=== PATIENT | female | born 1960 | race Caucasian/White ===

== ENCOUNTER 2017-09-25 19:20 | Emergency (ER) | payer OTHER ==
[2017-09-25] MEDS ORDERED: MEPERIDINE HCL 25 MG/0.5 ML ONE (21:45)
[2017-09-25] MEDS ORDERED: PROMETHAZINE 25 MG/ML VIAL ONE (21:46)
[2017-09-25] MEDS ORDERED: MEPERIDINE HCL 50 MG/ML AMP ONE (21:46)
[2017-09-25 21:56] LABS: Urine Blood NEGATIVE (NEG); Urine Glucose NEGATIVE (NEG); Urine Protein 2+ (NEG); Urine Specific Gravity 1.015 (1.005-1.030); Urine pH 5.5 (5.0-7.0)
--- NOTE | 2017-09-25 22:01 | RAD REPORT ---
EXAM DESCRIPTION: RAD - Pelvis - 09/25/2017 9:50 pm CLINICAL HISTORY: Right hip pain x4 days. COMPARISON: None. FINDINGS: Osteoarthritic changes are present involving both hips. No acute fracture, dislocation or AVN. No aggressive marrow lesion observed. IMPRESSION: No acute finding is seen.
--- NOTE | 2017-09-25 22:12 | EDPHYS ---
Physician Documentation [facility] Name: Lotus Pelaez Age: 57 yrs Sex: Female : 1960 Arrival Date: 09/25/2017 Time: 19:24 Bed 6 Private MD: ED Physician Onel Forbes HPI: 09/25 21:12 This 57 yrs old Female presents to ER via Wheelchair with complaints of Hip pkl Pain. 21:12 The patient or guardian reports pain. 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 denies any injury to the right hip. Historical: - Allergies: 19:48 Morphine; aj - PMHx: 19:48 Hypertension; Lung cancer mets; Renal Cancer; Hypothyroidism; aj - PSHx: 19:48 None; aj - Immunization history:: Adult Immunizations up to date. - Social history:: Smoking status: Patient/guardian denies using tobacco. ROS: 21:12 Eyes: Negative for injury, pain, redness, and discharge, ENT: Negative for injury, pkl pain, and discharge, Neck: Negative for injury, pain, and swelling, Cardiovascular: Negative for chest pain, palpitations, and edema, Respiratory: Negative for shortness of breath, cough, wheezing, and pleuritic chest pain, Abdomen/GI: Negative for abdominal pain, nausea, vomiting, diarrhea, and constipation, Back: Negative for injury and pain, : Negative for injury, bleeding, discharge, and swelling. 21:12 MS/extremity: Positive for pain, of the pelvis and right hip. 21:12 Skin: Negative for rash. 21:12 Neuro: Negative for altered mental status. Exam: 21:12 Head/Face: Normocephalic, atraumatic. Eyes: Pupils equal round and reactive to light, pkl extra-ocular motions intact. Lids and lashes normal. Conjunctiva and sclera are non-icteric and not injected. Cornea within normal limits. Periorbital areas with no swelling, redness, or edema. ENT: Nares patent. No nasal discharge, no septal abnormalities noted. Tympanic membranes are normal and external auditory canals are clear. Oropharynx with no redness, swelling, or masses, exudates, or evidence of obstruction, uvula midline. Mucous membranes moist. Neck: Trachea midline, no thyromegaly or masses palpated, and no cervical lymphadenopathy. Supple, full range of motion without nuchal rigidity, or vertebral point tenderness. No Meningismus. Chest/axilla: Normal chest wall appearance and motion. Nontender with no deformity. No lesions are appreciated. Cardiovascular: Regular rate and rhythm with a normal S1 and S2. No gallops, murmurs, or rubs. Normal PMI, no JVD. No pulse deficits. Respiratory: Lungs have equal breath sounds bilaterally, clear to auscultation and percussion. No rales, rhonchi or wheezes noted. No increased work of breathing, no retractions or nasal flaring. Abdomen/GI: Soft, non-tender, with normal bowel sounds. No distension or tympany. No guarding or rebound. No evidence of tenderness throughout. Back: No spinal tenderness. No costovertebral tenderness. Full range of motion. Skin: Warm, dry with normal turgor. Normal color with no rashes, no lesions, and no evidence of cellulitis. Neuro: Awake and alert, GCS 15, oriented to person, place, time, and situation. Cranial nerves II-XII grossly intact. Motor strength 5/5 in all extremities. Sensory grossly intact. Cerebellar exam normal. Normal gait. 21:12 Musculoskeletal/extremity: Extremities: grossly normal except: noted in the right hip: pain. Vital Signs: 19:48 BP 137 / 80; Pulse 112; Resp 20; Temp 99.6; Pulse Ox 96% on R/A; Weight 98.88 kg; aj Height 5 ft. 6 in. (167.64 cm); Pain 10/10; 22:10 BP 115 / 68; Pulse 100; Resp 18 S; Temp 98.6(TE); Pulse Ox 96% on R/A; Pain 5/10; bb 19:48 Body Mass Index 35.19 (98.88 kg, 167.64 cm) aj MDM: 20:59 Patient medically screened. pkl 22:10 Data reviewed: vital signs, nurses notes, radiologic studies, plain films. pkl 09/25 21:19 Order name: Urine Dipstick--Ancillary (enter results); Complete Time: 22:07 em1 09/25 21:10 Order name: Pelvis XRAY; Complete Time: 22:07 pkl 09/25 21:19 Order name: Urine Dipstick-Ancillary (obtain specimen); Complete Time: 21:19 em1 Administered Medications: 21:31 Drug: Demerol 75 mg Route: IM; Site: left gluteus; bb 22:12 Follow up: Response: Pain is decreased bb 21:31 Drug: Phenergan 12.5 mg Route: IM; Site: left gluteus; bb 22:12 Follow up: Response: No adverse reaction bb Disposition: 09/25/17 22:11 Discharged to Home. Impression: Pain right hip and pelvis. - Condition is Stable. - Prescriptions for Tylenol- Codeine #3 300-30 mg Oral Tablet - take 1 tablet by ORAL route every 8 hours As needed; 30 tablet. - Medication Reconciliation Form, Thank You Letter, Antibiotic Education, Prescription Opioid Use form. - Follow up: Private Physician; When: 2 - 3 days; Reason: Re-evaluation by your physician. - Problem is new. - Symptoms have improved. Signatures: Dispatcher [employer] Katt Bobby RN RN aj Lam, Pin, MD MD pkl Ballard, Brenda, RN RN bb Martinez, Eric em1
--- NOTE | 2017-09-25 22:12 | ER ---
Nurse's Notes [facility] Name: Lotus Pelaez Age: 57 yrs Sex: Female : 1960 Arrival Date: 09/25/2017 Time: 19:24 Bed 6 Private MD: Diagnosis: Pain right hip and pelvis Presentation: 09/25 19:47 Presenting complaint: Patient states: Right hip pain for 4 days. Denies fall. aj Transition of care: patient was not received from another setting of care. Onset of symptoms was September 21, 2017. Care prior to arrival: None. 19:47 Method Of Arrival: Wheelchair aj 19:47 Acuity: MAXWELL 4 aj Triage Assessment: 19:48 General: Appears in no apparent distress. comfortable, Behavior is calm, cooperative, aj appropriate for age. Pain: Complains of pain in right hip Pain currently is 10 out of 10 on a pain scale. 19:48 Neuro: Level of Consciousness is awake, alert, obeys commands, Oriented to person, aj place, time, situation. Cardiovascular: Capillary refill < 3 seconds in bilateral fingers Patient's skin is warm and dry. Respiratory: Airway is patent Respiratory effort is even, unlabored, Respiratory pattern is regular, symmetrical. Derm: Skin is intact, is healthy with good turgor, Skin is pink, warm \\T\\ dry. normal. Musculoskeletal: Circulation, motion, and sensation intact. Reports pain in right hip. Historical: - Allergies: 19:48 Morphine; aj - PMHx: 19:48 Hypertension; Lung cancer mets; Renal Cancer; Hypothyroidism; aj - PSHx: 19:48 None; aj - Immunization history:: Adult Immunizations up to date. - Social history:: Smoking status: Patient/guardian denies using tobacco. Screenin:19 Abuse screen: Denies threats or abuse. Nutritional screening: No deficits noted. bb Tuberculosis screening: No symptoms or risk factors identified. Fall Risk None identified. Assessment: 21:19 General: Appears in no apparent distress. uncomfortable, Behavior is calm, cooperative, bb Reports pain to right hip for several days. Pain: Complains of pain in right hip Pain does not radiate. Pain began 2-3 days ago. Neuro: Level of Consciousness is awake, alert, obeys commands, Oriented to person, place, time, situation. Cardiovascular: Heart tones S1 S2 present Capillary refill < 3 seconds Patient's skin is warm and dry. Respiratory: Airway is patent Respiratory effort is unlabored, Breath sounds are clear bilaterally. GI: No signs and/or symptoms were reported involving the gastrointestinal system. Derm: Skin is pink, warm \\T\\ dry. Musculoskeletal: Circulation, motion, and sensation intact. 22:09 Reassessment: Patient and/or family updated on plan of care and expected duration. Pain bb level reassessed. Patient is alert, oriented x 3, equal unlabored respirations, skin warm/dry/pink. Dr Forbes at bedside for discussion of findings and recommendation pt to be discharged home with prescription for pain medication and she should follow-up with her physician. Pt verbalized understanding of and agrees to plan of care discharge instructions given. 22:11 Reassessment: pt states pain has "eased up a little but I can still feel it". bb Vital Signs: 19:48 BP 137 / 80; Pulse 112; Resp 20; Temp 99.6; Pulse Ox 96% on R/A; Weight 98.88 kg; aj Height 5 ft. 6 in. (167.64 cm); Pain 10/10; 22:10 BP 115 / 68; Pulse 100; Resp 18 S; Temp 98.6(TE); Pulse Ox 96% on R/A; Pain 5/10; bb 19:48 Body Mass Index 35.19 (98.88 kg, 167.64 cm) aj ED Course: 19:24 Patient arrived in ED. al2 19:47 Triage completed. aj 19:48 Arm band placed on left wrist. Patient placed in waiting room, Patient notified of wait aj time. 20:55 Binta Ott, LATASHA is Primary Nurse. bb 20:59 Onel Forbes MD is Attending Physician. pkl 21:19 Patient has correct armband on for positive identification. Bed in low position. Call bb light in reach. Pulse ox on. NIBP on. 21:39 X-ray completed. Portable x-ray completed in exam room. Patient tolerated procedure kc2 well. 21:39 Pelvis XRAY In Process Unspecified. EDMS 22:13 No provider procedures requiring assistance completed. Patient did not have IV access bb during this emergency room visit. Patient maintains SpO2 saturation greater than 95% on room air. Administered Medications: 21:31 Drug: Demerol 75 mg Route: IM; Site: left gluteus; bb 22:12 Follow up: Response: Pain is decreased bb 21:31 Drug: Phenergan 12.5 mg Route: IM; Site: left gluteus; bb 22:12 Follow up: Response: No adverse reaction bb Outcome: 22:11 Discharge ordered by . macho 22:31 Discharged to home via wheelchair, with family. bb 22:31 Condition: stable 22:31 Discharge instructions given to patient, Instructed on discharge instructions, follow up and referral plans. medication usage, Demonstrated understanding of instructions, follow-up care, medications, Prescriptions given X 1. 22:31 Patient left the ED. bb Signatures: Dispatcher [employer] EDKatt Almaraz RN RN aj Lam, Pin, MD MD pkl Ballard, Brenda, RN RN bb Carr, Kelsie kc2 Marlena Alvarez2 Corrections: (The following items were deleted from the chart) 19:50 19:48 Pain: Complains of pain in right hip laisha interiano
[2017-09-25 22:39] VITALS: O2SAT 96
[2017-09-25 22:40] VITALS: BP 115/68; TEMP 98.6
== END 2017-09-25 22:31 | disposition home or self-care (01) ==
LOC: ER 19:20
DX: M25.551 Pain in right hip (principal); R10.2 Pelvic and perineal pain; I10 Essential (primary) hypertension; Z85.528 Personal history of other malignant neoplasm of kidney; Z85.118 Personal history of other malignant neoplasm of bronchus and lung; Z88.5 Allergy status to narcotic agent
CPT/HCPCS: 72170; 81003; 96372; 99284; J2175 ×2; J2550

== ENCOUNTER 2017-11-10 15:17 | Inpatient (IN) | payer OTHER ==
--- OUTSIDE RECORDS SUMMARY | 2017-11-10 15:19 | XMS REPORT | Clinical Summary ---
:1960 Author Organization [facility] Address [address] [place] [address] Phone Care Team Providers Name Role Phone Unavailable Primary Care Provider Unavailable Allergies No Known Allergies Current Medications Prescription Sig. Disp. Refills Start End Date Status Date carvedilol (COREG) Take 25 mg by Active 25 MG mouth 2 (two) tabletIndications: times daily with hypertension breakfast and dinner. lisinopril-hydroCHL Take 2 tablets by Active OROthiazide mouth daily. (AUSTEN GODFREY) 20-12.5 mg per tabletIndications: hypertension levothyroxine Take 50 mcg by Active (SYNTHROID, mouth Every LEVOTHROID) 50 MCG morning on an tabletIndications: empty stomach. hypothyroidism ondansetron Take by mouth Active (ZOFRAN) 8 MG every 8 (eight) tablet hours as needed for Nausea. morphine (MS Take 15 mg by Active CONTIN) 15 MG 12 hr mouth 2 (two) tablet times daily. dexamethasone Take 0.5 tablets 3 tablet 0 Active (DECADRON) 4 MG (2 mg total) by 8 tablet mouth daily with breakfast. dexamethasone Take 4 mg by 10/31/19 Discontinued (DECADRON) 4 MG mouth 2 (two) 18 tablet times daily with breakfast and dinner. HYDROcodone-acetami Take 1 tablet by 10/31/19 Discontinued nophen (NORCO mouth daily. 18 7.5-325) 7.5-325 mg per tablet docusate sodium Take 1 capsule 20 capsule 0 11/10/19 (COLACE) 100 MG (100 mg total) by 8 18 capsule mouth 2 (two) times daily as needed for Constipation for up to 10 days. HYDROcodone-acetami Take 2 tablets by 30 tablet 0 11/10/19 nophen (NORCO mouth every 6 8 18 5-325) 5-325 mg per (six) hours as tablet needed for up to 10 days. Max Daily Amount: 8 tablets Active Problems Problem Noted Date Compression fracture of L3 lumbar vertebra (HCC) 10/24/2017 Radiculopathy of lumbar region 10/24/2017 Acute mechanical low back pain, duration < 6 weeks 10/24/2017 Mass of spine 10/23/2017 Renal cell cancer (HCC) 10/23/2017 Metastatic cancer to spine (HCC) 10/23/2017 Encounters Date Type Specialty Care Team Description 10/26/2017 Procedure Pass 10/26/2017 Surgery Pablo Ga LAMINECTOMY,LUMBAR MD Melanie TUMOR/CYST DECOMPRESSION 10/25/2017 Anesthesia Event Alisson Gramajo CRNA 10/25/2017 Anesthesia Event Raad Landaverde MD 10/25/2017 Procedure Pass 10/25/2017 Surgery Virtual, Surgeon PROCEDURE DONE OUTSIDE OR 10/23/2017 - Hospital Encounter General Internal Pablo Ga Acute mechanical low 10/30/2017 Medicine MD Melanie back pain, duration < 6 weeks;Closed compression fracture of third lumbar vertebra, initial encounter (HCC);Metastatic cancer to spine (HCC) after 11/09/2016 Social History Tobacco Use Types Packs/Day Years Used Date Never Smoker Smokeless Tobacco: Never Used Sex Assigned at Date Recorded Not on file Last Filed Vital Signs Vital Sign Reading Time Taken Blood Pressure 99/52 10/30/2017 3:17 PM CDT Pulse 81 10/30/2017 3:17 PM CDT Temperature 36.9 C (98.5 F) 10/30/2017 3:17 PM CDT Respiratory Rate 18 10/30/2017 3:17 PM CDT Oxygen Saturation 96% 10/30/2017 3:17 PM CDT Inhaled Oxygen Concentration - - Weight 100.9 kg (222 lb 8 oz) 10/23/2017 12:42 PM CDT Height 167.6 cm (5' 6") 10/23/2017 12:42 PM CDT Body Mass Index 35.91 10/23/2017 12:42 PM CDT Plan of Treatment Not on file Implants Implanted Type Area Network Designer Device Expiration Model / Serial / Identifier Date Lot Graft Bone Orthoblend 10cc [id number] - [id number] Bone N/A: MEDTRONIC:SPINAL 06/14/2019 [id number] / Implanted: Qty: 1 on 10/26/2017 by Pablo Ga MD Spine GRAFT [id number] / Lumbar Bone Grft Orthoblend 5cc - [id number] Bone N/A: MEDTRONIC:SPINAL 04/20 [id number] / Implanted: Qty: 1 on 10/26/2017 by Pablo Ga MD Spine GRAFT [id number] / Lumbar Bone Chip Canc 1.7-10mm 30ml [id number] - [id number] Bone N/A: MUSCULOSKELETAL 07/29/2020 [id number] / Implanted: Qty: 1 on 10/26/2017 by Pablo Ga MD Spine TRANSPLANT FND [id number] / Lumbar Flseal Vhsd Full Strlprep 10ml [id number] - [id number] Cement/ N/A: PRETTY: BIOSCI 02/13/2019 [id number] / Implanted: Qty: 1 on 10/26/2017 by Pablo Ga MD Filler/ Spine / Adhesiv Lumbar [id number] e Cement Bone Kyphx Hv-R C01a - [id number] Cement/ N/A: MEDTRONIC:SPINAL C01A / Implanted: Qty: 1 on 10/26/2017 by Pablo Ga MD Filler/ Spine BIOLOGICS / Adhesiv Lumbar [id number] e Cement Ktmx Kyphx Hv-R C01b - [id number] Cement/ N/A: MEDTRONIC:SPINAL C01B / Implanted: Qty: 1 on 10/26/2017 by Pablo Ga MD Filler/ Spine BIOLOGICS / Adhesiv Lumbar [id number] e Cath Exp Silv [employer] Sales Representative 12.5cmx [id number] - [id number] Pain N/A: COLT 01/03/2020 [id number] / Implanted: Qty: 2 on 10/26/2017 by Pablo Ga MD Mgmt/St Spine / imulato Lumbar [id number] r Scr Mas Cc 6.5x30cc [id number] - [id number] Spine N/A: MEDTRONIC:SPINAL [id number] / Implanted: Qty: 1 on 10/26/2017 by Pablo Ga MD Spine BIOLOGICS / Lumbar [id number] Scr Set Ti Ns Brk Off 5.5 [id number] - [id number] Spine N/A: MEDTRONIC:SPINAL [id number] / Implanted: Qty: 5 on 10/26/2017 by Pablo Ga MD Spine BIOLOGICS / Lumbar [id number] 60mm Kurtis N/A: MEDTRONIC [id number] / Implanted: Qty: 2 on 10/26/2017 by Pablo Ga MD Spine / Lumbar [id number] 7.5 X 45 Mm Fenestrated Screw N/A: MEDTRONIC [id number] / Implanted: Qty: 2 on 10/26/2017 by Pablo Ga MD Spine / Lumbar [id number] 7.5 X 50 Mm Fenestrated Screw N/A: MEDTRONIC [id number] / Implanted: Qty: 2 on 10/26/2017 by Pablo Ga MD Spine / Lumbar [id number] Explanted Type Area Network Designer Device Expiration Model / Serial Identifier Date / Lot 7.5 X 50 Mm Fenestrated Screw N/A: Spine MEDTRONIC [id number] / Explanted: Qty: 1 on 10/26/2017 by Pablo aG MD Lumbar / [id number] Procedures Procedure Name Priority Date/Time Associated Diagnosis Comments PROCEDURE W/ C-ARM 10/26/2017 2:02 PM CDT 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) Case Notes BEVERLEY approved to add Special Needs (METRONIC, SOLERA FENESTRATED SCREWS, KYPHO SEMAN, REINIER TABLE,C-ARM, NEURO MONITORING:EMG, AQUAMANTYS, PATIENT IN PRONE POSITION) PROCEDURE W/ INTRAOPERATIVE 10/26/2017 2:02 PM CDT Metastasis to vertebral NEUROMONITORING column of unknown origin (HCC) Case Notes BEVERLEY approved to add Special Needs (METRONIC, SOLERA FENESTRATED SCREWS, KYPHO SEMAN, REINIER TABLE,C-ARM, NEURO MONITORING:EMG, AQUAMANTYS, PATIENT IN PRONE POSITION) LAMINECTOMY,LUMBAR TUMOR/CYST 10/26/2017 2:02 PM CDT Metastasis to vertebral DECOMPRESSION column of unknown origin (HCC) Case Notes BEVERLEY approved to add Special Needs (METRONIC, SOLERA FENESTRATED SCREWS, KYPHO SEMAN, REINIER TABLE,C-ARM, NEURO MONITORING:EMG, AQUAMANTYS, PATIENT IN PRONE POSITION) PROCEDURE DONE OUTSIDE OR 10/25/2017 2:00 PM CDT Metastasis to spinal cord (HCC) after 11/09/2016 Results CBC with platelet count + automated diff (10/29/2017 4:42 AM)Only the most recent of4 resultswithin the time period is included. Component Value Ref Range WBC 14.7 (H) 3.5 - 10.5 K/L RBC 2.68 (L) 3.93 - 5.22 M/L Hemoglobin 7.7 (L) 11.2 - 15.7 GM/DL Hematocrit 26.1 (L) 34.1 - 44.9 % MCV 97.4 (H) 79.4 - 94.8 fL MCH 28.7 25.6 - 32.2 pg MCHC 29.5 (L) 32.2 - 35.5 GM/DL RDW 17.2 (H) 11.7 - 14.4 % Platelets 197Comment: Discordant plt result 150 - 450 K/CU MM Compare to previous result, Clinical correlation recommended. MPV 9.5 9.4 - 12.3 fL nRBC 0 0 - 0 /100 WBC % Neutros 81 % % Lymphs 10 % % Monos 7 % % Eos 0 % % Baso 0 % # Neutros 11.91 (H) 1.56 - 6.13 K/L # Lymphs 1.40 1.18 - 3.74 K/L # Monos 1.09 (H) 0.24 - 0.36 K/L # Eos 0.03 (L) 0.04 - 0.36 K/L # Baso 0.01 0.01 - 0.08 K/L Immature Granulocytes-Relative 2 (H) 0 - 1 % Specimen Performing Laboratory Blood [facility] [address] [place] [address] CBC with platelet count + automated diff (10/29/2017 4:42 AM)Only the most recent of4 resultswithin the time period is included. Specimen Performing Laboratory Blood Narrative The following orders were created for panel order CBC with platelet count + automated diff. Procedure Abnormality Status --------- ------ CBC with platelet count ...[[id number]]AbnormalFinal result Please view results for these tests on the individual orders. Basic Metabolic Panel (10/29/2017 4:42 AM)Only the most recent of6 resultswithin the time period is included. Component Value Ref Range Sodium 134 (L) 136 - 145 meq/L Potassium 4.3 3.5 - 5.1 meq/L Chloride 104 98 - 107 meq/L CO2 20 (L) 22 - 29 meq/L BUN 16 7 - 21 mg/dL Creatinine 0.74 0.57 - 1.25 mg/dL Glucose 231 (H) 70 - 105 mg/dL Calcium 8.4 8.4 - 10.2 mg/dL EGFR 81Comment: ESTIMATED GFR IS NOT ACCURATE mL/min/1.73 sq m CREATININE CLEARANCE IN PREDICTING GLOMERULAR FILTRATION RATE. ESTIMATED GFR IS NOT APPLICABLE FOR DIALYSIS PATIENTS. Specimen Performing Laboratory [address] [address] POC-Glucose meter (10/28/2017 1:08 PM)Only the most recent of2 resultswithin the time period is included. Component Value Ref Range POC-Glucose Meter 198 (H)Comment: TESTED AT [address] 70 - 110 mg/[place] [address] Specimen Performing Laboratory [address] [address] Manual Differential (10/28/2017 5:07 AM) Component Value Ref Range % Neutros 81 % % Lymphs 7 % % Monos 7 % % Bands 5 0 - 10 % # Neutros 14.74 (H) 1.56 - 6.13 K/ul # Lymphs 1.27 1.18 - 3.74 K/ul # Monos 1.27 (H) 0.24 - 0.36 K/uL # Bands 0.91 (H) 0.00 - 0.80 K/uL Total Counted 100 WBC Morphology Normal Platelet Morphology Normal Polychromasia 1+ few Anisocytosis 1+ few Artifact Present Platelet Conc Adequate Specimen Performing Laboratory [address] [address] Narrative Received comment: User comments: Slide comments: XR spine lumbar 2 or 3 views (10/27/2017 4:45 PM) Specimen Performing Laboratory GE RIS Narrative FINAL REPORT EXAMINATION: AP and lateral views of the lumbar spine in the standing position INDICATION: Lumbar fusion, pathologic L3 fracture. IMPRESSION: Compared with intraoperative radiographs 10/26/2017 and preoperative lumbar spine CT 10/23/2017. As demonstrated on the prior radiographic study, the patient is status post a lumbar fusion with placement of bilateral pedicle screws at L2 and L4 and a right-sided pedicle screw at L3. The pedicle screws are secured by posterior fixation rods. Cement is also noted within the L2 and L4 vertebral bodies. The mild compression deformity - pathologic fracture of L3 is similar to previous. There is preservation of normal smooth lumbar lordosis. The intervertebral disc spaces are also relatively preserved in height. Signed: Femi Larsen MD Report Verified Date/Time:10/27/2017 22:28:54 Reading Location: [address] Reading Room Procedure Note Interface, External Ris In - 10/27/2017 10:31 PM CDT FINAL REPORT EXAMINATION: AP and lateral views of the lumbar spine in the standing position INDICATION: Lumbar fusion, pathologic L3 fracture. IMPRESSION: Compared with intraoperative radiographs 10/26/2017 and preoperative lumbar spine CT 10/23/2017. As demonstrated on the prior radiographic study, the patient is status post a lumbar fusion with placement of bilateral pedicle screws at L2 and L4 and a right-sided pedicle screw at L3. The pedicle screws are secured by posterior fixation rods. Cement is also noted within the L2 and L4 vertebral bodies. The mild compression deformity - pathologic fracture of L3 is similar to previous. There is preservation of normal smooth lumbar lordosis. The intervertebral disc spaces are also relatively preserved in height. Signed: Femi Larsen MD Report Verified Date/Time: 10/27/2017 22:28:54 Reading Location: [address] Reading Room Potassium (10/27/2017 8:50 AM) Component Value Ref Range Potassium 4.9 3.5 - 5.1 meq/L Specimen Performing Laboratory Blood [facility] [address] [address] CBC (Hemogram only) (10/27/2017 3:58 AM) Component Value Ref Range WBC 19.2 (H) 3.5 - 10.5 K/L RBC 3.52 (L) 3.93 - 5.22 M/L Hemoglobin 10.3 (L) 11.2 - 15.7 GM/DL Hematocrit 34.7 34.1 - 44.9 % MCV 98.6 (H) 79.4 - 94.8 fL MCH 29.3 25.6 - 32.2 pg MCHC 29.7 (L) 32.2 - 35.5 GM/DL RDW 17.8 (H) 11.7 - 14.4 % Platelets 340 150 - 450 K/CU MM MPV 9.2 (L) 9.4 - 12.3 fL nRBC 0 0 - 0 /100 WBC Specimen Performing Laboratory Blood [facility] [address] [address] [place] diamond grader in or 30 minute increments (10/26/2017 5:56 PM)Only the most recent of2 resultswithin the time period is included. Specimen Performing Laboratory GE RIS Narrative FINAL REPORT Intraoperative fluoroscopy 5 views 10/26/2017 at 1849 CLINICAL HISTORY: Instrument localization COMPARISON: 10/26/2017 at 1651 IMPRESSION: Please correlate imaging report findings with the procedure note prepared by Dr. Ga, as an intra-procedure imaging consultation was not requested. Reported fluoroscopy time: 0.4 minutes. Signed: Andreas Price MD Report Verified Date/Time:10/26/2017 18:15:50 Reading Location: [facility] Reading Room Procedure Note Interface, External Ris In - 10/30/2017 7:49 PM CDT FINAL REPORT Intraoperative fluoroscopy 5 views 10/26/2017 at 1849 CLINICAL HISTORY: Instrument localization COMPARISON: 10/26/2017 at 1651 IMPRESSION: Please correlate imaging report findings with the procedure note prepared by Dr. Ga, as an intra-procedure imaging consultation was not requested. Reported fluoroscopy time: 0.4 minutes. Signed: Andreas Price MD Report Verified Date/Time: 10/26/2017 18:15:50 Reading Location: [facility] Radiology Reading Room Tissue Exam (10/26/2017 5:38 PM) Component Value Ref Range Case Report Surgical Pathology Report Case: [id number] Authorizing Provider:Pablo Ga MDCollected: 10/26/2017 1738 Ordering Location: [facility] PERIOPERATIVE Received: 10/27/2017 0806 SERVICES Pathologist: Jeremias Patel MD Specimen:Vertebra, L3 VERTEBRAL BODY TUMOR DIAGNOSIS VERTEBRA, BODY, MASS, EXCISION: - METASTATIC RENAL CELL CARCINOMA, Signing Pathologist Direct Phone Line: [phone] COMMENT Sections show nests of cells with clear cytoplasm surrounded by delicate branching fibrovascular septae. Tumor cells are positive for PAX8, RCC, and focally positive for JUSTINE. Immunohistochemical staining is negative in tumor for GATA3, TTF1, HEPPAR1, CK7 and CK20. These findings confirm the diagnosis of metastatic renal cell carcinoma. CPT Code(s) 46324, 04271, 15015, 89779 X7 CLINICAL HISTORY Metastasis to vertebral column of unknown origin, renal cell carcinoma SPECIMEN SOURCE L3 vertebral body tumor GROSS DESCRIPTION Received fresh labeled "vertebra", description "L3 vertebral body tumor" is a 2.5 x 2.2 x 0.3 cm aggregate of pink-hoffman to mock-white, rubbery, soft and osseous tissue. The specimen is entirely submitted in cassette A1 for decalcification. DB/ew MICROSCOPIC DESCRIPTION Performed. The immunohistochemistry test was developed and its performance characteristics determined by [facility], Pathology Laboratory. It has not been cleared or approved by the U.S. Food and Drug Administration. The FDA has determined that such clearance or approval is not necessary. The test is used for clinical purposes. It should not be regarded as investigational or for research. This laboratory is certified under the Clinical Laboratory Improvement Amendments of 1988 (CLIA-88) as qualified to perform high complexity clinical laboratory testing. SPECIAL STUDIES The following special studies were performed on this case and the interpretation is incorporated in the diagnostic report above: The immunohistochemistry test was developed and its performance characteristics determined by [facility], Pathology Laboratory. It has not been cleared or approved by the U.S. Food and Drug Administration. The FDA has determined that such clearance or approval is not necessary. The test is used for clinical purposes. It should not be regarded as investigational or for research. This laboratory is certified under the Clinical Laboratory Improvement Amendments of 1988 (CLIA-88) as qualified to perform high complexity clinical laboratory testing. Specimen Performing Laboratory Tissue - Vertebra [facility] [address] Spinal Angiogram (10/25/2017 4:30 PM) Specimen Performing Laboratory GE RIS Narrative FINAL REPORT DATE: 10/25/2017 NAME: LOTUS PELAEZ ATTENDING: Beau Castillo MD SUPERVISOR WATER SOFTENER SERVICE: Selwyn Lai MD PREOPERATIVE DIAGNOSIS: Metastatic tumor to L3 body POSTOPERATIVE DIAGNOSIS: Metastatic tumor to L3 body PROCEDURES PERFORMED: 1.Diagnostic spinal angiogram 2.Embolization of vertebral body tumor ANESTHESIA: GENERAL COMPLICATIONS: None ESTIMATED BLOOD LOSS: Less than 15ml MATERIALS EMPLOYED: *5 Bangladeshi x 25cm sheath *5 Bangladeshi Mikaelsson catheter *Bentson guidewire *Terumo 0.035 LT glidewire *5 Bangladeshi Mynx device *Echeleon microcatheter *Maira Neurovascular Coils *Partical embolisate INDICATIONS: This is a 57-year-old woman who presented with severe and intractable lower back pain and left lower extremity pain. She has a history of metastatic renal cell carcinoma with a recently found metastasis to the L3 vertebral body. Dr. Pablo Malhotra, a spinal neurosurgeon, has planned for decompressive separation surgery. Given the diagnosis of metastatic renal cell carcinoma, the neurovascular surgery service was asked performed spinal angiography with possible embolization of the known spinal tumor at L3. The indications for the procedure as well as the risks, benefits and alternatives to the procedure were discussed with the patient and the family. The risks discussed included but were not limited to stroke, spinal cord and spinal nerves with loss of sensory, motor, and bladder function, hemorrhage, injury to the cervical femoral or aortic vessels, contrast reaction, kidney to toxicity, groin hematoma, weakness paralysis and even . They demonstrated understanding of the risk benefit profile and agreed to proceed. Procedure: After appropriate consent was obtained, the patient was brought into the angiographic suite and cardiopulmonary monitoring was placed. Both groins were prepped and draped in the typical sterile manner. A timeout was performed. A single wall puncture of the right common femoral artery was performed and a DSA angiogram confirmed good location of the puncture site. Over a Bentson glide wire, a 5 Bangladeshi sheath was inserted into the right common femoral artery and was maintained on heparinized flush throughout the remainder the procedure. Using coaxial technique, a diagnostic catheter was advanced over the Glidewire into the descending aorta, backbled, flushed in usual fashion and maintained on heparinized saline flush out the remainder the procedure. Using coaxial technique, the diagnostic Darryn catheter was advanced over the Glidewire into the descending aorta, back bled, flushed in usual fashion and maintained on heparinized flushed throughout remainder the procedure. Using coaxial technique, the catheter was advanced into the upper thoracic aorta and the wire removed. The catheter was back bled, flushed in usual fashion and then maintained on heparinized saline flush throughout the remainder the procedure. The catheter was informed. The segmental arteries were individually localized in DSA angiograms performed from L2 to L4 bilaterally. Each spinal level was meticulously counted from above and below to confirm the levels and was documented on a written table of the spinal levels by direct text. After careful reviewing the images, a tumor blush was confirmed at the L3 vertebral body.Decision was made to proceed with embolization of arterial feeders at the L3 level. An [place] microcatheter was placed coaxially through the Darryn catheter and navigated into the right L3 segmental artery. Selective angiography here was used with roadmap to navigate selectively into a branch supplying the tumor blush on this side. Using careful and clean technique, particle embolization was performed through the microcatheter. Intermittent runs through the microcatheter confirmed loss of the tumor blush. The microcatheter was then pulled back proximally to the origin of the segmental artery off of the aorta. Coils were then deployed to occlude the origin region of the segmental artery. This resulted in complete loss of tumor blush at this branch while preserving distal artery flow through collaterals. Similarly, the microcatheter was navigated into the left L3 segmental artery. Selective angiography with a roadmap was then used to navigate the microcatheter to branches directly supplying the remaining tumor blush at the L3 body. Using careful and clean technique, particle embolization was performed through the microcatheter. Intermittent runs through the microcatheter confirmed loss of tumor blush. The microcatheter was then pulled back more proximally shortly after the origin of the segmental artery off of the aorta. Coils were then deployed to occlude the region, resulting in complete loss of tumor blush at this branch while preserving distal artery flow through collaterals. The sheath was then removed in the vessel closed with a 5 Bangladeshi Mynx device and manual compression. The patient tolerated the procedure well and was transported from the [facility] in unchanged neurological status, without groin hematoma, and with good distal lobectomy pulses. The patient was then transferred to the recovery area to be monitored prior to transfer back to the floor in anticipation of surgery tomorrow. During the procedure, DSA angiograms performed for the following vessels: 1.Selective right L2 lumbar arteriogram. 2.Selective left L2 lumbar arteriogram. 3.Selective right L3 lumbar arteriogram. 4.Selective left L3 lumbar arteriogram. 5.Selective left L4 lumbar arteriogram. 6.Selective injection of the right common iliac artery. Findings: Selective right L2 lumbar arteriogram demonstrates normal branching with no evidence of arteriovenous malformation, arteriovenous fistula, or aneurysm. Selective left L2 lumbar arteriogram demonstrates normal branching with no evidence of arteriovenous malformation, arteriovenous fistula, or aneurysm. Selective right L3 lumbar arteriogram demonstrates filling of the right L4 segmental artery with tumor blush noted over the L3 vertebral body. Selective left L3 lumbar arteriogram demonstrates tumor blush over the L3 vertebral body. Selective right L4 lumbar arteriogram demonstrates normal branching with no evidence of arteriovenous malformation, arteriovenous fistula, or aneurysm. Selective injection of the left common iliac artery demonstrates normal branching with no evidence of arteriovenous malformation, arteriovenous fistula, or aneurysm. 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 2.Successful particle and coil embolization of arterial feeders to the L2 vertebral body tumor. 3.No technical or clinical complications. Signed: Beau Castillo MD Report Verified Date/Time:10/30/2017 07:27:21 Reading Location: [facility] [id number] Neuro Angio Reading Room Procedure Note Interface, External Ris In - 10/30/2017 7:29 AM CDT FINAL REPORT DATE: 10/25/2017 NAME: LOTUS PELAEZ ATTENDING: Beau Castillo MD SUPERVISOR WATER SOFTENER SERVICE: Selwyn Lai MD PREOPERATIVE DIAGNOSIS: Metastatic tumor to L3 body POSTOPERATIVE DIAGNOSIS: Metastatic tumor to L3 body PROCEDURES PERFORMED: 1.Diagnostic spinal angiogram 2.Embolization of vertebral body tumor ANESTHESIA: GENERAL COMPLICATIONS: None ESTIMATED BLOOD LOSS: Less than 15ml MATERIALS EMPLOYED: *5 Bangladeshi x 25cm sheath *5 Bangladeshi Mikaelsson catheter *Bentson guidewire *Terumo 0.035 LT glidewire *5 Bangladeshi Mynx device *Echeleon microcatheter *Maira Neurovascular Coils *Partical embolisate INDICATIONS: This is a 57-year-old woman who presented with severe and intractable lower back pain and left lower extremity pain. She has a history of metastatic renal cell carcinoma with a recently found metastasis to the L3 vertebral body. Dr. Pablo Malhotra, a spinal neurosurgeon, has planned for decompressive separation surgery. Given the diagnosis of metastatic renal cell carcinoma, the neurovascular surgery service was asked performed spinal angiography with possible embolization of the known spinal tumor at L3. The indications for the procedure as well as the risks, benefits and alternatives to the procedure were discussed with the patient and the family. The risks discussed included but were not limited to stroke, spinal cord and spinal nerves with loss of sensory, motor, and bladder function, hemorrhage, injury to the cervical femoral or aortic vessels, contrast reaction, kidney to toxicity, groin hematoma, weakness paralysis and even . They demonstrated understanding of the risk benefit profile and agreed to proceed. Procedure: After appropriate consent was obtained, the patient was brought into the angiographic suite and cardiopulmonary monitoring was placed. Both groins were prepped and draped in the typical sterile manner. A timeout was performed. A single wall puncture of the right common femoral artery was performed and a DSA angiogram confirmed good location of the puncture site. Over a [employer] glide wire, a 5 Bangladeshi sheath was inserted into the right common femoral artery and was maintained on heparinized flush throughout the remainder the procedure. Using coaxial technique, a diagnostic catheter was advanced over the Glidewire into the descending aorta, backbled, flushed in usual fashion and maintained on heparinized saline flush out the remainder the procedure. Using coaxial technique, the diagnostic Darryn catheter was advanced over the Glidewire into the descending aorta, back bled, flushed in usual fashion and maintained on heparinized flushed throughout remainder the procedure. Using coaxial technique, the catheter was advanced into the upper thoracic aorta and the wire removed. The catheter was back bled, flushed in usual fashion and then maintained on heparinized saline flush throughout the remainder the procedure. The catheter was informed. The segmental arteries were individually localized in DSA angiograms performed from L2 to L4 bilaterally. Each spinal level was meticulously counted from above and below to confirm the levels and was documented on a written table of the spinal levels by direct text. After careful reviewing the images, a tumor blush was confirmed at the L3 vertebral body. Decision was made to proceed with embolization of arterial feeders at the L3 level. An [place] microcatheter was placed coaxially through the Darryn catheter and navigated into the right L3 segmental artery. Selective angiography here was used with roadmap to navigate selectively into a branch supplying the tumor blush on this side. Using careful and clean technique, particle embolization was performed through the microcatheter. Intermittent runs through the microcatheter confirmed loss of the tumor blush. The microcatheter was then pulled back proximally to the origin of the segmental artery off of the aorta. Coils were then deployed to occlude the origin region of the segmental artery. This resulted in complete loss of tumor blush at this branch while preserving distal artery flow through collaterals. Similarly, the microcatheter was navigated into the left L3 segmental artery. Selective angiography with a roadmap was then used to navigate the microcatheter to branches directly supplying the remaining tumor blush at the L3 body. Using careful and clean technique, particle embolization was performed through the microcatheter. Intermittent runs through the microcatheter confirmed loss of tumor blush. The microcatheter was then pulled back more proximally shortly after the origin of the segmental artery off of the aorta. Coils were then deployed to occlude the region, resulting in complete loss of tumor blush at this branch while preserving distal artery flow through collaterals. The sheath was then removed in the vessel closed with a 5 Bangl[place]hi Mynx device and manual compression. The patient tolerated the procedure well and was transported from the [facility] in unchanged neurological status, without groin hematoma, and with good distal lobectomy pulses. The patient was then transferred to the recovery area to be monitored prior to transfer back to the floor in anticipation of surgery tomorrow. During the procedure, DSA angiograms performed for the following vessels: 1.Selective right L2 lumbar arteriogram. 2.Selective left L2 lumbar arteriogram. 3.Selective right L3 lumbar arteriogram. 4.Selective left L3 lumbar arteriogram. 5.Selective left L4 lumbar arteriogram. 6.Selective injection of the right common iliac artery. Findings: Selective right L2 lumbar arteriogram demonstrates normal branching with no evidence of arteriovenous malformation, arteriovenous fistula, or aneurysm. Selective left L2 lumbar arteriogram demonstrates normal branching with no evidence of arteriovenous malformation, arteriovenous fistula, or aneurysm. Selective right L3 lumbar arteriogram demonstrates filling of the right L4 segmental artery with tumor blush noted over the L3 vertebral body. Selective left L3 lumbar arteriogram demonstrates tumor blush over the L3 vertebral body. Selective right L4 lumbar arteriogram demonstrates normal branching with no evidence of arteriovenous malformation, arteriovenous fistula, or aneurysm. Selective injection of the left common iliac artery demonstrates normal branching with no evidence of arteriovenous malformation, arteriovenous fistula, or aneurysm. 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 2.Successful particle and coil embolization of arterial feeders to the L2 vertebral body tumor. 3.No technical or clinical complications. Signed: Beau Castillo MD Report Verified Date/Time: 10/30/2017 07:27:21 Reading Location: [facility] B1 Y026 Neuro Angio Reading Room /aPTT (10/25/2017 8:36 AM) Component Value Ref Range Protime 14.1 11.7 - 14.7 seconds INR 1.1 <=5.9 PTT 23.6 22.5 - 36.0 seconds Specimen Performing Laboratory Blood - Arm, [address] [address] Narrative RECOMMENDED COUMADIN/WARFARIN INR THERAPY RANGES STANDARD DOSE: 2.0 - 3.0 Includes: PROPHYLAXIS for venous thrombosis, systemic embolization; TREATMENT for venous thrombosis and/or pulmonary embolus. HIGH RISK: Target INR is 2.5-3.5 for patients with mechanical heart valves. TRANSFUSION SERVICE REPORT - SCAN (10/24/2017 5:56 PM)MR lumbar spine without & amp; with IV contrast (10/23/2017 8:45 PM) Specimen Performing Laboratory [employer] Narrative FINAL REPORT MRI lumbar spine with and without contrast. CLINICAL HISTORY: spine mass TECHNIQUE: MRI of the lumbar spine was performed, utilizing the following sequences: Sagittal T1, T2, STIR; axial T1 and T2; postcontrast sagittal and axial T1 with fat suppression. COMPARISON: CT performed on the same date. FINDINGS: There is a marrow replacing enhancing mass in the L3 vertebral body, associated with mild superior endplate compression deformity that is pathologic. There is extension of tumor into the ventral epidural space, causing moderate to severe narrowing of the central canal, left greater than right, and effacement of the left lateral recess. At the remaining levels, mild degenerative changes are present, without evidence of critical central canal or foraminal narrowing. There is a chronic appearing wedge-shaped compression fracture at T11, with mild bony retropulsion, and mild narrowing of the central canal. The visualized paraspinal soft tissues are unremarkable. Right kidney is absent. IMPRESSION: Enhancing lesion in the L3 vertebral body, associated with mild compression fracture and encroachment upon the thecal sac. Differential considerations include metastasis, lymphoma or myeloma. Tissue diagnosis is suggested. Absent right kidney. Signed: Chris Ramirez MD Report Verified Date/Time:10/24/2017 08:56:43 Reading Location: [facility] Radiology Reading Room Procedure Note Interface, External Ris In - 10/24/2017 8:58 AM CDT FINAL REPORT MRI lumbar spine with and without contrast. CLINICAL HISTORY: spine mass TECHNIQUE: MRI of the lumbar spine was performed, utilizing the following sequences: Sagittal T1, T2, STIR; axial T1 and T2; postcontrast sagittal and axial T1 with fat suppression. COMPARISON: CT performed on the same date. FINDINGS: There is a marrow replacing enhancing mass in the L3 vertebral body, associated with mild superior endplate compression deformity that is pathologic. There is extension of tumor into the ventral epidural space, causing moderate to severe narrowing of the central canal, left greater than right, and effacement of the left lateral recess. At the remaining levels, mild degenerative changes are present, without evidence of critical central canal or foraminal narrowing. There is a chronic appearing wedge-shaped compression fracture at T11, with mild bony retropulsion, and mild narrowing of the central canal. The visualized paraspinal soft tissues are unremarkable. Right kidney is absent. IMPRESSION: Enhancing lesion in the L3 vertebral body, associated with mild compression fracture and encroachment upon the thecal sac. Differential considerations include metastasis, lymphoma or myeloma. Tissue diagnosis is suggested. Absent right kidney. Signed: Chris Ramirez MD Report Verified Date/Time: 10/24/2017 08:56:43 Reading Location: [facility] Radiology Reading Room spine lumbar without IV contrast (10/23/2017 8:12 PM) Specimen Performing Laboratory [facility] Narrative FINAL REPORT CT lumbar spine INDICATION: Spine mass COMPARISON: No priors TECHNIQUE: Multiple axial CT images of the lumbar spine were obtained without contrast. Sagittal and coronal 2D reconstructions were provided as well. This exam was performed according to our departmental dose optimization program which includes automated exposure control, adjustment of the mA and/or kV according to patient's size and/or use of iterative reconstructive technique. FINDINGS: There is a lytic lesion occupying the L3 vertebral body, associated with mild pathologic superior endplate compression fracture. There is extension of tumor into the anterior epidural space, causing narrowing of the central canal, left greater than right, with apparent effacement of the left lateral recess. At the remaining levels, vertebral body height is maintained. Facet arthropathy is noted at multiple levels. Right kidney is absent. There is atherosclerotic calcification. IMPRESSION: Lytic lesion in L3 vertebral body associated with pathologic compression fracture. If patient has history of renal cell cancer, metastasis is highly suspected. Alternate considerations also include lymphoma, or myeloma. Signed: Chris Ramirez MD Report Verified Date/Time:10/23/2017 20:52:10 Reading Location: [facility] Radiology Reading Room Procedure Note Interface, External Ris In - 10/23/2017 8:54 PM CDT FINAL REPORT CT lumbar spine INDICATION: Spine mass COMPARISON: No priors TECHNIQUE: Multiple axial CT images of the lumbar spine were obtained without contrast. Sagittal and coronal 2D reconstructions were provided as well. This exam was performed according to our departmental dose optimization program which includes automated exposure control, adjustment of the mA and/or kV according to patient's size and/or use of iterative reconstructive technique. FINDINGS: There is a lytic lesion occupying the L3 vertebral body, associated with mild pathologic superior endplate compression fracture. There is extension of tumor into the anterior epidural space, causing narrowing of the central canal, left greater than right, with apparent effacement of the left lateral recess. At the remaining levels, vertebral body height is maintained. Facet arthropathy is noted at multiple levels. Right kidney is absent. There is atherosclerotic calcification. IMPRESSION: Lytic lesion in L3 vertebral body associated with pathologic compression fracture. If patient has history of renal cell cancer, metastasis is highly suspected. Alternate considerations also include lymphoma, or myeloma. Signed: Chris Ramirez MD Report Verified Date/Time: 10/23/2017 20:52:10 Reading Location: [facility] Radiology Reading Room Type and screen, automated (10/23/2017 1:58 PM) Component Value Ref Range ABO/RH AUTOMATED (BEAKER) O POSITIVE Ab Scrn NEGATIVE Specimen Performing Laboratory Blood - Arm, [address] [address] aPTT (10/23/2017 1:58 PM) Component Value Ref Range PTT 24.9 22.5 - 36.0 seconds Specimen Performing Laboratory Blood - Arm, [address] [address] Prothrombin time/INR (10/23/2017 1:58 PM) Component Value Ref Range Protime 14.9 (H) 11.7 - 14.7 seconds INR 1.2 <=5.9 Specimen Performing Laboratory Blood - Arm, [address] [address] Narrative RECOMMENDED COUMADIN/WARFARIN INR THERAPY RANGES STANDARD DOSE: 2.0 - 3.0 Includes: PROPHYLAXIS for venous thrombosis, systemic embolization; TREATMENT for venous thrombosis and/or pulmonary embolus. HIGH RISK: Target INR is 2.5-3.5 for patients with mechanical heart valves. after 11/09/2016
--- OUTSIDE RECORDS SUMMARY | 2017-11-10 15:19 | XMS REPORT ---
:1960 [facility] Address [address] [place] [address] [address]. [address] [place] [address] Care Team Providers Name Role Phone KYRA GONZALEZ Unavailable Unavailable Problems This patient has no known problems. Allergies, Adverse Reactions, Alerts This patient has no known allergies or adverse reactions. Medications This patient has no known medications. Results Test Description Test Time Test Comments Text Results Atomic Results Result Comments TISSUE EXAM 2017-11-02 Surgical Pathology Report 12:13:00 Case: [id number] Authorizing Provider: Kyra Gonzalez MD Collected: 10/26/2017 1738 Ordering Location: [facility] PERIOPERATIVE Received: 10/27/2017 0806 SERVICES Pathologist: Jeremias Patel MD Specimen: Vertebra, L3 VERTEBRAL BODY TUMOR VERTEBRA, BODY, MASS, EXCISION: - METASTATIC RENAL CELL CARCINOMA, Signing Pathologist Direct Phone Line: [phone] signed by Jeremias Patel MD on 11/02/2017 at 12:13 PMSections show nests of cells with clear cytoplasm surrounded by delicate branching fibrovascular septae. Tumor cells are positive for PAX8, RCC, and focally positive for JUSTINE. Immunohistochemical staining is negative in tumor for GATA3, TTF1, HEPPAR1, CK7 and CK20. These findings confirm the diagnosis of metastatic renal cell carcinoma. 99891, 82569, 81473, 33721 A3Ocxfxsogny to vertebral column of unknown origin, renal cell carcinomaL3 vertebral body tumorReceived fresh labeled "vertebra", description "L3 vertebral body tumor" is a 2.5 x 2.2 x 0.3 cm aggregate of pink-hoffman to mock-white, rubbery, soft and osseous tissue. The specimen is entirely submitted in cassette A1 for decalcification. DB/ewPerformed.The immunohistochemistry test was developed and its performance characteristics determined by [facility], Pathology Laboratory. It has not been cleared [...] qualified to perform high complexity clinical laboratory testing.The following special studies were performed on this case and the interpretation is incorporated in the diagnostic report above:The immunohistochemistry test was developed and its performance characteristics determined by [facility], Pathology Laboratory. It has not been cleared [...] to perform high complexity clinical laboratory testing. DARIEN, 2017-10-30 Reason for FINAL REPORT PATIENT ID: ANGIOGRAM, 07:27:00 exam:->preoperative [id number] DATE: 10/25/2017 NAME: SPINAL embolizationDr Satish RUDOLPH ATTENDING: Ted Castillo MD LIGHTING FIXTURE INSTALLER: Selwyn Lai MD PREOPERATIVE DIAGNOSIS: Metastatic tumor to L3 body POSTOPERATIVE DIAGNOSIS: Metastatic tumor to L3 body PROCEDURES PERFORMED: 1.Diagnostic spinal angiogram2.Embolization of vertebral body tumor ANESTHESIA: GENERAL COMPLICATIONS: None ESTIMATED BLOOD LOSS: Less than 15ml MATERIALS EMPLOYED:*5 Anguillan x 25cm sheath *5 [place]guillan Mikaelsson catheter*Bentson guidewire*Terumo 0.035 LT glidewire*5 Anguillan Mynx device*Echeleon microcatheter*[place] Neurovascular Coils*Partical embolisate INDICATIONS:This is a 57-year-old woman who presented with severe and intractable lower back pain and left lower extremity pain. She has a history of metastatic renal cell carcinoma with a recently found metastasis to the L3 vertebral body. Dr. Kyra Malhotra, a spinal neurosurgeon, has planned for [...] location of the puncture site. Over a OleOle glide wire, a 5 Anguillan sheath was inserted into the right common [...] arterial feeders at the L3 level. An Dish microcatheter was placed coaxially through the Darryn [...] in the vessel closed with a 5 Anguillan Mynx device and manual compression. The patient tolerated the procedure well and was transported from the [facility] in unchanged neurological status, without groin hematoma, and with good distal lobectomy pulses. The patient was then transferred to the recovery area to be monitored prior to transfer back to the floor in anticipation of surgery tomorrow. During the procedure, DSA angiograms performed for the following vessels: 1.Selective right L2 lumbar arteriogram.2.Selective left L2 lumbar arteriogram.3.Selective right L3 lumbar arteriogram.4.Selective left L3 lumbar arteriogram.5.Selective left L4 lumbar arteriogram.6.Selective injection of the right common iliac artery. [...] from branches of the bilateral L3 segmental arteries.2.Successful particle and coil embolization of arterial feeders to the L2 vertebral body tumor.3.No technical or clinical complications. Signed: Ted Castillo MDReport Verified Date/Time: 10/30/2017 07:27:21 Reading Location: [facility] Y026 Neuro Angio Reading Room W/PLT COUNT & AUTO DIFFERENTIAL 2017-10-29 06:42:00 Test Item Value Reference Range Comments WHITE BLOOD CELL COUNT (BEAKER) 14.7 K/ L 3.5-10.5 (test pfhf=842) RED BLOOD CELL COUNT (BEAKER) 2.68 M/ L 3.93-5.22 (test psfk=434) HEMOGLOBIN (BEAKER) (test 7.7 GM/DL 11.2-15.7 nzfo=461) HEMATOCRIT (BEAKER) (test 26.1 % 34.1-44.9 vtxq=927) MEAN CORPUSCULAR VOLUME (BEAKER) 97.4 fL 79.4-94.8 (test fqoh=038) MEAN CORPUSCULAR HEMOGLOBIN 28.7 pg 25.6-32.2 (BEAKER) (test kgfw=057) MEAN CORPUSCULAR HEMOGLOBIN CONC 29.5 GM/DL 32.2-35.5 (BEAKER) (test phsi=382) RED CELL DISTRIBUTION WIDTH 17.2 % 11.7-14.4 (BEAKER) (test wrss=800) PLATELET COUNT (BEAKER) (test 197 K/CU MM 150-450 Discordant plt result Compare effq=016) to previous result, Clinical correlation recommended. MEAN PLATELET VOLUME (BEAKER) 9.5 fL 9.4-12.3 (test xabu=161) NUCLEATED RED BLOOD CELLS 0 /100 WBC 0-0 (BEAKER) (test flxa=110) NEUTROPHILS RELATIVE PERCENT 81 % (BEAKER) (test palu=810) LYMPHOCYTES RELATIVE PERCENT 10 % (BEAKER) (test jiwr=745) MONOCYTES RELATIVE PERCENT 7 % (BEAKER) (test lyhl=835) EOSINOPHILS RELATIVE PERCENT 0 % (BEAKER) (test beyg=533) BASOPHILS RELATIVE PERCENT 0 % (BEAKER) (test cpmp=787) NEUTROPHILS ABSOLUTE COUNT 11.91 K/ L 1.56-6.13 (BEAKER) (test gowh=617) LYMPHOCYTES ABSOLUTE COUNT 1.40 K/ L 1.18-3.74 (BEAKER) (test zxok=445) MONOCYTES ABSOLUTE COUNT 1.09 K/ L 0.24-0.36 (BEAKER) (test iqma=579) EOSINOPHILS ABSOLUTE COUNT 0.03 K/ L 0.04-0.36 (BEAKER) (test nqmz=057) BASOPHILS ABSOLUTE COUNT 0.01 K/ L 0.01-0.08 (BEAKER) (test mogl=883) IMMATURE GRANULOCYTES-RELATIVE 2 % 0-1 PERCENT (BEAKER) (test cmpc=8974) BASIC METABOLIC [id number] 05:31:00 Test Item Value Reference Range Comments SODIUM (BEAKER) (test 134 meq/L 136-145 fdgb=113) POTASSIUM (BEAKER) (test 4.3 meq/L 3.5-5.1 uzti=662) CHLORIDE (BEAKER) (test 104 meq/L 98-107 vifh=270) CO2 (BEAKER) (test 20 meq/L 22-29 fkrv=831) BLOOD UREA NITROGEN 16 mg/dL 7-21 (BEAKER) (test qwuw=418) CREATININE (BEAKER) (test 0.74 mg/dL 0.57-1.25 tuna=042) GLUCOSE RANDOM (BEAKER) 231 mg/dL 70-105 (test vbty=966) CALCIUM (BEAKER) (test 8.4 mg/dL 8.4-10.2 oipk=410) EGFR (BEAKER) (test 81 mL/min/1.73 sq m ESTIMATED GFR IS NOT vqgr=3479) ACCURATE CREATININE CLEARANCE IN PREDICTING GLOMERULAR FILTRATION RATE. ESTIMATED GFR IS NOT APPLICABLE FOR DIALYSIS PATIENTS. POCT-GLUCOSE [id number] 13:11:00 Test Item Value Reference Range Comments POC-GLUCOSE METER (BEAKER) 198 mg/dL 70-110 TESTED AT [address] (test etvm=9149) [facility] [address] CBC W/PLT COUNT & AUTO [id number] 10:41:00 Test Item Value Reference Range Comments WHITE BLOOD CELL COUNT (BEAKER) (test tgzw=218) 18.2 K/ L 3.5-10.5 RED BLOOD CELL COUNT (BEAKER) (test zbit=528) 3.02 M/ L 3.93-5.22 HEMOGLOBIN (BEAKER) (test dlsw=399) 8.8 GM/DL 11.2-15.7 HEMATOCRIT (BEAKER) (test asuz=970) 29.9 % 34.1-44.9 MEAN CORPUSCULAR VOLUME (BEAKER) (test whor=569) 99.0 fL 79.4-94.8 MEAN CORPUSCULAR HEMOGLOBIN (BEAKER) (test 29.1 pg 25.6-32.2 tipy=386) MEAN CORPUSCULAR HEMOGLOBIN CONC (BEAKER) (test 29.4 GM/DL 32.2-35.5 ggqr=980) RED CELL DISTRIBUTION WIDTH (BEAKER) (test 17.6 % 11.7-14.4 oxbr=841) PLATELET COUNT (BEAKER) (test uvsa=207) 260 K/CU MM 150-450 MEAN PLATELET VOLUME (BEAKER) (test ikds=435) 9.4 fL 9.4-12.3 NUCLEATED RED BLOOD CELLS (BEAKER) (test 0 /100 WBC 0-0 vznv=634) POCT-GLUCOSE [id number] 09:51:00 Test Item Value Reference Range Comments POC-GLUCOSE METER (BEAKER) 195 mg/dL 70-110 TESTED AT [address] (test fzuz=4883) [facility] [address] BASIC METABOLIC [id number] 07:26:00 Test Item Value Reference Range Comments SODIUM (BEAKER) (test 132 meq/L 136-145 fnqu=773) POTASSIUM (BEAKER) (test 4.6 meq/L 3.5-5.1 Specimen slightly ulns=579) hemolyzed CHLORIDE (BEAKER) (test 101 meq/L 98-107 stuf=664) CO2 (BEAKER) (test 18 meq/L 22-29 gvke=989) BLOOD UREA NITROGEN 24 mg/dL 7-21 (BEAKER) (test nulj=651) CREATININE (BEAKER) (test 0.84 mg/dL 0.57-1.25 Specimen slightly bjtf=430) hemolyzed GLUCOSE RANDOM (BEAKER) 141 mg/dL 70-105 (test joiu=276) CALCIUM (BEAKER) (test 8.6 mg/dL 8.4-10.2 pneo=328) EGFR (BEAKER) (test 70 mL/min/1.73 sq m ESTIMATED GFR IS NOT dzny=4551) ACCURATE CREATININE CLEARANCE IN PREDICTING GLOMERULAR FILTRATION RATE. ESTIMATED GFR IS NOT APPLICABLE FOR DIALYSIS PATIENTS. RAD, SPINE, LUMBAR, 2 OR 3 [id number] 22:28:00Reason for exam:-> standing XR post opFINAL REPORT EXAMINATION: AP and lateral views of [...] previous. There is preservation of normal smooth lumbarlordosis. The intervertebral disc spaces are also relatively preserved in height. Signed: Hansel Larsen MDReport Verified Date/Time: 10/27/2017 22:28:54 Reading Location: [address] Reading Room Electronically signed by: HANSEL LARSEN M.D. on 09/2017 10:28 [id number] 09:38:00 Test Item Value Reference Range Comments POTASSIUM (BEAKER) (test aizm=698) 4.9 meq/L 3.5-5.1 BASIC METABOLIC [id number] 08:05:00 Test Item Value Reference Range Comments SODIUM (BEAKER) (test 138 meq/L 136-145 khwv=475) POTASSIUM (BEAKER) (test 5.4 meq/L 3.5-5.1 acir=297) CHLORIDE (BEAKER) (test 104 meq/L 98-107 eklu=063) CO2 (BEAKER) (test 24 meq/L 22-29 zowp=848) BLOOD UREA NITROGEN 26 mg/dL 7-21 (BEAKER) (test reis=365) CREATININE (BEAKER) (test 0.85 mg/dL 0.57-1.25 kzvx=068) GLUCOSE RANDOM (BEAKER) 155 mg/dL 70-105 (test domo=965) CALCIUM (BEAKER) (test 8.8 mg/dL 8.4-10.2 hqfx=417) EGFR (BEAKER) (test 69 mL/min/1.73 sq m ESTIMATED GFR IS NOT xyib=0668) ACCURATE CREATININE CLEARANCE IN PREDICTING GLOMERULAR FILTRATION RATE. ESTIMATED GFR IS NOT APPLICABLE FOR DIALYSIS PATIENTS. CBC (HEMOGRAM ONLY)2017-10-27 04:22:00 Test Item Value Reference Range Comments WHITE BLOOD CELL COUNT (BEAKER) (test kjtz=155) 19.2 K/ L 3.5-10.5 RED BLOOD CELL COUNT (BEAKER) (test ftrx=003) 3.52 M/ L 3.93-5.22 HEMOGLOBIN (BEAKER) (test qepq=109) 10.3 GM/DL 11.2-15.7 HEMATOCRIT (BEAKER) (test mwci=885) 34.7 % 34.1-44.9 MEAN CORPUSCULAR VOLUME (BEAKER) (test xlpj=288) 98.6 fL 79.4-94.8 MEAN CORPUSCULAR HEMOGLOBIN (BEAKER) (test 29.3 pg 25.6-32.2 twim=506) MEAN CORPUSCULAR HEMOGLOBIN CONC (BEAKER) (test 29.7 GM/DL 32.2-35.5 jzop=310) RED CELL DISTRIBUTION WIDTH (BEAKER) (test 17.8 % 11.7-14.4 lier=799) PLATELET COUNT (BEAKER) (test ajxz=358) 340 K/CU MM 150-450 MEAN PLATELET VOLUME (BEAKER) (test rwpo=530) 9.2 fL 9.4-12.3 NUCLEATED RED BLOOD CELLS (BEAKER) (test 0 /100 WBC 0-0 lxjk=574) [place], JOB SITE SUPERINTENDENT IN OR/30 MINUTE [id number] 18:15:00Reason for exam:-> BACK PAINFINAL REPORT Intraoperative fluoroscopy 5 views 10/26/2017 at 1849 CLINICAL HISTORY: Instrument localization COMPARISON: 10/26/2017 at 1651 IMPRESSION: Please correlate imaging report findings with the procedure note prepared by Dr. Gonzalez, as an intra-procedure imaging consultationwas not requested. Reported fluoroscopy time: 0.4 minutes. Signed: Andreas Harvey VerifiedDate/Time: 10/26/2017 18:15:50 Reading Location: [facility] Radiology Reading Room [place], JOB SITE SUPERINTENDENT IN OR/30 MINUTE [id number] 16:23: 00Reason for exam:->renal cell ca spinal lessionFINAL REPORT Intraoperative fluoroscopy 5 views 10/26/2017 4:21 PM CLINICAL HISTORY: Instrument localization COMPARISON: None available IMPRESSION: Please correlate imaging report findings with the procedure note prepared by Dr. Gonzalez, as an intra-procedure imaging consultation was not requested. Reported fluoroscopy time: 8 seconds. Signed: Andreas Harvey Verified Date/Time: 2017 16:23:03 Reading Location: [facility] Radiology Reading Room Electronicallysigned by: ANDREAS HARVEY M.D. on 10/26/2017 04:23 PMBASI METABOLIC [id number] 09:35:00 Test Item Value Reference Range Comments SODIUM (BEAKER) (test 138 meq/L 136-145 vhtk=234) POTASSIUM (BEAKER) (test 4.5 meq/L 3.5-5.1 bsgu=495) CHLORIDE (BEAKER) (test 100 meq/L 98-107 pegc=401) CO2 (BEAKER) (test 28 meq/L 22-29 bblk=760) BLOOD UREA NITROGEN 30 mg/dL 7-21 (BEAKER) (test rpuv=245) CREATININE (BEAKER) (test 0.86 mg/dL 0.57-1.25 oqwu=046) GLUCOSE RANDOM (BEAKER) 99 mg/dL 70-105 (test hhro=807) CALCIUM (BEAKER) (test 9.6 mg/dL 8.4-10.2 zygt=640) EGFR (BEAKER) (test 68 mL/min/1.73 sq m ESTIMATED GFR IS NOT pifv=3181) ACCURATE CREATININE CLEARANCE IN PREDICTING GLOMERULAR FILTRATION RATE. ESTIMATED GFR IS NOT APPLICABLE FOR DIALYSIS PATIENTS. BASIC METABOLIC [id number] 09:02:00 Test Item Value Reference Range Comments SODIUM (BEAKER) (test 141 meq/L 136-145 yqms=737) POTASSIUM (BEAKER) (test 5.4 meq/L 3.5-5.1 yzdp=810) CHLORIDE (BEAKER) (test 102 meq/L 98-107 kzaz=241) CO2 (BEAKER) (test 29 meq/L 22-29 ezfx=878) BLOOD UREA NITROGEN 30 mg/dL 7-21 (BEAKER) (test mvcx=788) CREATININE (BEAKER) (test 0.86 mg/dL 0.57-1.25 uqoj=975) GLUCOSE RANDOM (BEAKER) 140 mg/dL 70-105 (test iicx=760) CALCIUM (BEAKER) (test 9.9 mg/dL 8.4-10.2 dhwh=976) EGFR (BEAKER) (test 68 mL/min/1.73 sq m ESTIMATED GFR IS NOT xygp=3145) ACCURATE CREATININE CLEARANCE IN PREDICTING GLOMERULAR FILTRATION RATE. ESTIMATED GFR IS NOT APPLICABLE FOR DIALYSIS PATIENTS. [id number] 08:57:00 Test Item Value Reference Range Comments PROTIME (BEAKER) (test qvxw=890) 14.1 seconds 11.7-14.7 INR (BEAKER) (test ibsg=731) 1.1 <=5.9 PARTIAL THROMBOPLASTIN TIME (BEAKER) (test 23.6 seconds 22.5-36.0 uzml=040) RECOMMENDED COUMADIN/WARFARIN INR THERAPY RANGESSTANDARD DOSE: 2.0 - 3.0 Includes: PROPHYLAXIS forvenous thrombosis, systemic embolization; TREATMENT for venous thrombosis and/or pulmonary embolus.HIGH RISK: Target INR is 2.5-3.5 for patients with mechanical heart valves.CBC W/PLT COUNT & AUTO [id number] 08:50:00 Test Item Value Reference Range Comments WHITE BLOOD CELL COUNT (BEAKER) (test mgxg=106) 15.8 K/ L 3.5-10.5 RED BLOOD CELL COUNT (BEAKER) (test ktrp=280) 4.49 M/ L 3.93-5.22 HEMOGLOBIN (BEAKER) (test bilv=216) 12.9 GM/DL 11.2-15.7 HEMATOCRIT (BEAKER) (test btev=355) 43.0 % 34.1-44.9 MEAN CORPUSCULAR VOLUME (BEAKER) (test dwgp=527) 95.8 fL 79.4-94.8 MEAN CORPUSCULAR HEMOGLOBIN (BEAKER) (test 28.7 pg 25.6-32.2 iqpg=800) MEAN CORPUSCULAR HEMOGLOBIN CONC (BEAKER) (test 30.0 GM/DL 32.2-35.5 bosy=778) RED CELL DISTRIBUTION WIDTH (BEAKER) (test 17.1 % 11.7-14.4 vcwe=964) PLATELET COUNT (BEAKER) (test fdak=418) 403 K/CU MM 150-450 MEAN PLATELET VOLUME (BEAKER) (test hwme=118) 8.3 fL 9.4-12.3 NUCLEATED RED BLOOD CELLS (BEAKER) (test 0 /100 WBC 0-0 myhk=412) NEUTROPHILS RELATIVE PERCENT (BEAKER) (test 77 % kwke=573) LYMPHOCYTES RELATIVE PERCENT (BEAKER) (test 12 % eizg=203) MONOCYTES RELATIVE PERCENT (BEAKER) (test 8 % xegq=223) EOSINOPHILS RELATIVE PERCENT (BEAKER) (test 0 % qiox=507) BASOPHILS RELATIVE PERCENT (BEAKER) (test 0 % lbzc=791) NEUTROPHILS ABSOLUTE COUNT (BEAKER) (test 12.13 K/ L 1.56-6.13 oxex=830) LYMPHOCYTES ABSOLUTE COUNT (BEAKER) (test 1.85 K/ L 1.18-3.74 lypi=793) MONOCYTES ABSOLUTE COUNT (BEAKER) (test 1.24 K/ L 0.24-0.36 zpxh=156) EOSINOPHILS ABSOLUTE COUNT (BEAKER) (test 0.00 K/ L 0.04-0.36 xfei=585) BASOPHILS ABSOLUTE COUNT (BEAKER) (test 0.03 K/ L 0.01-0.08 zzqd=181) IMMATURE GRANULOCYTES-RELATIVE PERCENT (BEAKER) 4 % 0-1 (test waru=5434) MR, SPINE, LUMBAR, [id number] 08:56:00FINAL REPORT MRI lumbar spine with and without contrast. CLINICAL HISTORY: spine mass TECHNIQUE: MRI of the lumbar spine was performed, utilizing the following sequences: Sagittal T1, T2, STIR; axial T1 and T2; postcontrast sagittal and axial T1 with fat suppression. COMPARISON:CT performed on the same date. FINDINGS: There [...] is suggested. Absent right kidney. Signed: Chris Ramirezort Verified Date/Time: 10/24/2017 08:56:43 Reading Location: [facility] Radiology Reading Room CT, SPINE, LUMBAR, WO [id number] 20:52:00FINAL REPORT CT lumbar spine INDICATION: Spine mass COMPARISON: No priors TECHNIQUE: Multiple axial CT images of the lumbar spine were obtained without contrast. Sagittal and coronal 2D reconstructions were provided as well. This exam was performed according to our departmental dose optimization program which includes automated exposure control, adjustment of the mA and/or kV according to patient' s size and/or use of iterative reconstructive technique. [...] Alternate considerations also include lymphoma, or myeloma. Signed:Chris Ramirez Verified Date/Time: 10/23/2017 20:52:10 [facility] BASI METABOLIC [id number] 15:40:00 Test Item Value Reference Range Comments SODIUM (BEAKER) (test 138 meq/L 136-145 egnt=782) POTASSIUM (BEAKER) (test 4.4 meq/L 3.5-5.1 kjjq=230) CHLORIDE (BEAKER) (test 100 meq/L 98-107 grep=144) CO2 (BEAKER) (test 25 meq/L 22-29 dqyk=335) BLOOD UREA NITROGEN 31 mg/dL 7-21 (BEAKER) (test oqxo=517) CREATININE (BEAKER) (test 0.85 mg/dL 0.57-1.25 edti=338) GLUCOSE RANDOM (BEAKER) 172 mg/dL 70-105 (test pbde=359) CALCIUM (BEAKER) (test 9.7 mg/dL 8.4-10.2 hgte=702) EGFR (BEAKER) (test 69 mL/min/1.73 sq m ESTIMATED GFR IS NOT itkk=2429) ACCURATE CREATININE CLEARANCE IN PREDICTING GLOMERULAR FILTRATION RATE. ESTIMATED GFR IS NOT APPLICABLE FOR DIALYSIS PATIENTS. PROTHROMBIN [id number] 15:10:00 Test Item Value Reference Range Comments PROTIME (BEAKER) (test zrxz=125) 14.9 seconds 11.7-14.7 INR (BEAKER) (test yiqz=154) 1.2 <=5.9 RECOMMENDED COUMADIN/WARFARIN INR THERAPY RANGESSTANDARD DOSE: 2.0 - 3.0 Includes: PROPHYLAXIS forvenous thrombosis, systemic embolization; TREATMENT for venous thrombosis and/or pulmonary embolus.HIGH RISK: Target INR is 2.5-3.5 for patients with mechanical heart valves.[id number] 15:10:00 Test Item Value Reference Range Comments PARTIAL THROMBOPLASTIN TIME (BEAKER) (test 24.9 seconds 22.5-36.0 adkz=785) CBC W/PLT COUNT & AUTO [id number] 14:29:00 Test Item Value Reference Range Comments WHITE BLOOD CELL COUNT (BEAKER) (test ktow=414) 12.0 K/ L 3.5-10.5 RED BLOOD CELL COUNT (BEAKER) (test ovgh=511) 3.68 M/ L 3.93-5.22 HEMOGLOBIN (BEAKER) (test khem=308) 10.6 GM/DL 11.2-15.7 HEMATOCRIT (BEAKER) (test uwwn=069) 35.5 % 34.1-44.9 MEAN CORPUSCULAR VOLUME (BEAKER) (test wrvx=824) 96.5 fL 79.4-94.8 MEAN CORPUSCULAR HEMOGLOBIN (BEAKER) (test 28.8 pg 25.6-32.2 qmbk=338) MEAN CORPUSCULAR HEMOGLOBIN CONC (BEAKER) (test 29.9 GM/DL 32.2-35.5 lkjk=377) RED CELL DISTRIBUTION WIDTH (BEAKER) (test 17.1 % 11.7-14.4 ytar=292) PLATELET COUNT (BEAKER) (test qmed=788) 375 K/CU MM 150-450 MEAN PLATELET VOLUME (BEAKER) (test qqyb=425) 8.8 fL 9.4-12.3 NUCLEATED RED BLOOD CELLS (BEAKER) (test 1 /100 WBC 0-0 jajr=806) NEUTROPHILS RELATIVE PERCENT (BEAKER) (test 77 % uecr=052) LYMPHOCYTES RELATIVE PERCENT (BEAKER) (test 12 % xjge=835) MONOCYTES RELATIVE PERCENT (BEAKER) (test 6 % jskb=891) EOSINOPHILS RELATIVE PERCENT (BEAKER) (test 0 % pufy=926) BASOPHILS RELATIVE PERCENT (BEAKER) (test 1 % tiep=106) NEUTROPHILS ABSOLUTE COUNT (BEAKER) (test 9.21 K/ L 1.56-6.13 cwxi=836) LYMPHOCYTES ABSOLUTE COUNT (BEAKER) (test 1.38 K/ L 1.18-3.74 lttu=817) MONOCYTES ABSOLUTE COUNT (BEAKER) (test 0.70 K/ L 0.24-0.36 awin=095) EOSINOPHILS ABSOLUTE COUNT (BEAKER) (test 0.00 K/ L 0.04-0.36 vouj=884) BASOPHILS ABSOLUTE COUNT (BEAKER) (test 0.06 K/ L 0.01-0.08 wdkr=421) IMMATURE GRANULOCYTES-RELATIVE PERCENT (BEAKER) 5 % 0-1 (test pzqm=7598)
--- NOTE | 2017-11-10 15:37 | EKG ---
Test Date: 2017-11-10 Test Time: 15:26:58 [employer] Manager: JONY MEASUREMENT RESULTS: Intervals: Rate: 97 MS: 160 QRSD: 84 QT: 344 QTc: 436 [place]: P: 36 MS: 160 QRS: 16 T: 39 INTERPRETIVE STATEMENTS: Normal sinus rhythm Possible Left atrial enlargement Borderline ECG Compared to ECG 06/14/2017 03:32:41 No significant changes Electronically Signed On 11-10-17 15:36:22 CDT by Hawk Cortez
[2017-11-10] MEDS ORDERED: NA CHLORIDE 0.9% 1,000 ML ONE (15:41)
[2017-11-10] MEDS ORDERED: ONDANSETRON 4 MG/2 ML VIAL ONE (15:41)
[2017-11-10] MEDS ORDERED: FENTANYL CITR 100 MCG/2 ML ONE ×2 (15:41→19:59)
--- NOTE | 2017-11-10 15:50 | RAD REPORT ---
EXAM DESCRIPTION: RAD - Chest Single View - 11/10/2017 3:37 pm CLINICAL HISTORY: Chest pain. COMPARISON: 03/10/2016 FINDINGS: Portable technique limits examination quality. The lungs are grossly clear. Fullness seen in the upper mediastinum is likely related to the patient' s known metastatic disease/adenopathy in this region. The heart is mildly prominent in size.No fractu re or aggressive bone lesion.
[2017-11-10 16:09] LABS: Absolute Neutrophil 7.9 K/uL (1.8-8.0); Basophils % 0.2 % (0-1.3); Eosinophils % 0.4 % (0-4.4); Hematocrit 31.1 % (36.0-45.0); Lymphocytes % 17.9 % (15.3-44.8); MCH 27.7 pg (27.0-35.0); MCV 90.3 fL (80-100); MPV 6.5 fL (7.6-11.3); Monocytes % 9.1 % (3.3-12.3); RBC Red Blood Cell Count 3.45 M/uL (3.86-4.86)
[2017-11-10 16:13] LABS: Protime INR 1.04
[2017-11-10 16:43] LABS: Potassium 4.5 mEq/L (3.6-5.0)
[2017-11-10 16:49] LABS: Albumin 2.3 g/dL (3.2-5.5); Bilirubin Direct 0.1 mg/dL (0-0.2); Bilirubin Total 0.5 mg/dL (0.3-1.2); Magnesium 2.3 mg/dL (1.8-2.5); Protein, Total 5.9 g/dL (6.0-8.3)
[2017-11-10 16:51] LABS: CKMB Creatine Kinase MB 0.6 ng/ml (0.3-4.0)
--- NOTE | 2017-11-10 19:38 | RAD REPORT ---
EXAM DESCRIPTION: CT - Chest For Pe Angio - 11/10/2017 6:20 pm CLINICAL HISTORY: Chest pain. COMPARISON: 10/05/2017, 06/14/2017 TECHNIQUE: CT angiogram of the pulmonary arteries was performed with MIP. All CT scans are performed using dose optimization technique as appropriate and may include automated exposure control or mA/KV adjustment according to patient size. FINDINGS: No evidence of pulmonary thromboembolism. Narrowing of the left lower lobe pulmonary arter y branches noted resulting from mass effect from bulky adenopathy in the mediastinum. No acute aortic finding demonstrated. Moderate atelectasis is seen in left lung base. A large irregular mass is present in the left lower l obe confluent with large subcarinal mass. The mass demonstrate significant enlargement since the prio r study, currently measuring 6.0 x 5.3 cm, previously 4.9 x 4.5 cm. The subcarinal mass has increased in size, currently measuring 7.5 x 3.0 cm, previously 4.9 x 3.2 cm. Pretracheal mass is enlarged in size currently measuring 4.5 x 4.3 cm, previously 2.9 x 2.9 cm. Additional large masses are seen in t he upper mediastinum, largest measuring 4.5 x 2.7 cm, previously 4.0 x 1.8 cm. No significant pericardial or pleural fluid. No concerning bony finding. IMPRESSION: No evidence of pulmonary thromboembolism. 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
--- NOTE | 2017-11-10 19:44 | RAD REPORT ---
EXAM DESCRIPTION: CTAbdomen Pelvis W Contrast - 11/10/2017 6:20 pm CLINICAL HISTORY: Abdominal pain. Metastatic disease. COMPARISON: 10/05/2017 TECHNIQUE: Biphasic CT imaging of the abdomen and pelvis was performed with 100 ml non-ionic IV cont rast. All CT scans are performed using dose optimization technique as appropriate and may include automated exposure control or mA/KV adjustment according to patient size. FINDINGS: Irregular mass in the posterior left lung base fully detailed on dedicated CT chest study. The liver demonstrates mild fatty infiltration. No focal mass or biliary dilatation. The spleen, panc reas, adrenal glands normal. The right kidney appears absent. The left kidney appears normal. No bowel obstruction, free air, free fluid or abscess. The appendix is normal. No evidence of signi ficant lymphadenopathy. 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 Hardware is in place spanning this leve l. IMPRESSION: No acute finding is demonstrated since 10/05/2017.
--- NOTE | 2017-11-10 20:00 | ER ---
Nurse's Notes [facility] Name: Lotus Pelaez Age: 57 yrs Sex: Female : 1960 Arrival Date: 11/10/2017 Time: 15:19 Bed 14 Private MD: Diagnosis: Chest pain, unspecified Presentation: 11/10 15:20 Presenting complaint: EMS states: called for pt complaining of chest pain (mid sternal, hj non radiating), S/P L3-L5 fusion; reports SOB;. Transition of care: patient was not received from another setting of care. Onset of symptoms was November 09, 2017. Initial Sepsis Screen: Does the patient meet any 2 criteria? No. Patient's initial sepsis screen is negative. Does the patient have a suspected source of infection? No. Patient's initial sepsis screen is negative. Care prior to arrival: Medication(s) given: ASA, 325 mg, x 1, Normal saline infusion, 500 mL, IV initiated. 20 GA, in the left wrist. 15:20 Method Of Arrival: Ambulatory 15:20 Acuity: MAXWELL 3 Triage Assessment: 15:23 General: Appears in no apparent distress. uncomfortable, Behavior is calm, cooperative, hj appropriate for age. Pain: Complains of pain in chest Pain does not radiate. Cardiovascular: Capillary refill < 3 seconds Patient's skin is warm and dry. Rhythm is regular Chest pain. Respiratory: Airway is patent Respiratory effort is even, unlabored, Respiratory pattern is regular, symmetrical. GI: No signs and/or symptoms were reported involving the gastrointestinal system. : No signs and/or symptoms were reported regarding the genitourinary system. Derm: No signs and/or symptoms reported regarding the dermatologic system. Historical: - Allergies: 15:28 Morphine; - Home Meds: 15:28 carvedilol 25 mg oral tab 1 tab 2 times per day [Active]; lisinopril-hydrochlorothiazide 20-12.5 mg oral tab 1 tab once daily [Active]; Synthroid 50 mcg Oral tab 1 tab once daily [Active]; Zofran (as hydrochloride) 8 mg Oral tab 1 tab every 8 hours [Active]; dexamethasone 4 mg oral tab 1 tab once daily [Active]; hydrocodone-acetaminophen 7.5-325 mg Oral tab 1 tab every 6 hours [Active]; morphine 15 mg Oral tab 1 tab every 4 hours [Active]; - PMHx: 15:28 Hypertension; Hypothyroidism; Lung cancer mets; Renal Cancer; hj - PSHx: 15:28 back surgery; hj - Immunization history:: Adult Immunizations up to date. - Social history:: Smoking status: Patient/guardian denies using tobacco, Patient/guardian denies using alcohol. Screenin:23 Abuse screen: Denies threats or abuse. Denies injuries from another. Nutritional hj screening: No deficits noted. Tuberculosis screening: No symptoms or risk factors identified. Fall Risk None identified. Assessment: 15:29 Pain: Pain began 1 day ago. hj 16:30 Reassessment: Patient and/or family updated on plan of care and expected duration. Pain hj level reassessed. Patient is alert, oriented x 3, equal unlabored respirations, skin warm/dry/pink. family in room; awaiting results;. 17:27 Reassessment: Patient and/or family updated on plan of care and expected duration. Pain hj level reassessed. Patient is alert, oriented x 3, equal unlabored respirations, skin warm/dry/pink. awaiting POC;. 17:57 Reassessment: Patient and/or family updated on plan of care and expected duration. Pain hj level reassessed. Patient is alert, oriented x 3, equal unlabored respirations, skin warm/dry/pink. wheeled to CT;. 18:32 Reassessment: Patient and/or family updated on plan of care and expected duration. Pain rv level reassessed. Patient is alert, oriented x 3, equal unlabored respirations, skin warm/dry/pink. awaiting results from CT;. 19:08 General: Appears in no apparent distress. comfortable, Behavior is calm, cooperative, ao appropriate for age. Pain: Complains of pain in back Pain does not radiate. Pain currently is 7 out of 10 on a pain scale. Neuro: Level of Consciousness is awake, alert, obeys commands, Oriented to person, place, time, situation, Appropriate for age Moves all extremities. Speech is normal, Facial symmetry appears normal. Cardiovascular: Reports Patient's skin is warm and dry. Respiratory: Airway is patent Respiratory effort is even, unlabored, Respiratory pattern is regular, symmetrical. GI: Abdomen is obese. : No signs and/or symptoms were reported regarding the genitourinary system. EENT: No signs and/or symptoms were reported regarding the EENT system. Derm: No signs and/or symptoms reported regarding the dermatologic system. Musculoskeletal: No signs and/or symptoms reported regarding the musculoskeletal system. 20:30 Reassessment: Patient appears in no apparent distress at this time. Patient and/or ao family updated on plan of care and expected duration. Pain level reassessed. Patient is alert, oriented x 3, equal unlabored respirations, skin warm/dry/pink. 21:30 Reassessment: Patient appears in no apparent distress at this time. Patient and/or ao family updated on plan of care and expected duration. Pain level reassessed. Patient is alert, oriented x 3, equal unlabored respirations, skin warm/dry/pink. Waiting on room assignment. Vital Signs: 15:24 BP 104 / 64; Pulse 99; Resp 18; Temp 98.1(TE); Pulse Ox 98% on R/A; Weight 99.79 kg; hj Height 5 ft. 6 in. (167.64 cm); 16:30 BP 106 / 68; Pulse 95; Resp 18; Pulse Ox 100% on R/A; hj 17:28 BP 110 / 70; Pulse 92; Resp 18; Pulse Ox 100% on R/A; hj 18:32 BP 106 / 65; Pulse 72; Resp 18; Pulse Ox 100% on R/A; rv 19:12 BP 122 / 66; Pulse 81; Resp 16; Pulse Ox 100% ; Pain 7/10; ao 20:00 BP 124 / 78; Pulse 100; Resp 18; Pulse Ox 99% on R/A; oe 21:00 BP 116 / 64; Pulse 96; Resp 16; Pulse Ox 100% on R/A; oe 22:12 BP 109 / 70; Pulse 94; Resp 18; Pulse Ox 98% on R/A; Pain 0/10; ao 15:24 Body Mass Index 35.51 (99.79 kg, 167.64 cm) ED Course: 15:19 Patient arrived in ED. hj 15:19 Rashaad Lee PA is PHCP. cp 15:19 Cam Singh MD is Attending Physician. cp 15:23 Triage completed. hj 15:25 Arm band placed on right wrist. hj 15:29 Patient has correct armband on for positive identification. Placed in gown. Bed in low hj position. Call light in reach. Side rails up X 1. lace roller on. Pulse ox on. NIBP on. 15:29 Patient maintains SpO2 saturation greater than 95% on room air. hj 15:30 Sky Galvez RN is Primary Nurse. hj 15:36 X-ray completed. Portable x-ray completed in exam room. Patient tolerated procedure ml well. 15:37 XRAY Chest (1 view) In Process Unspecified. EDMS 15:38 EKG done, by aviation survival technician. reviewed by Rashaad REA. dt2 15:38 Maintain EMS IV. Dressing intact. Good blood return noted. Site clean \T\ dry. Gauge \T\ hj site: 20g L forearm;. 17:[address] em2 17:46 Radiology exam delayed due to Pt. undecided if she wants to have CT exam done. kw1 18:16 Inserted saline lock: 22 gauge in right antecubital area, using aseptic technique. rv 18:20 CT Chest For PE Angio In Process Unspecified. EDMS 18:20 CT Abd/Pelvis - W/Contrast: no oral contrast In Process Unspecified. EDMS 19:17 Report received from LATASHA Swanson. ao 19:33 Primary Nurse role handed off by Sky Galvez RN rg2 19:50 Brown Guerrero RN is Primary Nurse. ao 19:59 Joshua Barrios MD is Hospitalizing Provider. cp 22:29 No provider procedures requiring assistance completed. Patient admitted, IV remains in ao place. Administered Medications: 15:21 Drug: NS 0.9% 500 ml Route: IV; Rate: bolus; Site: left forearm; hj 22:22 Follow up: IV Status: Completed infusion; IV Intake: 1000ml ao 15:22 Drug: fentaNYL (PF) 25 mcg Route: IVP; Site: left wrist; hj 16:15 Follow up: Response: No adverse reaction hj 15:22 Drug: Zofran 4 mg Route: IVP; Site: left forearm; hj 16:15 Follow up: Response: No adverse reaction hj 15:48 Drug: NS 0.9% 1000 ml Route: IV; Rate: 100 ml/hr; Site: left forearm; hj 22:23 Follow up: IV Status: Infusion continued upon admission ao 20:07 Drug: fentaNYL (PF) 25 mcg Route: IVP; Site: left antecubital; ao 22:25 Follow up: Response: No adverse reaction ao 21:51 Drug: fentaNYL (PF) 25 mcg Route: IVP; Site: left antecubital; ao 22:22 Follow up: Response: No adverse reaction ao Intake: 22:22 IV: 1000ml; Total: 1000ml. ao Outcome: 19:59 Decision to Hospitalize by Provider. cp 22:29 Admitted to Tele accompanied by tech, room 415. ao 22:29 Condition: stable 22:29 Instructed on the need for admit. 22:30 Patient left the ED. ao Signatures: Dispatcher [employer] EDMS Sarah Edmondson rg2 Shameka Barrera Enrique em2 Sky Galvez RN RN Rashaad Kumar PA PA cp Ortiz, Alex, RN RN ao Bryon Marc Kimberly kw1 Peace Fraser dt2 Ritesh Sanford RN RN rv Corrections: (The following items were deleted from the chart) 22:12 21:30 BP 109 / 70; Pulse 94bpm; Resp 18bpm; Pulse Ox 98% RA; Pain 0/10; ao ao
--- NOTE | 2017-11-10 20:00 | EDPHYS ---
Physician Documentation [facility] Name: Lotus Pelaez Age: 57 yrs Sex: Female : 1960 Arrival Date: 11/10/2017 Time: 15:19 Bed 14 Private MD: ED Physician Cam Singh HPI: 11/10 15:30 This 57 yrs old Female presents to ER via Ambulatory with complaints of Chest cp Pain. 15:30 The patient or guardian reports chest pain that is located primarily in the substernal cp area. 15:30 Onset: today. cp 15:30 The pain does not radiate. cp 15:30 Associated signs and symptoms: Pertinent positives: shortness of breath, constipation, cp Pertinent negatives: cough, vomiting. The chest pain is described as a pressure. Duration: The patient or guardian reports a single episode, that is still ongoing, and worsening. Historical: - Allergies: 15:28 Morphine; hj - Home Meds: 15:28 carvedilol 25 mg oral tab 1 tab 2 times per day [Active]; lisinopril-hydrochlorothiazide 20-12.5 mg oral tab 1 tab once daily [Active]; Synthroid 50 mcg Oral tab 1 tab once daily [Active]; Zofran (as hydrochloride) 8 mg Oral tab 1 tab every 8 hours [Active]; dexamethasone 4 mg oral tab 1 tab once daily [Active]; hydrocodone-acetaminophen 7.5-325 mg Oral tab 1 tab every 6 hours [Active]; morphine 15 mg Oral tab 1 tab every 4 hours [Active]; - PMHx: 15:28 Hypertension; Hypothyroidism; Lung cancer mets; Renal Cancer; hj - PSHx: 15:28 back surgery; hj - Immunization history:: Adult Immunizations up to date. - Social history:: Smoking status: Patient/guardian denies using tobacco, Patient/guardian denies using alcohol. ROS: 15:33 Constitutional: Negative for body aches, chills, fever, poor PO intake. cp 15:33 Eyes: Negative for injury, pain, redness, and discharge. cp 15:33 ENT: Negative for drainage from ear(s), ear pain, sore throat, difficulty swallowing, difficulty handling secretions. 15:33 Cardiovascular: Positive for chest pain, Negative for edema, palpitations. 15:33 Respiratory: Positive for shortness of breath, Negative for cough, wheezing. 15:33 Abdomen/GI: Positive for constipation, Negative for vomiting, diarrhea, black/tarry stool, rectal bleeding. 15:33 MS/extremity: Negative for injury or acute deformity. 15:33 Skin: Negative for cellulitis, rash. 15:33 Neuro: Negative for altered mental status, headache, weakness. 15:33 All other systems are negative. Exam: 15:33 ECG was reviewed by the Attending Physician. cp 15:40 Constitutional: The patient appears in no acute distress, alert, awake, cp non-diaphoretic, non-toxic, well developed, well nourished, uncomfortable. 15:40 Head/Face: Normocephalic, atraumatic. Eyes: Pupils equal round and reactive to light, cp extra-ocular motions intact. Lids and lashes normal. Conjunctiva and sclera are non-icteric and not injected. Cornea within normal limits. Periorbital areas with no swelling, redness, or edema. ENT: Nares patent. No nasal discharge, no septal abnormalities noted. Tympanic membranes are normal and external auditory canals are clear. Oropharynx with no redness, swelling, or masses, exudates, or evidence of obstruction, uvula midline. Mucous membranes moist. Neck: Trachea midline, no thyromegaly or masses palpated, and no cervical lymphadenopathy. Supple, full range of motion without nuchal rigidity, or vertebral point tenderness. No Meningismus. 15:40 Chest/axilla: Inspection: normal, Palpation: crepitus, is not appreciated, tenderness, is not appreciated. 15:40 Cardiovascular: Rate: normal, Rhythm: regular, Pulses: Pulses are 2+ in right radial artery and left radial artery. Edema: is not appreciated, JVD: is not appreciated. 15:40 Respiratory: the patient does not display signs of respiratory distress, Respirations: labored breathing, is not present, intercostal retractions, are absent, shallow respirations, that is mild, splinting, is not noted, tachypnea, is not appreciated, Breath sounds: decreased breath sounds, that are mild, throughout, stridor, is not appreciated, wheezing: is not appreciated. 15:40 Abdomen/GI: Inspection: abdomen appears normal, Bowel sounds: active, all quadrants, Palpation: soft, in all quadrants, mild abdominal tenderness, in all quadrants, rebound tenderness, is not appreciated, voluntary guarding, is not appreciated, involuntary guarding, is not appreciated. 15:40 Musculoskeletal/extremity: Exam is negative for calf tenderness, decreased range of motion, edema, injury. 15:40 Skin: cellulitis, is not appreciated, no rash present. 15:40 Neuro: Orientation: to person, place \T\ time. Mentation: lucid, able to follow commands, Cerebellar function: is grossly normal, Motor: moves all fours, strength is normal, Sensation: no obvious gross deficits. Vital Signs: 15:24 BP 104 / 64; Pulse 99; Resp 18; Temp 98.1(TE); Pulse Ox 98% on R/A; Weight 99.79 kg; hj Height 5 ft. 6 in. (167.64 cm); 16:30 BP 106 / 68; Pulse 95; Resp 18; Pulse Ox 100% on R/A; hj 17:28 BP 110 / 70; Pulse 92; Resp 18; Pulse Ox 100% on R/A; hj 18:32 BP 106 / 65; Pulse 72; Resp 18; Pulse Ox 100% on R/A; rv 19:12 BP 122 / 66; Pulse 81; Resp 16; Pulse Ox 100% ; Pain 7/10; ao 20:00 BP 124 / 78; Pulse 100; Resp 18; Pulse Ox 99% on R/A; oe 21:00 BP 116 / 64; Pulse 96; Resp 16; Pulse Ox 100% on R/A; oe 22:12 BP 109 / 70; Pulse 94; Resp 18; Pulse Ox 98% on R/A; Pain 0/10; ao 15:24 Body Mass Index 35.51 (99.79 kg, 167.64 cm) MDM: 15:22 Patient medically screened. cp 16:00 The patient was not given aspirin in the Emergency Department. Administered by EMS. cp 16:00 Differential diagnosis: abnormal EKG, acute myocardial infarction, acute pericarditis, cp chest wall pain, pancreatitis, peptic ulcer disease, pleurisy, pneumonia, pneumothorax, pulmonary embolus, stable angina, thoracic aortic disection, unstable angina, bowel obstruction. 19:50 Data reviewed: vital signs, nurses notes, lab test result(s), EKG, radiologic studies, cp CT scan, plain films. 19:50 Test interpretation: by ED physician or midlevel provider: ECG, plain radiologic cp studies. 20:00 Physician consultation: Joshua Barrios MD was called at 19:55, was contacted at 19:55, cp regarding admission, to the telemetry unit. patient's condition. 11/10 15:21 Order name: Basic Metabolic Panel; Complete Time: 16:53 cp 11/10 16:54 Interpretation: Normal except: CL 99; GLUC 166; BUN 32; GFR 57. cp 11/10 15:21 Order name: BNP; Complete Time: 16:34 cp 11/10 15:21 Order name: CBC with Diff; Complete Time: 16:21 cp 11/10 16:22 Interpretation: Normal except: WBC 11.0; RBC 3.45; HGB 9.5; HCT 31.1; MCV 90.3; MCH cp 27.7; MCHC 30.6; PLT 563; RDW 19.3; MPV 6.5. 11/10 15:21 Order name: Ckmb; Complete Time: 16:53 cp 11/10 15:21 Order name: CPK; Complete Time: 16:53 cp 11/10 15:21 Order name: LFT's; Complete Time: 16:53 cp 11/10 16:54 Interpretation: Normal except: ALK 170; TP 5.9; ALB 2.3; GLOB 3.6; A/G 0.6. cp 11/10 15:21 Order name: Magnesium; Complete Time: 16:53 cp 11/10 16:55 Interpretation: MG 2.3; Reviewed. cp 11/10 15:21 Order name: PT-INR; Complete Time: 16:21 cp 11/10 15:21 Order name: Ptt, Activated; Complete Time: 16:21 cp 11/10 15:21 Order name: Troponin (emerg Dept Use Only); Complete Time: 16:34 cp 11/10 15:21 Order name: Lipase; Complete Time: 16:53 cp 11/10 20:39 Order name: Basic Metabolic Panel EDMS 11/10 20:39 Order name: Basic Metabolic Panel EDMS 11/10 20:39 Order name: CBC with Automated Diff EDMS 11/10 15:21 Order name: XRAY Chest (1 view); Complete Time: 15:54 cp 11/10 15:54 Interpretation: Report review. cp 11/10 15:21 Order name: EKG; Complete Time: 15:22 cp 11/10 16:57 Order name: CT Chest For PE Angio; Complete Time: 19:41 cp 11/10 16:57 Order name: CT Abd/Pelvis - W/Contrast: no oral contrast; Complete Time: 19:47 cp 11/10 20:39 Order name: Heart Healthy EDMS 11/10 20:39 Order name: EKG Electrocardiogram EDMS 11/10 20:39 Order name: CBC with Automated Diff EDMS 11/10 20:39 Order name: Troponin I EDMS 11/10 20:39 Order name: Troponin I EDMS 11/10 20:39 Order name: Troponin I EDMS 11/10 15:21 Order name: Cardiac monitoring; Complete Time: 15:30 cp 11/10 15:21 Order name: EKG - Nurse/Tech; Complete Time: 15:31 cp 11/10 15:21 Order name: IV Saline Lock; Complete Time: 15:30 cp 11/10 15:21 Order name: Labs collected and sent; Complete Time: 16:59 cp 11/10 15:21 Order name: O2 Per Protocol; Complete Time: 15:30 cp 11/10 15:21 Order name: O2 Sat Monitoring; Complete Time: 15:30 cp 11/10 20:39 Order name: EKG Electrocardiogram EDMS 11/10 20:39 Order name: EKG Electrocardiogram EDMS 11/10 20:39 Order name: EKG Electrocardiogram EDMS EC:33 Rate is 97 beats/min. Rhythm is regular. UT interval is normal. QRS interval is normal. cp QT interval is normal. No ST changes noted. Interpreted by me. Reviewed by me. Administered Medications: 15:21 Drug: NS 0.9% 500 ml Route: IV; Rate: bolus; Site: left forearm; hj 22:22 Follow up: IV Status: Completed infusion; IV Intake: 1000ml ao 15:22 Drug: fentaNYL (PF) 25 mcg Route: IVP; Site: left wrist; hj 16:15 Follow up: Response: No adverse reaction hj 15:22 Drug: Zofran 4 mg Route: IVP; Site: left forearm; hj 16:15 Follow up: Response: No adverse reaction hj 15:48 Drug: NS 0.9% 1000 ml Route: IV; Rate: 100 ml/hr; Site: left forearm; hj 22:23 Follow up: IV Status: Infusion continued upon admission ao 20:07 Drug: fentaNYL (PF) 25 mcg Route: IVP; Site: left antecubital; ao 22:25 Follow up: Response: No adverse reaction ao 21:51 Drug: fentaNYL (PF) 25 mcg Route: IVP; Site: left antecubital; ao 22:22 Follow up: Response: No adverse reaction ao Disposition: 11/11 18:44 Co-signature as Attending Physician, Cam Singh MD. darby Disposition: 11/10/17 19:59 Hospitalization ordered by Joshua Barrios for Observation. Preliminary diagnosis is Chest pain, unspecified. - Bed requested for Telemetry/MedSurg (observation). - Status is Observation. ao - Condition is Stable. - Problem is new. - Symptoms have improved. UTI on Admission? No Signatures: Dispatcher [employer] EDMS Deyanira Tapia RN RN kl Joaquin, Henry, RN RN hj Page, Corey, PA PA cp Ortiz, Alex, RN RN ao Starr, Gregory, MD MD Corrections: (The following items were deleted from the chart) 11/10 21:37 19:59 Hospitalization Ordered by Joshua Barrios MD for Observation. Preliminary diagnosis kl is Chest pain, unspecified. Bed requested for Telemetry/MedSurg (observation). Status is Observation. Condition is Stable. Problem is new. Symptoms have improved. UTI on Admission? No. cp 22:25 15:21 Urine Dipstick-Ancillary ordered. cp ao 22:30 21:37 11/10/2017 19:59 Hospitalization Ordered by Joshua Barrios MD for Observation. ao Preliminary diagnosis is Chest pain, unspecified. Bed requested for Telemetry/MedSurg (observation). Status is Observation. Condition is Stable. Problem is new. Symptoms have improved. UTI on Admission? No. kl
[2017-11-10 23:28] VITALS: BMI 35.9
[2017-11-11] MEDS: FENTANYL CITR 100 MCG/2 ML IV PRN ×2 (01:35→07:00)
[2017-11-11] MEDS: ACETAMINOPHEN 500 MG TAB PO PRN ×2 (01:40→07:03)
[2017-11-11] MEDS: ONDANSETRON 4 MG/2 ML VIAL IV PRN ×2 (03:50→13:07)
[2017-11-11 06:13] LABS: Potassium 4.4 mEq/L (3.6-5.0)
[2017-11-11 06:49] LABS: MCH 28.3 pg (27.0-35.0); MCV 89.7 fL (80-100); MPV 6.6 fL (7.6-11.3); RBC Red Blood Cell Count 3.35 M/uL (3.86-4.86)
[2017-11-11 06:50] LABS: Absolute Neutrophil 7.6 K/uL (1.8-8.0); Basophils % 0.1 % (0-1.3); Eosinophils % 0.5 % (0-4.4); Lymphocytes % 15.6 % (15.3-44.8); Monocytes % 8.6 % (3.3-12.3)
[2017-11-11 06:51] LABS: Absolute Lymphocytes (CBC) 1.6 K/uL (0.7-4.9); Absolute Monocytes 0.9 K/uL (0.1-1.3)
[2017-11-11] MEDS ORDERED: ONDANSETRON HCL 8 MG PO PRN (07:22)
[2017-11-11] MEDS ORDERED: ONDANSETRON 4 MG (ODT) TAB PO PRN (07:37)
--- NOTE | 2017-11-11 07:47 | P.HP ---
Certification for Inpatient Patient admitted to: Inpatient With expected LOS: >2 Midnights Patient will require the following post-hospital care: Rehabilitation Practitioner: I am a practitioner with admitting privileges, knowledge of patient current condition, hospital course, and medical plan of care. Services: Services provided to patient in accordance with Admission requirements found in Title 42 Section 412.3 of the Code of Federal Regulations Patient History Date of Service: 11/11/17 Primary Care Provider: Toma Samano Reason for admission: Metastatic cancer History of Present Illness: Patient is an unfortunate young woman with a history of renal cell cancer for 2 year. Treated by a Dr. Michael in [place]. She had a spinal surgery for tumor debulking 2 weeks ago. Since that time she has not been able to get out of bed. She has a daughter who comes by every few hours. Otherwise has only transfered to a bedside commode. She has some indigestion like chest pain. Which scared her. She called ems for this and was brought to the ER. She has a negative ekg. 2 negative troponisn Allergies aspirin Adverse Reaction (Mild, Verified 11/10/17 23:51) GI bleed NSAIDS (Non-Steroidal Anti-Inflamma Adverse Reaction (Mild, Verified 12/18/14 14 :30) GI Bleed Home Medications: Lisinopril/Hydrochlorothiazide [Lisinopril-Hctz 10-12.5 mg Tab] 1 each PO DAILY 08/15/12 Carvedilol 25 mg PO BID 11/10/17 Dexamethasone 4 mg PO DAILY 11/10/17 Hydrocodone Bit/Acetaminophen [Hydrocodon-Acetaminoph 7.5-325] 1 tab PO Q6HP PRN 11/10/17 Levothyroxine [Synthroid] 50 mcg PO [id number] 11/10/17 Morphine *Extended Release* [MS Contin] 15 mg PO BID 11/10/17 Ondansetron HCl [Zofran] 8 mg PO Q8HP PRN 11/10/17 - Past Medical/Surgical History Has patient received pneumonia vaccine in the past: No Diabetic: No -: HTN -: hypothyroidism -: stage IV renal cancer -: lung cancer -: Tubal ligation -: back sx - Family History Father -: Diabetes Mother -: Hypertension, Diabetes - Social History Smoking Status: Never smoker Alcohol use: No CD- Drugs: No Caffeine use: Yes Place of Residence: Home Review of Systems 10-point ROS is otherwise unremarkable General: Weakness Gastrointestinal: Other (retrosternal burning pain) Physical Examination - Vital Signs Temperature: 97.6 F Blood Pressure: 126/77 Pulse: 94 Respirations: 20 Pulse Ox (%): 97 - Physical Exam General: Alert, In no apparent distress HEENT: Atraumatic, PERRLA, Mucous membr. moist/pink, EOMI, Sclerae nonicteric Neck: Supple, 2+ carotid pulse no bruit, No LAD, Without JVD or thyroid abnormality Respiratory: Clear to auscultation bilaterally, Normal air movement Cardiovascular: Regular rate/rhythm, Normal S1 S2 Gastrointestinal: Normal bowel sounds, No tenderness Musculoskeletal: No tenderness Integumentary: No rashes Neurological: Normal gait, Normal speech, Normal strength at 5/5 x4 extr, Normal tone, Normal affect Lymphatics: No axilla or inguinal lymphadenopathy - Studies Laboratory Data (last 24 hrs) 11/10/17 21:07: Troponin I < 0.03 11/10/17 15:55: PT 12.3, INR 1.04, APTT 23.6 L 11/10/17 15:55: WBC 11.0 H, Hgb 9.5 L, Hct 31.1 L, Plt Count 563 H 11/10/17 15:55: B-Natriuretic Peptide 36 11/10/17 15:55: Sodium 136, Potassium 4.5, BUN 32 H, Creatinine 1.00, Glucose 166 H, Magnesium 2.3 D, Total Bilirubin 0.5, AST 40, ALT 30, Alkaline Phosphatase 170 H, Lipase 19 L Assessment and Plan - Problems (Diagnosis) (1) Lumbar disc disease Current Visit: Yes Status: Acute Plan: Will need to consult PT. She is weak after surgery. Is not safe to go home and is a high fall risk. Will consult PT and social service to start her on placement (2) GERD (gastroesophageal reflux disease) Current Visit: Yes Status: Acute Plan: Will start the patient on protonix. This may be secondary to being bed bound. Will work on both problems Qualifiers: Esophagitis presence: without esophagitis Qualified Code(s): K21.9 - Gastro -esophageal reflux disease without esophagitis (3) Hypertension Onset Date: 12/15/14 Current Visit: No Status: Acute Plan: will restart lisinopril/hctz and coreg. Control her pain better. Will adjust her medications as necessary Qualifiers: Hypertension type: essential hypertension Qualified Code(s): I10 - Essential (primary) hypertension (4) Renal cell carcinoma Onset Date: 12/15/14 Current Visit: No Status: Acute Plan: She is under the care of Dr. Michael. Will need to call her on Monday and update her on the plans. She has been stable for 2 years. However her cancer is advancing. Patient stated she was about to start a new chemotherapy protochol. Which may be an issue with placement Qualifiers: Laterality: unspecified laterality Qualified Code(s): C64.9 - Malignant neoplasm of unspecified kidney, except renal pelvis Discharge Plan: Other Plan to discharge in: Greater than 2 days - Advance Directives Does patient have a Living Will: No Does patient have a Durable POA for Healthcare: No - Code Status/Comfort Care Code Status Assessed: No Code Status: Full Code Physician Review: Patient Assessed, Agree with Above Assessment and Plan Critical Care: No Time Spent Managing Pts Care (In Minutes): 45
[2017-11-11] MEDS ORDERED: BISACODYL E.C. 5 MG TAB PO PRN (07:50)
[2017-11-11] MEDS ORDERED: Morphine 2 MG/2 ML SYR IM PRN (08:20)
[2017-11-11] MEDS ORDERED: HOME MED 1 EA UNK (Lisinopril/Hydrochlorothiazide [Lisinopril-Hctz 10-12.5 Mg Tab] 1 EACH) PO SCH (09:00)
[2017-11-11] MEDS: DEXAMETHASONE 4 MG TAB PO SCH (09:14)
[2017-11-11] MEDS: hydroCHLOROthiazide 12.5 MG CAP PO SCH (09:15)
[2017-11-11] MEDS: MORPHINE *EXTENDED RELEASE* 15 MG TAB PO SCH ×2 (09:16→21:12)
[2017-11-11] MEDS: CARVEDILOL 25 MG TAB PO SCH ×2 (09:16→21:13)
[2017-11-11] MEDS: PANTOPRAZOLE 40MG TABLET PO SCH (09:16)
[2017-11-11] MEDS: LISINOPRIL 20 MG TAB PO SCH (09:16)
[2017-11-11] MEDS: ASPIRIN EC 81 MG TAB PO SCH (09:16)
[2017-11-11] MEDS: HYDROCODONE/APAP 7.5/325 MG TAB PO PRN (12:50)
[2017-11-11] MEDS: ENOXAPARIN 40 MG/0.4 ML SQ SCH (17:24)
[2017-11-12] MEDS: HYDROCODONE/APAP 7.5/325 MG TAB PO PRN ×2 (02:18→21:11)
[2017-11-12] MEDS: LEVOTHYROXINE SOD 0.05 MG TABLET PO SCH (05:18)
[2017-11-12] MEDS: PANTOPRAZOLE 40MG TABLET PO SCH (05:18)
[2017-11-12] MEDS: CARVEDILOL 25 MG TAB PO SCH ×2 (09:00→21:00)
[2017-11-12] MEDS: LISINOPRIL 20 MG TAB PO SCH (09:00)
[2017-11-12] MEDS: MORPHINE *EXTENDED RELEASE* 15 MG TAB PO SCH ×2 (09:00→21:00)
[2017-11-12] MEDS: hydroCHLOROthiazide 12.5 MG CAP PO SCH (09:00)
[2017-11-12] MEDS: ASPIRIN EC 81 MG TAB PO SCH (09:42)
[2017-11-12] MEDS: DEXAMETHASONE 4 MG TAB PO SCH (09:42)
[2017-11-12] MEDS: ACETAMINOPHEN 500 MG TAB PO PRN ×2 (10:32→17:49)
--- NOTE | 2017-11-12 11:02 | P.PN ---
Subjective Date of Service: 11/12/17 Primary Care Provider: Toma Samano Chief Complaint: Metastatic cancer Subjective: Improving (walked with pt to the door of her room) Review of Systems 10-point ROS is otherwise unremarkable General: Weakness Physical Examination - Vital Signs Temperature: 98.6 F Blood Pressure: 90/59 Pulse: 73 Respirations: 18 Pulse Ox (%): 98 - Physical Exam General: Alert, In no apparent distress HEENT: Atraumatic, PERRLA, EOMI Neck: Supple, JVD not distended Respiratory: Clear to auscultation bilaterally, Normal air movement Cardiovascular: Regular rate/rhythm, Normal S1 S2 Gastrointestinal: Normal bowel sounds, No tenderness Musculoskeletal: No tenderness Integumentary: No rashes Neurological: Normal speech, Normal tone, Normal affect Lymphatics: No axilla or inguinal lymphadenopathy Assessment & Plan - Problems (Diagnosis) (1) Lumbar disc disease Current Visit: Yes Status: Acute Plan: Will need to consult PT. She is weak after surgery. Is not safe to go home and is a high fall risk. Will consult PT and social service to start her on placement (2) GERD (gastroesophageal reflux disease) Current Visit: Yes Status: Acute Plan: Will start the patient on protonix. This may be secondary to being bed bound. Will work on both problems Qualifiers: Esophagitis presence: without esophagitis Qualified Code(s): K21.9 - Gastro -esophageal reflux disease without esophagitis (3) Hypertension Onset Date: 12/15/14 Current Visit: No Status: Acute Plan: will restart lisinopril/hctz and coreg. Control her pain better. Will adjust her medications as necessary Qualifiers: Hypertension type: essential hypertension Qualified Code(s): I10 - Essential (primary) hypertension (4) Renal cell carcinoma Onset Date: 12/15/14 Current Visit: No Status: Acute Plan: She is under the care of Dr. Michael. Will need to call her on Monday and update her on the plans. She has been stable for 2 years. However her cancer is advancing. Patient stated she was about to start a new chemotherapy protochol. Which may be an issue with placement Qualifiers: Laterality: unspecified laterality Qualified Code(s): C64.9 - Malignant neoplasm of unspecified kidney, except renal pelvis (5) Delayed surgical wound healing Current Visit: Yes Status: Acute Plan: wound has not had a dressing change in 2 weeks. Will consult wound care to evaluate this Qualifiers: Encounter type: sequela Qualified Code(s): T81.89XS - Other complications of procedures, not elsewhere classified, sequela Discharge Plan: LTAC Plan to discharge in: 24 Hours - Code Status/Comfort Care Code Status Assessed: Yes Code Status: Full Code Physician Review: Patient Assessed, Agree with Above Assessment and Plan Critical Care: No Time Spent Managing Pts Care (In Minutes): 25
[2017-11-12] MEDS: ENOXAPARIN 40 MG/0.4 ML SQ SCH (16:33)
[2017-11-13] MEDS: ACETAMINOPHEN 500 MG TAB PO PRN ×2 (02:26→10:19)
[2017-11-13 02:54] VITALS: O2SAT 97
[2017-11-13] MEDS: LEVOTHYROXINE SOD 0.05 MG TABLET PO SCH (05:15)
[2017-11-13 06:10] LABS: Absolute Lymphocytes (CBC) 1.5 K/uL (0.7-4.9); Absolute Neutrophil 7.9 K/uL (1.8-8.0); Basophils % 0.2 % (0-1.3); Hematocrit 27.6 % (36.0-45.0); Lymphocytes % 14.3 % (15.3-44.8); MCH 28.1 pg (27.0-35.0); MCV 89.2 fL (80-100); MPV 6.4 fL (7.6-11.3); Monocytes % 9.8 % (3.3-12.3); RBC Red Blood Cell Count 3.09 M/uL (3.86-4.86)
[2017-11-13 06:47] LABS: Albumin 2.2 g/dL (3.2-5.5); Bilirubin Total 0.6 mg/dL (0.3-1.2); Potassium 4.9 mEq/L (3.6-5.0); Protein, Total 5.6 g/dL (6.0-8.3)
[2017-11-13 07:02] LABS: Anisocytosis 2+; Blood Morphology Comment NOTED (NOT SEEN); Platelet Estimate ADEQ; Urine White Blood Cell Casts OK
[2017-11-13] MEDS: CARVEDILOL 25 MG TAB PO SCH (07:54)
[2017-11-13] MEDS: PANTOPRAZOLE 40MG TABLET PO SCH (07:54)
[2017-11-13] MEDS: DEXAMETHASONE 4 MG TAB PO SCH (07:59)
[2017-11-13] MEDS: ASPIRIN EC 81 MG TAB PO SCH (07:59)
[2017-11-13] MEDS: MORPHINE *EXTENDED RELEASE* 15 MG TAB PO SCH (08:00)
[2017-11-13] MEDS ORDERED: MORPHINE 4 MG/ML SYR IM PRN (08:52)
--- NOTE | 2017-11-13 09:53 | P.PN ---
Subjective Date of Service: 11/13/17 Primary Care Provider: Toma Samano Chief Complaint: Metastatic cancer Subjective: Improving (sitting at the bedside. She was still only able to ambulate 10feet) Review of Systems 10-point ROS is otherwise unremarkable General: Weakness Physical Examination - Vital Signs Temperature: 97.1 F Blood Pressure: 138/63 Pulse: 80 Respirations: 16 Pulse Ox (%): 98 - Physical Exam General: Alert, In no apparent distress HEENT: Atraumatic, PERRLA, EOMI Neck: Supple, JVD not distended Respiratory: Clear to auscultation bilaterally, Normal air movement Cardiovascular: Regular rate/rhythm, Normal S1 S2 Gastrointestinal: Normal bowel sounds, No tenderness Musculoskeletal: No tenderness Integumentary: No rashes Neurological: Normal speech, Normal tone, Normal affect Lymphatics: No axilla or inguinal lymphadenopathy Assessment & Plan - Problems (Diagnosis) (1) Lumbar disc disease Onset Date: 11/13/17 Current Visit: Yes Status: Acute Plan: Will need to consult PT. She is weak after surgery. Is not safe to go home and is a high fall risk. Have discussed with PT. She still can only walk 10 feet. Have discussed with discharge planning. Will need to get placement in inpatient rehab center. (2) GERD (gastroesophageal reflux disease) Onset Date: 11/13/17 Current Visit: Yes Status: Acute Plan: Will start the patient on protonix. This may be secondary to being bed bound. Will work on both problems Qualifiers: Esophagitis presence: without esophagitis Qualified Code(s): K21.9 - Gastro -esophageal reflux disease without esophagitis (3) Hypertension Onset Date: 12/15/14 Current Visit: No Status: Acute Plan: will restart lisinopril/hctz and coreg. Control her pain better. Will adjust her medications as necessary Qualifiers: Hypertension type: essential hypertension Qualified Code(s): I10 - Essential (primary) hypertension (4) Renal cell carcinoma Onset Date: 12/15/14 Current Visit: No Status: Acute Plan: She is under the care of Dr. Michael. Will need to call her on Monday and update her on the plans. She has been stable for 2 years. However her cancer is advancing. Patient stated she was about to start a new chemotherapy protochol. Which may be an issue with placement Qualifiers: Laterality: unspecified laterality Qualified Code(s): C64.9 - Malignant neoplasm of unspecified kidney, except renal pelvis (5) Delayed surgical wound healing Current Visit: Yes Status: Acute Plan: wound has not had a dressing change in 2 weeks. Will consult wound care to evaluate this Qualifiers: Encounter type: sequela Qualified Code(s): T81.89XS - Other complications of procedures, not elsewhere classified, sequela Discharge Plan: Home - Code Status/Comfort Care Code Status Assessed: Yes Code Status: Full Code Physician Review: Patient Assessed, Agree with Above Assessment and Plan Critical Care: No Time Spent Managing Pts Care (In Minutes): 25
[2017-11-13 10:16] LABS: Urine Appearance CLEAR; Urine Bilirubin NEGATIVE (NEG); Urine Blood NEGATIVE (NEG); Urine Color YELLOW; Urine Glucose NEGATIVE (NEG); Urine Protein NEGATIVE (NEG)
[2017-11-13 12:38] LABS: Urine RBC <5 /HPF (NONE SEEN)
[2017-11-13 12:39] LABS: Urine Bacteria <20 /HPF (<20); Urine Culture Reflex Order REFLEXED
[2017-11-13] MEDS: HYDROCODONE/APAP 7.5/325 MG TAB PO PRN (13:49)
--- NOTE | 2017-11-13 15:25 | P.DS ---
Admission Date: 11/11/17 Discharge Date: 11/13/17 Primary Care Provider: Toma Samano Disposition: TRANSFER TO INPATIENT REHAB Discharge Condition: GOOD Reason for Admission: Metastatic cancer - Problems (1) Lumbar disc disease Onset Date: 11/13/17 Current Visit: Yes Status: Acute (2) GERD (gastroesophageal reflux disease) Onset Date: 11/13/17 Current Visit: Yes Status: Acute Qualifiers: Esophagitis presence: without esophagitis Qualified Code(s): K21.9 - Gastro -esophageal reflux disease without esophagitis (3) Hypertension Onset Date: 12/15/14 Current Visit: No Status: Acute Qualifiers: Hypertension type: essential hypertension Qualified Code(s): I10 - Essential (primary) hypertension (4) Renal cell carcinoma Onset Date: 12/15/14 Current Visit: No Status: Acute Qualifiers: Laterality: unspecified laterality Qualified Code(s): C64.9 - Malignant neoplasm of unspecified kidney, except renal pelvis (5) Delayed surgical wound healing Current Visit: Yes Status: Acute Qualifiers: Encounter type: sequela Qualified Code(s): T81.89XS - Other complications of procedures, not elsewhere classified, sequela Brief History of Present Illness: Patient is an unfortunate young woman with a history of renal cell cancer for 2 year. Treated by a Dr. Michael in [place]. She had a spinal surgery for tumor debulking 2 weeks ago. Since that time she has not been able to get out of bed. She has a daughter who comes by every few hours. Otherwise has only transfered to a bedside commode. She has some indigestion like chest pain. Which scared her. She called ems for this and was brought to the ER. She has a negative ekg. 2 negative troponisn Hospital Course: Patient was admitted. She had negative troponins. She has been bedbound for 2 weeks since her spinal surgery. Was only able to transfer. She worked with PT in the hospital. Was only able to ambulate 10 feet. Then needed to rest. she is a very high fall risk. So decision was made of inpatient rehab. She was accepted by the rehab center in our building. Will be transfered there. I have called her oncololgist Dr. Kendra Michael in [place]. . Vital Signs/Physical Exam: Temp Pulse Resp BP Pulse Ox 97.5 F 79 16 107/58 L 98 11/13/17 12:00 11/13/17 12:00 11/13/17 12:00 11/13/17 12:00 11/13/17 12:00 General: Alert, In no apparent distress HEENT: Atraumatic, PERRLA, EOMI Neck: Supple, JVD not distended Respiratory: Clear to auscultation bilaterally, Normal air movement Cardiovascular: Regular rate/rhythm, Normal S1 S2 Gastrointestinal: Normal bowel sounds, No tenderness Musculoskeletal: No tenderness Integumentary: No rashes Neurological: Normal speech, Normal tone, Normal affect Lymphatics: No axilla or inguinal lymphadenopathy Laboratory Data at Discharge: WBC 10.5 K/uL (4.3-10.9) 11/13/17 05:53 Hgb 8.7 g/dL (12.0-15.0) L 11/13/17 05:53 Hct 27.6 % (36.0-45.0) L 11/13/17 05:53 Plt Count 457 K/uL (152-406) H 11/13/17 05:53 PT 12.3 SECONDS (9.5-12.5) 11/10/17 15:55 INR 1.04 11/10/17 15:55 APTT 23.6 SECONDS (24.3-36.9) L 11/10/17 15:55 Sodium 137 mEq/L (135-145) 11/13/17 05:53 Potassium 4.9 mEq/L (3.6-5.0) 11/13/17 05:53 BUN 25 mg/dL (6-20) H 11/13/17 05:53 Creatinine 0.90 mg/dL (0.44-1.00) 11/13/17 05:53 Glucose 140 mg/dL (65-120) H 11/13/17 05:53 Magnesium 2.3 mg/dL (1.8-2.5) D 11/10/17 15:55 Total Bilirubin 0.6 mg/dL (0.3-1.2) 11/13/17 05:53 AST 26 IU/L (10-42) 11/13/17 05:53 ALT 24 IU/L (10-60) 11/13/17 05:53 Alkaline Phosphatase 142 IU/L (42-121) H 11/13/17 05:53 Troponin I < 0.03 ng/mL (<0.03) 11/11/17 00:29 B-Natriuretic Peptide 36 pg/ml (<=100) 11/10/17 15:55 Lipase 19 U/L (22-51) L 11/10/17 15:55 Home Medications: Carvedilol 25 mg PO BID 11/10/17 Dexamethasone 4 mg PO DAILY 11/10/17 Hydrocodone Bit/Acetaminophen [Hydrocodon-Acetaminoph 7.5-325] 1 tab PO Q6HP PRN 11/10/17 Levothyroxine [Synthroid] 50 mcg PO [id number] 11/10/17 Morphine *Extended Release* [MS Contin] 15 mg PO BID 11/10/17 Ondansetron HCl [Zofran] 8 mg PO Q8HP PRN 11/10/17 Lisinopril/Hydrochlorothiazide [Lisinopril-Hctz 20-12.5 mg Tab] 2 tab PO DAILY 11/11/17 Diet: Regular Activity: Fall precautions Followup: Toma Samano NP [Primary Care Provider] - 1-2 Weeks Time spent managing pt's care (in minutes): 45
[2017-11-13 16:42] VITALS: BP 102/57; TEMP 97.8
[2017-11-13] MEDS: ENOXAPARIN 40 MG/0.4 ML SQ SCH (17:13)
== END 2017-11-13 17:26 | DRG 313 ==
LOC: ER 15:17 → INTOOBSV 21:10 → ERHOLD 21:10 → OBSVTOIN 21:10 → 4TH 21:40 → OBSVTOIN 11-11 07:39
PROVIDERS: ADMIT Internal Medicine; ATTEND Internal Medicine
DX: R07.9 Chest pain, unspecified (principal); C64.9 Malignant neoplasm of unspecified kidney, except renal pelvis; C78.00 Secondary malignant neoplasm of unspecified lung; I10 Essential (primary) hypertension; E03.9 Hypothyroidism, unspecified; K21.9 Gastro-esophageal reflux disease without esophagitis; M51.9 Unspecified thoracic, thoracolumbar and lumbosacral intervertebral disc disorder; Z88.6 Allergy status to analgesic agent; Z98.890 Other specified postprocedural states
CPT/HCPCS: 36415; 71045; 71275; 74177; 80048; 80053; 80076; 81001; 82550; 82553; 83690; 83735; 83880; 84484; 85025; 85610; 85730; 87086; 87088; 93005; 97163; 99285; G0378; J1650; J2405; J3010; J7030; Q9967

== ENCOUNTER 2017-11-13 09:11 | Inpatient (IN) | payer OTHER ==
--- NOTE | 2017-11-13 14:19 | R.PREADM ---
SCREENING DATE AND TIME 11/13/2017 09:39 (CDT) ANTICIPATED REHAB ADMISSION DATE 11/15/2017 REFERRING FACILITY [facility] REFERRAL DATE AND TIME 11/13/2017 09:39 (CDT) ACUTE ADMIT DATE 11/11/2017 Previous Rehabilitation(s): No. REFERRING PHYSICIAN Joshua Barrios REHAB FACILITY [facility] CLINICAL LIAISON Swati Calero PHYSICIAN REVIEWER Dr. Ozzy Thompson M.D. MR# [id number] NAME MYRTLE RUDOLPH ADDRESS [id number] [place] [address] PHONE [facility] [place] [address] DATE OF 1960 AGE 57 SSN# [id number] GENDER female MARITAL STATUS RACE white [facility] PRE-HOSPITAL LIVING SETTING 01 - Home (private home/apt. board/care, assisted living, skilled nursing, transitional living) HOME TYPE AND DETAILS Type of home: single family house # of steps to enter the residence: 0 # of steps within the residence: 0 # of levels in the residence: 1 PRE-HOSPITAL LIVING WITH Family/Relatives FAMILY SUPPORT Yes PRIMARY FAMILY CONTACT NAME Brandin Rudolph PRIMARY FAMILY CONTACT PHONE PHONE PRIMARY FAMILY CONTACT ON ADM.? no IS PRIMARY FAMILY CONTACT AUTH. REP.? no 1ST EMERGENCY CONTACT Brandin Rudolph 1ST CONTACT PHONE PHONE 1ST CONTACT ON ADM. no IS 1ST CONTACT AUTH. REP.? no PHONE 2ND CONTACT ON ADM.? no PATIENT EMPLOYMENT STATUS Employed [employer] PA[employer] INFORMATION: 1ST PAYOR NAME MEDICARE 1ST PAYOR PHONE 1ST PAYOR INJURY/ILLNESS DUE TO ACCIDENT? No ANOTHER DEMOCRAT RESPONSIBLE? No PRIMARY REHAB/ACUTE DIAGNOSIS: Lumbar Disc Disease ONSET DATE 11/10/2017 REHAB IMPAIRMENT CATEGORY (WON): 05 Nontraumatic spinal cord injury (NTSCI) MEETS 60% rule PRIMARY DIAGNOSIS-RELATED SURGERIES: Spinal surgery for tumor debulking COMORBID REHAB/ACUTE DIAGNOSES: - N/A Hypertension Hypothyroidism Renal Cell Carcinoma Lung Cancer GERD INTERVENTIONS: - Hypertension Fluid management Medications VS - GERD Altered diet Elevation of head of bed Medications Nausea/vomiting Nighttime food/fluid restrictions Nutrition RISK FOR COMPLICATIONS: - Hypertension CVA Hypotension NH TIA - GERD Alteration in sleep Aspiration Dehydration Malnutrition Pain SUMMARY OF ACUTE HOSPITALIZATION: Pt. is a 57 yo Right-handed white female. On 11/10/2017 she was admitted to [facility] with diagnosis Lumbar Disc Disease . 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 Pre-morbidly, Pt. was independent/mod-I in Self-Care, Transfers Control, Social Cognition, Communicat ion, Sphincter Control, and Locomotion; and she had good Sphincter Control. Currently, she has deficits of Transfers Control, Safety Awareness, Balance, Endurance, Locomotion, a nd Self-Care. Pt. is now referred to [facility] for acute in-patient rehabilitation in order to maximize patient's functional independence in activities of daily living, strength, ROM, and mobi lity. Patient has realistic goal of being discharged at assistance level 6-Tanisha to reside at Home with Fam tye/Relatives. PAST MEDICAL HISTORY GERD Hypertension Hypothyroidism Renal Cell Carcinoma PAST SURGICAL HISTORY: Tubal ligation Back surgery MEDICATION ALLERGIES: Nsaids Aspirin ENVIRONMENTAL ALLERGIES: None Known - Substance Allergies None Known - Other Allergies None Known CODE STATUS: Full code WEIGHT/HEIGHT/BMI: WEIGHT 222 lbs HEIGHT 5' 6" BMI 35.8 DIET: - Diet Type Regular - Diet - Solid Texture Regular - Diet - Liquid Texture Regular - Tube Feed N/A SKIN DIAGRAM: Incision on Back; extent - small; stage - NS(Not Stageable). Treatment - Per Physician's Orders. REVIEW OF SYSTEMS: - Gen Alert and awake Lying in bed No apparent distress Oriented to: person, time, and place - Vital Signs Temperature: 97.1 F SBP/DBP: 138/63 Pulse: 80 Resp: 16 Vital signs stable, afebrile - CVS RRR VITAL SIGNS Temperature: 97.1 F SBP/DBP: 138/63 Pulse: 80 Resp: 16 Vital signs stable, afebrile CURRENT SPHINCTER CONTROL: Pre-hospital bladder status: continent # of bladder accidents in the last 7 days prior to screenin Pre-hospital bowel status: continent # of bowel accidents in the last 7 days prior to screenin Last Bowel Movement Date: 11/13/2017 DETAILED CURRENT FUNCTIONAL STATUS: - Bladder accident frequency: Ind - No accidents in the past 7 days - Bowel accident frequency: Ind - No accidents in the past 7 days - Walking score based on distance walked: 2(5149ft) - Wheelchair score based on distance traveled: 0(N/A) FUNCTIONAL STATUS: - Self-Care A. Eating Ind Tanisha B. Grooming Ind Tanisha C. Bathing Ind Von D. Dressing - Upper Ind Von E. Dressing - Lower Ind Von F. Toileting Ind Von - Sphincter Control G: Bladder control Ind Ind H: Bowel control Ind Ind - Transfers Control I. Bed/Chair/Wheelchair Ind Von J. Toilet Ind Von K. Tub/Shower Ind ADNO - Locomotion L. Walk/Wheelchair (C) Ind Von L. Walk/Wheelchair (W) Ind Von M. Stairs Ind ADNO - Communication N. Comprehension (B) Ind Ind O. Expression (B) Ind Ind - Social Cognition P. Social Interaction Ind Ind Q. Problem Solving Ind Ind R. Memory Ind Ind - Endurance Poor - Balance Poor - Safety Awareness Fair CURRENT FUNC. DEFICITS: Transfers Control, Safety Awareness, Balance, Endurance, Locomotion, and Self-Care THERAPY NOTES FROM ACUTE CARE: Attached. SPECIAL NEEDS: - Safety Concerns Skin breakdown precautions needed due to skin breakdown risk PRECAUTIONS: - Fall Precaution Bed and chair alarm PATIENT NEEDS ACTIVE AND ONGOING THERAPEUTIC INTERVENTION OF MULTIPLE THERAPY DISCIPLINES, INCLUDING: - Occupational Therapy Evaluate and Treat. - Physical Therapy Evaluate and Treat. PATIENT NEEDS CLOSE MEDICAL SUPERVISION BY A REHABILITATION PHYSICIAN FOR: Bowel and Bladder Management Coordination of Treatment Team Wound Care Pain Management Medical and Co-Morbidity Management PATIENT REQUIRES 24X7 REHAB NURSING FOR MEDICAL AND FUNCTIONAL MGT. OF THE FOLLOWING DEFICITS: ADL's Ambulation Bowel and Bladder Management Cognition Communication Disease Management Medication Management Patient/Family Education Providing Safe Environment Skin Integrity Transfers Pain Management PATIENT REQUIRES INTENSIVE, COORDINATED INTERDISCIPLINARY APPROACH TO REHAB: Arranging Home Equipment/Services Discharge Planning Family Intervention/Training Post Production Assistant/Case Management PATIENT REHAB POTENTIAL: Expected level of measurable improvement will be of a practical value to patient's functional capacit y or adaptations to impairments Has a viable Discharge Plan Medically appropriate; condition is sufficiently stable to participate in intensive rehab program Patient is able and expected to receive 3 hours of individualized therapy daily on at least 5 of ever y 7 days Patient's prognosis for significant practical improvement within a reasonable period of time appears Good DISCHARGE PLAN: - Estimated Length of Stay (days) 16. - Consensus on plan Discharge plan has been discussed with primary caregiver. Patient/Family is in agreement with the thuy n. Primary caregiver is in agreement with the plan. - Patient/Family Goals Return home with assistance. - Planned Living Setting Upon Discharge Home, to live with Family/Relatives. RECOMMENDED CARE LEVEL: IRF RECOMMENDATION DETAILS: Recommended Admission to Comprehensive Rehabilitation Program to Increase Functional [place] SCREENER'S COMPLETENESS CONFIRMATION: - Screening Confirmation The patient data collection on this preadmission screening form is finished PHYSICIANS REVIEW AND ADMISSION DETERMINATION Admit - Based on my review of the Pre-Admission Screening results, in my medical judgment and experie nce, I concur with the findings and recommend admission to [facility], as this patient requires an IRF level of care. SIGNATURE PANEL: Clinical Liaison - [electronically] signed by Swati Calero on 11/13/2017 at 12:23 (CDT) Physician Reviewer - [electronically] signed by Dr. Ozzy Thompson M.D. on 11/13/2017 at 13:21 (CDT )
--- OUTSIDE RECORDS SUMMARY | 2017-11-13 17:30 | XMS REPORT | Clinical Summary ---
:1960 Author Organization [facility] Address [address] [place] [address] Phone Care Team Providers Name Role Phone [...] encounter (HCC);Metastatic cancer to spine (HCC) after 11/12/2016 Social History Tobacco Use Types Packs/Day Years [...] Not on file Implants Implanted Type Area Proctologist Device Expiration Model / Serial / Identifier Date Lot Graft Bone Orthoblend 10cc [id number] - [id number] Bone N/A: MEDTRONIC:SPINAL 06/14/2019 [id number] / Implanted: Qty: 1 on 10/26/2017 by Pablo Ga MD Spine GRAFT [id number] / Lumbar Bone Grft Orthoblend 5cc - [id number] Bone N/A: MEDTRONIC:SPINAL 04/20 [id number] / Implanted: Qty: 1 on 10/26/2017 by Pablo Ga MD Spine GRAFT [id number] / Lumbar Bone Chip Canc 1.7-10mm 30ml [id number] - [id number] Bone N/A: MUSCULOSKELETAL 07/29/2020 [id number] / Implanted: Qty: 1 on 10/26/2017 by Pablo Ga MD Spine TRANSPLANT FND [id number] / Lumbar Flseal Vhsd Full Strlprep 10ml [id number] - [id number] Cement/ N/A: PRETTY: BIOSCI 02/13/2019 [id number] / Implanted: Qty: 1 on 10/26/2017 by Pablo Ga MD Filler/ Spine / Adhesiv Lumbar [id number] e Cement Bone Kyphx Hv-R C01a - [id number] Cement/ N/A: MEDTRONIC:SPINAL C01A / Implanted: Qty: 1 on 10/26/2017 by Pablo Ga MD Filler/ Spine BIOLOGICS / Adhesiv Lumbar [id number] e Cement Ktmx Kyphx Hv-R C01b - [id number] Cement/ N/A: MEDTRONIC:SPINAL C01B / Implanted: Qty: 1 on 10/26/2017 by Pablo Ga MD Filler/ Spine BIOLOGICS / Adhesiv Lumbar [id number] e Cath Exp Silv Soak Carpenter Ship 12.5cmx [id number] - [id number] Pain N/A: COLT 01/03/2020 [id number] / Implanted: Qty: 2 on 10/26/2017 by Pablo Ga MD Mgmt/St Spine / imulato Lumbar [id number] r Scr Mas Cc 6.5x30cc [id number] - [id number] Spine N/A: MEDTRONIC:SPINAL [id number] / Implanted: Qty: 1 on 10/26/2017 by Pablo Ga MD Spine BIOLOGICS / Lumbar [id number] Scr Set Ti Ns Brk Off 5.5 [id number] - [id number] Spine N/A: MEDTRONIC:SPINAL [id number] / Implanted: Qty: 5 on 10/26/2017 by Pablo Ga MD Spine BIOLOGICS / Lumbar [id number] 60mm Kurtis N/A: MEDTRONIC [id number] / Implanted: Qty: 2 on 10/26/2017 by Pablo Ga MD Spine / Lumbar [id number] 7.5 X 45 Mm Fenestrated Screw N/A: MEDTRONIC [id number] / Implanted: Qty: 2 on 10/26/2017 by Pablo Ga MD Spine / Lumbar [id number] 7.5 X 50 Mm Fenestrated Screw N/A: MEDTRONIC [id number] / Implanted: Qty: 2 on 10/26/2017 by Pablo Ga MD Spine / Lumbar [id number] Explanted Type Area Proctologist Device Expiration Model / Serial Identifier Date / Lot 7.5 X 50 Mm Fenestrated Screw N/A: Spine MEDTRONIC [id number] / Explanted: Qty: 1 on 10/26/2017 by Pbalo Ga MD Lumbar / [id number] Procedures Procedure Name Priority Date/Time Associated Diagnosis [...] CDT Metastasis to spinal cord (HCC) after 11/12/2016 Results CBC with platelet count + automated [...] 1 % Specimen Performing Laboratory Blood [facility] [address] [place] [address] CBC with platelet count + automated diff (10/29/2017 4:42 AM)Only the most recent of4 resultswithin the time period is included. Specimen Performing Laboratory Blood Narrative The following orders were created for panel order CBC with platelet count + automated diff. Procedure Abnormality Status --------- ------ CBC with platelet count ...[[id number]]AbnormalFinal result Please view results for these tests [...] APPLICABLE FOR DIALYSIS PATIENTS. Specimen Performing Laboratory [address] [address] POC-Glucose meter (10/28/2017 1:08 PM)Only the most recent of2 resultswithin the time period is included. Component Value Ref Range POC-Glucose Meter 198 (H)Comment: TESTED AT [address] 70 - 110 mg/[place] [address] Specimen Performing Laboratory [address] [address] Manual Differential (10/28/2017 5:07 AM) Component Value [...] Present Platelet Conc Adequate Specimen Performing Laboratory [address] [address] Narrative Received comment: User comments: Slide comments: [...] MD Report Verified Date/Time:10/27/2017 22:28:54 Reading Location: [address] Reading Room Procedure Note Interface, External [...] Report Verified Date/Time: 10/27/2017 22:28:54 Reading Location: [address] Reading Room Potassium (10/27/2017 8:50 AM) Component Value Ref Range Potassium 4.9 3.5 - 5.1 meq/L Specimen Performing Laboratory Blood [facility] [address] [address] CBC (Hemogram only) (10/27/2017 3:58 AM) Component [...] /100 WBC Specimen Performing Laboratory Blood [facility] [address] [address] [place] fruit buying grader in or 30 minute increments (10/26/2017 [...] MD Report Verified Date/Time:10/26/2017 18:15:50 Reading Location: [facility] Reading Room Procedure Note Interface, External Ris [...] Report Verified Date/Time: 10/26/2017 18:15:50 Reading Location: [facility] Radiology Reading Room Tissue Exam (10/26/2017 5:38 PM) Component Value Ref Range Case Report Surgical Pathology Report Case: [id number] Authorizing Provider:Pablo Ga MDCollected: 10/26/2017 1738 Ordering Location: [facility] PERIOPERATIVE Received: 10/27/2017 0806 SERVICES Pathologist: Jeremias Patel MD Specimen:Vertebra, L3 VERTEBRAL BODY TUMOR DIAGNOSIS VERTEBRA, BODY, MASS, EXCISION: - METASTATIC RENAL CELL CARCINOMA, Signing Pathologist Direct Phone Line: [phone] COMMENT Sections show nests of cells with clear cytoplasm surrounded by delicate branching fibrovascular septae. Tumor cells are positive for PAX8, RCC, and focally positive for JUSTINE. Immunohistochemical staining is negative in tumor for GATA3, TTF1, HEPPAR1, CK7 and CK20. These findings confirm the diagnosis of metastatic renal cell carcinoma. CPT Code(s) 69437, 22512, 99083, 95046 X7 CLINICAL HISTORY Metastasis to vertebral column [...] developed and its performance characteristics determined by [facility], Pathology Laboratory. It has not been [...] developed and its performance characteristics determined by [facility], Pathology Laboratory. It has not been [...] Specimen Performing Laboratory Tissue - Vertebra [facility] [address] Spinal Angiogram (10/25/2017 4:30 PM) Specimen Performing Laboratory GE RIS Narrative FINAL REPORT DATE: 10/25/2017 NAME: LOTUS PELEAZ ATTENDING: Beau Castillo MD MARINE FIREMAN: Selwyn Lai MD PREOPERATIVE DIAGNOSIS: Metastatic tumor to L3 body POSTOPERATIVE DIAGNOSIS: Metastatic tumor to L3 body PROCEDURES PERFORMED: 1.Diagnostic spinal angiogram 2.Embolization of vertebral body tumor ANESTHESIA: GENERAL COMPLICATIONS: None ESTIMATED BLOOD LOSS: Less than 15ml MATERIALS EMPLOYED: *5 Swedish x 25cm sheath *5 Swedish Mikaelsson catheter *Bentson guidewire *Terumo 0.035 LT glidewire *5 Swedish Mynx device *Echeleon microcatheter *Maira Neurovascular Coils [...] Over a Bentson glide wire, a 5 Swedish sheath was inserted into the right common [...] arterial feeders at the L3 level. An [place] microcatheter was placed coaxially through the Darryn [...] in the vessel closed with a 5 Swedish Mynx device and manual compression. The patient tolerated the procedure well and was transported from the [facility] in unchanged neurological status, without groin hematoma, [...] MD Report Verified Date/Time:10/30/2017 07:27:21 Reading Location: [facility] Y026 Neuro Angio Reading Room Procedure Note Interface, External Ris In - 10/30/2017 7:29 AM CDT FINAL REPORT DATE: 10/25/2017 NAME: LOTUS PELAEZ ATTENDING: Beau Castillo MD MARINE FIREMAN: Selwyn Lai MD PREOPERATIVE DIAGNOSIS: Metastatic tumor to L3 body POSTOPERATIVE DIAGNOSIS: Metastatic tumor to L3 body PROCEDURES PERFORMED: 1.Diagnostic spinal angiogram 2.Embolization of vertebral body tumor ANESTHESIA: GENERAL COMPLICATIONS: None ESTIMATED BLOOD LOSS: Less than 15ml MATERIALS EMPLOYED: *5 Swedish x 25cm sheath *5 Swedish Mikaelsson catheter *Bentson guidewire *Terumo 0.035 LT glidewire *5 Swedish Mynx device *Echeleon microcatheter *Maira Neurovascular Coils [...] location of the puncture site. Over a Neocleusson glide wire, a 5 Swedish sheath was inserted into the right common [...] arterial feeders at the L3 level. An [place] microcatheter was placed coaxially through the Darryn [...] in the vessel closed with a 5 Swedish Mynx device and manual compression. The patient tolerated the procedure well and was transported from the [facility] in unchanged neurological status, without groin hematoma, [...] Report Verified Date/Time: 10/30/2017 07:27:21 Reading Location: [facility] B1 Y026 Neuro Angio Reading Room /aPTT (10/25/2017 8:36 AM) Component Value Ref Range Protime 14.1 11.7 - 14.7 seconds INR 1.1 <=5.9 PTT 23.6 22.5 - 36.0 seconds Specimen Performing Laboratory Blood - Arm, [address] [address] Narrative RECOMMENDED COUMADIN/WARFARIN INR THERAPY RANGES STANDARD DOSE: 2.0 - 3.0 Includes: PROPHYLAXIS for venous thrombosis, systemic embolization; TREATMENT for venous thrombosis and/or pulmonary embolus. HIGH RISK: Target INR is 2.5-3.5 for patients with mechanical heart valves. TRANSFUSION SERVICE REPORT - SCAN (10/24/2017 5:56 PM)MR lumbar spine without & amp; with IV contrast (10/23/2017 8:45 PM) Specimen Performing Laboratory [employer] Narrative FINAL REPORT MRI lumbar spine with [...] diagnosis is suggested. Absent right kidney. Signed: Crhis Ramirez MD Report Verified Date/Time:10/24/2017 08:56:43 Reading Location: [facility] Radiology Reading Room Procedure Note Interface, External [...] Report Verified Date/Time: 10/24/2017 08:56:43 Reading Location: [facility] Radiology Reading Room spine lumbar without IV [...] MD Report Verified Date/Time:10/23/2017 20:52:10 Reading Location: [facility] Radiology Reading Room Procedure Note Interface, External [...] Report Verified Date/Time: 10/23/2017 20:52:10 Reading Location: [facility] Radiology Reading Room Type and screen, automated (10/23/2017 1:58 PM) Component Value Ref Range ABO/RH AUTOMATED (BEAKER) O POSITIVE Ab Scrn NEGATIVE Specimen Performing Laboratory Blood - Arm, [address] [address] aPTT (10/23/2017 1:58 PM) Component Value Ref Range PTT 24.9 22.5 - 36.0 seconds Specimen Performing Laboratory Blood - Arm, [address] [address] Prothrombin time/INR (10/23/2017 1:58 PM) Component Value Ref Range Protime 14.9 (H) 11.7 - 14.7 seconds INR 1.2 <=5.9 Specimen Performing Laboratory Blood - Arm, [address] [address] Narrative RECOMMENDED COUMADIN/WARFARIN INR THERAPY RANGES STANDARD DOSE: 2.0 - 3.0 Includes: PROPHYLAXIS for venous thrombosis, systemic embolization; TREATMENT for venous thrombosis and/or pulmonary embolus. HIGH RISK: Target INR is 2.5-3.5 for patients with mechanical heart valves. after 11/12/2016
--- OUTSIDE RECORDS SUMMARY | 2017-11-13 17:31 | XMS REPORT ---
:1960 [facility] [address] [place] [address] [address] [place] [address] Care Team Providers Name Role Phone KYRA GONZALEZ Unavailable Unavailable Problems This patient has no known problems. Allergies, Adverse Reactions, Alerts This patient has no known allergies or adverse reactions. Medications This patient has no known medications. Results Test Description Test Time Test Comments Text Results Atomic Results Result Comments TISSUE EXAM 2017-11-02 Surgical Pathology Report 12:13:00 Case: [id number] Authorizing Provider: Kyra Gonzalez MD Collected: 10/26/2017 1738 Ordering Location: [facility] PERIOPERATIVE Received: 10/27/2017 0806 SERVICES Pathologist: Jeremias Patel MD Specimen: Vertebra, L3 VERTEBRAL BODY TUMOR VERTEBRA, BODY, MASS, EXCISION: - METASTATIC RENAL CELL CARCINOMA, Signing Pathologist Direct Phone Line: [phone] signed by Jeremias Patel MD on 11/02/2017 at 12:13 PMSections show nests of cells with clear cytoplasm surrounded by delicate branching fibrovascular septae. Tumor cells are positive for PAX8, RCC, and focally positive for JUSTINE. Immunohistochemical staining is negative in tumor for GATA3, TTF1, HEPPAR1, CK7 and CK20. These findings confirm the diagnosis of metastatic renal cell carcinoma. [id number], [id number], 78551, 39584 [id number] to vertebral column of unknown origin, renal cell carcinomaL3 vertebral body tumorReceived fresh labeled "vertebra", description "L3 vertebral body tumor" is a 2.5 x 2.2 x 0.3 cm aggregate of pink-hoffman to mock-white, rubbery, soft and osseous tissue. The specimen is entirely submitted in cassette A1 for decalcification. DB/ewPerformed.The immunohistochemistry test was developed and its performance characteristics determined by [facility] Pathology Laboratory. It has not [...] developed and its performance characteristics determined by [facility] Pathology Laboratory. It has not [...] FINAL REPORT PATIENT ID: ANGIOGRAM, 07:27:00 exam:->preoperative [id number] DATE: 10/25/2017 NAME: SPINAL embolizationDr Satish RUDOLPH ATTENDING: Ted Castillo MD MUSEUM EXHIBIT DESIGNER: Selwyn Lai MD PREOPERATIVE DIAGNOSIS: Metastatic tumor to L3 body POSTOPERATIVE DIAGNOSIS: Metastatic tumor to L3 body PROCEDURES PERFORMED: 1.Diagnostic spinal angiogram2.Embolization of vertebral body tumor ANESTHESIA: GENERAL COMPLICATIONS: None ESTIMATED BLOOD LOSS: Less than 15ml MATERIALS EMPLOYED:*5 Bruneian x 25cm sheath *5 Bruneian Mikaelsson catheter*Bentson guidewire*Terumo 0.035 LT glidewire*5 Bruneian Mynx device*Echeleon microcatheter*[place] Neurovascular Coils*Partical embolisate INDICATIONS:This is a 57-year-old [...] location of the puncture site. Over a FOCUS RESEARCH glide wire, a 5 Bruneian sheath was inserted into the right common [...] arterial feeders at the L3 level. An [place] microcatheter was placed coaxially through the Darryn [...] in the vessel closed with a 5 Bruneian Mynx device and manual compression. The patient tolerated the procedure well and was transported from the [facility] in unchanged neurological status, without [...] MDReport Verified Date/Time: 10/30/2017 07:27:21 Reading Location: [facility] Y026 Neuro Angio Reading Room W/PLT COUNT & AUTO DIFFERENTIAL 2017-10-29 06:42:00 Test Item Value Reference Range Comments WHITE BLOOD CELL COUNT (BEAKER) 14.7 K/ L 3.5-10.5 (test ldje=772) RED BLOOD CELL COUNT (BEAKER) 2.68 M/ L 3.93-5.22 (test ahrl=182) HEMOGLOBIN (BEAKER) (test 7.7 GM/DL 11.2-15.7 wlre=524) HEMATOCRIT (BEAKER) (test 26.1 % 34.1-44.9 gtbj=569) MEAN CORPUSCULAR VOLUME (BEAKER) 97.4 fL 79.4-94.8 (test bgjf=038) MEAN CORPUSCULAR HEMOGLOBIN 28.7 pg 25.6-32.2 (BEAKER) (test tyda=175) MEAN CORPUSCULAR HEMOGLOBIN CONC 29.5 GM/DL 32.2-35.5 (BEAKER) (test zhcs=684) RED CELL DISTRIBUTION WIDTH 17.2 % 11.7-14.4 (BEAKER) (test mokd=349) PLATELET COUNT (BEAKER) (test 197 K/CU MM 150-450 Discordant plt result Compare fomr=820) to previous result, Clinical correlation recommended. MEAN PLATELET VOLUME (BEAKER) 9.5 fL 9.4-12.3 (test zvcw=539) NUCLEATED RED BLOOD CELLS 0 /100 WBC 0-0 (BEAKER) (test ecxe=515) NEUTROPHILS RELATIVE PERCENT 81 % (BEAKER) (test lswg=289) LYMPHOCYTES RELATIVE PERCENT 10 % (BEAKER) (test uxoe=302) MONOCYTES RELATIVE PERCENT 7 % (BEAKER) (test xpeo=797) EOSINOPHILS RELATIVE PERCENT 0 % (BEAKER) (test xxsw=436) BASOPHILS RELATIVE PERCENT 0 % (BEAKER) (test ynwk=743) NEUTROPHILS ABSOLUTE COUNT 11.91 K/ L 1.56-6.13 (BEAKER) (test gepr=671) LYMPHOCYTES ABSOLUTE COUNT 1.40 K/ L 1.18-3.74 (BEAKER) (test wrpf=881) MONOCYTES ABSOLUTE COUNT 1.09 K/ L 0.24-0.36 (BEAKER) (test pbbv=730) EOSINOPHILS ABSOLUTE COUNT 0.03 K/ L 0.04-0.36 (BEAKER) (test okla=076) BASOPHILS ABSOLUTE COUNT 0.01 K/ L 0.01-0.08 (BEAKER) (test krfj=363) IMMATURE GRANULOCYTES-RELATIVE 2 % 0-1 PERCENT (BEAKER) (test wwkg=1502) BASIC METABOLIC [id number] 05:31:00 Test Item Value Reference Range Comments SODIUM (BEAKER) (test 134 meq/L 136-145 iomj=297) POTASSIUM (BEAKER) (test 4.3 meq/L 3.5-5.1 tiaq=964) CHLORIDE (BEAKER) (test 104 meq/L 98-107 dlje=029) CO2 (BEAKER) (test 20 meq/L 22-29 gugc=001) BLOOD UREA NITROGEN 16 mg/dL 7-21 (BEAKER) (test iwog=701) CREATININE (BEAKER) (test 0.74 mg/dL 0.57-1.25 jvoz=612) GLUCOSE RANDOM (BEAKER) 231 mg/dL 70-105 (test fwbd=767) CALCIUM (BEAKER) (test 8.4 mg/dL 8.4-10.2 bddu=370) EGFR (BEAKER) (test 81 mL/min/1.73 sq m ESTIMATED GFR IS NOT kdcs=9552) ACCURATE CREATININE CLEARANCE IN PREDICTING GLOMERULAR FILTRATION RATE. ESTIMATED GFR IS NOT APPLICABLE FOR DIALYSIS PATIENTS. POCT-GLUCOSE [id number] 13:11:00 Test Item Value Reference Range Comments POC-GLUCOSE METER (BEAKER) 198 mg/dL 70-110 TESTED AT [address] (test lkpg=4304) [facility] [address] CBC W/PLT COUNT & AUTO [id number] 10:41:00 Test Item Value Reference Range Comments WHITE BLOOD CELL COUNT (BEAKER) (test mzyt=763) 18.2 K/ L 3.5-10.5 RED BLOOD CELL COUNT (BEAKER) (test xveq=283) 3.02 M/ L 3.93-5.22 HEMOGLOBIN (BEAKER) (test ywka=731) 8.8 GM/DL 11.2-15.7 HEMATOCRIT (BEAKER) (test agdz=350) 29.9 % 34.1-44.9 MEAN CORPUSCULAR VOLUME (BEAKER) (test ekxw=590) 99.0 fL 79.4-94.8 MEAN CORPUSCULAR HEMOGLOBIN (BEAKER) (test 29.1 pg 25.6-32.2 lhai=067) MEAN CORPUSCULAR HEMOGLOBIN CONC (BEAKER) (test 29.4 GM/DL 32.2-35.5 laeu=242) RED CELL DISTRIBUTION WIDTH (BEAKER) (test 17.6 % 11.7-14.4 rehy=416) PLATELET COUNT (BEAKER) (test lybn=975) 260 K/CU MM 150-450 MEAN PLATELET VOLUME (BEAKER) (test zita=324) 9.4 fL 9.4-12.3 NUCLEATED RED BLOOD CELLS (BEAKER) (test 0 /100 WBC 0-0 vkbu=639) POCT-GLUCOSE [id number] 09:51:00 Test Item Value Reference Range Comments POC-GLUCOSE METER (BEAKER) 195 mg/dL 70-110 TESTED AT [address] (test rxfo=1702) [facility] [address] BASIC METABOLIC [id number] 07:26:00 Test Item Value Reference Range Comments SODIUM (BEAKER) (test 132 meq/L 136-145 cgte=965) POTASSIUM (BEAKER) (test 4.6 meq/L 3.5-5.1 Specimen slightly pwcl=835) hemolyzed CHLORIDE (BEAKER) (test 101 meq/L 98-107 ppqz=656) CO2 (BEAKER) (test 18 meq/L 22-29 qosl=775) BLOOD UREA NITROGEN 24 mg/dL 7-21 (BEAKER) (test tfsq=574) CREATININE (BEAKER) (test 0.84 mg/dL 0.57-1.25 Specimen slightly mkjr=826) hemolyzed GLUCOSE RANDOM (BEAKER) 141 mg/dL 70-105 (test ntpi=434) CALCIUM (BEAKER) (test 8.6 mg/dL 8.4-10.2 ghrr=447) EGFR (BEAKER) (test 70 mL/min/1.73 sq m ESTIMATED GFR IS NOT idnq=1480) ACCURATE CREATININE CLEARANCE IN PREDICTING GLOMERULAR FILTRATION RATE. ESTIMATED GFR IS NOT APPLICABLE FOR DIALYSIS PATIENTS. RAD, SPINE, LUMBAR, 2 OR 3 [id number] 22:28:00Reason for exam:-> standing XR post opFINAL [...] MDReport Verified Date/Time: 10/27/2017 22:28:54 Reading Location: [address] Reading Room Electronically signed by: HANSEL LARSEN M.D. on 09/2017 10:28 [id number] 09:38:00 Test Item Value Reference Range Comments POTASSIUM (BEAKER) (test kjgx=243) 4.9 meq/L 3.5-5.1 BASIC METABOLIC [id number] 08:05:00 Test Item Value Reference Range Comments SODIUM (BEAKER) (test 138 meq/L 136-145 tkxw=399) POTASSIUM (BEAKER) (test 5.4 meq/L 3.5-5.1 gptj=607) CHLORIDE (BEAKER) (test 104 meq/L 98-107 lxgj=841) CO2 (BEAKER) (test 24 meq/L 22-29 ifcf=627) BLOOD UREA NITROGEN 26 mg/dL 7-21 (BEAKER) (test ckyy=968) CREATININE (BEAKER) (test 0.85 mg/dL 0.57-1.25 guds=037) GLUCOSE RANDOM (BEAKER) 155 mg/dL 70-105 (test iykb=798) CALCIUM (BEAKER) (test 8.8 mg/dL 8.4-10.2 funk=457) EGFR (BEAKER) (test 69 mL/min/1.73 sq m ESTIMATED GFR IS NOT prsc=7775) ACCURATE CREATININE CLEARANCE IN PREDICTING GLOMERULAR FILTRATION RATE. ESTIMATED GFR IS NOT APPLICABLE FOR DIALYSIS PATIENTS. CBC (HEMOGRAM ONLY)2017-10-27 04:22:00 Test Item Value Reference Range Comments WHITE BLOOD CELL COUNT (BEAKER) (test mupo=616) 19.2 K/ L 3.5-10.5 RED BLOOD CELL COUNT (BEAKER) (test yfad=880) 3.52 M/ L 3.93-5.22 HEMOGLOBIN (BEAKER) (test hyre=452) 10.3 GM/DL 11.2-15.7 HEMATOCRIT (BEAKER) (test orsi=452) 34.7 % 34.1-44.9 MEAN CORPUSCULAR VOLUME (BEAKER) (test rpdi=077) 98.6 fL 79.4-94.8 MEAN CORPUSCULAR HEMOGLOBIN (BEAKER) (test 29.3 pg 25.6-32.2 lyxh=248) MEAN CORPUSCULAR HEMOGLOBIN CONC (BEAKER) (test 29.7 GM/DL 32.2-35.5 osdd=848) RED CELL DISTRIBUTION WIDTH (BEAKER) (test 17.8 % 11.7-14.4 zuru=544) PLATELET COUNT (BEAKER) (test bpmv=017) 340 K/CU MM 150-450 MEAN PLATELET VOLUME (BEAKER) (test nuyn=894) 9.2 fL 9.4-12.3 NUCLEATED RED BLOOD CELLS (BEAKER) (test 0 /100 WBC 0-0 yvkr=924) [place], TAX ASSOCIATE IN OR/30 MINUTE [id number] 18:15:00Reason for exam:-> BACK PAINFINAL REPORT Intraoperative fluoroscopy 5 views 10/26/2017 at 1849 CLINICAL HISTORY: Instrument localization COMPARISON: 10/26/2017 at 1651 IMPRESSION: Please correlate imaging report findings with the procedure note prepared by Dr. Gonzalez, as an intra-procedure imaging consultationwas not requested. Reported fluoroscopy time: 0.4 minutes. Signed: Andreas Harvey VerifiedDate/Time: 10/26/2017 18:15:50 Reading Location: [facility] Radiology Reading Room [place], TAX ASSOCIATE IN OR/30 MINUTE [id number] 16:23: 00Reason for exam:->renal cell ca spinal lessionFINAL REPORT Intraoperative fluoroscopy 5 views 10/26/2017 4:21 PM CLINICAL HISTORY: Instrument localization COMPARISON: None available IMPRESSION: Please correlate imaging report findings with the procedure note prepared by Dr. Gonzalez, as an intra-procedure imaging consultation was not requested. Reported fluoroscopy time: 8 seconds. Signed: Andreas Harvey Verified Date/Time: 2017 16:23:03 Reading Location: [facility] Radiology Reading Room Electronicallysigned by: ANDREAS HARVEY M.D. on 10/26/2017 04:23 PMBASI METABOLIC [id number] 09:35:00 Test Item Value Reference Range Comments SODIUM (BEAKER) (test 138 meq/L 136-145 edwa=121) POTASSIUM (BEAKER) (test 4.5 meq/L 3.5-5.1 oewh=205) CHLORIDE (BEAKER) (test 100 meq/L 98-107 ogcb=697) CO2 (BEAKER) (test 28 meq/L 22-29 iscf=952) BLOOD UREA NITROGEN 30 mg/dL 7-21 (BEAKER) (test syme=471) CREATININE (BEAKER) (test 0.86 mg/dL 0.57-1.25 uvks=412) GLUCOSE RANDOM (BEAKER) 99 mg/dL 70-105 (test rjwn=674) CALCIUM (BEAKER) (test 9.6 mg/dL 8.4-10.2 wxeq=412) EGFR (BEAKER) (test 68 mL/min/1.73 sq m ESTIMATED GFR IS NOT aqil=2125) ACCURATE CREATININE CLEARANCE IN PREDICTING GLOMERULAR FILTRATION RATE. ESTIMATED GFR IS NOT APPLICABLE FOR DIALYSIS PATIENTS. BASIC METABOLIC [id number] 09:02:00 Test Item Value Reference Range Comments SODIUM (BEAKER) (test 141 meq/L 136-145 gcvk=429) POTASSIUM (BEAKER) (test 5.4 meq/L 3.5-5.1 pelw=228) CHLORIDE (BEAKER) (test 102 meq/L 98-107 ugti=519) CO2 (BEAKER) (test 29 meq/L 22-29 recl=745) BLOOD UREA NITROGEN 30 mg/dL 7-21 (BEAKER) (test xghg=362) CREATININE (BEAKER) (test 0.86 mg/dL 0.57-1.25 lgtk=489) GLUCOSE RANDOM (BEAKER) 140 mg/dL 70-105 (test uxpu=861) CALCIUM (BEAKER) (test 9.9 mg/dL 8.4-10.2 ukrj=626) EGFR (BEAKER) (test 68 mL/min/1.73 sq m ESTIMATED GFR IS NOT hfot=4060) ACCURATE CREATININE CLEARANCE IN PREDICTING GLOMERULAR FILTRATION RATE. ESTIMATED GFR IS NOT APPLICABLE FOR DIALYSIS PATIENTS. [id number] 08:57:00 Test Item Value Reference Range Comments PROTIME (BEAKER) (test hsbr=228) 14.1 seconds 11.7-14.7 INR (BEAKER) (test ekjh=178) 1.1 <=5.9 PARTIAL THROMBOPLASTIN TIME (BEAKER) (test 23.6 seconds 22.5-36.0 pqvg=089) RECOMMENDED COUMADIN/WARFARIN INR THERAPY RANGESSTANDARD DOSE: 2.0 - 3.0 Includes: PROPHYLAXIS forvenous thrombosis, systemic embolization; TREATMENT for venous thrombosis and/or pulmonary embolus.HIGH RISK: Target INR is 2.5-3.5 for patients with mechanical heart valves.CBC W/PLT COUNT & AUTO [id number] 08:50:00 Test Item Value Reference Range Comments WHITE BLOOD CELL COUNT (BEAKER) (test cjfq=891) 15.8 K/ L 3.5-10.5 RED BLOOD CELL COUNT (BEAKER) (test sjzs=554) 4.49 M/ L 3.93-5.22 HEMOGLOBIN (BEAKER) (test pxab=691) 12.9 GM/DL 11.2-15.7 HEMATOCRIT (BEAKER) (test kowo=873) 43.0 % 34.1-44.9 MEAN CORPUSCULAR VOLUME (BEAKER) (test fqtk=349) 95.8 fL 79.4-94.8 MEAN CORPUSCULAR HEMOGLOBIN (BEAKER) (test 28.7 pg 25.6-32.2 kjyb=556) MEAN CORPUSCULAR HEMOGLOBIN CONC (BEAKER) (test 30.0 GM/DL 32.2-35.5 bszc=722) RED CELL DISTRIBUTION WIDTH (BEAKER) (test 17.1 % 11.7-14.4 jehj=790) PLATELET COUNT (BEAKER) (test wtpu=452) 403 K/CU MM 150-450 MEAN PLATELET VOLUME (BEAKER) (test yeox=563) 8.3 fL 9.4-12.3 NUCLEATED RED BLOOD CELLS (BEAKER) (test 0 /100 WBC 0-0 snrh=698) NEUTROPHILS RELATIVE PERCENT (BEAKER) (test 77 % qgfj=111) LYMPHOCYTES RELATIVE PERCENT (BEAKER) (test 12 % awzn=516) MONOCYTES RELATIVE PERCENT (BEAKER) (test 8 % ftrl=734) EOSINOPHILS RELATIVE PERCENT (BEAKER) (test 0 % quta=153) BASOPHILS RELATIVE PERCENT (BEAKER) (test 0 % tgtn=182) NEUTROPHILS ABSOLUTE COUNT (BEAKER) (test 12.13 K/ L 1.56-6.13 nxxi=341) LYMPHOCYTES ABSOLUTE COUNT (BEAKER) (test 1.85 K/ L 1.18-3.74 lrqi=235) MONOCYTES ABSOLUTE COUNT (BEAKER) (test 1.24 K/ L 0.24-0.36 leew=910) EOSINOPHILS ABSOLUTE COUNT (BEAKER) (test 0.00 K/ L 0.04-0.36 jikl=507) BASOPHILS ABSOLUTE COUNT (BEAKER) (test 0.03 K/ L 0.01-0.08 gano=979) IMMATURE GRANULOCYTES-RELATIVE PERCENT (BEAKER) 4 % 0-1 (test soqe=6799) MR, SPINE, LUMBAR, [id number] 08:56:00FINAL REPORT MRI lumbar spine with and [...] Ramirezort Verified Date/Time: 10/24/2017 08:56:43 Reading Location: [facility] Radiology Reading Room CT, SPINE, LUMBAR, WO [id number] 20:52:00FINAL REPORT CT lumbar spine INDICATION: Spine [...] Ramirez Verified Date/Time: 10/23/2017 20:52:10 Reading Location: [facility]iology[facility] BASI METABOLIC [id number] 15:40:00 Test Item Value Reference Range Comments SODIUM (BEAKER) (test 138 meq/L 136-145 cedp=906) POTASSIUM (BEAKER) (test 4.4 meq/L 3.5-5.1 telj=902) CHLORIDE (BEAKER) (test 100 meq/L 98-107 mkba=489) CO2 (BEAKER) (test 25 meq/L 22-29 micw=105) BLOOD UREA NITROGEN 31 mg/dL 7-21 (BEAKER) (test bcei=999) CREATININE (BEAKER) (test 0.85 mg/dL 0.57-1.25 ghaj=441) GLUCOSE RANDOM (BEAKER) 172 mg/dL 70-105 (test uqrk=547) CALCIUM (BEAKER) (test 9.7 mg/dL 8.4-10.2 vqoy=383) EGFR (BEAKER) (test 69 mL/min/1.73 sq m ESTIMATED GFR IS NOT uytt=9185) ACCURATE CREATININE CLEARANCE IN PREDICTING GLOMERULAR FILTRATION RATE. ESTIMATED GFR IS NOT APPLICABLE FOR DIALYSIS PATIENTS. PROTHROMBIN [id number] 15:10:00 Test Item Value Reference Range Comments PROTIME (BEAKER) (test rthc=983) 14.9 seconds 11.7-14.7 INR (BEAKER) (test xkou=000) 1.2 <=5.9 RECOMMENDED COUMADIN/WARFARIN INR THERAPY RANGESSTANDARD DOSE: 2.0 - 3.0 Includes: PROPHYLAXIS forvenous thrombosis, systemic embolization; TREATMENT for venous thrombosis and/or pulmonary embolus.HIGH RISK: Target INR is 2.5-3.5 for patients with mechanical heart valves.[id number] 15:10:00 Test Item Value Reference Range Comments PARTIAL THROMBOPLASTIN TIME (BEAKER) (test 24.9 seconds 22.5-36.0 hnnd=757) CBC W/PLT COUNT & AUTO [id number] 14:29:00 Test Item Value Reference Range Comments WHITE BLOOD CELL COUNT (BEAKER) (test dufe=880) 12.0 K/ L 3.5-10.5 RED BLOOD CELL COUNT (BEAKER) (test rvom=539) 3.68 M/ L 3.93-5.22 HEMOGLOBIN (BEAKER) (test qcdo=220) 10.6 GM/DL 11.2-15.7 HEMATOCRIT (BEAKER) (test lewx=002) 35.5 % 34.1-44.9 MEAN CORPUSCULAR VOLUME (BEAKER) (test sdmg=166) 96.5 fL 79.4-94.8 MEAN CORPUSCULAR HEMOGLOBIN (BEAKER) (test 28.8 pg 25.6-32.2 zuey=541) MEAN CORPUSCULAR HEMOGLOBIN CONC (BEAKER) (test 29.9 GM/DL 32.2-35.5 dpnd=882) RED CELL DISTRIBUTION WIDTH (BEAKER) (test 17.1 % 11.7-14.4 almy=916) PLATELET COUNT (BEAKER) (test bdup=001) 375 K/CU MM 150-450 MEAN PLATELET VOLUME (BEAKER) (test qhjq=775) 8.8 fL 9.4-12.3 NUCLEATED RED BLOOD CELLS (BEAKER) (test 1 /100 WBC 0-0 ndlg=268) NEUTROPHILS RELATIVE PERCENT (BEAKER) (test 77 % qcyp=751) LYMPHOCYTES RELATIVE PERCENT (BEAKER) (test 12 % mepo=353) MONOCYTES RELATIVE PERCENT (BEAKER) (test 6 % jvpv=301) EOSINOPHILS RELATIVE PERCENT (BEAKER) (test 0 % potc=784) BASOPHILS RELATIVE PERCENT (BEAKER) (test 1 % fpbb=802) NEUTROPHILS ABSOLUTE COUNT (BEAKER) (test 9.21 K/ L 1.56-6.13 rjjn=132) LYMPHOCYTES ABSOLUTE COUNT (BEAKER) (test 1.38 K/ L 1.18-3.74 sfoh=452) MONOCYTES ABSOLUTE COUNT (BEAKER) (test 0.70 K/ L 0.24-0.36 nlyi=049) EOSINOPHILS ABSOLUTE COUNT (BEAKER) (test 0.00 K/ L 0.04-0.36 daxs=697) BASOPHILS ABSOLUTE COUNT (BEAKER) (test 0.06 K/ L 0.01-0.08 mdiv=267) IMMATURE GRANULOCYTES-RELATIVE PERCENT (BEAKER) 5 % 0-1 (test chvc=4102)
[2017-11-13] MEDS: CARVEDILOL 25 MG TAB PO SCH (19:14)
[2017-11-13] MEDS: MORPHINE *EXTENDED RELEASE* 15 MG TAB PO SCH (20:58)
[2017-11-13 22:44] LABS: Urine Appearance CLEAR; Urine Bilirubin NEGATIVE (NEG); Urine Blood NEGATIVE (NEG); Urine Color YELLOW; Urine Glucose NEGATIVE (NEG); Urine Protein NEGATIVE (NEG)
[2017-11-13 23:48] LABS: Urine Bacteria <20 /HPF (<20); Urine Culture Reflex Order NOT NEEDED; Urine RBC <5 /HPF (NONE SEEN)
[2017-11-14] MEDS: HYDROCODONE/APAP 7.5/325 MG TAB PO PRN ×2 (00:13→12:22)
--- NOTE | 2017-11-14 02:48 | FAST ---
SHIFT START DATE/TIME: 11/13/2017 19:00 (CDT) SHIFT END DATE/TIME: 11/14/2017 07:00 (CDT) NAME MYRTLE RUDOLPH DATE OF : 1960 DATE OF ADMISSION: 11/13/2017 17:28 (CDT) PHONE: AGE: 57 [facility]# [id number] GENDER: Female ENCOUNTER PHYSICIAN: Dr. Ozzy Thompson M.D. 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 EATING: Activity did not occur on this shift EATING - SCORE: 0-UNK GROOMING: Activity did not occur on this shift GROOMING - SCORE: 0-UNK BATHING: Activity did not occur on this shift BATHING - SCORE: 0-UNK DRESSING - UPPER BODY: Patient is not dressing in public clothing ARTICLES SCORE Total number of steps: 0 DRESSING - UPPER BODY - SCORE: 0-UNK DRESSING - LOWER BODY: Patient is not dressing in public clothing ARTICLES SCORE Total number of steps: 0 DRESSING - LOWER BODY - SCORE: 0-UNK TOILETING: TOILETING - STEP 1: Does the patient require assistance with toileting? Yes. TOILETING - STEP 2: Does the patient require the assistance of a helper? Yes. TOILETING - STEP 3: How much assistance does the patient require from the helper? Hands-on assistance from the helper TOILETING - STEP 4: Of the 3 tasks: 1) Adjusting clothing prior to use, 2) Cleansing of perineal area, 3) Adjusting clot mary after use; How many tasks does the patient perform WITHOUT assistance of the helper? No tasks; h yobany performs all three tasks TOILETING - SCORE: 1-DEP BLADDER MANAGEMENT: BLADDER MANAGEMENT - STEP 1: Does the patient control the bladder completely and intentionally without equipment or devices or med ications, and is always continent? No. BLADDER MANAGEMENT - STEP 2: Does the patient require the assistance of a helper? Yes. BLADDER MANAGEMENT - STEP 3: How much assistance does the patient require from the helper? Patient requires contact assistance fro m the helper BLADDER MANAGEMENT - STEP 4: How much contact assistance does the patient require from the helper? Patient requires moderate veronica tance, and performs 50% to 75% of bladder management tasks - Moyers positions AND holds urinal or bed tolliver BLADDER MANAGEMENT - SCORE: 3-MOD BOWEL MANAGEMENT: Activity did not occur on this shift BOWEL MANAGEMENT - SCORE: 7-IND TRANSFERS: BED, CHAIR, WHEELCHAIR: TRANSFERS: BED, CHAIR, WHEELCHAIR - STEP 1: Does the patient require assistance with bed, chair, or wheelchair transfers? Yes. TRANSFERS: BED, CHAIR, WHEELCHAIR - STEP 2: Does the patient require the assistance of a helper? Yes. TRANSFERS: BED, CHAIR, WHEELCHAIR - STEP 3: How much assistance does the patient require from the helper? Lifting of the legs TRANSFERS: BED, CHAIR, WHEELCHAIR - STEP 4: How many legs does the patient require the helper to lift? both legs TRANSFERS: BED, CHAIR, WHEELCHAIR - SCORE: 3-MOD TRANSFERS: TOILET: TRANSFERS: TOILET - STEP 1: Does the patient require assistance with toilet transfers? Yes. TRANSFERS: TOILET - STEP 2: Does the patient require the assistance of a helper? Yes. TRANSFERS: TOILET - STEP 3: How much assistance does the patient require from the helper? Patient performs half or more of the tr ansferring tasks TRANSFERS: TOILET - STEP 4: Does the patient need only incidental help such as contact guard or steadying during toilet transfer? Yes. TRANSFERS: TOILET - SCORE: 4-MIN TRANSFERS: SHOWER: Activity did not occur on this shift TRANSFERS: SHOWER - SCORE: 0-UNK TRANSFERS: TUB: Activity did not occur on this shift TRANSFERS: TUB - SCORE: 0-UNK LOCOMOTION: WALK: Activity did not occur on this shift LOCOMOTION: WALK - SCORE: 0-UNK LOCOMOTION: WHEELCHAIR: Activity did not occur on this shift LOCOMOTION: WHEELCHAIR - SCORE: 0-UNK COMPREHENSION: COMPREHENSION - STEP 1: Does the patient require help to understand complex and abstract ideas (such as current events, finan martha, discharge planning, medical issues, relationships, etc)? No. COMPREHENSION - STEP 2: Does the patient need extra time, require an assistive device (such as glasses, hearing aids, or an a ugmentative communication system), OR does s/he have mild difficulty expressing complex and abstract ideas (including mild dysarthria or mild word-finding problems)? Yes. COMPREHENSION - SCORE: 6-KYRIE EXPRESSION EXPRESSION - STEP 1: Does the patient require help expressing complex and abstract ideas (such as current events, finances , discharge planning, medical issues, relationships, etc)? No. EXPRESSION - STEP 2: Does the patient need extra time, require an assistive device (such as augmentive communication syste m or a communication board), OR does s/he have mild difficulty expressing complex and abstract ideas (including mild dysarthria or mild word-find problems)? No. EXPRESSION - SCORE: 7-IND SOCIAL INTERACTION: SOCIAL INTERACTION - STEP 1: Does the patient require a helper to interact with others in social and therapeutic situations? No. SOCIAL INTERACTION - STEP 2: Does the patient need extra time in social situations, OR does s/he interact with staff, other patien ts, and family members ONLY in structured environments, OR does s/he require medication for social in teraction? Yes, patient needs extra time SOCIAL INTERACTION - SCORE: 6-KYRIE PROBLEM SOLVING: PROBLEM SOLVING - STEP 1: Does the patient need help to solve complex problems such as managing a checking account or confronti ng interpersonal problems? No. PROBLEM SOLVING - STEP 2: Does the patient require extra time to make decisions or solve problems, OR does s/he have slight dif ficulty reading, initiating, or self-correcting in unfamiliar situations? Yes, patient needs extra ti me. PROBLEM SOLVING - SCORE: 6-KYRIE MEMORY: MEMORY - STEP 1: Does the patient need help to remember frequently encountered people, daily routines, and executing r equests? No. MEMORY - STEP 2: Does the patient have slight difficulty recognizing frequently encountered people, daily routines, or executing requests without the need for repetition or using self-initiated or environmental cues to remember? Yes. MEMORY - SCORE: 6-KYRIE SIGNATURE PANEL: The following modified sections: Eating - Score, Grooming - Score, Dressing - Upper Body - Score, Junior ssing - Lower Body - Score, Toileting - Score, Bladder Management - Score, Bowel Management - Score, Transfers: Bed, Chair, Wheelchair - Score, Transfers: Toilet - Score, Transfers: Shower - Score, Chowdhury sfers: Tub - Score, Locomotion: Walk - Score, Locomotion: Wheelchair - Score, Comprehension - Score, Expression - Score, Social Interaction - Score, Problem Solving - Score, Memory - Score were [electro nically] signed by Marianna Isidro CNA on MonNov 14 2017 01:50:09 GMT-0500 (Central Daylight Time)
[2017-11-14] MEDS: CARVEDILOL 25 MG TAB PO SCH ×2 (05:26→17:06)
[2017-11-14] MEDS: LEVOTHYROXINE SOD 0.05 MG TABLET PO SCH (05:27)
[2017-11-14 06:33] LABS: Absolute Lymphocytes (CBC) 1.4 K/uL (0.7-4.9); Absolute Neutrophil 6.8 K/uL (1.8-8.0); Basophils % 0.1 % (0-1.3); Hematocrit 26.7 % (36.0-45.0); MCH 28.2 pg (27.0-35.0); MCV 87.3 fL (80-100); MPV 6.3 fL (7.6-11.3); Monocytes % 11.1 % (3.3-12.3); RBC Red Blood Cell Count 3.05 M/uL (3.86-4.86)
[2017-11-14 07:05] LABS: Potassium 4.4 mEq/L (3.6-5.0)
[2017-11-14 07:07] LABS: Albumin 2.2 g/dL (3.2-5.5); Magnesium 1.9 mg/dL (1.8-2.5); Prealbumin 20.5 mg/dl (18-38)
[2017-11-14 07:09] LABS: Blood Morphology Comment NOT SEEN (NOT SEEN); Platelet Estimate INCR; Urine White Blood Cell Casts OK
[2017-11-14] MEDS: MORPHINE *EXTENDED RELEASE* 15 MG TAB PO SCH ×3 (08:00→19:50)
[2017-11-14] MEDS: ACETAMINOPHEN 500 MG TAB PO PRN (08:18)
[2017-11-14] MEDS: ASPIRIN EC 81 MG TAB PO SCH (08:19)
[2017-11-14] MEDS: DEXAMETHASONE 4 MG TAB PO SCH (08:20)
[2017-11-14] MEDS: PANTOPRAZOLE 40MG TABLET PO SCH (08:22)
[2017-11-14] MEDS: ENOXAPARIN 40 MG/0.4 ML SQ SCH (16:08)
--- NOTE | 2017-11-14 17:04 | FAST ---
ENCOUNTER DATE AND TIME: 11/14/2017 08:00 (CDT) NAME MYRTLE RUDOLPH DATE OF : 1960 DATE OF ADMISSION: 11/13/2017 17:28 (CDT) PHONE: AGE: 57 N# [id number] GENDER: Female ENCOUNTER PHYSICIAN: Dr. Ozzy Thompson M.D. 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 EATING: Activity did not occur on this shift EATING - SCORE: 0-UNK GROOMING: Activity did not occur on this shift GROOMING - SCORE: 0-UNK BATHING: Activity did not occur on this shift BATHING - SCORE: 0-UNK DRESSING - UPPER BODY: Activity did not occur on this shift Patient is not dressing in public clothing ARTICLES SCORE Total number of steps: 0 DRESSING - UPPER BODY - SCORE: 0-UNK DRESSING - LOWER BODY: Activity did not occur on this shift Patient is not dressing in public clothing ARTICLES SCORE Total number of steps: 0 DRESSING - LOWER BODY - SCORE: 0-UNK TOILETING: Activity did not occur on this shift TOILETING - SCORE: 0-UNK BLADDER MANAGEMENT: Activity did not occur on this shift BLADDER MANAGEMENT - SCORE: 7-IND BOWEL MANAGEMENT: Activity did not occur on this shift BOWEL MANAGEMENT - SCORE: 7-IND TRANSFERS: BED, CHAIR, WHEELCHAIR: TRANSFERS: BED, CHAIR, WHEELCHAIR - STEP 1: Does the patient require assistance with bed, chair, or wheelchair transfers? Yes. TRANSFERS: BED, CHAIR, WHEELCHAIR - STEP 2: Does the patient require the assistance of a helper? Yes. TRANSFERS: BED, CHAIR, WHEELCHAIR - STEP 3: How much assistance does the patient require from the helper? Steadying/guiding assistance TRANSFERS: BED, CHAIR, WHEELCHAIR - SCORE: 4-MIN TRANSFERS: TOILET: Activity did not occur on this shift TRANSFERS: TOILET - SCORE: 0-UNK TRANSFERS: SHOWER: Activity did not occur on this shift TRANSFERS: SHOWER - SCORE: 0-UNK TRANSFERS: TUB: Activity did not occur on this shift TRANSFERS: TUB - SCORE: 0-UNK LOCOMOTION: WALK: LOCOMOTION: WALK - STEP 1: Does the patient need help to walk 150 feet? Yes. LOCOMOTION: WALK - STEP 2: How much assistance does the patient require to walk a minimum of 150 feet? Patient walks less than 1 50 feet - but more than 50 feet - with the assistance of only one helper LOCOMOTION: WALK - SCORE: 2-MAX LOCOMOTION: WHEELCHAIR: Activity did not occur on this shift LOCOMOTION: WHEELCHAIR - SCORE: 0-UNK LOCOMOTION: STAIRS: Activity did not occur on this shift LOCOMOTION: STAIRS - SCORE: 0-UNK COMPREHENSION: COMPREHENSION - SCORE: 0-UNK EXPRESSION EXPRESSION - SCORE: 0-UNK SOCIAL INTERACTION: SOCIAL INTERACTION - SCORE: 0-UNK PROBLEM SOLVING: PROBLEM SOLVING - SCORE: 0-UNK MEMORY: MEMORY - SCORE: 0-UNK SIGNATURE PANEL: The following modified sections: Transfers: Bed, Chair, Wheelchair - Score, Transfers: Toilet - Score , Locomotion: Walk - Score, Locomotion: Wheelchair - Score, Locomotion: Stairs - Score were [electron raven] signed by José Bradley PT on MonNov 14 2017 16:04:48 T-0500 (Central Daylight Time)
--- NOTE | 2017-11-14 17:19 | FAST ---
SHIFT START DATE/TIME: 11/14/2017 07:00 (CDT) SHIFT END DATE/TIME: 11/14/2017 19:00 (CDT) NAME MYRTLE RUDOLPH DATE OF : 1960 DATE OF ADMISSION: 11/13/2017 17:28 (CDT) PHONE: AGE: 57 [facility]# [id number] GENDER: Female ENCOUNTER PHYSICIAN: Dr. Ozzy Thompson M.D. 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 EATING: EATING - STEP 1: Does the patient require assistance when eating? Yes. EATING - STEP 2: Does the patient require the assistance of a helper? Yes. EATING - STEP 3: Does the patient perform half or more of the eating tasks? Yes. EATING - STEP 4: Does the patient need only supervision, cuing, coaxing OR help to apply an orthosis OR help to cut fo od, open containers, pour liquids, or butter bread? Yes. EATING - SCORE: 5-SUP GROOMING: Comb/brush hair Oral care Wash, rinse, and dry face Wash, rinse, and dry hands GROOMING - STEP 1: Does the patient require assistance when grooming? Yes. GROOMING - STEP 2: Does the patient require the assistance of a helper? Yes. GROOMING - STEP 3: How much assistance does the patient require from the helper? Only prior equipment preparation/set up from the helper GROOMING - SCORE: 5-SUP BATHING: Activity did not occur on this shift BATHING - SCORE: 0-UNK DRESSING - UPPER BODY: Activity did not occur on this shift ARTICLES SCORE Total number of steps: 0 DRESSING - UPPER BODY - SCORE: 0-UNK DRESSING - LOWER BODY: Activity did not occur on this shift ARTICLES SCORE Total number of steps: 0 DRESSING - LOWER BODY - SCORE: 0-UNK TOILETING: TOILETING - STEP 1: Does the patient require assistance with toileting? Yes. TOILETING - STEP 2: Does the patient require the assistance of a helper? Yes. TOILETING - STEP 3: How much assistance does the patient require from the helper? Only supervision TOILETING - SCORE: 5-SUP BLADDER MANAGEMENT: BLADDER MANAGEMENT - STEP 1: Does the patient control the bladder completely and intentionally without equipment or devices or med ications, and is always continent? No. BLADDER MANAGEMENT - STEP 2: Does the patient require the assistance of a helper? Yes. BLADDER MANAGEMENT - STEP 3: How much assistance does the patient require from the helper? Only supervision, stand-by, cuing, or c oaxing BLADDER MANAGEMENT - SCORE: 5-SUP BLADDER MANAGEMENT - FREQUENCY OF ACCIDENTS: BLADDER MANAGEMENT(FA) - STEP 1: How many accidents has the patient had during the current shift? 0 BOWEL MANAGEMENT: Activity did not occur on this shift BOWEL MANAGEMENT - SCORE: 7-IND BOWEL MANAGEMENT - FREQUENCY OF ACCIDENTS: BOWEL MANAGEMENT(FA) - STEP 1: How many accidents has the patient had during the current shift? 0 TRANSFERS: BED, CHAIR, WHEELCHAIR: TRANSFERS: BED, CHAIR, WHEELCHAIR - STEP 1: Does the patient require assistance with bed, chair, or wheelchair transfers? Yes. TRANSFERS: BED, CHAIR, WHEELCHAIR - STEP 2: Does the patient require the assistance of a helper? Yes. TRANSFERS: BED, CHAIR, WHEELCHAIR - STEP 3: How much assistance does the patient require from the helper? Steadying/guiding assistance TRANSFERS: BED, CHAIR, WHEELCHAIR - SCORE: 4-MIN TRANSFERS: TOILET: TRANSFERS: TOILET - STEP 1: Does the patient require assistance with toilet transfers? Yes. TRANSFERS: TOILET - STEP 2: Does the patient require the assistance of a helper? Yes. TRANSFERS: TOILET - STEP 3: How much assistance does the patient require from the helper? Patient performs half or more of the tr ansferring tasks TRANSFERS: TOILET - STEP 4: Does the patient need only incidental help such as contact guard or steadying during toilet transfer? Yes. TRANSFERS: TOILET - SCORE: 4-MIN TRANSFERS: SHOWER: Activity did not occur on this shift TRANSFERS: SHOWER - SCORE: 0-UNK TRANSFERS: TUB: Activity did not occur on this shift TRANSFERS: TUB - SCORE: 0-UNK LOCOMOTION: WALK: Activity did not occur on this shift LOCOMOTION: WALK - SCORE: 0-UNK LOCOMOTION: WHEELCHAIR: LOCOMOTION: WHEELCHAIR - STEP 1: Does the patient need help to go 150 feet in a wheelchair? Yes. LOCOMOTION: WHEELCHAIR - STEP 2: How much assistance does the patient need from the helper? Only incidental help such as around corner s or over thresholds LOCOMOTION: WHEELCHAIR - SCORE: 4-MIN COMPREHENSION: COMPREHENSION: TYPE: Both COMPREHENSION - STEP 1: Does the patient require help to understand complex and abstract ideas (such as current events, finan martha, discharge planning, medical issues, relationships, etc)? No. COMPREHENSION - STEP 2: Does the patient need extra time, require an assistive device (such as glasses, hearing aids, or an a ugmentative communication system), OR does s/he have mild difficulty expressing complex and abstract ideas (including mild dysarthria or mild word-finding problems)? Yes. COMPREHENSION - SCORE: 6-KYRIE EXPRESSION EXPRESSION: TYPE: Both EXPRESSION - STEP 1: Does the patient require help expressing complex and abstract ideas (such as current events, finances , discharge planning, medical issues, relationships, etc)? No. EXPRESSION - STEP 2: Does the patient need extra time, require an assistive device (such as augmentive communication syste m or a communication board), OR does s/he have mild difficulty expressing complex and abstract ideas (including mild dysarthria or mild word-find problems)? Yes. EXPRESSION - SCORE: 6-KYRIE SOCIAL INTERACTION: SOCIAL INTERACTION - STEP 1: Does the patient require a helper to interact with others in social and therapeutic situations? No. SOCIAL INTERACTION - STEP 2: Does the patient need extra time in social situations, OR does s/he interact with staff, other patien ts, and family members ONLY in structured environments, OR does s/he require medication for social in teraction? No. SOCIAL INTERACTION - SCORE: 7-IND PROBLEM SOLVING: PROBLEM SOLVING - STEP 1: Does the patient need help to solve complex problems such as managing a checking account or confronti ng interpersonal problems? No. PROBLEM SOLVING - STEP 2: Does the patient require extra time to make decisions or solve problems, OR does s/he have slight dif ficulty reading, initiating, or self-correcting in unfamiliar situations? Yes, patient needs extra ti me. PROBLEM SOLVING - SCORE: 6-KYRIE MEMORY: MEMORY - STEP 1: Does the patient need help to remember frequently encountered people, daily routines, and executing r equests? No. MEMORY - STEP 2: Does the patient have slight difficulty recognizing frequently encountered people, daily routines, or executing requests without the need for repetition or using self-initiated or environmental cues to remember? Yes. MEMORY - SCORE: 6-KYRIE SIGNATURE PANEL: The following modified sections: Eating - Score, Grooming - Score, Bathing - Score, Dressing - Upper Body - Score, Dressing - Lower Body - Score, Toileting - Score, Bladder Management - Score, Bowel Man agement - Score, Transfers: Bed, Chair, Wheelchair - Score, Transfers: Toilet - Score, Transfers: Graciela wer - Score, Transfers: Tub - Score, Locomotion: Walk - Score, Locomotion: Wheelchair - Score, Compre hension - Score, Expression - Score, Social Interaction - Score, Problem Solving - Score, Memory - Sc ore were [electronically] signed by Portia Chopra [email or web address] on MonNov 14 2017 16:21:11 T-0500 (Centra [place] Daylight Time)
--- NOTE | 2017-11-14 17:40 | R.HP ---
FACILITY: [facility] ENCOUNTER DATE AND TIME: 11/14/2017 16:36 (CDT) MR#: [id number] NAME MYRTLE RUDOLPH ADDRESS: [address] [place] [address] [address] [place] [place] [address] PHONE: DATE OF : 1960 AGE: 57 SSN# [id number] GENDER: Female DEXTERITY Right-handed MARITAL STATUS RACE White PRE-HOSPITAL LIVING SETTING 01 - Home (private home/apt. board/care, assisted living, [place] [facility], transitional living) PRE-HOSPITAL LIVING WITH Family/Relatives ENCOUNTER PHYSICIAN: Dr. Ozzy Thompson M.D. REFERRING DOCTOR: Joshua Barrios DATE OF ADMISSION: 11/13/2017 17:28 (CDT) REFERRING FACILITY [facility] HOME TYPE AND DETAILS: Type of home: single family house # of steps to enter the residence: 0 # of steps within the residence: 0 # of levels in the residence: 1 ADMISSION DIAGNOSIS: Lumbar Disc Disease ONSET DATE: 11/10/2017 PRIMARY DIAGNOSIS-RELATED SURGERIES: Spinal surgery for renal tumor debulking SECONDARY/COMORBID DIAGNOSES (TIERED): - N/A Hypertension Hypothyroidism Renal Cell Carcinoma Lung Cancer GERD HISTORY OF PRESENT ILLNESS (HPI): Pt. is a 57 yo Right-handed white female. On 11/10/2017 she was admitted to [facility] with diagnosis Lumbar Disc Disease . 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 Pre-morbidly, Pt. was independent/mod-I in Self-Care, Transfers Control, Social Cognition, Communicat ion, Sphincter Control, and Locomotion; and she had good Sphincter Control. Currently, she has deficits of Transfers Control, Safety Awareness, Balance, Endurance, Locomotion, a nd Self-Care. Pt. is now referred to [facility] for acute in-patient rehabilitation in order to maximize patient's functional independence in activities of daily living, strength, ROM, and mobi lity. Patient has realistic goal of being discharged at assistance level 6-Tanisha to reside at Home with Fam tye/Relatives. MEDICATION ALLERGIES: Nsaids Aspirin ENVIRONMENTAL ALLERGIES: None Known - Substance Allergies None Known - Other Allergies None Known PAST MEDICAL HISTORY: GERD Hypertension Hypothyroidism Renal Cell Carcinoma PAST SURGICAL HISTORY: Tubal ligation Back surgery FAMILY HISTORY: Family history is not contributory. SOCIAL HISTORY: - Home Living Family/Relatives REVIEW OF SYSTEMS: - Gen No Chills No Fatigue No Fever - Eyes No Double Vision No itchiness - ENMT No Difficulty Swallowing - CVS No Chest Discomfort No Chest Pain No Fatigue No Weight Gain - Resp No Cough No Shortness of Breath - GI Continent No Abdominal Pain No Constipation No Diarrhea - Continent No Kidney Pain No Painful Urination No Urinary Urgency - MSK No Joint Pain No Muscle Cramps No Stiffness - Skin No Itching No Rash No Suspicious Lesions - Neuro No Coordination Difficulty No Difficulty with Concentration No Memory Loss No Seizures No Weakness - Psych No Anxiety No Depression No HIV Exposure No Persistent Infections No Seasonal Allergies - Endo No Cold/Heat Intolerance No Excessive Hunger No Excessive Thirst No Excessive Urination PHYSICAL EXAM - Gen Alert and awake Lying in bed No apparent distress Oriented to: person, time, and place - Skin No skin breakdown. Normacephalic - Eyes No abnormalities - ENMT No abnormalities - Neck No abnormalities - CVS RRR - Resp Clear to auscultation - Abd Soft - GI Non distended Deferred - No abnormalities - Ext No significant edema - MSK 4/5 weakness in both lower extremities. - Neuro No focal deficits - Psych No abnormalities VITAL SIGNS Temperature: 97.2 F SBP/DBP: 136/56 Pulse: 77 Resp: 14 NURSING: - Shower allowing shower - Bladder care per protocol - Skin care per protocol PRECAUTIONS: - Fall Precaution Bed and chair alarm ACTIVITIES OOB only with supervision FUNCTIONAL STATUS: - Self-Care A. Eating Ind Tanisha B. Grooming Ind Tanisha C. Bathing Ind Von D. Dressing - Upper Ind Von E. Dressing - Lower Ind Von F. Toileting Ind Von - Sphincter Control G: Bladder control Ind Ind H: Bowel control Ind Ind - Transfers Control I. Bed/Chair/Wheelchair Ind Von J. Toilet Ind Von K. Tub/Shower Ind ADNO - Locomotion L. Walk/Wheelchair (C) Ind Von L. Walk/Wheelchair (W) Ind Von M. Stairs Ind ADNO - Communication N. Comprehension (B) Ind Ind O. Expression (B) Ind Ind - Social Cognition P. Social Interaction Ind Ind Q. Problem Solving Ind Ind R. Memory Ind Ind - Endurance Poor - Balance Poor - Safety Awareness Fair CURRENT FUNC. DEFICITS: Transfers Control, Safety Awareness, Balance, Endurance, Locomotion, and Self-Care ASSESSMENT: Pt. is a 57 yo Right-handed white female.On 11/10/2017 she was admitted to [facility] with diagnosis Lumbar Disc Disease.Her impairment category is Spinal Cord Dysfunction 04 - Ot her Non-traumatic Spinal Cord Dysfunction (04.130).Pre-morbidly, Pt. was independent/mod-I in Self-Ca re, Transfers Control, Social Cognition, Communication, Sphincter Control, and Locomotion; and she sauer d good Sphincter Control.Currently, she has deficits of Transfers Control, Safety Awareness, Balance, Endurance, Locomotion, and Self-Care.Pt. is now [facility] in order to maximize patient's functional independence in activities of daily living, strength, ROM, and mobility.- Rehab Goal Patient has realistic goal of being discharged at assistance level 6-Tanisha to reside at Home with Fam tye/Relatives. REHAB PLAN: - Physical Therapy Gait dysfunction - to improve, our physical therapists will perform initial evaluation of pt's status upon admission and devise an individualized program for Gait Training, and Wheel Chair mobility Inability to transfer - to improve, our physical therapists will perform initial evaluation of pt's s tatus upon admission and devise an individualized program for Bed mobility Need for home safety evaluation - to improve, our physical therapists will perform initial evaluation of pt's status upon admission and devise an individualized program for Home Evaluation Need in caregiver upon discharge - to improve, our physical therapists will perform initial evaluatio n of pt's status upon admission and devise an individualized program for Caregiver Training New precaution - to improve, our physical therapists will perform initial evaluation of pt's status u herminio admission and devise an individualized program for Patient precaution education Edema - to improve, our physical therapists will perform initial evaluation of pt's status upon admi ssion and devise an individualized program for Elevation Training, and Lymphedema Therapy Poor balance - to improve, our physical therapists will perform initial evaluation of pt's status upo n admission and devise an individualized program for Balance Training Poor endurance - to improve, our physical therapists will perform initial evaluation of pt's status u herminio admission and devise an individualized program for Endurance Training Weakness - to improve, our physical therapists will perform initial evaluation of pt's status upon ad mission and devise an individualized program for Aquatic Therapy, Neuromuscular Reeducation, and Stre ngthening Achieving independence - to improve, our physical therapists will perform initial evaluation of pt's status upon admission and devise an individualized program for Community Reintegration Activities - Occupational Therapy ADL deficits - to improve, our occupation therapists will perform initial evaluation of pt's status u herminio admission and devise an individualized program for Bathing, Bed mobility, Community Reintegration , Cooking, Dressing, Eating, Fine Motor Skills, Grooming, Homemaking, Kitchen Mobility, Laundry, Ritu ent Education, Safety Awareness, Splinting - Positioning, Transfers(Toilet, Tub, Shower), and Wheel C hair Management Need for resident care associate - to improve, our occupation therapists will perform initial evaluation of pt's s tatus upon admission and devise an individualized program for Caregiver Training Weakness - to improve, our occupation therapists will perform initial evaluation of pt's status upon admission and devise an individualized program for Aquatic Therapy, Balance, Endurance, UE ROM, and U E strengthening MEDICAL PLAN: - Diet Type Start Regular - Diet - Liquid Texture Start Regular - Tube Feed Start N/A - Bladder care per protocol - Fall Precaution Bed and chair alarm - Skin care per protocol - Diet - Solid Texture Regular - Shower shower DISCHARGE PLAN: - Estimated Length of Stay (days) 16. - Consensus on plan Discharge plan has been discussed with primary caregiver. Patient/Family is in agreement with the thuy n. Primary caregiver is in agreement with the plan. - Patient/Family Goals Return home with assistance. - Planned Living Setting Upon Discharge Home, to live with Family/Relatives. SIGNATURE PANEL: (CDT)
--- NOTE | 2017-11-14 17:41 | PAPE ---
PATIENT: [facility] MR# [id number] REFERRING DOCTOR Joshua Barrios EVALUATION DATE AND TIME 11/14/2017 16:42 (CDT) NAME MYRTLE RUDOLPH DATE OF 1960 AGE 57 PHONE N# [id number] GENDER female EVALUATING PHYSICIAN Dr. Ozzy Thompson M.D. ADMISSION DIAGNOSIS: Lumbar Disc Disease ONSET DATE 11/10/2017 SECONDARY/COMORBID DIAGNOSES TIERED: - N/A Hypertension Hypothyroidism Renal Cell Carcinoma Lung Cancer GERD POST-ADMISSION FUNCTIONAL/MEDICAL STATUS: - Bladder Same accident frequency: Ind - No accidents in the past 7 days - Bowel Same accident frequency: Ind - No accidents in the past 7 days - Walking Same score based on distance walked: 2(7349ft) - Wheelchair Same score based on distance traveled: 0(N/A) STATUS CHANGE EVALUATION: No change in Functional or Medical Status is identified compared with Pre-Admission screening. PATIENT NEEDS CLOSE MEDICAL SUPERVISION BY A REHABILITATION PHYSICIAN FOR: Bowel and Bladder Management Coordination of Treatment Team Wound Care Pain Management Medical and Co-Morbidity Management PATIENT REQUIRES 24X7 REHAB NURSING FOR MEDICAL AND FUNCTIONAL MGT. OF THE FOLLOWING DEFICITS: ADL's Ambulation Bowel and Bladder Management Cognition Communication Disease Management Medication Management Patient/Family Education Providing Safe Environment Skin Integrity Transfers Pain Management PATIENT REQUIRES INTENSIVE, COORDINATED INTERDISCIPLINARY APPROACH TO REHAB: Arranging Home Equipment/Services Discharge Planning Family Intervention/Training Control Room Technician/Case Management LIST OF IDENTIFIED AND POTENTIAL PROBLEMS: Alteration in leisure activities Bladder, Incontinence Blood Pressure, Hypertension/hypotension Issues Bowel, Incontinence Infection, Actual or Potential Mobility Impaired Pain, Alteration in Comfort Self Care Deficit Skin Integrity, Actual or Potential Urinary Tract Infection (UTI), Actual or Potential RISK FOR COMPLICATIONS - Hypertension CVA. Hypotension. ND. TIA. - GERD Alteration in sleep. Aspiration. Dehydration. Malnutrition. Pain. INTERVENTIONS - Hypertension - GERD Altered diet. Elevation of head of bed. Medications. Nausea/vomiting. Nighttime food/fluid restrictio ns. Nutrition. PATIENT COULD BE AT RISK FOR COMPLICATIONS FROM ADVERSE MEDICAL CONDITIONS DUE TO HIS/HER COMORBIDITI ES AND THE RIGORS OF THE INTENSIVE REHABILLITATION PROGRAM. METHODS OR INTERVENTIONS TO AVOID COMPLIC ATIONS INCLUDE: - Bleeding Assess lab values and manage abnormalities. Nursing to teach precautions for anti-coagulation therapy . Wound to be assessed every shift. - Infection Clinical staff to assess and manage the signs and symptoms of infection including fever, redness, war mth, etc. - Urinary Tract Infection - Falls Patient will be evaluated for Fall Precautions and will be placed on Fall Precautions as indicated pe r protocol. - Skin Breakdown Nursing will assess skin daily using assessment tool and will place on Skin Breakdown Precautions as indicated per protocol. - Pain Clinical staff may employ non-medication methods such as massage, distraction, decrease stimulus, etc . as needed. Clinical staff will assess patient's pain level every shift per protocol to assess and e nsure pain management effectiveness. Medications will be given and the pain level re-assessed. PRELIMINARY PLAN OF CARE: - Physical Therapy Patient needs Physical Therapy for a daily minimum of 1.5 hours at least 5 out of 7 days, to improve: Mobility, Strengthening, Transfers, Stretching, ROM, Endurance, Ability to manage stairs, Gait, and Balance. - Rehabilitation Nursing Patient requires 24x7 Rehabilitation Nursing for: Pain Issues, Identifying and preventing risk factor s, Monitoring and reporting current medical conditions, Assisting with ambulation and transfer, Tamara ting with all ADL-s, Teaching patients about disease process and medications, Family teaching, Provid ing safe environment, Bowel and Bladder Issues, Skin Integrity, and Medication Management. Patient needs Control Room Technician and/or Case Management for: Discharge Planning, Arranging Home Equipmen t or Services, and Family Interventions. - Dietary and Nutrition Services Patient needs Dietary and Nutrition Services for: Adequate Nutrition, Nutritional Supplements, and Nu tritional Education. - Occupational Therapy Patient needs Occupational Therapy for a daily minimum of 1.5 hours at least 5 out of 7 days, to impr ove Activities of Daily Living, including: Eating, Grooming, Bathing, Dressing, Toileting, Toilet Tra nsfers, Community Reintegration, Higher functional activities, Adaptive Equipment, Splinting, Househo ld Tasks, and Other activities as determined. POTENTIAL FUNCTIONAL GOALS FOR PATIENT TO ACHIEVE BY DISCHARGE: - Safety Precaution Patient will remain free from falls or injury at time of discharge. - Bed Mobility Patient will perform bed mobility at 4-Von level of assistance. - Transfers Patient will complete transfers from bed to chair at 4-Von level of assistance. - Mobility Patient will ambulate 150 ft with 4-Von level of assistance with RW. PATIENT REHAB POTENTIAL Expected level of measurable improvement will be of a practical value to patient's functional capacit y or adaptations to impairments Has a viable Discharge Plan Medically appropriate; condition is sufficiently stable to participate in intensive rehab program Patient is able and expected to receive 3 hours of individualized therapy daily on at least 5 of ever y 7 days Patient's prognosis for significant practical improvement within a reasonable period of time appears Good DISCHARGE PLAN: - Estimated Length of Stay (days) 16. - Consensus on plan Discharge plan has been discussed with primary caregiver. Patient/Family is in agreement with the thuy n. Primary caregiver is in agreement with the plan. - Patient/Family Goals Return home with assistance. - Planned Living Setting Upon Discharge Home, to live with Family/Relatives. CONCLUSION ON REHABILITATION NECESSITY: I have evaluated patient's pre-admission functional status and, comparing it to the patient's post-ad mission functional status now, I conclude that the pre-admission assessment was accurate. Patient's c ondition on admission supports the medical necessity of admission to IR[facility]. It is safe to proceed with patient's therapy program. SIGNATURE PANEL: (CDT)
[2017-11-14] MEDS: PROMOD 30 ML DOSE PO SCH (19:51)
[2017-11-15] MEDS: HYDROCODONE/APAP 7.5/325 MG TAB PO PRN (01:16)
--- NOTE | 2017-11-15 04:43 | FAST ---
SHIFT START DATE/TIME: 11/14/2017 19:00 (CDT) SHIFT END DATE/TIME: 11/15/2017 07:00 (CDT) NAME MYRTLE RUDOLPH DATE OF : 1960 DATE OF ADMISSION: 11/13/2017 17:28 (CDT) PHONE: AGE: 57 [facility]# [id number] GENDER: Female ENCOUNTER PHYSICIAN: Dr. Ozzy Thompson M.D. 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 EATING: EATING - STEP 1: Does the patient require assistance when eating? Yes. EATING - STEP 2: Does the patient require the assistance of a helper? Yes. EATING - STEP 3: Does the patient perform half or more of the eating tasks? Yes. EATING - STEP 4: Does the patient need only supervision, cuing, coaxing OR help to apply an orthosis OR help to cut fo od, open containers, pour liquids, or butter bread? Yes. EATING - SCORE: 5-SUP GROOMING: Comb/brush hair Oral care Wash, rinse, and dry face Wash, rinse, and dry hands GROOMING - STEP 1: Does the patient require assistance when grooming? Yes. GROOMING - STEP 2: Does the patient require the assistance of a helper? Yes. GROOMING - STEP 3: How much assistance does the patient require from the helper? Only prior equipment preparation/set up from the helper GROOMING - SCORE: 5-SUP BATHING: Activity did not occur on this shift BATHING - SCORE: 0-UNK DRESSING - UPPER BODY: Patient is not dressing in public clothing ARTICLES SCORE Total number of steps: 0 DRESSING - UPPER BODY - SCORE: 0-UNK DRESSING - LOWER BODY: Patient is not dressing in public clothing ARTICLES SCORE Total number of steps: 0 DRESSING - LOWER BODY - SCORE: 0-UNK TOILETING: TOILETING - STEP 1: Does the patient require assistance with toileting? Yes. TOILETING - STEP 2: Does the patient require the assistance of a helper? Yes. TOILETING - STEP 3: How much assistance does the patient require from the helper? Hands-on assistance from the helper TOILETING - STEP 4: Of the 3 tasks: 1) Adjusting clothing prior to use, 2) Cleansing of perineal area, 3) Adjusting clot mary after use; How many tasks does the patient perform WITHOUT assistance of the helper? Three tasks with steadying assistance from the helper TOILETING - SCORE: 4-MIN BLADDER MANAGEMENT: BLADDER MANAGEMENT - STEP 1: Does the patient control the bladder completely and intentionally without equipment or devices or med ications, and is always continent? No. BLADDER MANAGEMENT - STEP 2: Does the patient require the assistance of a helper? Yes. BLADDER MANAGEMENT - STEP 3: How much assistance does the patient require from the helper? Patient requires contact assistance fro m the helper BLADDER MANAGEMENT - STEP 4: How much contact assistance does the patient require from the helper? Patient requires minimal assist ance to maintain an external device - by positioning, and the patient performs 75% or more of bladder management tasks, while the helper provides less than 25% of the assistance to position patient on / off bedpan BLADDER MANAGEMENT - SCORE: 4-MIN BLADDER MANAGEMENT - FREQUENCY OF ACCIDENTS: BLADDER MANAGEMENT(FA) - STEP 1: How many accidents has the patient had during the current shift? 0 BOWEL MANAGEMENT: Activity did not occur on this shift BOWEL MANAGEMENT - SCORE: 7-IND TRANSFERS: BED, CHAIR, WHEELCHAIR: TRANSFERS: BED, CHAIR, WHEELCHAIR - STEP 1: Does the patient require assistance with bed, chair, or wheelchair transfers? Yes. TRANSFERS: BED, CHAIR, WHEELCHAIR - STEP 2: Does the patient require the assistance of a helper? Yes. TRANSFERS: BED, CHAIR, WHEELCHAIR - STEP 3: How much assistance does the patient require from the helper? Steadying/guiding assistance TRANSFERS: BED, CHAIR, WHEELCHAIR - SCORE: 4-MIN TRANSFERS: TOILET: TRANSFERS: TOILET - STEP 1: Does the patient require assistance with toilet transfers? Yes. TRANSFERS: TOILET - STEP 2: Does the patient require the assistance of a helper? Yes. TRANSFERS: TOILET - STEP 3: How much assistance does the patient require from the helper? Patient performs half or more of the tr ansferring tasks TRANSFERS: TOILET - STEP 4: Does the patient need only incidental help such as contact guard or steadying during toilet transfer? Yes. TRANSFERS: TOILET - SCORE: 4-MIN TRANSFERS: SHOWER: Activity did not occur on this shift TRANSFERS: SHOWER - SCORE: 0-UNK TRANSFERS: TUB: Activity did not occur on this shift TRANSFERS: TUB - SCORE: 0-UNK LOCOMOTION: WALK: Activity did not occur on this shift LOCOMOTION: WALK - SCORE: 0-UNK LOCOMOTION: WHEELCHAIR: Activity did not occur on this shift LOCOMOTION: WHEELCHAIR - SCORE: 0-UNK COMPREHENSION: COMPREHENSION: TYPE: Both COMPREHENSION - STEP 1: Does the patient require help to understand complex and abstract ideas (such as current events, finan martha, discharge planning, medical issues, relationships, etc)? No. COMPREHENSION - STEP 2: Does the patient need extra time, require an assistive device (such as glasses, hearing aids, or an a ugmentative communication system), OR does s/he have mild difficulty expressing complex and abstract ideas (including mild dysarthria or mild word-finding problems)? Yes. COMPREHENSION - SCORE: 6-KYRIE EXPRESSION EXPRESSION: TYPE: Both EXPRESSION - STEP 1: Does the patient require help expressing complex and abstract ideas (such as current events, finances , discharge planning, medical issues, relationships, etc)? No. EXPRESSION - STEP 2: Does the patient need extra time, require an assistive device (such as augmentive communication syste m or a communication board), OR does s/he have mild difficulty expressing complex and abstract ideas (including mild dysarthria or mild word-find problems)? Yes. EXPRESSION - SCORE: 6-KYRIE SOCIAL INTERACTION: SOCIAL INTERACTION - STEP 1: Does the patient require a helper to interact with others in social and therapeutic situations? No. SOCIAL INTERACTION - STEP 2: Does the patient need extra time in social situations, OR does s/he interact with staff, other patien ts, and family members ONLY in structured environments, OR does s/he require medication for social in teraction? Yes, patient needs extra time SOCIAL INTERACTION - SCORE: 6-KYRIE PROBLEM SOLVING: PROBLEM SOLVING - STEP 1: Does the patient need help to solve complex problems such as managing a checking account or confronti ng interpersonal problems? No. PROBLEM SOLVING - STEP 2: Does the patient require extra time to make decisions or solve problems, OR does s/he have slight dif ficulty reading, initiating, or self-correcting in unfamiliar situations? Yes, patient has slight dif ficulty reading, initiating, or self-correcting in unfamiliar situations. PROBLEM SOLVING - SCORE: 6-KYRIE MEMORY: MEMORY - STEP 1: Does the patient need help to remember frequently encountered people, daily routines, and executing r equests? No. MEMORY - STEP 2: Does the patient have slight difficulty recognizing frequently encountered people, daily routines, or executing requests without the need for repetition or using self-initiated or environmental cues to remember? Yes. MEMORY - SCORE: 6-KYRIE SIGNATURE PANEL: The following modified sections: Eating - Score, Grooming - Score, Bathing - Score, Dressing - Upper Body - Score, Dressing - Lower Body - Score, Toileting - Score, Bladder Management - Score, Bowel Man agement - Score, Transfers: Bed, Chair, Wheelchair - Score, Transfers: Toilet - Score, Transfers: Graciela wer - Score, Transfers: Tub - Score, Locomotion: Walk - Score, Locomotion: Wheelchair - Score, Compre hension - Score, Expression - Score, Social Interaction - Score, Problem Solving - Score, Memory - Sc ore were [electronically] signed by Katt Michele C.N.AFazal on MonNov 15 2017 03:45:25 T-0500 ( Central Daylight Time)
[2017-11-15] MEDS: LEVOTHYROXINE SOD 0.05 MG TABLET PO SCH (05:15)
[2017-11-15] MEDS: CARVEDILOL 25 MG TAB PO SCH ×2 (05:15→17:23)
[2017-11-15] MEDS: PANTOPRAZOLE 40MG TABLET PO SCH (07:20)
[2017-11-15] MEDS: PROMOD 30 ML DOSE PO SCH ×2 (08:00→19:23)
[2017-11-15] MEDS: ASPIRIN EC 81 MG TAB PO SCH (08:00)
[2017-11-15] MEDS: MORPHINE *EXTENDED RELEASE* 15 MG TAB PO SCH ×2 (08:46→19:23)
[2017-11-15] MEDS: FE SULF/FA/VIT B COMP & C TAB PO SCH (08:47)
[2017-11-15] MEDS: DEXAMETHASONE 4 MG TAB PO SCH (08:47)
[2017-11-15] MEDS: FERROUS SULFATE 325 MG TAB PO SCH (08:47)
[2017-11-15] MEDS: ONDANSETRON 4 MG (ODT) TAB PO PRN (08:50)
[2017-11-15] MEDS: ACETAMINOPHEN 500 MG TAB PO PRN (12:39)
--- NOTE | 2017-11-15 15:27 | FAST ---
SHIFT START DATE/TIME: 11/15/2017 07:00 (CDT) SHIFT END DATE/TIME: 11/15/2017 19:00 (CDT) NAME MYRTLE RUDOLPH DATE OF : 1960 DATE OF ADMISSION: 11/13/2017 17:28 (CDT) PHONE: AGE: 57 [facility]# [id number] GENDER: Female ENCOUNTER PHYSICIAN: Dr. Ozzy Thompson M.D. 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 EATING: EATING - STEP 1: Does the patient require assistance when eating? Yes. EATING - STEP 2: Does the patient require the assistance of a helper? No, patient only requires an assistive device, O R s/he takes more than reasonable time to eat, OR there is a safety concern, OR s/he requires modifie d food consistency EATING - SCORE: 6-KYRIE GROOMING: Activity did not occur on this shift GROOMING - SCORE: 0-UNK BATHING: Activity did not occur on this shift BATHING - SCORE: 0-UNK DRESSING - UPPER BODY: Activity did not occur on this shift ARTICLES SCORE Total number of steps: 0 DRESSING - UPPER BODY - SCORE: 0-UNK DRESSING - LOWER BODY: Activity did not occur on this shift ARTICLES SCORE Total number of steps: 0 DRESSING - LOWER BODY - SCORE: 0-UNK TOILETING: TOILETING - STEP 1: Does the patient require assistance with toileting? Yes. TOILETING - STEP 2: Does the patient require the assistance of a helper? Yes. TOILETING - STEP 3: How much assistance does the patient require from the helper? Hands-on assistance from the helper TOILETING - STEP 4: Of the 3 tasks: 1) Adjusting clothing prior to use, 2) Cleansing of perineal area, 3) Adjusting clot mary after use; How many tasks does the patient perform WITHOUT assistance of the helper? Three tasks with steadying assistance from the helper TOILETING - SCORE: 4-MIN BLADDER MANAGEMENT: BLADDER MANAGEMENT - STEP 1: Does the patient control the bladder completely and intentionally without equipment or devices or med ications, and is always continent? No. BLADDER MANAGEMENT - STEP 2: Does the patient require the assistance of a helper? No, patient requires and independently uses an a ssistive device, such as a urinal, bedpan, bedside commode, catheter, absorbent pad, or collecting de vice BLADDER MANAGEMENT - SCORE: 6-KYRIE BOWEL MANAGEMENT: Activity did not occur on this shift BOWEL MANAGEMENT - SCORE: 7-IND TRANSFERS: BED, CHAIR, WHEELCHAIR: TRANSFERS: BED, CHAIR, WHEELCHAIR - STEP 1: Does the patient require assistance with bed, chair, or wheelchair transfers? Yes. TRANSFERS: BED, CHAIR, WHEELCHAIR - STEP 2: Does the patient require the assistance of a helper? Yes. TRANSFERS: BED, CHAIR, WHEELCHAIR - STEP 3: How much assistance does the patient require from the helper? Steadying/guiding assistance TRANSFERS: BED, CHAIR, WHEELCHAIR - SCORE: 4-MIN TRANSFERS: TOILET: TRANSFERS: TOILET - STEP 1: Does the patient require assistance with toilet transfers? Yes. TRANSFERS: TOILET - STEP 2: Does the patient require the assistance of a helper? Yes. TRANSFERS: TOILET - STEP 3: How much assistance does the patient require from the helper? Only supervision, cuing, coaxing, OR he lp to set out transfer equipment or to lock brakes and/or lift foot rests TRANSFERS: TOILET - SCORE: 5-SUP TRANSFERS: SHOWER: Activity did not occur on this shift TRANSFERS: SHOWER - SCORE: 0-UNK TRANSFERS: TUB: Activity did not occur on this shift TRANSFERS: TUB - SCORE: 0-UNK LOCOMOTION: WALK: Activity did not occur on this shift LOCOMOTION: WALK - SCORE: 0-UNK LOCOMOTION: WHEELCHAIR: Activity did not occur on this shift LOCOMOTION: WHEELCHAIR - SCORE: 0-UNK COMPREHENSION: COMPREHENSION - SCORE: 0-UNK EXPRESSION EXPRESSION - SCORE: 0-UNK SOCIAL INTERACTION: SOCIAL INTERACTION - SCORE: 0-UNK PROBLEM SOLVING: PROBLEM SOLVING - SCORE: 0-UNK MEMORY: MEMORY - SCORE: 0-UNK SIGNATURE PANEL: The following modified sections: Eating - Score, Grooming - Score, Bathing - Score, Dressing - Upper Body - Score, Dressing - Lower Body - Score, Toileting - Score, Bladder Management - Score, Bowel Man agement - Score, Transfers: Bed, Chair, Wheelchair - Score, Transfers: Toilet - Score, Transfers: Graciela wer - Score, Transfers: Tub - Score, Locomotion: Walk - Score, Locomotion: Wheelchair - Score, Compre hension - Score, Expression - Score, Social Interaction - Score, Problem Solving - Score, Memory - Sc ore were [electronically] signed by Rasta Raines on MonNov 15 2017 14:29:22 GMT-0500 (Central Daylight Time)
[2017-11-15] MEDS: ENOXAPARIN 40 MG/0.4 ML SQ SCH (17:24)
--- NOTE | 2017-11-15 17:53 | FAST ---
ENCOUNTER DATE AND TIME: 11/15/2017 08:00 (CDT) NAME MYRTLE RUDOLPH DATE OF : 1960 DATE OF ADMISSION: 11/13/2017 17:28 (CDT) PHONE: AGE: 57 N# [id number] GENDER: Female ENCOUNTER PHYSICIAN: Dr. Ozzy Thompson M.D. 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 EATING: Activity did not occur on this shift EATING - SCORE: 0-UNK GROOMING: Activity did not occur on this shift GROOMING - SCORE: 0-UNK BATHING: Activity did not occur on this shift BATHING - SCORE: 0-UNK DRESSING - UPPER BODY: Activity did not occur on this shift Patient is not dressing in public clothing ARTICLES SCORE Total number of steps: 0 DRESSING - UPPER BODY - SCORE: 0-UNK DRESSING - LOWER BODY: Activity did not occur on this shift Patient is not dressing in public clothing ARTICLES SCORE Total number of steps: 0 DRESSING - LOWER BODY - SCORE: 0-UNK TOILETING: Activity did not occur on this shift TOILETING - SCORE: 0-UNK BLADDER MANAGEMENT: Activity did not occur on this shift BLADDER MANAGEMENT - SCORE: 7-IND BOWEL MANAGEMENT: Activity did not occur on this shift BOWEL MANAGEMENT - SCORE: 7-IND TRANSFERS: BED, CHAIR, WHEELCHAIR: TRANSFERS: BED, CHAIR, WHEELCHAIR - STEP 1: Does the patient require assistance with bed, chair, or wheelchair transfers? Yes. TRANSFERS: BED, CHAIR, WHEELCHAIR - STEP 2: Does the patient require the assistance of a helper? Yes. TRANSFERS: BED, CHAIR, WHEELCHAIR - STEP 3: How much assistance does the patient require from the helper? Steadying/guiding assistance TRANSFERS: BED, CHAIR, WHEELCHAIR - SCORE: 4-MIN TRANSFERS: TOILET: Activity did not occur on this shift TRANSFERS: TOILET - SCORE: 0-UNK TRANSFERS: SHOWER: Activity did not occur on this shift TRANSFERS: SHOWER - SCORE: 0-UNK TRANSFERS: TUB: Activity did not occur on this shift TRANSFERS: TUB - SCORE: 0-UNK LOCOMOTION: WALK: LOCOMOTION: WALK - STEP 1: Does the patient need help to walk 150 feet? Yes. LOCOMOTION: WALK - STEP 2: How much assistance does the patient require to walk a minimum of 150 feet? Patient walks less than 1 50 feet - but more than 50 feet - with the assistance of only one helper LOCOMOTION: WALK - SCORE: 2-MAX LOCOMOTION: WHEELCHAIR: Activity did not occur on this shift LOCOMOTION: WHEELCHAIR - SCORE: 0-UNK LOCOMOTION: STAIRS: Activity did not occur on this shift LOCOMOTION: STAIRS - SCORE: 0-UNK COMPREHENSION: COMPREHENSION - SCORE: 0-UNK EXPRESSION EXPRESSION - SCORE: 0-UNK SOCIAL INTERACTION: SOCIAL INTERACTION - SCORE: 0-UNK PROBLEM SOLVING: PROBLEM SOLVING - SCORE: 0-UNK MEMORY: MEMORY - SCORE: 0-UNK SIGNATURE PANEL: The following modified sections: Transfers: Bed, Chair, Wheelchair - Score, Transfers: Toilet - Score , Locomotion: Walk - Score, Locomotion: Wheelchair - Score, Locomotion: Stairs - Score were [electron raven] signed by José Bradley PT on MonNov 15 2017 16:54:47 T-0500 (Central Daylight Time)
--- NOTE | 2017-11-15 17:57 | R.PN ---
ENCOUNTER DATE AND TIME: 11/15/2017 16:55 (CDT) NAME MYRTLE RUDOLPH DATE OF : 1960 DATE OF ADMISSION: 11/13/2017 17:28 (CDT) Lumbar Disc DiseaseSUBJECTIVE: Pt denied any Shortness of Breath. Pt denied any depression. Ambulated 270' with contact guard assistance using a rolling walker. Propelled a wheelchair 250' with standby assistance. Last night she had fairly prolonged bleed of her left superior molar. The area appears swollen and i ndurated. She will follow up with her oral surgeon. VITAL SIGNS Temperature: 97.2 F SBP/DBP: 119/61 Pulse: 85 Resp: 16 MEDICATION ALLERGIES: Nsaids Aspirin ENVIRONMENTAL ALLERGIES: None Known - Substance Allergies None Known - Other Allergies None Known NURSING: - Shower allowing shower - Bladder care per protocol - Skin care per protocol PRECAUTIONS: - Fall Precaution Bed and chair alarm ACTIVITIES OOB only with supervision THERAPIES: - Occupational Therapy Evaluate and Treat. - Physical Therapy Evaluate and Treat. PHYSICAL EXAM - Gen Alert and awake Lying in bed No apparent distress Oriented to: person, time, and place - Skin No skin breakdown. Normacephalic - Eyes No abnormalities - ENMT No abnormalities - Neck No abnormalities - CVS RRR - Resp Clear to auscultation - Abd Soft - GI Non distended Deferred - No abnormalities - Ext No significant edema - MSK 4/5 weakness in both lower extremities. - Neuro No focal deficits - Psych No abnormalities ASSESSMENT: Pt. is a 57 yo Right-handed white female.On 11/10/2017 she was admitted to [facility] with diagnosis Lumbar Disc Disease.Her impairment category is Spinal Cord Dysfunction 04 - Ot her Non-traumatic Spinal Cord Dysfunction (04.130).Pre-morbidly, Pt. was independent/mod-I in Self-Ca re, Transfers Control, Social Cognition, Communication, Sphincter Control, and Locomotion; and she sauer d good Sphincter Control.Currently, she has deficits of Transfers Control, Safety Awareness, Balance, Endurance, Locomotion, and Self-Care.Pt. is now referred to [facility] for ac hugh in-patient rehabilitation in order to maximize patient's functional independence in activities of daily living, strength, ROM, and mobility.- Rehab Goal Patient has realistic goal of being discharged at assistance level 6-Tanisha to reside at Home with Fam tye/Relatives. MDM/PLAN: - Diet Type Continue Regular - Physical Therapy Gait dysfunction - to improve, our physical therapists will perform initial evaluation of pt's statu s upon admission and devise an individualized program for Gait Training, and Wheel Chair mobility Inability to transfer - to improve, our physical therapists will perform initial evaluation of pt's status upon admission and devise an individualized program for Bed mobility Need for home safety evaluation - to improve, our physical therapists will perform initial evaluatio n of pt's status upon admission and devise an individualized program for Home Evaluation Need in caregiver upon discharge - to improve, our physical therapists will perform initial evaluati on of pt's status upon admission and devise an individualized program for Caregiver Training Edema - to improve, our physical therapists will perform initial evaluation of pt's status upon admis coral and devise an individualized program for Elevation Training, and Lymphedema Therapy New precaution - to improve, our physical therapists will perform initial evaluation of pt's status upon admission and devise an individualized program for Patient precaution education Poor balance - to improve, our physical therapists will perform initial evaluation of pt's status up on admission and devise an individualized program for Balance Training Poor endurance - to improve, our physical therapists will perform initial evaluation of pt's status upon admission and devise an individualized program for Endurance Training Weakness - to improve, our physical therapists will perform initial evaluation of pt's status upon a dmission and devise an individualized program for Aquatic Therapy, Neuromuscular Reeducation, and Str engthening Achieving independence - to improve, our physical therapists will perform initial evaluation of pt's status upon admission and devise an individualized program for Community Reintegration Activities - Diet - Liquid Texture Continue Regular - Tube Feed Continue N/A - Bladder care per protocol - Fall Precaution Bed and chair alarm - Skin care per protocol - Diet - Solid Texture Continue Regular - Shower allowing shower - Occupational Therapy ADL deficits - to improve, our occupation therapists will perform initial evaluation of pt's status upon admission and devise an individualized program for Bathing, Bed mobility, Community Reintegratio n, Cooking, Dressing, Eating, Fine Motor Skills, Grooming, Homemaking, Kitchen Mobility, Laundry, Pat ient Education, Safety Awareness, Splinting - Positioning, Transfers(Toilet, Tub, Shower), and Wheel Chair Management Need for care director - to improve, our occupation therapists will perform initial evaluation of pt's status upon admission and devise an individualized program for Caregiver Training Weakness - to improve, our occupation therapists will perform initial evaluation of pt's status upon admission and devise an individualized program for Aquatic Therapy, Balance, Endurance, UE ROM, and UE strengthening FUNCTIONAL STATUS: UPDATED AT WEEKLY TEAM CONFERENCE - Bladder Same accident frequency: 7-Ind - No accidents in the past 7 days - Bowel Same accident frequency: 7-Ind - No accidents in the past 7 days - Walking Same score based on distance walked: 2(50-149ft) - Wheelchair Same score based on distance traveled: 0(N/A) FUNCTIONAL STATUS: - Self-Care A. Eating Tanisha B. Grooming Tanisha C. Bathing Von D. Dressing - Upper Von E. Dressing - Lower Von F. Toileting Von - Sphincter Control G: Bladder control Ind H: Bowel control Ind - Transfers Control I. Bed/Chair/Wheelchair Von J. Toilet Von K. Tub/Shower ADNO - Locomotion L. Walk/Wheelchair (C) Von L. Walk/Wheelchair (W) Von M. Stairs ADNO - Communication N. Comprehension (B) Ind O. Expression (B) Ind - Social Cognition P. Social Interaction Ind Q. Problem Solving Ind R. Memory Ind - Endurance Poor - Balance Poor - Safety Awareness Fair CURRENT FUNC. DEFICITS: Transfers Control, Safety Awareness, Balance, Endurance, Locomotion, and Self-Care SIGNATURE PANEL: (CDT)
[2017-11-15] MEDS: BISACODYL E.C. 5 MG TAB PO PRN (19:23)
--- NOTE | 2017-11-16 03:27 | FAST ---
SHIFT START DATE/TIME: 11/15/2017 19:00 (CDT) SHIFT END DATE/TIME: 11/16/2017 07:00 (CDT) NAME MYRTLE RUDOLPH DATE OF : 1960 DATE OF ADMISSION: 11/13/2017 17:28 (CDT) PHONE: AGE: 57 [facility]# [id number] GENDER: Female ENCOUNTER PHYSICIAN: Dr. Ozzy Thompson M.D. 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 EATING: Activity did not occur on this shift EATING - SCORE: 0-UNK GROOMING: Activity did not occur on this shift GROOMING - SCORE: 0-UNK BATHING: Activity did not occur on this shift BATHING - SCORE: 0-UNK DRESSING - UPPER BODY: Patient is not dressing in public clothing ARTICLES SCORE Total number of steps: 0 DRESSING - UPPER BODY - SCORE: 0-UNK DRESSING - LOWER BODY: Patient is not dressing in public clothing ARTICLES SCORE Total number of steps: 0 DRESSING - LOWER BODY - SCORE: 0-UNK TOILETING: TOILETING - STEP 1: Does the patient require assistance with toileting? Yes. TOILETING - STEP 2: Does the patient require the assistance of a helper? Yes. TOILETING - STEP 3: How much assistance does the patient require from the helper? Hands-on assistance from the helper TOILETING - STEP 4: Of the 3 tasks: 1) Adjusting clothing prior to use, 2) Cleansing of perineal area, 3) Adjusting clot mary after use; How many tasks does the patient perform WITHOUT assistance of the helper? Three tasks with steadying assistance from the helper TOILETING - SCORE: 4-MIN BLADDER MANAGEMENT: BLADDER MANAGEMENT - STEP 1: Does the patient control the bladder completely and intentionally without equipment or devices or med ications, and is always continent? No. BLADDER MANAGEMENT - STEP 2: Does the patient require the assistance of a helper? Yes. BLADDER MANAGEMENT - STEP 3: How much assistance does the patient require from the helper? Patient requires contact assistance fro m the helper BLADDER MANAGEMENT - STEP 4: How much contact assistance does the patient require from the helper? Patient requires minimal assist ance to maintain an external device - by positioning, and the patient performs 75% or more of bladder management tasks, while the helper provides less than 25% of the assistance to position patient on / off bedpan BLADDER MANAGEMENT - SCORE: 4-MIN BOWEL MANAGEMENT: Activity did not occur on this shift BOWEL MANAGEMENT - SCORE: 7-IND TRANSFERS: BED, CHAIR, WHEELCHAIR: TRANSFERS: BED, CHAIR, WHEELCHAIR - STEP 1: Does the patient require assistance with bed, chair, or wheelchair transfers? Yes. TRANSFERS: BED, CHAIR, WHEELCHAIR - STEP 2: Does the patient require the assistance of a helper? Yes. TRANSFERS: BED, CHAIR, WHEELCHAIR - STEP 3: How much assistance does the patient require from the helper? Steadying/guiding assistance TRANSFERS: BED, CHAIR, WHEELCHAIR - SCORE: 4-MIN TRANSFERS: TOILET: TRANSFERS: TOILET - STEP 1: Does the patient require assistance with toilet transfers? Yes. TRANSFERS: TOILET - STEP 2: Does the patient require the assistance of a helper? Yes. TRANSFERS: TOILET - STEP 3: How much assistance does the patient require from the helper? Only supervision, cuing, coaxing, OR he lp to set out transfer equipment or to lock brakes and/or lift foot rests TRANSFERS: TOILET - SCORE: 5-SUP TRANSFERS: SHOWER: Activity did not occur on this shift TRANSFERS: SHOWER - SCORE: 0-UNK TRANSFERS: TUB: Activity did not occur on this shift TRANSFERS: TUB - SCORE: 0-UNK LOCOMOTION: WALK: Activity did not occur on this shift LOCOMOTION: WALK - SCORE: 0-UNK LOCOMOTION: WHEELCHAIR: Activity did not occur on this shift LOCOMOTION: WHEELCHAIR - SCORE: 0-UNK COMPREHENSION: COMPREHENSION: TYPE: Both COMPREHENSION - STEP 1: Does the patient require help to understand complex and abstract ideas (such as current events, finan martha, discharge planning, medical issues, relationships, etc)? No. COMPREHENSION - STEP 2: Does the patient need extra time, require an assistive device (such as glasses, hearing aids, or an a ugmentative communication system), OR does s/he have mild difficulty expressing complex and abstract ideas (including mild dysarthria or mild word-finding problems)? Yes. COMPREHENSION - SCORE: 6-KYRIE EXPRESSION EXPRESSION: TYPE: Both EXPRESSION - STEP 1: Does the patient require help expressing complex and abstract ideas (such as current events, finances , discharge planning, medical issues, relationships, etc)? No. EXPRESSION - STEP 2: Does the patient need extra time, require an assistive device (such as augmentive communication syste m or a communication board), OR does s/he have mild difficulty expressing complex and abstract ideas (including mild dysarthria or mild word-find problems)? Yes. EXPRESSION - SCORE: 6-KYRIE SOCIAL INTERACTION: SOCIAL INTERACTION - STEP 1: Does the patient require a helper to interact with others in social and therapeutic situations? No. SOCIAL INTERACTION - STEP 2: Does the patient need extra time in social situations, OR does s/he interact with staff, other patien ts, and family members ONLY in structured environments, OR does s/he require medication for social in teraction? Yes, patient needs extra time SOCIAL INTERACTION - SCORE: 6-KYRIE PROBLEM SOLVING: PROBLEM SOLVING - STEP 1: Does the patient need help to solve complex problems such as managing a checking account or confronti ng interpersonal problems? No. PROBLEM SOLVING - STEP 2: Does the patient require extra time to make decisions or solve problems, OR does s/he have slight dif ficulty reading, initiating, or self-correcting in unfamiliar situations? Yes, patient needs extra ti me. PROBLEM SOLVING - SCORE: 6-KYRIE MEMORY: MEMORY - STEP 1: Does the patient need help to remember frequently encountered people, daily routines, and executing r equests? No. MEMORY - STEP 2: Does the patient have slight difficulty recognizing frequently encountered people, daily routines, or executing requests without the need for repetition or using self-initiated or environmental cues to remember? Yes. MEMORY - SCORE: 6-KYRIE
[2017-11-16] MEDS: HYDROCODONE/APAP 7.5/325 MG TAB PO PRN ×3 (03:39→18:00)
[2017-11-16] MEDS: CARVEDILOL 25 MG TAB PO SCH ×2 (05:05→17:03)
[2017-11-16] MEDS: LEVOTHYROXINE SOD 0.05 MG TABLET PO SCH (05:07)
[2017-11-16 06:29] LABS: Absolute Monocytes 0.9 K/uL (0.1-1.3); Absolute Neutrophil 8.3 K/uL (1.8-8.0); Basophils % 0.2 % (0-1.3); Eosinophils % 0.1 % (0-4.4); Hematocrit 24.5 % (36.0-45.0); Lymphocytes % 17.5 % (15.3-44.8); MCV 88.6 fL (80-100); MPV 6.6 fL (7.6-11.3); RBC Red Blood Cell Count 2.77 M/uL (3.86-4.86)
[2017-11-16 06:48] LABS: Albumin 2.2 g/dL (3.2-5.5); Potassium 4.9 mEq/L (3.6-5.0); Prealbumin 21.9 mg/dl (18-38)
[2017-11-16] MEDS: PANTOPRAZOLE 40MG TABLET PO SCH (07:30)
[2017-11-16 08:21] LABS: Blood Morphology Comment NOT SEEN (NOT SEEN); Platelet Estimate ADEQ
[2017-11-16] MEDS: FE SULF/FA/VIT B COMP & C TAB PO SCH (08:43)
[2017-11-16] MEDS: ASPIRIN EC 81 MG TAB PO SCH (08:43)
[2017-11-16] MEDS: MORPHINE *EXTENDED RELEASE* 15 MG TAB PO SCH ×2 (08:43→19:41)
[2017-11-16] MEDS: FERROUS SULFATE 325 MG TAB PO SCH (08:43)
[2017-11-16] MEDS: DEXAMETHASONE 4 MG TAB PO SCH (08:44)
[2017-11-16] MEDS: PROMOD 30 ML DOSE PO SCH ×2 (08:45→19:41)
[2017-11-16] MEDS ORDERED: NA CHLORIDE 0.9% 250 ML ONE (11:21)
--- NOTE | 2017-11-16 11:23 | FAST ---
SHIFT START DATE/TIME: 11/16/2017 07:00 (CDT) SHIFT END DATE/TIME: 11/16/2017 19:00 (CDT) NAME MYRTLE RUDOLPH DATE OF : 1960 DATE OF ADMISSION: 11/13/2017 17:28 (CDT) PHONE: AGE: 57 [facility]# [id number] GENDER: Female ENCOUNTER PHYSICIAN: Dr. Ozzy Thompson M.D. 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 EATING: EATING - STEP 1: Does the patient require assistance when eating? Yes. EATING - STEP 2: Does the patient require the assistance of a helper? No, patient only requires an assistive device, O R s/he takes more than reasonable time to eat, OR there is a safety concern, OR s/he requires modifie d food consistency EATING - SCORE: 6-KYRIE GROOMING: Activity did not occur on this shift GROOMING - SCORE: 0-UNK BATHING: Activity did not occur on this shift BATHING - SCORE: 0-UNK DRESSING - UPPER BODY: Activity did not occur on this shift ARTICLES SCORE Total number of steps: 0 DRESSING - UPPER BODY - SCORE: 0-UNK DRESSING - LOWER BODY: Activity did not occur on this shift ARTICLES SCORE Total number of steps: 0 DRESSING - LOWER BODY - SCORE: 0-UNK TOILETING: TOILETING - STEP 1: Does the patient require assistance with toileting? Yes. TOILETING - STEP 2: Does the patient require the assistance of a helper? Yes. TOILETING - STEP 3: How much assistance does the patient require from the helper? Hands-on assistance from the helper TOILETING - STEP 4: Of the 3 tasks: 1) Adjusting clothing prior to use, 2) Cleansing of perineal area, 3) Adjusting clot mary after use; How many tasks does the patient perform WITHOUT assistance of the helper? Three tasks with steadying assistance from the helper TOILETING - SCORE: 4-MIN BLADDER MANAGEMENT: BLADDER MANAGEMENT - STEP 1: Does the patient control the bladder completely and intentionally without equipment or devices or med ications, and is always continent? Yes. BLADDER MANAGEMENT - SCORE: 7-IND BOWEL MANAGEMENT: BOWEL MANAGEMENT - STEP 1: Does the patient control bowels completely and intentionally without equipment devices or medications AND is always continent? Yes. BOWEL MANAGEMENT - SCORE: 7-IND TRANSFERS: BED, CHAIR, WHEELCHAIR: TRANSFERS: BED, CHAIR, WHEELCHAIR - STEP 1: Does the patient require assistance with bed, chair, or wheelchair transfers? Yes. TRANSFERS: BED, CHAIR, WHEELCHAIR - STEP 2: Does the patient require the assistance of a helper? Yes. TRANSFERS: BED, CHAIR, WHEELCHAIR - STEP 3: How much assistance does the patient require from the helper? Only supervision TRANSFERS: BED, CHAIR, WHEELCHAIR - SCORE: 5-SUP TRANSFERS: TOILET: TRANSFERS: TOILET - STEP 1: Does the patient require assistance with toilet transfers? Yes. TRANSFERS: TOILET - STEP 2: Does the patient require the assistance of a helper? Yes. TRANSFERS: TOILET - STEP 3: How much assistance does the patient require from the helper? Patient performs half or more of the tr ansferring tasks TRANSFERS: TOILET - STEP 4: Does the patient need only incidental help such as contact guard or steadying during toilet transfer? Yes. TRANSFERS: TOILET - SCORE: 4-MIN TRANSFERS: SHOWER: Activity did not occur on this shift TRANSFERS: SHOWER - SCORE: 0-UNK TRANSFERS: TUB: Activity did not occur on this shift TRANSFERS: TUB - SCORE: 0-UNK LOCOMOTION: WALK: Activity did not occur on this shift LOCOMOTION: WALK - SCORE: 0-UNK LOCOMOTION: WHEELCHAIR: Activity did not occur on this shift LOCOMOTION: WHEELCHAIR - SCORE: 0-UNK COMPREHENSION: COMPREHENSION - SCORE: 0-UNK EXPRESSION EXPRESSION - SCORE: 0-UNK SOCIAL INTERACTION: SOCIAL INTERACTION - SCORE: 0-UNK PROBLEM SOLVING: PROBLEM SOLVING - SCORE: 0-UNK MEMORY: MEMORY - SCORE: 0-UNK SIGNATURE PANEL: The following modified sections: Eating - Score, Grooming - Score, Bathing - Score, Dressing - Upper Body - Score, Dressing - Lower Body - Score, Toileting - Score, Bladder Management - Score, Bowel Man agement - Score, Transfers: Bed, Chair, Wheelchair - Score, Transfers: Toilet - Score, Transfers: Graciela wer - Score, Transfers: Tub - Score, Locomotion: Walk - Score, Locomotion: Wheelchair - Score, Compre hension - Score, Expression - Score, Social Interaction - Score, Problem Solving - Score, Memory - Sc ore were [electronically] signed by Rasta Raines on MonNov 16 2017 10:24:56 GMT-0500 (Central Daylight Time)
--- NOTE | 2017-11-16 15:55 | FAST ---
ENCOUNTER DATE AND TIME: 11/16/2017 08:00 (CDT) NAME MYRTLE RUDOLPH DATE OF : 1960 DATE OF ADMISSION: 11/13/2017 17:28 (CDT) PHONE: AGE: 57 N# [id number] GENDER: Female ENCOUNTER PHYSICIAN: Dr. Ozzy Thompson M.D. 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 EATING: Activity did not occur on this shift EATING - SCORE: 0-UNK GROOMING: Activity did not occur on this shift GROOMING - SCORE: 0-UNK BATHING: Activity did not occur on this shift BATHING - SCORE: 0-UNK DRESSING - UPPER BODY: Activity did not occur on this shift Patient is not dressing in public clothing ARTICLES SCORE Total number of steps: 0 DRESSING - UPPER BODY - SCORE: 0-UNK DRESSING - LOWER BODY: Activity did not occur on this shift Patient is not dressing in public clothing ARTICLES SCORE Total number of steps: 0 DRESSING - LOWER BODY - SCORE: 0-UNK TOILETING: Activity did not occur on this shift TOILETING - SCORE: 0-UNK BLADDER MANAGEMENT: Activity did not occur on this shift BLADDER MANAGEMENT - SCORE: 7-IND BOWEL MANAGEMENT: Activity did not occur on this shift BOWEL MANAGEMENT - SCORE: 7-IND TRANSFERS: BED, CHAIR, WHEELCHAIR: Activity did not occur on this shift TRANSFERS: BED, CHAIR, WHEELCHAIR - SCORE: 0-UNK TRANSFERS: TOILET: Activity did not occur on this shift TRANSFERS: TOILET - SCORE: 0-UNK TRANSFERS: SHOWER: Activity did not occur on this shift TRANSFERS: SHOWER - SCORE: 0-UNK TRANSFERS: TUB: Activity did not occur on this shift TRANSFERS: TUB - SCORE: 0-UNK LOCOMOTION: WALK: Activity did not occur on this shift LOCOMOTION: WALK - SCORE: 0-UNK LOCOMOTION: WHEELCHAIR: Activity did not occur on this shift LOCOMOTION: WHEELCHAIR - SCORE: 0-UNK LOCOMOTION: STAIRS: Activity did not occur on this shift LOCOMOTION: STAIRS - SCORE: 0-UNK COMPREHENSION: COMPREHENSION - SCORE: 0-UNK EXPRESSION EXPRESSION - SCORE: 0-UNK SOCIAL INTERACTION: SOCIAL INTERACTION - SCORE: 0-UNK PROBLEM SOLVING: PROBLEM SOLVING - SCORE: 0-UNK MEMORY: MEMORY - SCORE: 0-UNK SIGNATURE PANEL: The following modified sections: Transfers: Bed, Chair, Wheelchair - Score, Transfers: Toilet - Score , Locomotion: Walk - Score, Locomotion: Wheelchair - Score, Locomotion: Stairs - Score were [electron ically] signed by Nitesh Norman PTA on MonNov 16 2017 14:57:16 GMT-0500 (Central Daylight Time)
--- NOTE | 2017-11-16 16:07 | FAST ---
ENCOUNTER DATE AND TIME: 11/14/2017 08:00 (CDT) NAME MYRTLE RUDOLPH DATE OF : 1960 DATE OF ADMISSION: 11/13/2017 17:28 (CDT) PHONE: AGE: 57 N# [id number] GENDER: Female ENCOUNTER PHYSICIAN: Dr. Ozzy Thompson M.D. 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 EATING: Activity did not occur on this shift EATING - SCORE: 0-UNK GROOMING: Comb/brush hair Oral care Wash, rinse, and dry face Wash, rinse, and dry hands GROOMING - STEP 1: Does the patient require assistance when grooming? Yes. GROOMING - STEP 2: Does the patient require the assistance of a helper? Yes. GROOMING - STEP 3: How much assistance does the patient require from the helper? Incidental touching assistance from the helper while grooming GROOMING - SCORE: 4-MIN BATHING: Abdomen Buttocks Chest Left arm Left lower leg and foot Left upper leg Perineal area Right arm Right lower leg and foot Right upper leg BATHING - STEP 1: Does the patient require assistance when bathing? Yes. BATHING - STEP 2: Does the patient require the assistance of a helper? Yes. BATHING - STEP 3: How much assistance does the patient require from the helper? More than just incidental help BATHING - STEP 4: What percent of the body parts did the patient bathe WITHOUT the helper? Half or more of the body par ts BATHING - SCORE: 3-MOD DRESSING - UPPER BODY: T-shirt/pullover shirt (four steps) ARTICLES SCORE Total number of steps: 4 DRESSING - UPPER BODY - STEP 1: Does the patient require help when dressing above the waist? Yes. DRESSING - UPPER BODY - STEP 2: Does the patient require the assistance of a helper? Yes. DRESSING - UPPER BODY - STEP 3: Does the helper touch the patient while dressing? No. DRESSING - UPPER BODY - SCORE: 5-SUP DRESSING - LOWER BODY: Elastic waist pants (three steps) Sock - Left foot (one step) Sock - Right foot (one step) Underwear (three steps) ARTICLES SCORE Total number of steps: 8 DRESSING - LOWER BODY - STEP 1: Does the patient require help when dressing below the waist? Yes. DRESSING - LOWER BODY - STEP 2: Does the patient require the assistance of a helper? Yes. DRESSING - LOWER BODY - STEP 3: Does the helper touch the patient while dressing? Yes. DRESSING - LOWER BODY - STEP 4: How many of the total steps does the patient complete on his/her own? 0 DRESSING - LOWER BODY - STEP 5: Does patient require total assistance for dressing below the waist such as the helper holding clothin g and performing basically all the activities? Yes. DRESSING - LOWER BODY - SCORE: 1-DEP TOILETING: Activity did not occur on this shift TOILETING - SCORE: 0-UNK BLADDER MANAGEMENT: Activity did not occur on this shift BLADDER MANAGEMENT - SCORE: 7-IND BOWEL MANAGEMENT: Activity did not occur on this shift BOWEL MANAGEMENT - SCORE: 7-IND TRANSFERS: BED, CHAIR, WHEELCHAIR: Activity did not occur on this shift TRANSFERS: BED, CHAIR, WHEELCHAIR - SCORE: 0-UNK TRANSFERS: TOILET: Activity did not occur on this shift TRANSFERS: TOILET - SCORE: 0-UNK TRANSFERS: SHOWER: TRANSFERS: SHOWER - STEP 1: Does the patient require assistance with shower transfers? Yes. TRANSFERS: SHOWER - STEP 2: Does the patient require the assistance of a helper? Yes. TRANSFERS: SHOWER - STEP 3: How much assistance does the patient require from the helper? More than incidental help TRANSFERS: SHOWER - STEP 4: How much more help does the patient require from the helper? Lifting the patient up AND down from the wheelchair onto the shower chair TRANSFERS: SHOWER - SCORE: 2-MAX TRANSFERS: TUB: Activity did not occur on this shift TRANSFERS: TUB - SCORE: 0-UNK LOCOMOTION: WALK: Activity did not occur on this shift LOCOMOTION: WALK - SCORE: 0-UNK LOCOMOTION: WHEELCHAIR: Activity did not occur on this shift LOCOMOTION: WHEELCHAIR - SCORE: 0-UNK LOCOMOTION: STAIRS: Activity did not occur on this shift LOCOMOTION: STAIRS - SCORE: 0-UNK COMPREHENSION: COMPREHENSION: TYPE: Both COMPREHENSION - STEP 1: Does the patient require help to understand complex and abstract ideas (such as current events, finan martha, discharge planning, medical issues, relationships, etc)? No. COMPREHENSION - STEP 2: Does the patient need extra time, require an assistive device (such as glasses, hearing aids, or an a ugmentative communication system), OR does s/he have mild difficulty expressing complex and abstract ideas (including mild dysarthria or mild word-finding problems)? Yes. COMPREHENSION - SCORE: 6-KYRIE EXPRESSION EXPRESSION: TYPE: Both EXPRESSION - STEP 1: Does the patient require help expressing complex and abstract ideas (such as current events, finances , discharge planning, medical issues, relationships, etc)? No. EXPRESSION - STEP 2: Does the patient need extra time, require an assistive device (such as augmentive communication syste m or a communication board), OR does s/he have mild difficulty expressing complex and abstract ideas (including mild dysarthria or mild word-find problems)? Yes. EXPRESSION - SCORE: 6-KYRIE SOCIAL INTERACTION: SOCIAL INTERACTION - STEP 1: Does the patient require a helper to interact with others in social and therapeutic situations? No. SOCIAL INTERACTION - STEP 2: Does the patient need extra time in social situations, OR does s/he interact with staff, other patien ts, and family members ONLY in structured environments, OR does s/he require medication for social in teraction? Yes, patient needs extra time SOCIAL INTERACTION - SCORE: 6-KYRIE PROBLEM SOLVING: PROBLEM SOLVING - STEP 1: Does the patient need help to solve complex problems such as managing a checking account or confronti ng interpersonal problems? No. PROBLEM SOLVING - STEP 2: Does the patient require extra time to make decisions or solve problems, OR does s/he have slight dif ficulty reading, initiating, or self-correcting in unfamiliar situations? Yes, patient needs extra ti me. PROBLEM SOLVING - SCORE: 6-KYRIE MEMORY: MEMORY - STEP 1: Does the patient need help to remember frequently encountered people, daily routines, and executing r equests? No. MEMORY - STEP 2: Does the patient have slight difficulty recognizing frequently encountered people, daily routines, or executing requests without the need for repetition or using self-initiated or environmental cues to remember? Yes. MEMORY - SCORE: 6-KYRIE SIGNATURE PANEL: The following modified sections: Eating - Score, Grooming - Score, Bathing - Score, Dressing - Upper Body - Score, Dressing - Lower Body - Score, Toileting - Score, Transfers: Bed, Chair, Wheelchair - S core, Transfers: Toilet - Score, Transfers: Shower - Score, Transfers: Tub - Score, Comprehension - S core, Expression - Score, Social Interaction - Score, Problem Solving - Score, Memory - Score were [e lectronically] signed by Sol Acevedo OT on MonNov 16 2017 15:09:26 GMT-0500 (Central Daylight T davin)
[2017-11-16] MEDS: ENOXAPARIN 40 MG/0.4 ML SQ SCH (17:03)
[2017-11-16 17:19] LABS: Absolute Monocytes 0.5 K/uL (0.1-1.3); Absolute Neutrophil 8.6 K/uL (1.8-8.0); Basophils % 0.1 % (0-1.3); Hematocrit 29.8 % (36.0-45.0); Lymphocytes % 10.2 % (15.3-44.8); MCH 28.5 pg (27.0-35.0); MCV 87.7 fL (80-100); MPV 6.5 fL (7.6-11.3); Monocytes % 4.6 % (3.3-12.3); RBC Red Blood Cell Count 3.39 M/uL (3.86-4.86)
[2017-11-16] MEDS ORDERED: MAGNESIUM HYDROXIDE 8% 30 ML PO PRN (19:24)
[2017-11-16] MEDS: BISACODYL E.C. 5 MG TAB PO PRN (19:41)
[2017-11-16] MEDS: ACETAMINOPHEN 500 MG TAB PO PRN (22:45)
[2017-11-17] MEDS: CARVEDILOL 25 MG TAB PO SCH ×2 (05:11→17:26)
[2017-11-17] MEDS: LEVOTHYROXINE SOD 0.05 MG TABLET PO SCH (05:11)
[2017-11-17] MEDS: PANTOPRAZOLE 40MG TABLET PO SCH (06:33)
[2017-11-17] MEDS: ACETAMINOPHEN 500 MG TAB PO PRN (06:33)
[2017-11-17] MEDS: MORPHINE *EXTENDED RELEASE* 15 MG TAB PO SCH ×2 (07:14→18:48)
[2017-11-17] MEDS: ASPIRIN EC 81 MG TAB PO SCH (08:03)
[2017-11-17] MEDS: FERROUS SULFATE 325 MG TAB PO SCH (08:03)
[2017-11-17] MEDS: FE SULF/FA/VIT B COMP & C TAB PO SCH (08:03)
[2017-11-17] MEDS: DEXAMETHASONE 4 MG TAB PO SCH (08:03)
[2017-11-17] MEDS: PROMOD 30 ML DOSE PO SCH ×2 (08:03→20:19)
--- NOTE | 2017-11-17 10:02 | P.RH.PN ---
Estimated Length of Stay: 13 Expected Discharge Date: 11/25/17 Discharge Disposition Plan: Home Family Support: Yes [employer] Goal: Mobility, Transfers, Self Care Vital Signs: Last Vital Signs Temp 97.8 F 11/17/17 06:50 Pulse 76 11/17/17 06:50 Resp 16 11/17/17 06:50 BP 112/65 11/17/17 06:50 Pulse Ox 99 11/17/17 06:50 Laboratory: Laboratory Last Values WBC 10.1 K/uL (4.3-10.9) 11/16/17 16:59 RBC 3.39 M/uL (3.86-4.86) L D 11/16/17 16:59 Hgb 9.7 g/dL (12.0-15.0) L 11/16/17 16:59 Hct 29.8 % (36.0-45.0) L D 11/16/17 16:59 MCV 87.7 fL (80-100) 11/16/17 16:59 MCH 28.5 pg (27.0-35.0) 11/16/17 16:59 MCHC 32.5 g/dL (32.0-36.0) 11/16/17 16:59 RDW 17.4 % (12.1-15.2) H 11/16/17 16:59 Plt Count 444 K/uL (152-406) H 11/16/17 16:59 MPV 6.5 fL (7.6-11.3) L 11/16/17 16:59 Neutrophils % 85.1 % (41.7-73.7) H 11/16/17 16:59 Lymphocytes % 10.2 % (15.3-44.8) L 11/16/17 16:59 Monocytes % 4.6 % (3.3-12.3) 11/16/17 16:59 Eosinophils % 0.0 % (0-4.4) 11/16/17 16:59 Basophils % 0.1 % (0-1.3) 11/16/17 16:59 Absolute Neutrophils 8.6 K/uL (1.8-8.0) H 11/16/17 16:59 Segmented Neutrophils 74 % (40-80) 11/16/17 05:48 Absolute Lymphocytes 1.0 K/uL (0.7-4.9) 11/16/17 16:59 Lymphocytes 19 % (15-42) 11/16/17 05:48 Monocytes 6 % (0-10) 11/16/17 05:48 Absolute Monocytes 0.5 K/uL (0.1-1.3) 11/16/17 16:59 Absolute Eosinophils 0.0 K/uL (0-0.5) 11/16/17 16:59 Absolute Basophils 0.0 K/uL (0-0.5) 11/16/17 16:59 Metamyelocytes 1 % (0-0) H 11/16/17 05:48 Nucleated RBCs 4 /100WBC 11/16/17 05:48 Morphology Comment Not seen (NOT SEEN) 11/16/17 05:48 Sodium 136 mEq/L (135-145) 11/16/17 05:48 Potassium 4.9 mEq/L (3.6-5.0) 11/16/17 05:48 Chloride 101 mEq/L (101-111) 11/16/17 05:48 Carbon Dioxide 26 mEq/L (21-31) 11/16/17 05:48 BUN 32 mg/dL (6-20) H 11/16/17 05:48 Creatinine 0.83 mg/dL (0.44-1.00) 11/16/17 05:48 Estimated GFR 71 mL/min (=/>90) L 11/16/17 05:48 Glucose 130 mg/dL (65-120) H 11/16/17 05:48 Calcium 8.8 mg/dL (8.5-10.5) 11/16/17 05:48 Magnesium 1.9 mg/dL (1.8-2.5) 11/14/17 06:16 Albumin 2.2 g/dL (3.2-5.5) L 11/16/17 05:48 Prealbumin 21.9 mg/dl (18-38) 11/16/17 05:48 Urine Color Yellow 11/13/17 21:10 Urine Appearance Clear 11/13/17 21:10 Urine pH 7.0 (5.0-7.0) 11/13/17 21:10 Ur Specific [place] 1.020 (1.005-1.030) 11/13/17 21:10 Urine Ketones Negative (NEG) 11/13/17 21:10 Urine Blood Negative (NEG) 11/13/17 21:10 Urine Nitrite Negative (NEG) 11/13/17 21:10 Urine Bilirubin Negative (NEG) 11/13/17 21:10 Urine Urobilinogen 1.0 mg/dL (0.2-1.0) 11/13/17 21:10 Ur Leukocyte Esterase 1+ (NEG) H 11/13/17 21:10 Urine RBC <5 /HPF (NONE SEEN) 11/13/17 21:10 Urine WBC <5 /HPF (<5) 11/13/17 21:10 Ur Squamous Epith Cells <5 /HPF (NONE SEEN) 11/13/17 21:10 Ur Urothelial Cells <5 /HPF (NONE SEEN) 11/13/17 21:10 Urine Bacteria <20 /HPF (<20) 11/13/17 21:10 Urine Culture Reflexed Not needed 11/13/17 21:10 Urine Glucose Negative (NEG) 11/13/17 21:10 Urine Total Protein Negative (NEG) 11/13/17 21:10 ABO/Rh O POSITIVE 11/16/17 09:05 Antibody Screen Negative 11/16/17 09:05 Crossmatch See Detail 11/16/17 09:05 Weight: 213 lb Wound Present: Yes Closed Surgical Incision Present: Yes Negative Pressure Wound Therapy Present: No Physician Update: Hemoglobin is now 9.7 after one unit of blood along with hemocyte plus and ferrous sulfate. Basic metabolic panel is essentially normal. She is doing well with physical and occupational therapy at contact guard assistance. No further bleeding from her left upper back molar. Medical Issues: hgb- 7.8, 1 unit packed RBC given. latest hgb- 9.7 Pain Issues: on Tylenol 500mg Q6H and morpihine 15mg BID Functional Improvement: Patient has only been in 5th floor rehab for a few days , will be able to assess more appropriately at a later time. Patient appears to have a good attitude toward therapy. Summary: Patient's care plan and long term care social worker goals have been reviewed and revised as necessary. Please see the Rehabilitation Signature page for all necessary signatures.
[2017-11-17] MEDS: HYDROCODONE/APAP 7.5/325 MG TAB PO PRN (10:18)
[2017-11-17] MEDS: ENOXAPARIN 40 MG/0.4 ML SQ SCH (16:28)
[2017-11-17] MEDS: GABAPENTIN 300 MG CAP PO SCH (20:19)
[2017-11-18] MEDS: HYDROCODONE/APAP 7.5/325 MG TAB PO PRN ×2 (01:52→11:26)
[2017-11-18] MEDS: LEVOTHYROXINE SOD 0.05 MG TABLET PO SCH (05:15)
[2017-11-18] MEDS: CARVEDILOL 25 MG TAB PO SCH ×2 (05:15→17:24)
[2017-11-18 05:27] VITALS: BMI 34.2
[2017-11-18] MEDS: PANTOPRAZOLE 40MG TABLET PO SCH (07:00)
[2017-11-18] MEDS ORDERED: GABAPENTIN 100 MG CAP ONE (07:16)
[2017-11-18] MEDS: GABAPENTIN 300 MG CAP PO SCH ×2 (08:00→20:38)
[2017-11-18] MEDS: FE SULF/FA/VIT B COMP & C TAB PO SCH (09:41)
[2017-11-18] MEDS: DEXAMETHASONE 4 MG TAB PO SCH (09:42)
[2017-11-18] MEDS: ASPIRIN EC 81 MG TAB PO SCH (09:42)
[2017-11-18] MEDS: FERROUS SULFATE 325 MG TAB PO SCH (09:42)
[2017-11-18] MEDS: MORPHINE *EXTENDED RELEASE* 15 MG TAB PO SCH ×2 (09:42→20:38)
[2017-11-18] MEDS: PROMOD 30 ML DOSE PO SCH ×2 (09:44→20:38)
[2017-11-18] MEDS: ENOXAPARIN 40 MG/0.4 ML SQ SCH (17:43)
[2017-11-18] MEDS: ENSURE HIGH PROTEIN 237 ML CAN PO SCH (20:38)
[2017-11-19] MEDS: HYDROCODONE/APAP 7.5/325 MG TAB PO PRN ×2 (04:13→12:03)
[2017-11-19] MEDS: CARVEDILOL 25 MG TAB PO SCH ×2 (05:19→16:46)
[2017-11-19] MEDS: LEVOTHYROXINE SOD 0.05 MG TABLET PO SCH (05:20)
[2017-11-19] MEDS: PANTOPRAZOLE 40MG TABLET PO SCH (07:00)
[2017-11-19] MEDS: PROMOD 30 ML DOSE PO SCH ×2 (08:00→21:28)
[2017-11-19] MEDS: FE SULF/FA/VIT B COMP & C TAB PO SCH (08:11)
[2017-11-19] MEDS: MORPHINE *EXTENDED RELEASE* 15 MG TAB PO SCH ×2 (08:11→21:28)
[2017-11-19] MEDS: ASPIRIN EC 81 MG TAB PO SCH (08:11)
[2017-11-19] MEDS: GABAPENTIN 300 MG CAP PO SCH ×2 (08:11→21:28)
[2017-11-19] MEDS: DEXAMETHASONE 4 MG TAB PO SCH (08:12)
[2017-11-19] MEDS: FERROUS SULFATE 325 MG TAB PO SCH (08:12)
[2017-11-19] MEDS: ENSURE HIGH PROTEIN 237 ML CAN PO SCH ×2 (08:13→21:28)
[2017-11-19] MEDS: ENOXAPARIN 40 MG/0.4 ML SQ SCH (16:46)
[2017-11-19] MEDS: DOCUSATE NA/SENNA CONC 1 TAB PO SCH (21:27)
[2017-11-20] MEDS: HYDROCODONE/APAP 7.5/325 MG TAB PO PRN ×3 (02:59→13:59)
[2017-11-20] MEDS: ACETAMINOPHEN 500 MG TAB PO PRN (05:17)
[2017-11-20] MEDS: CARVEDILOL 25 MG TAB PO SCH ×2 (05:18→17:24)
[2017-11-20] MEDS: LEVOTHYROXINE SOD 0.05 MG TABLET PO SCH (05:18)
[2017-11-20] MEDS: PANTOPRAZOLE 40MG TABLET PO SCH (06:38)
[2017-11-20] MEDS: MORPHINE *EXTENDED RELEASE* 15 MG TAB PO SCH ×2 (06:38→19:19)
[2017-11-20] MEDS: ASPIRIN EC 81 MG TAB PO SCH (08:24)
[2017-11-20] MEDS: DEXAMETHASONE 4 MG TAB PO SCH (08:24)
[2017-11-20] MEDS: GABAPENTIN 300 MG CAP PO SCH ×2 (08:24→19:19)
[2017-11-20] MEDS: FERROUS SULFATE 325 MG TAB PO SCH (08:24)
[2017-11-20] MEDS: PROMOD 30 ML DOSE PO SCH ×2 (08:24→19:18)
[2017-11-20] MEDS: FE SULF/FA/VIT B COMP & C TAB PO SCH (08:24)
[2017-11-20] MEDS: ENSURE HIGH PROTEIN 237 ML CAN PO SCH ×2 (08:24→19:18)
[2017-11-20 14:11] LABS: Absolute Lymphocytes (CBC) 0.9 K/uL (0.7-4.9); Absolute Monocytes 0.4 K/uL (0.1-1.3); Absolute Neutrophil 8.7 K/uL (1.8-8.0); Basophils % 0.1 % (0-1.3); Eosinophils % 0.1 % (0-4.4); Hematocrit 28.6 % (36.0-45.0); Lymphocytes % 8.7 % (15.3-44.8); MCH 27.7 pg (27.0-35.0); MCV 88.2 fL (80-100); MPV 6.3 fL (7.6-11.3); Monocytes % 4.5 % (3.3-12.3); RBC Red Blood Cell Count 3.25 M/uL (3.86-4.86)
[2017-11-20] MEDS: ENOXAPARIN 40 MG/0.4 ML SQ SCH (16:41)
[2017-11-20 16:56] LABS: Urine Appearance CLEAR; Urine Bilirubin NEGATIVE (NEG); Urine Blood NEGATIVE (NEG); Urine Color YELLOW; Urine Glucose NEGATIVE (NEG); Urine Protein NEGATIVE (NEG); Urine pH 6.5 (5.0-7.0)
[2017-11-20 17:29] LABS: Urine Microscopic Reflex ORDER UMIC
--- NOTE | 2017-11-20 17:29 | RAD REPORT ---
EXAM DESCRIPTION: RAD - Lumbar Spine 3 Views - 11/20/2017 4:06 pm CLINICAL HISTORY: Back pain FINDINGS: The alignment of the lumbar spine is satisfactory. Rods united by pedicular screws have been placed from L2-L4. A metallic structure lies adjacent to th e anterior and posterior aspects of the L3 vertebral body presumably postsurgical in nature. A lucenc y involves the L3 vertebral body with mild compression. Mild compression deformity involves the superior endplate of the L1 vertebral body. This has develope d since a CT of October likely indicating a minimal acute compression fracture. A marked compression fracture involving the T11 vertebral body is unchanged from November 07. The bones are osteoporotic. Cement has been placed into the L2 and L4 vertebral bodies
[2017-11-20 17:31] LABS: Urine Bacteria <20 /HPF (<20); Urine Culture Reflex Order NOT NEEDED; Urine RBC <5 /HPF (NONE SEEN)
[2017-11-20 18:15] LABS: Anisocytosis SLIGHT; Blood Morphology Comment NOTED (NOT SEEN); Platelet Estimate ADEQ; Polychromasia SLIGHT; Urine White Blood Cell Casts OK
[2017-11-20] MEDS: CRANBERRY FRUIT EXTRACT 200 MG CAP PO SCH (19:19)
[2017-11-20] MEDS: DOCUSATE NA/SENNA CONC 1 TAB PO SCH (19:20)
[2017-11-21] MEDS: HYDROCODONE/APAP 7.5/325 MG TAB PO PRN ×5 (00:05→23:22)
[2017-11-21] MEDS: CARVEDILOL 25 MG TAB PO SCH ×2 (05:06→17:48)
[2017-11-21] MEDS: LEVOTHYROXINE SOD 0.05 MG TABLET PO SCH (05:07)
[2017-11-21] MEDS: PANTOPRAZOLE 40MG TABLET PO SCH (06:47)
[2017-11-21] MEDS: CRANBERRY FRUIT EXTRACT 200 MG CAP PO SCH ×2 (08:00→19:01)
[2017-11-21] MEDS: FE SULF/FA/VIT B COMP & C TAB PO SCH (08:17)
[2017-11-21] MEDS: FERROUS SULFATE 325 MG TAB PO SCH (08:17)
[2017-11-21] MEDS: ASPIRIN EC 81 MG TAB PO SCH (08:17)
[2017-11-21] MEDS: MORPHINE *EXTENDED RELEASE* 15 MG TAB PO SCH ×2 (08:17→19:00)
[2017-11-21] MEDS: GABAPENTIN 300 MG CAP PO SCH ×2 (08:17→19:01)
[2017-11-21] MEDS: DEXAMETHASONE 4 MG TAB PO SCH (08:17)
[2017-11-21] MEDS: PROMOD 30 ML DOSE PO SCH ×2 (08:19→09:58)
[2017-11-21] MEDS: ONDANSETRON 4 MG (ODT) TAB PO PRN (09:55)
[2017-11-21] MEDS: ENSURE HIGH PROTEIN 237 ML CAN PO SCH ×2 (09:58→19:00)
[2017-11-21] MEDS: BACLOFEN 10 MG TAB PO SCH ×2 (14:17→19:01)
[2017-11-21] MEDS: LIDOCAINE 5% PATCH TOP SCH (14:18)
--- NOTE | 2017-11-21 17:24 | RAD REPORT ---
EXAM DESCRIPTION: MRI - Lumbar Spine Wo Con - 11/21/2017 5:02 pm CLINICAL HISTORY: Radiculopathy and back pain COMPARISON: November 20, 2017 lumbar spine x-ray November 10, 2017 cat scan TECHNIQUE: Sagittal T1, T2 and STIR weighted sequences were obtained. Axial T1 and T2 sequences were obtained through the lumbar disc levels. FINDINGS: Abnormal signal is present within the superior endplates of the T12 and L1 vertebral jocelyn s consistent with acute mild compression fracture. Pedicular screws united by rods have been placed from L2-L4. Artifact from the hardware obscures deta il somewhat. A 30 millimeter area of abnormal signal involves the L3 vertebral body with mild compression presumab ly representing a metastasis. Cement has been placed into the L2 and L4 vertebral bodies. A significant central spinal stenosis is not noted. IMPRESSION: Development of acute mild compression fractures involving the T12 and L1 vertebral jocelyn s
[2017-11-21] MEDS: ENOXAPARIN 40 MG/0.4 ML SQ SCH (17:29)
[2017-11-21] MEDS: DOCUSATE NA/SENNA CONC 1 TAB PO SCH (19:01)
[2017-11-21] MEDS: CIPROFLOXACIN HCL 500 MG TAB PO SCH (19:01)
[2017-11-22] MEDS: HYDROCODONE/APAP 7.5/325 MG TAB PO PRN ×3 (05:09→17:48)
[2017-11-22] MEDS: LEVOTHYROXINE SOD 0.05 MG TABLET PO SCH (05:09)
[2017-11-22] MEDS: CARVEDILOL 25 MG TAB PO SCH ×2 (05:09→17:48)
[2017-11-22 06:53] VITALS: TEMP 97
[2017-11-22] MEDS: PROMOD 30 ML DOSE PO SCH (08:00)
[2017-11-22] MEDS ORDERED: GABAPENTIN 300 MG CAP PO SCH (08:00)
[2017-11-22] MEDS: CRANBERRY FRUIT EXTRACT 200 MG CAP PO SCH (08:10)
[2017-11-22] MEDS: FE SULF/FA/VIT B COMP & C TAB PO SCH (08:11)
[2017-11-22] MEDS: MORPHINE *EXTENDED RELEASE* 15 MG TAB PO SCH (08:11)
[2017-11-22] MEDS: FERROUS SULFATE 325 MG TAB PO SCH (08:12)
[2017-11-22] MEDS: CIPROFLOXACIN HCL 500 MG TAB PO SCH (08:12)
[2017-11-22] MEDS: BACLOFEN 10 MG TAB PO SCH (08:12)
[2017-11-22] MEDS: ENSURE HIGH PROTEIN 237 ML CAN PO SCH (08:13)
[2017-11-22] MEDS: DEXAMETHASONE 4 MG TAB PO SCH (08:13)
[2017-11-22] MEDS: PANTOPRAZOLE 40MG TABLET PO SCH (08:15)
[2017-11-22] MEDS: LIDOCAINE 5% PATCH TOP SCH (08:16)
--- NOTE | 2017-11-22 12:09 | FAST ---
SHIFT START DATE/TIME: 11/22/2017 07:00 (CDT) SHIFT END DATE/TIME: 11/22/2017 19:00 (CDT) NAME MYRTLE RUDOLPH DATE OF : 1960 DATE OF ADMISSION: 11/13/2017 17:28 (CDT) PHONE: AGE: 57 BANNER# [id number] GENDER: Female ENCOUNTER PHYSICIAN: Dr. Ozzy Thompson M.D. 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 EATING: EATING - STEP 1: Does the patient require assistance when eating? Yes. EATING - STEP 2: Does the patient require the assistance of a helper? No, patient only requires an assistive device, O R s/he takes more than reasonable time to eat, OR there is a safety concern, OR s/he requires modifie d food consistency EATING - SCORE: 6-KYRIE GROOMING: Activity did not occur on this shift GROOMING - SCORE: 0-UNK BATHING: Activity did not occur on this shift BATHING - SCORE: 0-UNK DRESSING - UPPER BODY: Activity did not occur on this shift ARTICLES SCORE Total number of steps: 0 DRESSING - UPPER BODY - SCORE: 0-UNK DRESSING - LOWER BODY: Activity did not occur on this shift ARTICLES SCORE Total number of steps: 0 DRESSING - LOWER BODY - SCORE: 0-UNK TOILETING: TOILETING - STEP 1: Does the patient require assistance with toileting? Yes. TOILETING - STEP 2: Does the patient require the assistance of a helper? Yes. TOILETING - STEP 3: How much assistance does the patient require from the helper? Hands-on assistance from the helper TOILETING - STEP 4: Of the 3 tasks: 1) Adjusting clothing prior to use, 2) Cleansing of perineal area, 3) Adjusting clot mary after use; How many tasks does the patient perform WITHOUT assistance of the helper? No tasks; h elper performs all three tasks TOILETING - SCORE: 1-DEP BLADDER MANAGEMENT: Activity did not occur on this shift BLADDER MANAGEMENT - SCORE: 7-IND BLADDER MANAGEMENT - FREQUENCY OF ACCIDENTS: BLADDER MANAGEMENT(FA) - STEP 1: How many accidents has the patient had during the current shift? 0 BOWEL MANAGEMENT: Activity did not occur on this shift BOWEL MANAGEMENT - SCORE: 7-IND BOWEL MANAGEMENT - FREQUENCY OF ACCIDENTS: BOWEL MANAGEMENT(FA) - STEP 1: How many accidents has the patient had during the current shift? 0 TRANSFERS: BED, CHAIR, WHEELCHAIR: Activity did not occur on this shift TRANSFERS: BED, CHAIR, WHEELCHAIR - SCORE: 0-UNK TRANSFERS: TOILET: Activity did not occur on this shift TRANSFERS: TOILET - SCORE: 0-UNK TRANSFERS: SHOWER: Activity did not occur on this shift TRANSFERS: SHOWER - SCORE: 0-UNK TRANSFERS: TUB: Activity did not occur on this shift TRANSFERS: TUB - SCORE: 0-UNK LOCOMOTION: WALK: Activity did not occur on this shift LOCOMOTION: WALK - SCORE: 0-UNK LOCOMOTION: WHEELCHAIR: Activity did not occur on this shift LOCOMOTION: WHEELCHAIR - SCORE: 0-UNK COMPREHENSION: COMPREHENSION: TYPE: Both COMPREHENSION - STEP 1: Does the patient require help to understand complex and abstract ideas (such as current events, finan martha, discharge planning, medical issues, relationships, etc)? No. COMPREHENSION - STEP 2: Does the patient need extra time, require an assistive device (such as glasses, hearing aids, or an a ugmentative communication system), OR does s/he have mild difficulty expressing complex and abstract ideas (including mild dysarthria or mild word-finding problems)? Yes. COMPREHENSION - SCORE: 6-KYRIE EXPRESSION EXPRESSION: TYPE: Both EXPRESSION - STEP 1: Does the patient require help expressing complex and abstract ideas (such as current events, finances , discharge planning, medical issues, relationships, etc)? No. EXPRESSION - STEP 2: Does the patient need extra time, require an assistive device (such as augmentive communication syste m or a communication board), OR does s/he have mild difficulty expressing complex and abstract ideas (including mild dysarthria or mild word-find problems)? No. EXPRESSION - SCORE: 7-IND SOCIAL INTERACTION: SOCIAL INTERACTION - STEP 1: Does the patient require a helper to interact with others in social and therapeutic situations? No. SOCIAL INTERACTION - STEP 2: Does the patient need extra time in social situations, OR does s/he interact with staff, other patien ts, and family members ONLY in structured environments, OR does s/he require medication for social in teraction? Yes, patient needs extra time SOCIAL INTERACTION - SCORE: 6-KYRIE PROBLEM SOLVING: PROBLEM SOLVING - STEP 1: Does the patient need help to solve complex problems such as managing a checking account or confronti ng interpersonal problems? No. PROBLEM SOLVING - STEP 2: Does the patient require extra time to make decisions or solve problems, OR does s/he have slight dif ficulty reading, initiating, or self-correcting in unfamiliar situations? Yes, patient needs extra ti me. PROBLEM SOLVING - SCORE: 6-KYRIE MEMORY: MEMORY - STEP 1: Does the patient need help to remember frequently encountered people, daily routines, and executing r equests? No. MEMORY - STEP 2: Does the patient have slight difficulty recognizing frequently encountered people, daily routines, or executing requests without the need for repetition or using self-initiated or environmental cues to remember? Yes. MEMORY - SCORE: 6-KYRIE SIGNATURE PANEL: The following modified sections: Eating - Score, Grooming - Score, Bathing - Score, Dressing - Upper Body - Score, Dressing - Lower Body - Score, Toileting - Score, Bladder Management - Score, Bowel Man agement - Score, Transfers: Bed, Chair, Wheelchair - Score, Transfers: Toilet - Score, Transfers: Graciela wer - Score, Transfers: Tub - Score, Locomotion: Walk - Score, Locomotion: Wheelchair - Score, Compre hension - Score, Expression - Score, Social Interaction - Score, Problem Solving - Score, Memory - Sc ore were [electronically] signed by Constance NewNRose on MonNov 22 2017 11:08:49 T-0500 (Centra l Daylight Time)
--- NOTE | 2017-11-22 12:12 | P.PN ---
Subjective Date of Service: 11/22/17 Chief Complaint: Severe lower back pain Subjective: Other (Worsening lower back pain, tingling and numbness) Ms. Pelaez is a 57-year old patient with renal cancer, metastatic to the lumbar. She has severe lumbar pain secondary to acute compression fractures at T12 and L1 with metastatic disease to L3. She is status post kyphoplasty at L2 and L4. She has an open wound in the lower lumbar region which cultured pansensitive Proteus mirabilis. She is on ciprofloxacin 500 mg twice daily. Her sepsis workup is negative with lactate dehydrogenase level of 292 and pro- calcitonin 0.14. Her white blood cell count is normal at 10 and she is afebrile. She received one unit of packed red blood cells with improvement of hemoglobin from 7.8 to 9.0. She is being transferred for a higher level of care for her acute vertebral compression fractures, including possible kyphoplasty. Physical Examination - Vital Signs Temperature: 97 F Blood Pressure: 137/76 Pulse: 83 Respirations: 20 Pulse Ox (%): 96 - Studies Microbiology Data (last 24 hrs): 11/19/17 14:40 Wound - Back Gram Stain - Final 11/19/17 14:40 Wound - Back Culture & Sensitivity - Final Proteus Mirabilis
--- NOTE | 2017-11-22 16:25 | FAST ---
ENCOUNTER DATE AND TIME: 11/22/2017 08:00 (CDT) NAME MYRTLE RUDOLPH DATE OF : 1960 DATE OF ADMISSION: 11/13/2017 17:28 (CDT) PHONE: AGE: 57 N# [id number] GENDER: Female ENCOUNTER PHYSICIAN: Dr. Ozzy Thompson M.D. 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 EATING: Activity did not occur on this shift EATING - SCORE: 0-UNK GROOMING: Activity did not occur on this shift GROOMING - SCORE: 0-UNK BATHING: Activity did not occur on this shift BATHING - SCORE: 0-UNK DRESSING - UPPER BODY: Activity did not occur on this shift Patient is not dressing in public clothing ARTICLES SCORE Total number of steps: 0 DRESSING - UPPER BODY - SCORE: 0-UNK DRESSING - LOWER BODY: Activity did not occur on this shift Patient is not dressing in public clothing ARTICLES SCORE Total number of steps: 0 DRESSING - LOWER BODY - SCORE: 0-UNK TOILETING: Activity did not occur on this shift TOILETING - SCORE: 0-UNK BLADDER MANAGEMENT: Activity did not occur on this shift BLADDER MANAGEMENT - SCORE: 7-IND BOWEL MANAGEMENT: Activity did not occur on this shift BOWEL MANAGEMENT - SCORE: 7-IND TRANSFERS: BED, CHAIR, WHEELCHAIR: Activity did not occur on this shift TRANSFERS: BED, CHAIR, WHEELCHAIR - SCORE: 0-UNK TRANSFERS: TOILET: Activity did not occur on this shift TRANSFERS: TOILET - SCORE: 0-UNK TRANSFERS: SHOWER: Activity did not occur on this shift TRANSFERS: SHOWER - SCORE: 0-UNK TRANSFERS: TUB: Activity did not occur on this shift TRANSFERS: TUB - SCORE: 0-UNK LOCOMOTION: WALK: Activity did not occur on this shift LOCOMOTION: WALK - SCORE: 0-UNK LOCOMOTION: WHEELCHAIR: Activity did not occur on this shift LOCOMOTION: WHEELCHAIR - SCORE: 0-UNK LOCOMOTION: STAIRS: Activity did not occur on this shift LOCOMOTION: STAIRS - SCORE: 0-UNK COMPREHENSION: COMPREHENSION - SCORE: 0-UNK EXPRESSION EXPRESSION - SCORE: 0-UNK SOCIAL INTERACTION: SOCIAL INTERACTION - SCORE: 0-UNK PROBLEM SOLVING: PROBLEM SOLVING - SCORE: 0-UNK MEMORY: MEMORY - SCORE: 0-UNK SIGNATURE PANEL: The following modified sections: Transfers: Bed, Chair, Wheelchair - Score, Transfers: Toilet - Score , Locomotion: Walk - Score, Locomotion: Wheelchair - Score, Locomotion: Stairs - Score were [electron raven] signed by Nitesh Norman PTA on MonNov 22 2017 15:25:12 GMT-0500 (Central Daylight Time)
[2017-11-22] MEDS: ENOXAPARIN 40 MG/0.4 ML SQ SCH (17:48)
[2017-11-22 17:49] VITALS: BP 127/68
--- NOTE | 2017-11-22 18:28 | R.PN ---
ENCOUNTER DATE AND TIME: 11/22/2017 17:25 (CDT) NAME MYRTLE RUDOLPH DATE OF : 1960 DATE OF ADMISSION: 11/13/2017 17:28 (CDT) Lumbar Disc DiseaseCHIEF COMPLAINT: Lumbar compression fractures SUBJECTIVE: Pt denied any Shortness of Breath. Pt denied any depression. Now has more severe lower back pain 10/10 and is not able to ambulate. She self-propelled wheelchair 250' with modified independence. Developed more severe low back pain. MRI of the lower back shows new acute compression fractures at T 12 and L1. Abnormal signal in L3 suggests renal metastasis. Cement placed in L3 and L4 bodies. Rods and screws placed from L2 to L4. She will be transferred to [place] for neurosurgical intervention to [facility]. No further bleeding from left upper molar. VITAL SIGNS Temperature:97 F SBP/DBP: 137/76 Pulse: 83 Resp: 16 MEDICATION ALLERGIES: Nsaids Aspirin ENVIRONMENTAL ALLERGIES: None Known - Substance Allergies None Known - Other Allergies None Known NURSING: - Shower allowing shower - Bladder care per protocol - Skin care per protocol PRECAUTIONS: - Fall Precaution Bed and chair alarm ACTIVITIES OOB only with supervision THERAPIES: - Occupational Therapy Evaluate and Treat. - Physical Therapy Evaluate and Treat. PHYSICAL EXAM - Gen Alert and awake Lying in bed No apparent distress Oriented to: person, time, and place - Skin No skin breakdown. Normacephalic - Eyes No abnormalities - ENMT No abnormalities - Neck No abnormalities - CVS RRR - Resp Clear to auscultation - Abd Soft - GI Non distended Deferred - No abnormalities - Ext No significant edema - MSK 4/5 weakness in both lower extremities. - Neuro No focal deficits - Psych No abnormalities ASSESSMENT: Pt. is a 57 yo Right-handed white female.On 11/10/2017 she was admitted to [facility] with diagnosis Lumbar Disc Disease.Her impairment category is Spinal Cord Dysfunction 04 - Ot her Non-traumatic Spinal Cord Dysfunction (04.130).Pre-morbidly, Pt. was independent/mod-I in Self-Ca re, Transfers Control, Social Cognition, Communication, Sphincter Control, and Locomotion; and she sauer d good Sphincter Control.Currently, she has deficits of Transfers Control, Safety Awareness, Balance, Endurance, Locomotion, and Self-Care.Pt. is now referred to [facility] in order to maximize patient's functional independence in activities of daily living, strength, ROM, and mobility.- Rehab Goal Patient has realistic goal of being discharged at assistance level 6-Tanisha to reside at Home with Fam tye/Relatives. MDM/PLAN: - Diet Type Continue Regular - Physical Therapy Gait dysfunction - to improve, our physical therapists will perform initial evaluation of pt's statu s upon admission and devise an individualized program for Gait Training, and Wheel Chair mobility Inability to transfer - to improve, our physical therapists will perform initial evaluation of pt's status upon admission and devise an individualized program for Bed mobility Need for home safety evaluation - to improve, our physical therapists will perform initial evaluatio n of pt's status upon admission and devise an individualized program for Home Evaluation Need in caregiver upon discharge - to improve, our physical therapists will perform initial evaluati on of pt's status upon admission and devise an individualized program for Caregiver Training Edema - to improve, our physical therapists will perform initial evaluation of pt's status upon admi ssion and devise an individualized program for Elevation Training, and Lymphedema Therapy New precaution - to improve, our physical therapists will perform initial evaluation of pt's status upon admission and devise an individualized program for Patient precaution education Poor balance - to improve, our physical therapists will perform initial evaluation of pt's status up on admission and devise an individualized program for Balance Training Poor endurance - to improve, our physical therapists will perform initial evaluation of pt's status upon admission and devise an individualized program for Endurance Training Weakness - to improve, our physical therapists will perform initial evaluation of pt's status upon a dmission and devise an individualized program for Aquatic Therapy, Neuromuscular Reeducation, and Str engthening Achieving independence - to improve, our physical therapists will perform initial evaluation of pt's status upon admission and devise an individualized program for Community Reintegration Activities - Diet - Liquid Texture Continue Regular - Tube Feed Continue N/A - Bladder care per protocol - Fall Precaution Bed and chair alarm - Skin care per protocol - Diet - Solid Texture Continue Regular - Shower allowing shower - Occupational Therapy ADL deficits - to improve, our occupation therapists will perform initial evaluation of pt's status upon admission and devise an individualized program for Bathing, Bed mobility, Community Reintegratio n, Cooking, Dressing, Eating, Fine Motor Skills, Grooming, Homemaking, Kitchen Mobility, Laundry, Pat ient Education, Safety Awareness, Splinting - Positioning, Transfers(Toilet, Tub, Shower), and Wheel Chair Management Need for med care manager - to improve, our occupation therapists will perform initial evaluation of pt's status upon admission and devise an individualized program for Caregiver Training Weakness - to improve, our occupation therapists will perform initial evaluation of pt's status upon admission and devise an individualized program for Aquatic Therapy, Balance, Endurance, UE ROM, and UE strengthening FUNCTIONAL STATUS: UPDATED AT WEEKLY TEAM CONFERENCE - Bladder Same accident frequency: 7-Ind - No accidents in the past 7 days - Bowel Same accident frequency: 7-Ind - No accidents in the past 7 days - Walking Same score based on distance walked: 2(50-149ft) - Wheelchair Same score based on distance traveled: 0(N/A) FUNCTIONAL STATUS: - Self-Care A. Eating Tanisha B. Grooming Tanisha C. Bathing Von D. Dressing - Upper Von E. Dressing - Lower Von F. Toileting Von - Sphincter Control G: Bladder control Ind H: Bowel control Ind - Transfers Control I. Bed/Chair/Wheelchair Von J. Toilet Von K. Tub/Shower ADNO - Locomotion L. Walk/Wheelchair (C) Von L. Walk/Wheelchair (W) Von M. Stairs ADNO - Communication N. Comprehension (B) Ind O. Expression (B) Ind - Social Cognition P. Social Interaction Ind Q. Problem Solving Ind R. Memory Ind - Endurance Poor - Balance Poor - Safety Awareness Fair CURRENT FUNC. DEFICITS: Transfers Control, Safety Awareness, Balance, Endurance, Locomotion, and Self-Care SIGNATURE PANEL: (CDT)
[2017-11-23] MEDS ORDERED: COLLAGENASE 30 GM OINTMENT TOP SCH (08:00)
--- NOTE | 2017-12-19 18:52 | R.DS ---
FACILITY [facility] MR# [id number] NAME MYRTLE RUDOLPH ADDRESS [id number] [place] [address] [address] [id number] PHONE DATE OF 1960 AGE 57 SSN# [id number] GENDER Female DEXTERITY Right-handed MARITAL STATUS RACE White ENCOUNTER PHYSICIAN Dr. Ozzy Thompson M.D. 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 DISCHARGE COMORBIDITIES: - N/A Hypertension Hypothyroidism Renal Cell Carcinoma Lung Cancer GERD DATE OF ADMISSION 11/13/2017 17:28 (CDT) MEDICATION ALLERGIES: Nsaids Aspirin ENVIRONMENTAL ALLERGIES: None Known - Substance Allergies None Known - Other Allergies None Known NURSING: - Shower allowing shower - Bladder care per protocol - Skin care per protocol PRECAUTIONS: - Fall Precaution Bed and chair alarm ACTIVITIES OOB only with supervision THERAPIES: - Occupational Therapy Evaluate and Treat - Physical Therapy Evaluate and Treat HISTORY OF PRESENT ILLNESS: Pt. is a 57 yo Right-handed white female.On 11/10/2017 she was admitted to [facility] with diagnosis Lumbar Disc Disease.Her impairment category is Spinal Cord Dysfunction 04 - Ot her Non-traumatic Spinal Cord Dysfunction (04.130).Pre-morbidly, Pt. was independent/mod-I in Self-Ca re, Sphincter Control, Communication, and Social Cognition; and she had good Sphincter Control.Curren tly, she has deficits of Transfers Control, Safety Awareness, Balance, Endurance, Locomotion, and Ayde f-Care.Pt. is now referred to [facility] for acute in-patient rehabilitation i n order to maximize patient's functional independence in activities of daily living, strength, ROM, a nd mobility.- Rehab Goal Patient has realistic goal of being discharged at assistance level 6-Tanisha to reside at Home with Fam tye/Relatives. HOSPITAL COURSE: On 11/13/2017 the following precautions were added for the patient: Fall Precaution - Bed and chair a larm. On 11/14/2017 the following precautions were added for the patient: Fall Precaution - Bed and chair alarm. On 11/15/2017 the following precautions were removed for the patient: Fall Precaution - Bed and nahomy r alarm. On 11/21/2017 the following precautions were added for the patient: Fall Precaution - Bed and chair alarm. The following precautions were removed for the patient: Fall Precaution - Bed and chair alarm, and F all Precaution - Bed and chair alarm. DIET - LIQUID TEXTURE: On 11/13/2017 Pt was upgraded to Regular Diet - Liquid Texture. DIET - SOLID TEXTURE: On 11/13/2017 Pt was upgraded to Regular Diet - Solid Texture. DIET TYPE: On 11/13/2017 Pt was upgraded to Regular Diet Type. FALL PRECAUTION: TUBE FEED: On 11/13/2017 Pt was changed to N/A Tube Feed. After developing severe worsening lower back pain on 11/22/17 an lumbar spine MRI revealed acute compr ession fractures at T12 and L1. Rehabilitation was halted and she was transferred to [place] for poss ible kyphoplasty. DISCHARGE PHYSICAL EXAM - Gen Alert and awake Lying in bed No apparent distress Oriented to: person, time, and place - Skin No skin breakdown. Normacephalic - Eyes No abnormalities - ENMT No abnormalities - Neck No abnormalities - CVS RRR - Resp Clear to auscultation - Abd Soft - GI Non distended Deferred - No abnormalities - Ext No significant edema - MSK 4/5 weakness in both lower extremities. - Neuro No focal deficits - Psych No abnormalities FUNCTIONAL STATUS: - Self-Care A. Eating 6-Tanisha 6-Tanisha B. Grooming 6-Tanisha 6-Tanisha C. Bathing 4-Von 4-Von D. Dressing - Upper 4-Von 4-Von E. Dressing - Lower 4-Von 2-maxA F. Toileting 4-Von 2-maxA - Sphincter Control G: Bladder control 7-Ind 7-Ind H: Bowel control 7-Ind 7-Ind - Transfers Control I. Bed/Chair/Wheelchair 4-Von 2-maxA J. Toilet 4-Von 2-maxA K. Tub/Shower 0-ADNO 0-ADNO - Locomotion L. Walk/Wheelchair (C) 4-Von 6-Tanisha L. Walk/Wheelchair (W) 4-Von 4-Von M. Stairs 0-ADNO 0-ADNO - Communication N. Comprehension (B) 7-Ind 7-Ind O. Expression (B) 7-Ind 7-Ind - Social Cognition P. Social Interaction 7-Ind 7-Ind Q. Problem Solving 7-Ind 7-Ind R. Memory 7-Ind 7-Ind - Endurance Poor - Balance Poor - Safety Awareness Fair DISCHARGE INSTRUCTIONS: - N/A Lovenox 40 mg subcutaneous daily and aspirin 81 mg daily. DISCHARGE PLAN, FOLLOW UP CARE PROVISIONS: - Estimated Length of Stay (days) 16. - Consensus on plan Discharge plan has been discussed with primary caregiver. Patient/Family is in agreement with the thuy n. Primary caregiver is in agreement with the plan. - Patient/Family Goals Return home with assistance. - Planned Living Setting Upon Discharge Home, to live with Family/Relatives. SIGNATURE PANEL: (CDT)
== END 2017-11-22 18:45 | disposition short-term general hospital (02) | DRG 552 ==
LOC: 5TH 17:28
PROVIDERS: ADMIT Psychiatry & Neurology Neurology with Special Qualifications in Child Neurology; ATTEND Psychiatry & Neurology Neurology with Special Qualifications in Child Neurology
DX: M51.9 Unspecified thoracic, thoracolumbar and lumbosacral intervertebral disc disorder (principal); C64.9 Malignant neoplasm of unspecified kidney, except renal pelvis; C34.90 Malignant neoplasm of unspecified part of unspecified bronchus or lung; I10 Essential (primary) hypertension; E03.9 Hypothyroidism, unspecified; K21.9 Gastro-esophageal reflux disease without esophagitis
CPT/HCPCS: 36415; 72100; 72148; 80048; 81001; 81003; 81015; 82040; 82274; 83615; 83735; 84134; 84145; 85025; 86850; 86900; 86901; 87070; 87077; 87086; 87088; 87186; 87205; 97542; J1650; J3590; P9016

== ENCOUNTER 2017-12-08 10:11 | Emergency (ER) | payer OTHER ==
--- OUTSIDE RECORDS SUMMARY | 2017-12-08 10:13 | XMS REPORT | Clinical Summary ---
:1960 Author Organization [facility] Address [address] [place] [address] Phone Care Team Providers Name Role Phone Unavailable Primary Care Provider Unavailable Allergies No Known Allergies Current Medications Prescription Sig. Disp. Refills Start End Date Status Date carvedilol (COREG) Take 25 mg by Active 25 MG mouth 2 (two) tabletIndications: times daily with hypertension breakfast and dinner. lisinopril-hydroCHL Take 2 tablets by Active OROthiazide mouth daily. (PRINZIDE,NOESTORETI C) 20-12.5 mg per tabletIndications: hypertension levothyroxine Take [...] by 8 tablet mouth daily with breakfast. aluminum & Take 30 mLs by 355 mL 0 12/15/19 Active magnesium mouth every 6 8 18 hydroxide-simethico (six) hours as ne (MAALOX PLUS) needed for up to 400-400-40 mg/5 mL 10 days. suspension cefTRIAXone Inject 1 g 1 each 0 01/06/20 Active (ROCEPHIN) intravenously 8 18 injection 1 g every 12 (twelve) hours for 32 days. diazePAM (VALIUM) 2 Take 1 tablet (2 30 tablet 0 12/15/19 Active MG tablet mg total) by 8 18 mouth every 8 (eight) hours as needed for Anxiety for up to 10 days. Max Daily Amount: 6 mg docusate sodium Take 1 capsule 10 capsule 0 12/15/19 Active (COLACE) 100 MG (100 mg total) by 8 18 capsule mouth 3 (three) times daily for 10 days. fluticasone 1 spray by Nasal 9.9 mL 0 12/06/19 Active (FLONASE) 50 route daily. 8 19 mcg/actuation nasal spray guaiFENesin Take 1 tablet 20 tablet 0 12/15/19 Active (MUCINEX) 600 mg 12 (600 mg total) by 8 18 hr tablet mouth 2 (two) times daily for 10 days. ipratropium-albuter Take 3 mLs by 360 mL 0 11/30/19 Active ol (DUO-NEB) 0.5 nebulization 8 19 mg-3 mg(2.5 mg every 6 (six) base)/3 mL hours for 360 nebulizer solution days. nystatin Apply topically 2 15 g 0 12/05/19 Active (MYCOSTATIN) (two) times 8 19 100,000 unit/gram daily. powder oxyCODONE-acetamino Take 2 tablets by 30 tablet 0 12/15/19 Active phen (PERCOCET) mouth every 6 8 18 5-325 mg per tablet (six) hours as needed (moderate pain) for up to 10 days. Max Daily Amount: 8 tablets pantoprazole Take 1 tablet (40 30 tablet 0 01/05/20 Active (PROTONIX) 40 MG mg total) by 8 18 tablet mouth daily for 30 days. polyethylene glycol Take 17 g by 170 g 0 12/16/19 Active (GLYCOLAX) 17 gram mouth daily for 8 18 packet 10 days. senna (SENOKOT) 8.6 Take 2 tablets 120 tablet 0 01/04/20 Active mg tablet (17.2 mg total) 8 18 by mouth 2 (two) times daily for 30 days. simethicone Take 1 tablet (80 30 tablet 0 12/15/19 Active (MYLICON) 80 MG mg total) by 8 18 chewable tablet mouth every 6 (six) hours as needed for Flatulence (Bloating) for up to 10 days. dexamethasone Take 4 mg by 10/31/19 Discontinued [...] 8 tablets Active Problems Problem Noted Date Shortness of breath 11/27/2017 Normocytic anemia 11/27/2017 Chest pain 11/27/2017 Proteus infection 11/27/2017 Hypertension, essential 11/27/2017 Acute respiratory insufficiency 11/27/2017 Obesity (BMI 30.0-34.9) 11/27/2017 Infection of lumbar spine (HCC) 11/23/2017 Open wound of lumbar region without complication 11/23/2017 Compression fracture of L3 lumbar vertebra (HCC) 10/24/2017 Radiculopathy of lumbar region 10/24/2017 Acute mechanical low back pain, duration < 6 weeks 10/24/2017 Mass of spine 10/23/2017 Renal cell cancer (HCC) 10/23/2017 Metastatic cancer to spine (HCC) 10/23/2017 Encounters Date Type Specialty Care Team Description 11/26/2017 Orders Only General Internal Medicine 11/23/2017 Anesthesia Event Narayan Castillo CRNA 11/23/2017 Procedure Pass 11/23/2017 Surgery Pablo Ga LAMINECTOMY,LUMBAR MD Melanie 11/22/2017 - Hospital Encounter General Internal Pablo Ga Acute mechanical low 12/04/2017 Medicine MD Melanie back pain, duration < Chelsea, Joseg-Jennifer, 6 weeks (Primary MD Dx);Infection of Luci Esquivel MD lumbar spine Khushboo Bryson ([facility]);Closed MD compression fracture of third lumbar vertebra, initial encounter ([facility]);Mass of spine;Renal cell carcinoma, unspecified laterality (HCC);Shortness of breath;Acute respiratory insufficiency;Chest pain, unspecified type;Metastatic cancer to spine (HCC);Normocytic anemia;Obesity (BMI 30.0-34.9);Proteus infection;Hypertensio n, essential 10/26/2017 Procedure Pass 10/26/2017 Surgery Pablo Ga [...] fracture of third lumbar vertebra, initial encounter ([facility]);Metastatic cancer to spine ([facility]) after 12/07/2016 Social History Tobacco Use Types Packs/Day Years Used Date Never Smoker Smokeless Tobacco: Never Used Sex Assigned at Date Recorded Not on file Last Filed Vital Signs Vital Sign Reading Time Taken Blood Pressure 108/66 12/04/2017 4:47 PM CDT Pulse 80 12/04/2017 4:47 PM CDT Temperature 35.6 C (96 F) 12/04/2017 4:47 PM CDT Respiratory Rate 16 12/04/2017 4:47 PM CDT Oxygen Saturation 97% 12/04/2017 4:47 PM CDT Inhaled Oxygen Concentration - - Weight 100.7 kg (222 lb) 11/23/2017 1:20 AM CDT Height 170.7 cm (5' 7.2") 11/23/2017 1:20 AM CDT Body Mass Index 34.56 11/23/2017 1:20 AM CDT Plan of Treatment Not on file Implants Implanted Type Area Human Resources Compliance Manager Device Expiration Model / Serial / Identifier Date Lot Graft Bone Orthoblend 10cc [id number] - [id number] Bone N/A: MEDTRONIC:SPINAL 06/14/2019 [id number] / Implanted: Qty: 1 on 10/26/2017 by Pablo Ga MD Spine GRAFT [id number] / Lumbar Bone Grft Orthoblend 5cc - [id number] Bone N/A: MEDTRONIC:SPINAL 04/20 [id number] / Implanted: Qty: 1 on 10/26/2017 by Pablo Ga MD Spine GRAFT [id number] / Lumbar Bone Chip Canc 1.7-10mm 30ml [id number] - [id number] Bone N/A: MUSCULOSKELETAL 07/29/2020 [id number] / Implanted: Qty: 1 on 10/26/2017 by Pablo Ga MD Spine TRANSPLANT FND [id number] / Lumbar Flseal Vhsd Full Strlprep 10ml [id number] - [id number] Cement/ N/A: PRETTY: BIOSCI 02/13/2019 [id number] / Implanted: Qty: 1 on 10/26/2017 by Pablo Ga MD Filler/ Spine / Adhesiv Lumbar [id number] e Cement Bone Kyphx Hv-R C01a - [id number] Cement/ N/A: MEDTRONIC:SPINAL [id number] / Implanted: Qty: 1 on 10/26/2017 by Pablo Ga MD Filler/ Spine BIOLOGICS / Adhesiv Lumbar [id number] e Cement Ktmx Kyphx Hv-R C01b - [id number] Cement/ N/A: MEDTRONIC:SPINAL [id number] / Implanted: Qty: 1 on 10/26/2017 by Pablo Ga MD Filler/ Spine BIOLOGICS / Adhesiv Lumbar [id number] e Cath Exp Silv Soak Lead Operator 12.5cmx [id number] - [id number] Pain N/A: COLT 01/03/2020 [id number] / Implanted: Qty: 2 on 10/26/2017 by Pablo Ga MD Mgmt/St Spine / imulato Lumbar [id number] r Scr Mas Cc 6.5x30cc [id number] - [id number] Spine N/A: MEDTRONIC:SPINAL [id number] / Implanted: Qty: 1 on 10/26/2017 by Pablo Ga MD Spine BIOLOGICS / Lumbar [id number] Scr Set Ti Ns Brk Off 5.5 [id number] - [id number] Spine N/A: MEDTRONIC:SPINAL [id number] / Implanted: Qty: 5 on 10/26/2017 by Pablo Ga MD Spine BIOLOGICS / Lumbar [id number] 60mm Kurtis N/A: MEDTRONIC [id number] / Implanted: Qty: 2 on 10/26/2017 by Pablo Ga MD Spine / Lumbar [id number] 7.5 X 45 Mm Fenestrated Screw N/A: MEDTRONIC [id number] / Implanted: Qty: 2 on 10/26/2017 by Pablo Ga MD Spine / Lumbar [id number] 7.5 X 50 Mm Fenestrated Screw N/A: MEDTRONIC [id number] / Implanted: Qty: 2 on 10/26/2017 by Pablo Ga MD Spine / Lumbar [id number] Explanted Type Area Human Resources Compliance Manager Device Expiration Model / Serial Identifier Date / Lot 7.5 X 50 Mm Fenestrated Screw N/A: Spine MEDTRONIC [id number] / Explanted: Qty: 1 on 10/26/2017 by Pablo Ga MD Lumbar / [id number] Procedures Procedure Name Priority Date/Time Associated Diagnosis Comments CLOSURE,WOUND TORSO 11/23/2017 1:30 PM Infection of lumbar POSTERIOR CDT spine (HCC) Special Needs (POSTERIOR)REQ TF HIS PATIENT(JAVIER) FLAP,MUSCLE/ MUSCULOCUTANEOUS-TRUNK 11/23/2017 1:30 PM CDT Infection of lumbar spine (HCC) Special Needs (POSTERIOR)REQ TF HIS PATIENT(JAVIER) RELEASE,SCAR CONTRACTURE TRUNK 11/23/2017 1:30 PM CDT Infection of lumbar spine (HCC) Special Needs (POSTERIOR)REQ TF HIS PATIENT(JAVIER) LAMINECTOMY,LUMBAR 11/23/2017 1:30 PM CDT Infection of lumbar spine (HCC) Special Needs (POSTERIOR)REQ TF HIS PATIENT(JAVIER) PROCEDURE W/ C-ARM 10/26/2017 2:02 PM CDT [...] CDT Metastasis to spinal cord (HCC) after 12/07/2016 Results CBC (Hemogram only) (12/01/2017 5:39 AM)Only the most recent of7 resultswithin the time period is included. Component Value Ref Range WBC 8.0 3.5 - 10.5 K/L RBC 2.90 (L) 3.93 - 5.22 M/L Hemoglobin 7.6 (L) 11.2 - 15.7 GM/DL Hematocrit 26.6 (L) 34.1 - 44.9 % MCV 91.7 79.4 - 94.8 fL MCH 26.2 25.6 - 32.2 pg MCHC 28.6 (L) 32.2 - 35.5 GM/DL RDW 16.6 (H) 11.7 - 14.4 % Platelets 432 150 - 450 K/CU MM MPV 8.9 (L) 9.4 - 12.3 fL nRBC 1 (H) 0 - 0 /100 WBC Specimen Performing Laboratory Blood [facility] [address] [address] Basic Metabolic Panel (12/01/2017 5:39 AM)Only the most recent of13 resultswithin the time period is included. Component Value Ref Range Sodium 139 136 - 145 meq/L Potassium 3.9 3.5 - 5.1 meq/L Chloride 97 (L) 98 - 107 meq/L CO2 30 (H) 22 - 29 meq/L BUN 11 7 - 21 mg/dL Creatinine 0.60 0.57 - 1.25 mg/dL Glucose 125 (H) 70 - 105 mg/dL Calcium 9.4 8.4 - 10.2 mg/dL EGFR 103Comment: ESTIMATED GFR IS NOT ACCURATE mL/min/1.73 sq m CREATININE CLEARANCE IN PREDICTING GLOMERULAR FILTRATION RATE. ESTIMATED GFR IS NOT APPLICABLE FOR DIALYSIS PATIENTS. Specimen Performing Laboratory Blood [address] [address] ECG 12 lead (12/01/2017 12:51 AM)Only the most recent of6 resultswithin the time period is included. Specimen Performing Laboratory GE MUSE Narrative Ventricular Rate 90 BPM Atrial Rate 90 BPM P-R Interval 158 ms QRS Duration 74 ms Q-T Interval 362 ms QTC Calculation(Bazett) 442 ms P [place] 34 degrees R [place] 4 degrees T [place] 33 degrees Normal sinus rhythm Low voltage QRS Borderline ECG When compared with ECG of 01-DEC-2017 00:50, No significant change was found Confirmed by MD LAURA, IHAB ([id number]) on 12/01/2017 7:16:02 AM Procedure Note Interface, External Ris In - 12/01/2017 7:16 AM CDT Ventricular Rate 90 BPM Atrial Rate 90 BPM P-R Interval 158 ms QRS Duration 74 ms Q-T Interval 362 ms QTC Calculation(Bazett) 442 ms P [place] 34 degrees R [place] 4 degrees T [place] 33 degrees Normal sinus rhythm Low voltage QRS Borderline ECG When compared with ECG of 01-DEC-2017 00:50, No significant change was found Confirmed by MD LAURA, IHAB ([id number]) on 12/01/2017 7:16:02 AM PT/aPTT (12/01/2017 12:50 AM)Only the most recent of2 resultswithin the time period is included. Component Value Ref Range Protime 15.1 (H) 11.7 - 14.7 seconds INR 1.2 <=5.9 PTT 38.3 (H) 22.5 - 36.0 seconds Specimen Performing Laboratory Blood [address] [address] Narrative RECOMMENDED COUMADIN/WARFARIN INR THERAPY RANGES STANDARD DOSE: 2.0 - 3.0 Includes: PROPHYLAXIS for venous thrombosis, systemic embolization; TREATMENT for venous thrombosis and/or pulmonary embolus. HIGH RISK: Target INR is 2.5-3.5 for patients with mechanical heart valves. CBC with platelet count + automated diff (12/01/2017 12:50 AM)Only the most recent of6 resultswithin the time period is included. Component Value Ref Range WBC 9.6 3.5 - 10.5 K/L RBC 3.06 (L) 3.93 - 5.22 M/L Hemoglobin 8.2 (L) 11.2 - 15.7 GM/DL Hematocrit 27.9 (L) 34.1 - 44.9 % MCV 91.2 79.4 - 94.8 fL MCH 26.8 25.6 - 32.2 pg MCHC 29.4 (L) 32.2 - 35.5 GM/DL RDW 16.6 (H) 11.7 - 14.4 % Platelets 369 150 - 450 K/CU MM MPV 8.6 (L) 9.4 - 12.3 fL nRBC 1 (H) 0 - 0 /100 WBC % Neutros 76 % % Lymphs 14 % % Monos 8 % % Eos 0 % % Baso 0 % # Neutros 7.24 (H) 1.56 - 6.13 K/L # Lymphs 1.31 1.18 - 3.74 K/L # Monos 0.72 (H) 0.24 - 0.36 K/L # Eos 0.01 (L) 0.04 - 0.36 K/L # Baso 0.01 0.01 - 0.08 K/L Immature Granulocytes-Relative 3 (H) 0 - 1 % Specimen Performing Laboratory Blood [address] [address] Troponin I (12/01/2017 12:50 AM)Only the most recent of3 resultswithin the time period is included. Component Value Ref Range Troponin I <0.01 0.00 - 0.03 ng/mL Specimen Performing Laboratory Blood [address] [address] Narrative Troponin I (TnI) levels must be interpreted in the context of the presenting symptoms and the clinical findings. Elevated TnI levels indicate myocardial damage, but are not specific for ischemic heart disease. Elevated TnI levels are seen in patients with other cardiac conditions (including myocarditis and congestive heart failure), and slight TnI elevations occur in patients with other conditions, including sepsis, renal failure, acidosis, acute neurological disease, and persistent tachyarrhythmia. D-dimer (12/01/2017 12:50 AM) Component Value Ref Range D-Dimer, Quant 2.64 (H) <0.50 MG/L FEU Specimen Performing Laboratory Blood [address] [address] Narrative Intended Use: The D-Dimer Assay can be used to aid in the diagnosis of Deep Vein Thrombosis (DVT) and Pulmonary Embolism Disease (PED). In patients with low pre-test probability, various studies concerning STA Liatest D-dimer test have reported that with a cutoff value of 0.50 MG/L FEU, the Negative Predictive Value (NPV) regarding the exclusion of thrombosis is within 95-100% range. CBC with platelet count + automated diff (12/01/2017 12:50 AM)Only the most recent of6 resultswithin the time period is included. Specimen Performing Laboratory Blood Narrative The following orders were created for panel order CBC with platelet count + automated diff. Procedure Abnormality Status --------- ------ CBC with platelet count ...[[id number]]AbnormalFinal result Please view results for these tests on the individual orders. Magnesium (12/01/2017 12:50 AM)Only the most recent of3 resultswithin the time period is included. Component Value Ref Range Magnesium 2.1 1.6 - 2.6 mg/dL Specimen Performing Laboratory Blood [place] [id number] Creatine Kinase (CK), Total and MB (12/01/2017 12:50 AM)Only the most recent of2 resultswithin the time period is included. Component Value Ref Range Total CK 10 (L) 29 - 200 U/L CK-MB 0.4 0.0 - 6.6 ng/mL MB Relative Index 4.0 % Specimen Performing Laboratory Blood [address] [address] Narrative CK-MB Reference Range: <6.7Normal 6.7-10.0Borderline >10.0 Abnormal Comprehensive metabolic panel (12/01/2017 12:50 AM)Only the most recent of3 resultswithin the time period is included. Component Value Ref Range Protein, Total 6.3 6.0 - 8.3 gm/dL Albumin 2.7 (L) 3.5 - 5.0 g/dL Alkaline Phosphatase 178 (H) 40 - 150 U/L Total Bilirubin 0.4 0.2 - 1.2 mg/dL Sodium 139 136 - 145 meq/L Potassium 4.5 3.5 - 5.1 meq/L Chloride 98 98 - 107 meq/L CO2 30 (H) 22 - 29 meq/L BUN 12 7 - 21 mg/dL Creatinine 0.65 0.57 - 1.25 mg/dL Glucose 149 (H) 70 - 105 mg/dL Calcium 9.8 8.4 - 10.2 mg/dL AST 31 5 - 34 U/L ALT 21 6 - 55 U/L EGFR 94Comment: ESTIMATED GFR IS NOT ACCURATE mL/min/1.73 sq m CREATININE CLEARANCE IN PREDICTING GLOMERULAR FILTRATION RATE. ESTIMATED GFR IS NOT APPLICABLE FOR DIALYSIS PATIENTS. Specimen Performing Laboratory Blood [facility] [address] [address] XR chest 1 view portable / bedside (12/01/2017 12:41 AM)Only the most recent of5 resultswithin the time period is included. Specimen Performing Laboratory GE RIS Narrative FINAL REPORT RAD, CHEST, 1 VIEW, NON DEPT INDICATION: resp distress COMPARISON: November 29, 2017 FINDINGS: Portable frontal view of the chest. IMPRESSION: Support Lines: Stable right PICC. Lungs and pleura: Increased interstitial congestion may reflect superimposition of soft tissues due to patient rotation or worsening edema. No pneumothorax. Heart and mediastinum: Stable contours. Additional findings: None. Signed: JR Wright Robert MD Report Verified Date/Time:12/01/2017 01:07:11 Reading Location: [address] Reading Room Procedure Note Interface, External Ris In - 12/01/2017 1:09 AM CDT FINAL REPORT RAD, CHEST, 1 VIEW, NON DEPT INDICATION: resp distress COMPARISON: November 29, 2017 FINDINGS: Portable frontal view of the chest. IMPRESSION: Support Lines: Stable right PICC. Lungs and pleura: Increased interstitial congestion may reflect superimposition of soft tissues due to patient rotation or worsening edema. No pneumothorax. Heart and mediastinum: Stable contours. Additional findings: None. Signed: JR Adriana, Aicha BARAKAT Report Verified Date/Time: 12/01/2017 01:07:11 Reading Location: [address] Reading Room -Lactic Acid, Arterial (12/01/2017 12:37 AM) Component Value Ref Range POC-Lactic Acid, Arterial 1.5 (H)Comment: TESTED AT [place] [address] 0.4 - 1.3 mmol /L [facility] [address] Specimen Performing Laboratory Blood [address] [address] POCT-HEMATOCRIT (12/01/2017 12:31 AM) Component Value Ref Range POC-Hematocrit 25 (L)Comment: TESTED AT [address] [address] 36 - 45 % Specimen Performing Laboratory Blood [address] [address] POCT-HEMOGLOBIN (12/01/2017 12:31 AM) Component Value Ref Range POC-Hemoglobin 8.5 (L)Comment: TESTED AT [address] 12.0 - 15.0 g/dL [place] [id number] AT [address] [address] Specimen Performing Laboratory Blood [address] [address] POCT-GLUCOSE (12/01/2017 12:31 AM) Component Value Ref Range POC-Glucose 162 (H)Comment: TESTED AT [address] 70 - 110 mg/dL [address] Specimen Performing Laboratory Blood [address] [address] POC-Sodium (12/01/2017 12:31 AM) Component Value Ref Range POC-Sodium 135Comment: TESTED AT [address] [address] 135 - 148 meq/L Specimen Performing Laboratory Blood [address] [address] POC-Potassium (12/01/2017 12:31 AM) Component Value Ref Range POC-Potassium 4.2Comment: TESTED AT [address] 3.6 - 5.5 meq/L [address] Specimen Performing Laboratory Blood [address] [address] POC-Calcium ionized (12/01/2017 12:31 AM) Component Value Ref Range POC-Calcium Ionized 1.22Comment: TESTED AT [address] 1.12 - 1.27 mmol/L [place] [address] Specimen Performing Laboratory Blood [address] [address] POC-Blood gases, arterial (12/01/2017 12:31 AM) Component Value Ref Range Temp. Celsius-POC 36.3 FIO2-POC 34Comment: TESTED AT [address] [address] pH, Arterial-POC 7.601 (HH) 7.350 - 7.450 PCO2, Arterial-POC 39.0 35.0 - 45.0 mm Hg PO2, Arterial-POC 65.0 (L) 80.0 - 90.0 mm Hg SO2, Arterial-POC 96.0 96.0 - 97.0 % HCO3, Arterilal-POC 38.6 (H) 21.0 - 29.0 meq/L BE, Arterial-POC 17.0 (H) -2.0 - 3.0 meq/L Specimen Performing Laboratory Blood [address] [address] TRANSFUSION SERVICE REPORT - SCAN (11/30/2017 5:50 PM)Only the most recent of5 resultswithin the time period is included.ECHOCARDIOGRAM REPORT - SCAN (2017 9:20 AM)Type and screen, automated (11/29/2017 12:32 PM)Only the most recent of3 resultswithin the time period is included. Component Value Ref Range ABO/RH AUTOMATED (BEAKER) O POSITIVE Ab Scrn NEGATIVE Specimen Performing Laboratory Blood [address] [address] Lactic acid, venous, whole blood (11/29/2017 12:02 PM) Component Value Ref Range Lactate, Venous 1.4 0.5 - 2.2 mmol/L Specimen Performing Laboratory Blood [address] [address] Narrative Effective 10/28/2015: Units/Reference Range Change New: 0.5-2.2 mmol/LPrevious: 5-20 mg/dL 2D Echo W/Doppler(CW/PW/Color) (11/29/2017 10:58 AM) Component Value Ref Range Ejection Fraction Specimen Performing Laboratory [facility] ECHO HEARTLAB GIA CPACS Narrative Transthoracic Echocardiography Report (TTE) Demographics Patient Name LOTUS PELAEZ Date of Study 11/29/2017 YASMEEN [id number] Gender Female Visit Number [id number] Nic [id number] Number [id number] Number Date 1960 Referring Pablo Ga Physician Age57 year(s) Fit Model Miguel Angel Nava, PADMA, RDCS,RVT,RDMS InterpretingJf Pitts MD Physician Procedure Type of Study TTE procedure:2DECHO W DOPPLER(CW/PW/COLOR) (Routine) Indications:Known or suspected heart failure. Clinical History HGB 7.1 HCT 24.2 % HTN, THYROID DISEASE Height: 67 inches Weight: 99.79 kg (220 lbs) BSA: 2.11 m^2 BMI: 34.46 kg/m^2 HR: 87 bpm BP: 107/58 mmHg Summary The left ventricle is chamber size (by PSLAX dimension) is normal (female - LVIDd 3.8-5.2cm) . Mild septal hypertrophy is present. All of the LV segments contract normally . Estimated LVEF by qualitative assessment is normal (>60%) . The right ventricular chamber size and systolic function are within normal limits. Estimated peak systolic PA pressure is 30-35 mmHg . Signature Findings Left Ventricle The left ventricle is chamber size (by PSLAX dimension) is normal (female - LVIDd 3.8-5.2cm) . Mild septal hypertrophy is present. All of the LV segments contract normally . Estimated LVEF by qualitative assessment is normal (>60%) . Left AtriumLA size is normal (16-34 ml/m2) . Right VentricleThe right ventricular chamber size and systolic function are within normal limits. Right Atrium RA size is normal. Aortic Valve Normal AoV structure. Mitral Valve Normal MV structure. Tricuspid ValveTV structure is normal. Estimated peak systolic PA pressure is 30-35 mmHg . Pulmonic Valve Normal PV structure and function by limited views and Doppler. AortaAortic root size (SInus of Valsalva diameter) is normal . PericardiumNo pericardial effusion is visualized. IVC/SVC/PA/PV/PleuralThe estimated RA pressure by IVC dynamics 5-10mmHg . Chambers/Structures Left Atrium LA Dimension: 4.3 cm LA Area: 13.46 cm^2 LA Volume: 30.94 ml LA Vol. Index: 15 ml/m^2 Left Ventricle LVIDd: 3.92 cm LVIDs: 1.73 cm LV Septum Diastolic: 1.34 cm LV PW Diastolic: 1.1 cm LV FS: 55.9 % LVOT Diameter: 2.17 cm Aorta Ao Root S of Randi.: 2.96 cm Doppler/Quantitative Measurements LVOT Peak Velocity: 1.39 m/s Peak Gradient: 7.71 mmHg Mean Velocity: 0.88 m/s Mean Gradient: 3.74 mmHg LVOT Diameter: 2.17 cmLVOT VTI: 29.44 cm LVOT Area: 3.7 cm^2 LVOT SV:108.82 ml LVOT CO: 9.47 l/min LVOT CI: 4.49 l/min/m^2 Procedure Note Interface, External Ris In - 11/30/2017 8:46 AM CDT Transthoracic Echocardiography Report (TTE) Demographics Patient Name LOTUS PELAEZ Date of Study 11/29/2017 YASMEEN Gender Female Visit Number [id number] Race Unknown Room Number 1838 Number Date of 1960 Referring Pablo Ga [facility] Physician Age 57 year(s) Fit Model PADMA Jordan, RDCS,RVT,RDMS Interpreting fJ Pitts MD Physician Procedure Type of Study TTE procedure:2DECHO W DOPPLER(CW/PW/COLOR) (Routine) Indications:Known or suspected heart failure. Clinical History HGB 7.1 HCT 24.2 % HTN, THYROID DISEASE Height: 67 inches Weight: 99.79 kg (220 lbs) BSA: 2.11 m^2 BMI: 34.46 kg/m^2 HR: 87 bpm BP: 107/58 mmHg Summary The left ventricle is chamber size (by PSLAX dimension) is normal (female - LVIDd 3.8-5.2cm) . Mild septal hypertrophy is present. All of the LV segments contract normally . Estimated LVEF by qualitative assessment is normal (>60%) . The right ventricular chamber size and systolic function are within normal limits. Estimated peak systolic PA pressure is 30-35 mmHg . Signature Findings Left Ventricle The left ventricle is chamber size (by PSLAX dimension) is normal (female - LVIDd 3.8-5.2cm) . Mild septal hypertrophy is present. All of the LV segments contract normally . Estimated LVEF by qualitative assessment is normal (>60%) . Left Atrium LA size is normal (16-34 ml/m2) . Right Ventricle The right ventricular chamber size and systolic function are within normal limits. Right Atrium RA size is normal. Aortic Valve Normal AoV structure. Mitral Valve Normal MV structure. Tricuspid Valve TV structure is normal. Estimated peak systolic PA pressure is 30-35 mmHg . Pulmonic Valve Normal PV structure and function by limited views and Doppler. Aorta Aortic root size (SInus of Valsalva diameter) is normal . Pericardium No pericardial effusion is visualized. IVC/SVC/PA/PV/Pleural The estimated RA pressure by IVC dynamics 5-10mmHg . Chambers/Structures Left Atrium LA Dimension: 4.3 cm LA Area: 13.46 cm^2 LA Volume: 30.94 ml LA Vol. Index: 15 ml/m^2 Left Ventricle LVIDd: 3.92 cm LVIDs: 1.73 cm LV Septum Diastolic: 1.34 cm LV PW Diastolic: 1.1 cm LV FS: 55.9 % LVOT Diameter: 2.17 cm Aorta Ao Root S of Randi.: 2.96 cm Doppler/Quantitative Measurements LVOT Peak Velocity: 1.39 m/s Peak Gradient: 7.71 mmHg Mean Velocity: 0.88 m/s Mean Gradient: 3.74 mmHg LVOT Diameter: 2.17 cm LVOT VTI: 29.44 cm LVOT Area: 3.7 cm^2 LVOT SV:108.82 ml LVOT CO: 9.47 l/min LVOT CI: 4.49 l/min/m^2 CT chest for pulmonary embolus (11/27/2017 3:14 PM) Specimen Performing Laboratory [email or web address] FINAL REPORT TECHNIQUE: CT scan of the chest WITH intravenous contrast. Dose modulation, iterative reconstruction, and/or weight-based adjustment of the mA/kV was utilized to reduce the radiation dose to as low as reasonably achievable. INDICATION: 57-year-old woman with shortness of breath. COMPARISON: Chest radiograph from earlier same date. FINDINGS: LINES/TUBES: None. PULMONARY ARTERIES: Proximal to the bifurcation of the main pulmonary artery, the main pulmonary artery is 3 cm in diameter.No filling defects within the pulmonary arteries to suggest pulmonary embolus. LUNGS AND AIRWAYS: Obstruction of the left lower lobe bronchus with atelectasis of the entire left lower lobe. Few nodules in the right upper lobe measure up to 1 cm (axial lung window series images 18, 27, and 28). Few subcentimeter nodules in the right lower lobe measure up to 6 mm (axial lung window series images 35 and 36). Few nodules in the left upper lobe measure up to 14 mm (axial lung window series image 15). PLEURA: Small right pleural effusion. HEART AND MEDIASTINUM: The visualized thyroid gland is normal. Confluent prevascular, right paratracheal, subcarinal, and bilateral hilar lymphadenopathy. Examples include a 3.8 x 4.4 cm right lower paratracheal, 4 x 7.3 cm subcarinal, and 2.5 x 2.6 cm left hilar lymph nodes. The heart and pericardium are within normal limits. SOFT TISSUES AND BONES: Age-indeterminate compression deformity of the T11 vertebral body with approximately 80% height loss and mild retropulsion. 1 cm soft tissue nodule in the upper right breast. UPPER ABDOMEN: Unremarkable. IMPRESSION: No pulmonary thromboembolism. Borderline prominent main pulmonary artery, suggestive of pulmonary hypertension. Suspected metastatic mediastinal and hilar lymphadenopathy. The left hilar lymphadenopathy/tumor results in obstruction of the left lower lobe bronchus with atelectasis of the entire left lower lobe. Bilateral pulmonary nodules, also suspicious for metastases. Age-indeterminate compression deformity of T11 with mild retropulsion. Indeterminate soft tissue nodule in the upper right breast. This finding may be correlated with mammography. Signed: Makeda Coleman MD Report Verified Date/Time:11/27/2017 16:18:55 Reading Location: [address] Body Reading Room Procedure Note Interface, External Ris In - 11/27/2017 4:21 PM CDT FINAL REPORT TECHNIQUE: CT scan of the chest WITH intravenous contrast. Dose modulation, iterative reconstruction, and/or weight-based adjustment of the mA/kV was utilized to reduce the radiation dose to as low as reasonably achievable. INDICATION: 57-year-old woman with shortness of breath. COMPARISON: Chest radiograph from earlier same date. FINDINGS: LINES/TUBES: None. PULMONARY ARTERIES: Proximal to the bifurcation of the main pulmonary artery, the main pulmonary artery is 3 cm in diameter. No filling defects within the pulmonary arteries to suggest pulmonary embolus. LUNGS AND AIRWAYS: Obstruction of the left lower lobe bronchus with atelectasis of the entire left lower lobe. Few nodules in the right upper lobe measure up to 1 cm (axial lung window series images 18, 27, and 28). Few subcentimeter nodules in the right lower lobe measure up to 6 mm (axial lung window series images 35 and 36). Few nodules in the left upper lobe measure up to 14 mm (axial lung window series image 15). PLEURA: Small right pleural effusion. HEART AND MEDIASTINUM: The visualized thyroid gland is normal. Confluent prevascular, right paratracheal, subcarinal, and bilateral hilar lymphadenopathy. Examples include a 3.8 x 4.4 cm right lower paratracheal, 4 x 7.3 cm subcarinal, and 2.5 x 2.6 cm left hilar lymph nodes. The heart and pericardium are within normal limits. SOFT TISSUES AND BONES: Age-indeterminate compression deformity of the T11 vertebral body with approximately 80% height loss and mild retropulsion. 1 cm soft tissue nodule in the upper right breast. UPPER ABDOMEN: Unremarkable. IMPRESSION: No pulmonary thromboembolism. Borderline prominent main pulmonary artery, suggestive of pulmonary hypertension. Suspected metastatic mediastinal and hilar lymphadenopathy. The left hilar lymphadenopathy/tumor results in obstruction of the left lower lobe bronchus with atelectasis of the entire left lower lobe. Bilateral pulmonary nodules, also suspicious for metastases. Age-indeterminate compression deformity of T11 with mild retropulsion. Indeterminate soft tissue nodule in the upper right breast. This finding may be correlated with mammography. Signed: Makeda Coleman MD Report Verified Date/Time: 11/27/2017 16:18:55 Reading Location: [facility] C013Y CT Body Reading Room Prepare Leuko-Red RBC (11/26/2017 11:54 PM) Component Value Ref Range CROSSMATCH COMPATIBLE Unit ABO O Pos UNIT NUMBER [id number] Status TRANSFUSED Blood Bank Product RED BLOOD CELLS PRODUCT CODE [id number] Specimen Performing Laboratory Other SAFETRACE [place] B-type Natriuretic Factor (BNP) (11/26/2017 6:36 PM) Component Value Ref Range BNP 420 (H) 0 - 100 pg/mL Specimen Performing Laboratory Blood - Wrist, Left [address] [address] Transfuse Leuko-Red RBC (11/25/2017 7:40 PM)Only the most recent of2 resultswithin the time period is included.Anaerobic culture (11/23/2017 2:44 PM ) Component Value Ref Range Result No anaerobes isolated Specimen Performing Laboratory Wound - Spine, Lumbar [address] [address] Surgically obtained culture + gram stain (11/23/2017 2:44 PM) Component Value Ref Range Result 4+ Proteus mirabilis (A) Gram Stain Result 1+ WBCs Gram Stain Result No organisms seen Specimen Performing Laboratory Wound - Spine, Lumbar [address] [address] Organism Antibiotic Method Susceptibility Proteus mirabilis Amikacin <=2: Susceptible Proteus mirabilis Ampicillin + Sulbactam <=2: Susceptible Proteus mirabilis Aztreonam <=1: Susceptible Proteus mirabilis Cefepime <=1: Susceptible Proteus mirabilis Cefoxitin <=4: Susceptible Proteus mirabilis Ceftazidime <=1: Susceptible Proteus mirabilis Ceftriaxone <=1: Susceptible Proteus mirabilis Ertapenem <=0.5: Susceptible Proteus mirabilis Gentamicin <=1: Susceptible Proteus mirabilis Levofloxacin <=0.12: Susceptible Proteus mirabilis Meropenem <=0.25: Susceptible Proteus mirabilis Piperacillin + Tazobactam <=4: Susceptible Proteus mirabilis Tetracycline >=16: Resistant Proteus mirabilis Tobramycin <=1: Susceptible Proteus mirabilis Trimethoprim + Sulfamethoxazole <=20: Susceptible SPIN/CONCENTRATION CHARGE (11/23/2017 2:44 PM) Component Value Ref Range Concentration charged Done Specimen Performing Laboratory Wound - Spine, [address] [address] aPTT (11/23/2017 6:55 AM)Only the most recent of2 resultswithin the time period is included. Component Value Ref Range PTT 33.3 22.5 - 36.0 seconds Specimen Performing Laboratory Blood - Arm, [address] [address] Prothrombin time/INR (11/23/2017 6:55 AM)Only the most recent of2 resultswithin the time period is included. Component Value Ref Range Protime 14.6 11.7 - 14.7 seconds INR 1.1 <=5.9 Specimen Performing Laboratory Blood - Arm, [address] [address] Narrative RECOMMENDED COUMADIN/WARFARIN INR THERAPY RANGES STANDARD DOSE: 2.0 - 3.0 Includes: PROPHYLAXIS for venous thrombosis, systemic embolization; TREATMENT for venous thrombosis and/or pulmonary embolus. HIGH RISK: Target INR is 2.5-3.5 for patients with mechanical heart valves. CT spine lumbar without IV contrast (11/23/2017 1:14 AM)Only the most recent of2 resultswithin the time period is included. Specimen Performing Laboratory [employer] FINAL REPORT CT thoracic and lumbar spine without contrast 11/23/2017 7:50 AM CLINICAL INDICATION: Abnormal xray, thoracic spine, bone destruction COMPARISON: None available TECHNIQUE: Multiple axial noncontrast CT images of the thoracic and lumbar spine were obtained in bone and soft tissue windows. Axially acquired data were reformatted in sagittal and coronal planes for further analysis. This examination was performed according to our departmental dose optimization program, which includes automated exposure control, adjustment of the mA and/or kV according to patient size, and/or use of iterated reconstruction technique. FINDINGS: Patient habitus and osteopenia limits this examination. Pathology may be obscured. With these limitations in mind, the patient is status post methylmethacrylate installation within the L2 and L4 vertebral bodies, with posterior lumbar fusion at L2-L4. Hardware alignment is satisfactory. There is no periprosthetic fracture or evident loosening. There has been partial L3 laminectomy, with potential debulking of a previously seen L3 vertebral body metastasis. There is disorganized fluid in the operative bed. There is no organized hematoma. There has been interval development of a mild superior L1 compression fracture without remarkable osseous retropulsion. Again seen is a severe T11 compression fracture with moderate osseous retropulsion. The remaining vertebral bodies are osteopenic, but intact. There are degenerative changes in the lower lumbar spine, without high-grade central canal or foraminal stenosis. There is a large mass in the left lung, with extensive hilar and mediastinal lymphadenopathy and satellite pulmonary nodules bilaterally. There are trace bilateral pleural effusions. There is colonic diverticulosis without evident diverticulitis. There is deconditioning of the posterior inferior paraspinal musculature. IMPRESSION: 1. Nonworrisome postoperative appearance. 2. Interval development of a mild L1 compression fracture. 3. Additional findings as discussed. Signed: Andreas Price MD Report Verified Date/Time:11/23/2017 07:58:55 Reading Location: [facility] C013V Neuro Reading Room Procedure Note Interface, External Ris In - 11/23/2017 8:01 AM CDT FINAL REPORT CT thoracic and lumbar spine without contrast 11/23/2017 7:50 AM CLINICAL INDICATION: Abnormal xray, thoracic spine, bone destruction COMPARISON: None available TECHNIQUE: Multiple axial noncontrast CT images of the thoracic and lumbar spine were obtained in bone and soft tissue windows. Axially acquired data were reformatted in sagittal and coronal planes for further analysis. This examination was performed according to our departmental dose optimization program, which includes automated exposure control, adjustment of the mA and/or kV according to patient size, and/or use of iterated reconstruction technique. FINDINGS: Patient habitus and osteopenia limits this examination. Pathology may be obscured. With these limitations in mind, the patient is status post methylmethacrylate installation within the L2 and L4 vertebral bodies, with posterior lumbar fusion at L2-L4. Hardware alignment is satisfactory. There is no periprosthetic fracture or evident loosening. There has been partial L3 laminectomy, with potential debulking of a previously seen L3 vertebral body metastasis. There is disorganized fluid in the operative bed. There is no organized hematoma. There has been interval development of a mild superior L1 compression fracture without remarkable osseous retropulsion. Again seen is a severe T11 compression fracture with moderate osseous retropulsion. The remaining vertebral bodies are osteopenic, but intact. There are degenerative changes in the lower lumbar spine, without high-grade central canal or foraminal stenosis. There is a large mass in the left lung, with extensive hilar and mediastinal lymphadenopathy and satellite pulmonary nodules bilaterally. There are trace bilateral pleural effusions. There is colonic diverticulosis without evident diverticulitis. There is deconditioning of the posterior inferior paraspinal musculature. IMPRESSION: 1. Nonworrisome postoperative appearance. 2. Interval development of a mild L1 compression fracture. 3. Additional findings as discussed. Signed: Andreas Price MD Report Verified Date/Time: 11/23/2017 07:58:55 Reading Location: [address] Neuro Reading Room spine thoracic without IV contrast (11/23/2017 1:14 AM) Specimen Performing Laboratory [facility] Narrative FINAL REPORT CT thoracic and lumbar spine without contrast 11/23/2017 7:50 AM CLINICAL INDICATION: Abnormal xray, thoracic spine, bone destruction COMPARISON: None available TECHNIQUE: Multiple axial noncontrast CT images of the thoracic and lumbar spine were obtained in bone and soft tissue windows. Axially acquired data were reformatted in sagittal and coronal planes for further analysis. This examination was performed according to our departmental dose optimization program, which includes automated exposure control, adjustment of the mA and/or kV according to patient size, and/or use of iterated reconstruction technique. FINDINGS: Patient habitus and osteopenia limits this examination. Pathology may be obscured. With these limitations in mind, the patient is status post methylmethacrylate installation within the L2 and L4 vertebral bodies, with posterior lumbar fusion at L2-L4. Hardware alignment is satisfactory. There is no periprosthetic fracture or evident loosening. There has been partial L3 laminectomy, with potential debulking of a previously seen L3 vertebral body metastasis. There is disorganized fluid in the operative bed. There is no organized hematoma. There has been interval development of a mild superior L1 compression fracture without remarkable osseous retropulsion. Again seen is a severe T11 compression fracture with moderate osseous retropulsion. The remaining vertebral bodies are osteopenic, but intact. There are degenerative changes in the lower lumbar spine, without high-grade central canal or foraminal stenosis. There is a large mass in the left lung, with extensive hilar and mediastinal lymphadenopathy and satellite pulmonary nodules bilaterally. There are trace bilateral pleural effusions. There is colonic diverticulosis without evident diverticulitis. There is deconditioning of the posterior inferior paraspinal musculature. IMPRESSION: 1. Nonworrisome postoperative appearance. 2. Interval development of a mild L1 compression fracture. 3. Additional findings as discussed. Signed: Andreas Price MD Report Verified Date/Time:11/23/2017 07:58:55 Reading Location: [facility] C[facility] Neuro Reading Room Procedure Note Interface, External Ris In - 11/23/2017 8:01 AM CDT FINAL REPORT CT thoracic and lumbar spine without contrast 11/23/2017 7:50 AM CLINICAL INDICATION: Abnormal xray, thoracic spine, bone destruction COMPARISON: None available TECHNIQUE: Multiple axial noncontrast CT images of the thoracic and lumbar spine were obtained in bone and soft tissue windows. Axially acquired data were reformatted in sagittal and coronal planes for further analysis. This examination was performed according to our departmental dose optimization program, which includes automated exposure control, adjustment of the mA and/or kV according to patient size, and/or use of iterated reconstruction technique. FINDINGS: Patient habitus and osteopenia limits this examination. Pathology may be obscured. With these limitations in mind, the patient is status post methylmethacrylate installation within the L2 and L4 vertebral bodies, with posterior lumbar fusion at L2-L4. Hardware alignment is satisfactory. There is no periprosthetic fracture or evident loosening. There has been partial L3 laminectomy, with potential debulking of a previously seen L3 vertebral body metastasis. There is disorganized fluid in the operative bed. There is no organized hematoma. There has been interval development of a mild superior L1 compression fracture without remarkable osseous retropulsion. Again seen is a severe T11 compression fracture with moderate osseous retropulsion. The remaining vertebral bodies are osteopenic, but intact. There are degenerative changes in the lower lumbar spine, without high-grade central canal or foraminal stenosis. There is a large mass in the left lung, with extensive hilar and mediastinal lymphadenopathy and satellite pulmonary nodules bilaterally. There are trace bilateral pleural effusions. There is colonic diverticulosis without evident diverticulitis. There is deconditioning of the posterior inferior paraspinal musculature. IMPRESSION: 1. Nonworrisome postoperative appearance. 2. Interval development of a mild L1 compression fracture. 3. Additional findings as discussed. Signed: Andreas Price MD Report Verified Date/Time: 11/23/2017 07:58:55 Reading Location: [address] Neuro Reading Room -Glucose meter (10/28/2017 1:08 PM)Only the most recent of2 resultswithin the time period is included. Component Value Ref Range POC-Glucose Meter 198 (H)Comment: TESTED AT [address] 70 - 110 mg/[place] [address] Specimen Performing Laboratory Blood [facility] [address] Manual Differential (10/28/2017 5:07 AM) Component Value [...] Present Platelet Conc Adequate Specimen Performing Laboratory Blood [facility] [address] [address] Narrative Received comment: User comments: Slide comments: [...] MD Report Verified Date/Time:10/27/2017 22:28:54 Reading Location: [address] Reading Room Procedure Note Interface, External [...] Report Verified Date/Time: 10/27/2017 22:28:54 Reading Location: [address] Reading Room Potassium (10/27/2017 8:50 AM) Component Value Ref Range Potassium 4.9 3.5 - 5.1 meq/L Specimen Performing Laboratory [place] [address] [place] [employer] in or 30 minute increments (10/26/2017 5:56 [...] MD Report Verified Date/Time:10/26/2017 18:15:50 Reading Location: [facility] Reading Room Procedure Note Interface, External Ris [...] Report Verified Date/Time: 10/26/2017 18:15:50 Reading Location: [facility] Radiology Reading Room E CONDUCTION STUDIES; 5-6 STUDIES (10/26/2017 5:54 PM) Specimen Performing Laboratory GE [facility]IS Narrative INTRAOPERATIVE MONITORING REPORT Patient Name: Lotus Pelaez [facility] Surgery Date: 10/26/2017 Med Pro: [id number] Monitoring began at 14:45 and ended at 17:54 Surgeon: Pablo Ga MD Examining Physician : Marisela Murguia MD Monitoring Technologists: BERT Barahona Procedure: L2-4 Lami, Fusion, Removal of Tumor Stimulation Parameters: Pedicle screws individually stimulated by the surgeon Rate 2.1Hz, Intensity 0-20mA, Duration 0.2ms Filters 20-2KHz, Notch Off Free-running and Triggered EMG of Vastus Lateralis (L2-4), Tibialis Anterior (L4-5) and Lateral Gastrocnemius (L5-S2) muscle groups. Description : Intraoperative neurophysiological monitoring was performed using a combination of free-running and Triggered EMG and Free-running EMGs. A real-time connection with the examining neurologist was established and maintained throughout the operative procedure by the monitoring technologist. Pedicle Screw Triggered EMG was performed following the placement of screw via a sterile Prass probe held by the surgeon. The resulting intensity values required to elicit a response from each placement were reported to the surgeon. Free-running EMG of L2-S2 innervated muscle groups was monitored continuously throughout the operative procedure with some sporadic neurotonic emg activity that was reported to the surgeon. At closing, all EMG was quiet and responses were judged to be essentially unchanged from those of post-positioning baselines. Conclusion : These results suggest the absence of untoward, secondary effects on posterior column function as a consequence of this surgical procedure. All values elicited by triggered EMG to verify pedicle screw placement and nerve root function were reported to the surgeon. Surgeon aware of all responses during case and at closing. Marisela Murguia MD C64.9, C80.1, M54.5, C79.51 Procedure Note Interface, External Ris In - 11/23/2017 10:28 AM CDT INTRAOPERATIVE MONITORING REPORT Patient Name: Lotus Pelaez [facility] Surgery Date: 10/26/2017 Med Pro: [id number] Monitoring began at 14:45 and ended at 17:54 Surgeon: Pablo Ga MD Examining Physician : Marisela Murguia MD Monitoring Technologists: BERT Barahona Procedure: L2-4 Lami, Fusion, Removal of Tumor Stimulation Parameters: Pedicle screws individually stimulated by the surgeon Rate 2.1Hz, Intensity 0-20mA, Duration 0.2ms Filters 20-2KHz, Notch Off Free-running and Triggered EMG of Vastus Lateralis (L2-4), Tibialis Anterior (L4-5) and Lateral Gastrocnemius (L5-S2) muscle groups. Description : Intraoperative neurophysiological monitoring was performed using a combination of free-running and Triggered EMG and Free-running EMGs. A real-time connection with the examining neurologist was established and maintained throughout the operative procedure by the monitoring technologist. Pedicle Screw Triggered EMG was performed following the placement of screw via a sterile Prass probe held by the surgeon. The resulting intensity values required to elicit a response from each placement were reported to the surgeon. Free-running EMG of L2-S2 innervated muscle groups was monitored continuously throughout the operative procedure with some sporadic neurotonic emg activity that was reported to the surgeon. At closing, all EMG was quiet and responses were judged to be essentially unchanged from those of post-positioning baselines. Conclusion : These results suggest the absence of untoward, secondary effects on posterior column function as a consequence of this surgical procedure. All values elicited by triggered EMG to verify pedicle screw placement and nerve root function were reported to the surgeon. Surgeon aware of all responses during case and at closing. Marisela Murguia MD C64.9, C80.1, M54.5, C79.51 Tissue Exam (10/26/2017 5:38 PM) Component Value Ref Range Case Report Surgical Pathology Report Case: [id number] Authorizing Provider:Pbalo aG MDCollected: 10/26/2017 1738 Ordering Location: [facility] PERIOPERATIVE Received: 10/27/2017 0806 SERVICES Pathologist: Jeremias Patel MD Specimen:Vertebra, L3 VERTEBRAL BODY TUMOR DIAGNOSIS VERTEBRA, BODY, MASS, EXCISION: - METASTATIC RENAL CELL CARCINOMA, Signing Pathologist Direct Phone Line: [phone] COMMENT Sections show nests of cells with clear cytoplasm surrounded by delicate branching fibrovascular septae. Tumor cells are positive for PAX8, RCC, and focally positive for JUSTINE. Immunohistochemical staining is negative in tumor for GATA3, TTF1, HEPPAR1, CK7 and CK20. These findings confirm the diagnosis of metastatic renal cell carcinoma. CPT Code(s) 97892, 99584, 42921, 08517 X7 CLINICAL HISTORY Metastasis to vertebral column [...] developed and its performance characteristics determined by [facility], Pathology Laboratory. It has not [...] developed and its performance characteristics determined by [facility], Pathology Laboratory. It has not [...] Specimen Performing Laboratory Tissue - Vertebra [facility] [address] Spinal Angiogram (10/25/2017 4:30 PM) Specimen Performing Laboratory GE RIS Narrative FINAL REPORT DATE: 10/25/2017 NAME: LOTUS MarroquinFazal RONNI ATTENDING: Beau Castillo MD DIRECTOR LIFE SALES: Selwyn Lai MD PREOPERATIVE DIAGNOSIS: Metastatic tumor to L3 body POSTOPERATIVE DIAGNOSIS: Metastatic tumor to L3 body PROCEDURES PERFORMED: 1.Diagnostic spinal angiogram 2.Embolization of vertebral body tumor ANESTHESIA: GENERAL COMPLICATIONS: None ESTIMATED BLOOD LOSS: Less than 15ml MATERIALS EMPLOYED: *5 Honduran x 25cm sheath *5 Honduran Mikaelsson catheter *Bentson guidewire *Terumo 0.035 LT glidewire *5 [place]uran Mynx device *Echeleon microcatheter *[place] [employer] Coils *Partical embolisate INDICATIONS: This is [...] Over a Bentson glide wire, a 5 [place]uran sheath was inserted into the right common [...] arterial feeders at the L3 level. An Venturia microcatheter was placed coaxially through the Darryn [...] in the vessel closed with a 5 [place]uran Mynx device and manual compression. The patient tolerated the procedure well and was transported from the [facility] in unchanged neurological status, without groin hematoma, [...] MD Report Verified Date/Time:10/30/2017 07:27:21 Reading Location: [place] [address] Neuro Angio Reading Room Procedure Note Interface, External Ris In - 10/30/2017 7:29 AM CDT FINAL REPORT DATE: 10/25/2017 NAME: LOTUS PELAEZ ATTENDING: Beau Castillo MD DIRECTOR [employer]: Selwyn Lai MD PREOPERATIVE DIAGNOSIS: Metastatic tumor to L3 body POSTOPERATIVE DIAGNOSIS: Metastatic tumor to L3 body PROCEDURES PERFORMED: 1.Diagnostic spinal angiogram 2.Embolization of vertebral body tumor ANESTHESIA: GENERAL COMPLICATIONS: None ESTIMATED BLOOD LOSS: Less than 15ml MATERIALS EMPLOYED: *5 [place] x 25cm sheath *5 [place] Mikaelsson catheter *Bentson guidewire *Terumo 0.035 LT glidewire *5 [place] Mynx device *Echeleon microcatheter *[place] [employer] *Partical embolisate INDICATIONS: This is [...] location of the puncture site. Over a [employer] glide wire, a 5 [place] sheath was inserted into the right common [...] arterial feeders at the L3 level. An Venturia microcatheter was placed coaxially through the Darryn [...] in the vessel closed with a 5 [place] Mynx device and manual compression. 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
--- OUTSIDE RECORDS SUMMARY | 2017-12-08 10:14 | XMS REPORT ---
:1960 [facility] Address [address] [place] [address] [address] [place] [address] Care Team Providers Name Role Phone PABLO GONZALEZ Unavailable Unavailable Problems This patient has no known problems. Allergies, Adverse Reactions, Alerts This patient has no known allergies or adverse reactions. Medications This patient has no known medications. Results Test Description Test Time Test Comments Text Results Atomic Results Result Comments CBC (HEMOGRAM ONLY) 2017-12-01 07:29:00 Test Item Value Reference Range Comments WHITE BLOOD CELL COUNT (BEAKER) (test dxnb=122) 8.0 K/ L 3.5-10.5 RED BLOOD CELL COUNT (BEAKER) (test cxjm=724) 2.90 M/ L 3.93-5.22 HEMOGLOBIN (BEAKER) (test ocok=311) 7.6 GM/DL 11.2-15.7 HEMATOCRIT (BEAKER) (test qfeg=536) 26.6 % 34.1-44.9 MEAN CORPUSCULAR VOLUME (BEAKER) (test dvny=955) 91.7 fL 79.4-94.8 MEAN CORPUSCULAR HEMOGLOBIN (BEAKER) (test hjlu=813) 26.2 pg 25.6-32.2 MEAN CORPUSCULAR HEMOGLOBIN CONC (BEAKER) (test szmq=830) 28.6 GM/DL 32.2- 35.5 RED CELL DISTRIBUTION WIDTH (BEAKER) (test spuv=894) 16.6 % 11.7-14.4 PLATELET COUNT (BEAKER) (test dgeh=197) 432 K/CU MM 150-450 MEAN PLATELET VOLUME (BEAKER) (test dqdz=900) 8.9 fL 9.4-12.3 NUCLEATED RED BLOOD CELLS (BEAKER) (test nwjn=291) 1 /100 WBC 0-0 BASIC METABOLIC [id number] 07:25:00 Test Item Value Reference Range Comments SODIUM (BEAKER) (test 139 meq/L 136-145 kihr=425) POTASSIUM (BEAKER) (test 3.9 meq/L 3.5-5.1 aobq=824) CHLORIDE (BEAKER) (test 97 meq/L 98-107 cwoi=747) CO2 (BEAKER) (test 30 meq/L 22-29 jyko=174) BLOOD UREA NITROGEN 11 mg/dL 7-21 (BEAKER) (test rlmm=060) CREATININE (BEAKER) (test 0.60 mg/dL 0.57-1.25 xplw=833) GLUCOSE RANDOM (BEAKER) 125 mg/dL 70-105 (test adhj=394) CALCIUM (BEAKER) (test 9.4 mg/dL 8.4-10.2 bxbw=528) EGFR (BEAKER) (test 103 mL/min/1.73 sq m ESTIMATED GFR IS NOT gvad=6206) ACCURATE CREATININE CLEARANCE IN PREDICTING GLOMERULAR FILTRATION RATE. ESTIMATED GFR IS NOT APPLICABLE FOR DIALYSIS PATIENTS. CREATINE KINASE (CK), TOTAL AND [id number] 01:18:00 Test Item Value Reference Range Comments CREATINE KINASE TOTAL (BEAKER) (test egsi=088) 10 U/L 29-200 CREATINE KINASE-MB (BEAKER) (test kwhv=574) 0.4 ng/mL 0.0-6.6 CREATINE KINASE-MB INDEX (BEAKER) (test wdgq=726) 4.0 % CK-MB Reference Range:<6.7 Normal6.7-10.0 Borderline>10.0 [id number] 01:18:00 Test Item Value Reference Range Comments D-DIMER QUANTITATIVE (BEAKER) (test htrf=937) 2.64 MG/L FEU <0.50 Intended Use: The D-Dimer Assay can be used to aid in the diagnosis of Deep Vein Thrombosis (DVT) and Pulmonary Embolism Disease (PED).In patients with low pre-test probability, various studies concerning STA Liatest D-dimer test have reported that with a cutoff value of 0.50 MG/L FEU, the Negative Predictive Value (NPV) regarding the exclusion of thrombosis is within 95-100% range.TROPONIN [id number] 01:16:00 Test Item Value Reference Range Comments TROPONIN I (BEAKER) (test lrcd=930) < ng/mL 0.00-0.03 Troponin I (TnI) levels must be interpreted [...] failure, acidosis, acute neurological disease, and persistent tachyarrhythmia.PT/[id number] 01:16:00 Test Item Value Reference Range Comments PROTIME (BEAKER) (test zzkt=527) 15.1 seconds 11.7-14.7 INR (BEAKER) (test kxsh=455) 1.2 <=5.9 PARTIAL THROMBOPLASTIN TIME (BEAKER) (test 38.3 seconds 22.5-36.0 sfnl=869) RECOMMENDED COUMADIN/WARFARIN INR THERAPY RANGESSTANDARD DOSE: 2.0 - 3.0 Includes: PROPHYLAXIS forvenous thrombosis, systemic embolization; TREATMENT for venous thrombosis and/or pulmonary embolus.HIGH RISK: Target INR is 2.5-3.5 for patients with mechanical heart valves.[id number] 01:15:00 Test Item Value Reference Range Comments MAGNESIUM (BEAKER) (test ulhh=081) 2.1 mg/dL 1.6-2.6 COMPREHENSIVE METABOLIC [id number] 01:15:00 Test Item Value Reference Range Comments TOTAL PROTEIN (BEAKER) 6.3 gm/dL 6.0-8.3 (test xnco=014) ALBUMIN (BEAKER) (test 2.7 g/dL 3.5-5.0 gwvw=3867) ALKALINE PHOSPHATASE 178 U/L 40-150 (BEAKER) (test luhm=176) BILIRUBIN TOTAL (BEAKER) 0.4 mg/dL 0.2-1.2 (test ccds=251) SODIUM (BEAKER) (test 139 meq/L 136-145 tfqq=124) POTASSIUM (BEAKER) (test 4.5 meq/L 3.5-5.1 uqhg=625) CHLORIDE (BEAKER) (test 98 meq/L 98-107 pnqh=020) CO2 (BEAKER) (test 30 meq/L 22-29 hdak=050) BLOOD UREA NITROGEN 12 mg/dL 7-21 (BEAKER) (test zsbk=443) CREATININE (BEAKER) (test 0.65 mg/dL 0.57-1.25 imnq=167) GLUCOSE RANDOM (BEAKER) 149 mg/dL 70-105 (test epps=616) CALCIUM (BEAKER) (test 9.8 mg/dL 8.4-10.2 rebr=157) AST (SGOT) (BEAKER) (test 31 U/L 5-34 ifha=458) ALT (SGPT) (BEAKER) (test 21 U/L 6-55 wxcp=541) EGFR (BEAKER) (test 94 mL/min/1.73 sq m ESTIMATED GFR IS NOT uxes=5216) ACCURATE CREATININE CLEARANCE IN PREDICTING GLOMERULAR FILTRATION RATE. ESTIMATED GFR IS NOT APPLICABLE FOR DIALYSIS PATIENTS. RAD, CHEST, 1 VIEW, NON [id number] 01:07:00Reason for exam:->resp distressShould this be performed at the bedside?->YesFINAL REPORT RAD, CHEST, 1 VIEW, NON DEPT INDICATION: resp distress COMPARISON: November 29, 2017 FINDINGS: Portable frontal view of the chest. IMPRESSION: Support Lines: Stable right PICC. Lungs and pleura: Increased interstitial congestion may reflect superimposition of soft tissues due to patient rotation or worsening edema. No pneumothorax.Heart and mediastinum: Stable contours. Additional findings: None. Signed: JR Adriana, Aicha Pope Verified Date/Time: 12/01/2017 01:07:11 Reading Location: [address] Reading Room CBC W/PLT COUNT & AUTO [id number] 01:02:00 Test Item Value Reference Range Comments WHITE BLOOD CELL COUNT (BEAKER) (test ceti=518) 9.6 K/ L 3.5-10.5 RED BLOOD CELL COUNT (BEAKER) (test rkdl=555) 3.06 M/ L 3.93-5.22 HEMOGLOBIN (BEAKER) (test qzsz=871) 8.2 GM/DL 11.2-15.7 HEMATOCRIT (BEAKER) (test kotv=468) 27.9 % 34.1-44.9 MEAN CORPUSCULAR VOLUME (BEAKER) (test plqc=156) 91.2 fL 79.4-94.8 MEAN CORPUSCULAR HEMOGLOBIN (BEAKER) (test 26.8 pg 25.6-32.2 auci=980) MEAN CORPUSCULAR HEMOGLOBIN CONC (BEAKER) (test 29.4 GM/DL 32.2-35.5 caob=855) RED CELL DISTRIBUTION WIDTH (BEAKER) (test 16.6 % 11.7-14.4 klcn=780) PLATELET COUNT (BEAKER) (test hfwi=530) 369 K/CU MM 150-450 MEAN PLATELET VOLUME (BEAKER) (test ybbb=617) 8.6 fL 9.4-12.3 NUCLEATED RED BLOOD CELLS (BEAKER) (test 1 /100 WBC 0-0 twcj=653) NEUTROPHILS RELATIVE PERCENT (BEAKER) (test 76 % xmpv=354) LYMPHOCYTES RELATIVE PERCENT (BEAKER) (test 14 % tnbt=182) MONOCYTES RELATIVE PERCENT (BEAKER) (test 8 % nlgv=675) EOSINOPHILS RELATIVE PERCENT (BEAKER) (test 0 % spbq=171) BASOPHILS RELATIVE PERCENT (BEAKER) (test 0 % pjxr=313) NEUTROPHILS ABSOLUTE COUNT (BEAKER) (test 7.24 K/ L 1.56-6.13 dhpn=260) LYMPHOCYTES ABSOLUTE COUNT (BEAKER) (test 1.31 K/ L 1.18-3.74 waqj=688) MONOCYTES ABSOLUTE COUNT (BEAKER) (test 0.72 K/ L 0.24-0.36 nsyg=959) EOSINOPHILS ABSOLUTE COUNT (BEAKER) (test 0.01 K/ L 0.04-0.36 yxjz=837) BASOPHILS ABSOLUTE COUNT (BEAKER) (test 0.01 K/ L 0.01-0.08 astz=574) IMMATURE GRANULOCYTES-RELATIVE PERCENT (BEAKER) 3 % 0-1 (test xdfc=7297) POCT-LACTIC ACID, [id number] 00:50:00 Test Item Value Reference Range Comments POC-LACTIC ACID, ARTERIAL 1.5 mmol/L 0.4-1.3 TESTED AT [facility] [address] (BEAKER) (test vkfe=2331) [facility] [address] POCT-BLOOD GASES, [id number] 00:50:00 Test Item Value Reference Range Comments TEMP, CELSIUS-POC (BEAKER) 36.3 (test alwc=1417) FIO2-POC (BEAKER) (test 34 TESTED AT [address] ierz=7315) [place] [address] PH, ARTERIAL-POC (BEAKER) 7.601 7.350-7.450 (test gtmu=0019) PCO2, ARTERIAL-POC (BEAKER) 39.0 mm Hg 35.0-45.0 (test pnal=0206) PO2, ARTERIAL-POC (BEAKER) 65.0 mm Hg 80.0-90.0 (test wplk=0707) SO2, ARTERIAL-POC (BEAKER) 96.0 % 96.0-97.0 (test wymi=4397) HCO3, ARTERIAL-POC (BEAKER) 38.6 meq/L 21.0-29.0 (test ujrv=7737) BASE EXCESS, ARTERIAL-POC 17.0 meq/L -2.0-3.0 (BEAKER) (test cald=1539) [id number] 00:50:00 Test Item Value Reference Range Comments POC-SODIUM (BEAKER) (test 135 meq/L 135-148 TESTED AT [address] sayd=4783) [place] [address] [id number] 00:50:00 Test Item Value Reference Range Comments POC-POTASSIUM (BEAKER) (test 4.2 meq/L 3.6-5.5 [address] u[address]47[address]) [place] [address] [id number] 00:50:00 Test Item Value Reference Range Comments POC-GLUCOSE (BEAKER) (test 162 mg/dL 70-110 TESTED AT [address] nuhi=2425) [place] [address] POCT-CALCIUM [id number] 00:50:00 Test Item Value Reference Range Comments POC-CALCIUM IONIZED (BEAKER) 1.22 mmol/L 1.12-1.27 TESTED AT [address] (test mosf=4029) [place] [address] [id number] 00:50:00 Test Item Value Reference Range Comments POC-HEMATOCRIT (BEAKER) (test 25 % 36-45 TESTED AT [address] eykb=4244) [place] [address] [id number] 00:50:00 Test Item Value Reference Range Comments POC-HEMOGLOBIN (BEAKER) 8.5 g/dL 12.0-15.0 TESTED AT [place] [id number] [facility] (test wrds=3970) [facility] [address]RRDXPO AT [facility] [address] [facility] [address] ANAEROBIC [id number] 15:15:00 Test Item Value Reference Range Comments CULTURE (BEAKER) (test hkam=6281) No anaerobes isolated BASIC METABOLIC [id number] 05:19:00 Test Item Value Reference Range Comments SODIUM (BEAKER) (test 140 meq/L 136-145 udcl=775) POTASSIUM (BEAKER) (test 3.9 meq/L 3.5-5.1 liao=802) CHLORIDE (BEAKER) (test 98 meq/L 98-107 fovp=769) CO2 (BEAKER) (test 33 meq/L 22-29 zkeg=339) BLOOD UREA NITROGEN 9 mg/dL 7-21 (BEAKER) (test ctsd=811) CREATININE (BEAKER) (test 0.60 mg/dL 0.57-1.25 bnqa=273) GLUCOSE RANDOM (BEAKER) 116 mg/dL 70-105 (test otbe=174) CALCIUM (BEAKER) (test 9.5 mg/dL 8.4-10.2 alzc=161) EGFR (BEAKER) (test 103 mL/min/1.73 sq m ESTIMATED GFR IS NOT loqx=3073) ACCURATE CREATININE CLEARANCE IN PREDICTING GLOMERULAR FILTRATION RATE. ESTIMATED GFR IS NOT APPLICABLE FOR DIALYSIS PATIENTS. RAD, CHEST, 1 VIEW, NON [id number] 17:28:00Reason for exam:-> wheezingShould this be performed at the bedside?->YesFINAL REPORT AP chest HISTORY: Wheezing COMPARISON: 11/27/2017 IMPRESSION: Rightarm PICC present. Cardiomegaly. Mild interstitial edema. Suspect trace left effusion. No pneumothorax. Signed: Autumn Riggins MDReport Verified Date/ Time: 11/29/2017 17:28:32 Reading Location: [address] Consult Reading Room COMPREHENSIVE METABOLIC [id number] 12:45:00 Test Item Value Reference Range Comments TOTAL PROTEIN (BEAKER) 5.3 gm/dL 6.0-8.3 (test dwvs=040) ALBUMIN (BEAKER) (test 2.2 g/dL 3.5-5.0 hwqf=3099) ALKALINE PHOSPHATASE 146 U/L 40-150 (BEAKER) (test hmji=324) BILIRUBIN TOTAL (BEAKER) 0.2 mg/dL 0.2-1.2 (test ojzh=121) SODIUM (BEAKER) (test 137 meq/L 136-145 mcfk=181) POTASSIUM (BEAKER) (test 3.2 meq/L 3.5-5.1 bqbc=729) CHLORIDE (BEAKER) (test 96 meq/L 98-107 mnut=828) CO2 (BEAKER) (test 37 meq/L 22-29 xxko=461) BLOOD UREA NITROGEN 12 mg/dL 7-21 (BEAKER) (test fqzx=768) CREATININE (BEAKER) (test 0.68 mg/dL 0.57-1.25 khba=285) GLUCOSE RANDOM (BEAKER) 186 mg/dL 70-105 (test qkwi=831) CALCIUM (BEAKER) (test 9.1 mg/dL 8.4-10.2 ihbe=949) AST (SGOT) (BEAKER) (test 18 U/L 5-34 orqu=428) ALT (SGPT) (BEAKER) (test 15 U/L 6-55 rgwe=839) EGFR (BEAKER) (test 90 mL/min/1.73 sq m ESTIMATED GFR IS NOT uque=9010) ACCURATE CREATININE CLEARANCE IN PREDICTING GLOMERULAR FILTRATION RATE. ESTIMATED GFR IS NOT APPLICABLE FOR DIALYSIS PATIENTS. LACTIC ACID, VENOUS, WHOLE [id number] 12:41:00 Test Item Value Reference Range Comments LACTATE BLOOD VENOUS (2) (BEAKER) (test 1.4 mmol/L 0.5-2.2 eeie=5021) Effective 10/28/2015: Units/Reference Range ChangeNew: 0.5-2.2 mmol/L Previous: 5 -20 mg/dLCBC W/PLT COUNT & AUTO [id number] 12:31:00 Test Item Value Reference Range Comments WHITE BLOOD CELL COUNT (BEAKER) (test ptbk=424) 6.5 K/ L 3.5-10.5 RED BLOOD CELL COUNT (BEAKER) (test ktmx=296) 2.65 M/ L 3.93-5.22 HEMOGLOBIN (BEAKER) (test osio=180) 7.1 GM/DL 11.2-15.7 HEMATOCRIT (BEAKER) (test qyxb=816) 24.2 % 34.1-44.9 MEAN CORPUSCULAR VOLUME (BEAKER) (test ojnk=854) 91.3 fL 79.4-94.8 MEAN CORPUSCULAR HEMOGLOBIN (BEAKER) (test 26.8 pg 25.6-32.2 rnkv=738) MEAN CORPUSCULAR HEMOGLOBIN CONC (BEAKER) (test 29.3 GM/DL 32.2-35.5 eido=907) RED CELL DISTRIBUTION WIDTH (BEAKER) (test 17.1 % 11.7-14.4 xhgk=852) PLATELET COUNT (BEAKER) (test oqze=094) 253 K/CU MM 150-450 MEAN PLATELET VOLUME (BEAKER) (test pfdr=072) 8.9 fL 9.4-12.3 NUCLEATED RED BLOOD CELLS (BEAKER) (test 1 /100 WBC 0-0 dkft=337) NEUTROPHILS RELATIVE PERCENT (BEAKER) (test 79 % xmbl=571) LYMPHOCYTES RELATIVE PERCENT (BEAKER) (test 11 % wisb=226) MONOCYTES RELATIVE PERCENT (BEAKER) (test 7 % tzdt=263) EOSINOPHILS RELATIVE PERCENT (BEAKER) (test 1 % iagl=507) BASOPHILS RELATIVE PERCENT (BEAKER) (test 0 % vpyl=216) NEUTROPHILS ABSOLUTE COUNT (BEAKER) (test 5.13 K/ L 1.56-6.13 rmbu=068) LYMPHOCYTES ABSOLUTE COUNT (BEAKER) (test 0.74 K/ L 1.18-3.74 eopn=193) MONOCYTES ABSOLUTE COUNT (BEAKER) (test 0.47 K/ L 0.24-0.36 navu=021) EOSINOPHILS ABSOLUTE COUNT (BEAKER) (test 0.03 K/ L 0.04-0.36 zdic=539) BASOPHILS ABSOLUTE COUNT (BEAKER) (test 0.01 K/ L 0.01-0.08 igjv=826) IMMATURE GRANULOCYTES-RELATIVE PERCENT (BEAKER) 2 % 0-1 (test hdzv=0608) [id number] 05:39:00 Test Item Value Reference Range Comments MAGNESIUM (BEAKER) (test mixx=433) 1.7 mg/dL 1.6-2.6 BASIC METABOLIC [id number] 05:39:00 Test Item Value Reference Range Comments SODIUM (BEAKER) (test 137 meq/L 136-145 zsji=090) POTASSIUM (BEAKER) (test 3.3 meq/L 3.5-5.1 dxyq=227) CHLORIDE (BEAKER) (test 96 meq/L 98-107 gfbl=707) CO2 (BEAKER) (test 35 meq/L 22-29 ygzs=027) BLOOD UREA NITROGEN 13 mg/dL 7-21 (BEAKER) (test vpeg=410) CREATININE (BEAKER) (test 0.71 mg/dL 0.57-1.25 awsn=665) GLUCOSE RANDOM (BEAKER) 123 mg/dL 70-105 (test eoxb=492) CALCIUM (BEAKER) (test 9.3 mg/dL 8.4-10.2 zcza=774) EGFR (BEAKER) (test 85 mL/min/1.73 sq m ESTIMATED GFR IS NOT kkfi=3616) ACCURATE CREATININE CLEARANCE IN PREDICTING GLOMERULAR FILTRATION RATE. ESTIMATED GFR IS NOT APPLICABLE FOR DIALYSIS PATIENTS. [id number] 06:55:00 Test Item Value Reference Range Comments MAGNESIUM (BEAKER) (test wlfl=389) 1.8 mg/dL 1.6-2.6 BASIC METABOLIC [id number] 06:55:00 Test Item Value Reference Range Comments SODIUM (BEAKER) (test 134 meq/L 136-145 jtse=276) POTASSIUM (BEAKER) (test 3.7 meq/L 3.5-5.1 mrdo=441) CHLORIDE (BEAKER) (test 99 meq/L 98-107 fejv=598) CO2 (BEAKER) (test 27 meq/L 22-29 byba=323) BLOOD UREA NITROGEN 12 mg/dL 7-21 (BEAKER) (test bslc=037) CREATININE (BEAKER) (test 0.69 mg/dL 0.57-1.25 jjbx=551) GLUCOSE RANDOM (BEAKER) 117 mg/dL 70-105 (test vqpk=057) CALCIUM (BEAKER) (test 9.7 mg/dL 8.4-10.2 ldyg=232) EGFR (BEAKER) (test 88 mL/min/1.73 sq m ESTIMATED GFR IS NOT kgek=6153) ACCURATE CREATININE CLEARANCE IN PREDICTING GLOMERULAR FILTRATION RATE. ESTIMATED GFR IS NOT APPLICABLE FOR DIALYSIS PATIENTS. CBC (HEMOGRAM ONLY)2017-11-28 06:38:00 Test Item Value Reference Range Comments WHITE BLOOD CELL COUNT (BEAKER) (test oncu=693) 7.2 K/ L 3.5-10.5 RED BLOOD CELL COUNT (BEAKER) (test vepw=931) 2.81 M/ L 3.93-5.22 HEMOGLOBIN (BEAKER) (test vahm=471) 7.6 GM/DL 11.2-15.7 HEMATOCRIT (BEAKER) (test qyic=272) 25.6 % 34.1-44.9 MEAN CORPUSCULAR VOLUME (BEAKER) (test yagv=797) 91.1 fL 79.4-94.8 MEAN CORPUSCULAR HEMOGLOBIN (BEAKER) (test 27.0 pg 25.6-32.2 xuvr=548) MEAN CORPUSCULAR HEMOGLOBIN CONC (BEAKER) (test 29.7 GM/DL 32.2-35.5 qcok=408) RED CELL DISTRIBUTION WIDTH (BEAKER) (test 17.3 % 11.7-14.4 jphv=697) PLATELET COUNT (BEAKER) (test fesq=533) 278 K/CU MM 150-450 MEAN PLATELET VOLUME (BEAKER) (test jbis=100) 9.3 fL 9.4-12.3 NUCLEATED RED BLOOD CELLS (BEAKER) (test 1 /100 WBC 0-0 ifxf=944) CT, CHEST WITH IV CONTRAST- PE TEST [id number] 16:18:00FINAL REPORT TECHNIQUE: CT scan of the chest [...] 1 cm (axial lung window series images 18,27, and 28). Few subcentimeter nodules in the right lower lobe measure up to 6 mm (axial lung windowseries images 35 and 36). Few nodules in the left upper lobe measure up to 14 mm (axial lung window series image 15). PLEURA: Small right pleural effusion. HEART AND MEDIASTINUM: The visualized thyroidgland is normal. Confluent prevascular, right paratracheal, subcarinal, [...] the upper right breast. UPPER ABDOMEN: Unremarkable. IMPRESSION:No pulmonary thromboembolism. Borderline prominent main pulmonary artery, suggestive of pulmonary hypertension. Suspected metastatic mediastinal and hilar lymphadenopathy. The left hilar lymphadenopathy/tumor results in obstruction of the left lower lobe bronchus with atelectasis of the entire left lower lobe. Bilateral pulmonary nodules, also suspicious for metastases. Age- indeterminate compression deformity of T11 with mild retropulsion. Indeterminate soft tissue nodule in the upper right breast. This finding may be correlated with mammography. Signed: Makeda Coleman MDReport Verified Date/Time : 11/27/2017 16:18:55 Reading Location: [facility] C013Y CT Body Reading Room RAD, CHEST, 1 VIEW, NON [id number] 11:30:00Reason for exam:->POST PICC LINE INSERTION Should this be performed at the bedside?->YesFINAL REPORT Chest one view INDICATION: Post PICC line insertion. COMPARISON: IMPRESSION: A new right PICC line extends to the SVC. A presumed surgical drain from recentlumbar spine surgery overlies the right chest with skin my overlying the upper abdomen. No pneumothorax is seen. A lower left lung mass with adjacent consolidation or atelectasis, hilar enlargement due to adenopathy, and adjacent pleural effusion is present. There is pulmonary vascular congestionwith interstitial edema and suspected minimal right pleural effusion. The enlarged cardiomediastinalsilhouette is stable accounting for positioning. Signed: Simone James MDReport Verified Date/Time: 2017 11:30:16 Reading Location: [facility] Reading Room TROPONIN [id number] 03:08:00 Test Item Value Reference Range Comments TROPONIN I (BEAKER) (test iyjf=458) < ng/mL 0.00-0.03 Troponin I (TnI) levels must be interpreted [...] failure, acidosis, acute neurological disease, and persistent tachyarrhythmia.RAD, CHEST, 1 VIEW, NON [id number] 19:52:00Reason for exam:->chest painShould this be performed at the bedside?- >YesFINAL REPORT Comparison exam: 11/23/2017 Mild pulmonary venous congestion. Left lower lobe atelectasis, unchanged. Stable cardiomediastinal contours. KALEE drain from a lumbar laminectomy overlies the chest. Signed: Chriss Stovall MDReport Verified Date/Time: 11/26/2017 19:52 :53 Reading Location: [address] Reading Room B-TYPE NATRIURETIC FACTOR ( BNP)2017-11-26 19:19:00 Test Item Value Reference Range Comments B-TYPE NATRIURETIC PEPTIDE (BEAKER) (test 420 pg/mL 0-100 panw=736) CREATINE KINASE (CK), TOTAL AND [id number] 19:18:00 Test Item Value Reference Range Comments CREATINE KINASE TOTAL (BEAKER) (test nopa=091) 69 U/L 29-200 CREATINE KINASE-MB (BEAKER) (test lpur=994) 0.5 ng/mL 0.0-6.6 CREATINE KINASE-MB INDEX (BEAKER) (test zras=905) 0.7 % CK-MB Reference Range:<6.7 Normal6.7-10.0 Borderline>10.0 AbnormalTROPONIN [id number] 19:18:00 Test Item Value Reference Range Comments TROPONIN I (BEAKER) (test torl=618) < ng/mL 0.00-0.03 Troponin I (TnI) levels must be interpreted [...] failure, acidosis, acute neurological disease, and persistent tachyarrhythmia.SURGICALLY OBTAINED CULTURE + GRAM [id number] 12:31:00 Test Item Value Reference Range Comments CULTURE (BEAKER) (test 4+ Proteus mirabilis qxcf=5474) GRAM STAIN RESULT (BEAKER) 1+ WBCs (test lizl=6370) GRAM STAIN RESULT (BEAKER) No organisms seen (test gwoq=73555) BASIC METABOLIC [id number] 07:25:00 Test Item Value Reference Range Comments SODIUM (BEAKER) (test 133 meq/L 136-145 jbvd=096) POTASSIUM (BEAKER) (test 3.8 meq/L 3.5-5.1 mbvj=418) CHLORIDE (BEAKER) (test 97 meq/L 98-107 jgdx=539) CO2 (BEAKER) (test 26 meq/L 22-29 gaco=708) BLOOD UREA NITROGEN 13 mg/dL 7-21 (BEAKER) (test uwdt=433) CREATININE (BEAKER) (test 0.74 mg/dL 0.57-1.25 bdns=034) GLUCOSE RANDOM (BEAKER) 158 mg/dL 70-105 (test scrh=536) CALCIUM (BEAKER) (test 9.6 mg/dL 8.4-10.2 euqk=127) EGFR (BEAKER) (test 81 mL/min/1.73 sq m ESTIMATED GFR IS NOT pbtf=1100) ACCURATE CREATININE CLEARANCE IN PREDICTING GLOMERULAR FILTRATION RATE. ESTIMATED GFR IS NOT APPLICABLE FOR DIALYSIS PATIENTS. CBC (HEMOGRAM ONLY)2017-11-26 07:07:00 Test Item Value Reference Range Comments WHITE BLOOD CELL COUNT (BEAKER) (test jznh=820) 8.1 K/ L 3.5-10.5 RED BLOOD CELL COUNT (BEAKER) (test moqs=090) 2.83 M/ L 3.93-5.22 HEMOGLOBIN (BEAKER) (test evxi=641) 7.8 GM/DL 11.2-15.7 HEMATOCRIT (BEAKER) (test xhmx=905) 25.5 % 34.1-44.9 MEAN CORPUSCULAR VOLUME (BEAKER) (test ogzu=606) 90.1 fL 79.4-94.8 MEAN CORPUSCULAR HEMOGLOBIN (BEAKER) (test 27.6 pg 25.6-32.2 lmvf=744) MEAN CORPUSCULAR HEMOGLOBIN CONC (BEAKER) (test 30.6 GM/DL 32.2-35.5 dtco=495) RED CELL DISTRIBUTION WIDTH (BEAKER) (test 17.2 % 11.7-14.4 zisc=971) PLATELET COUNT (BEAKER) (test sqkt=945) 258 K/CU MM 150-450 MEAN PLATELET VOLUME (BEAKER) (test jkwg=544) 9.1 fL 9.4-12.3 NUCLEATED RED BLOOD CELLS (BEAKER) (test 1 /100 WBC 0-0 wzja=332) BASIC METABOLIC [id number] 08:17:00 Test Item Value Reference Range Comments SODIUM (BEAKER) (test 134 meq/L 136-145 dldi=625) POTASSIUM (BEAKER) (test 4.2 meq/L 3.5-5.1 enjo=180) CHLORIDE (BEAKER) (test 100 meq/L 98-107 bsfv=071) CO2 (BEAKER) (test 24 meq/L 22-29 sbqp=305) BLOOD UREA NITROGEN 13 mg/dL 7-21 (BEAKER) (test omvt=642) CREATININE (BEAKER) (test 0.66 mg/dL 0.57-1.25 gqis=095) GLUCOSE RANDOM (BEAKER) 139 mg/dL 70-105 (test nffv=862) CALCIUM (BEAKER) (test 9.1 mg/dL 8.4-10.2 mbft=238) EGFR (BEAKER) (test 93 mL/min/1.73 sq m ESTIMATED GFR IS NOT uzph=4092) ACCURATE CREATININE CLEARANCE IN PREDICTING GLOMERULAR FILTRATION RATE. ESTIMATED GFR IS NOT APPLICABLE FOR DIALYSIS PATIENTS. CBC (HEMOGRAM ONLY)2017-11-25 07:33:00 Test Item Value Reference Range Comments WHITE BLOOD CELL COUNT (BEAKER) (test eqvb=189) 7.8 K/ L 3.5-10.5 RED BLOOD CELL COUNT (BEAKER) (test wkde=762) 2.43 M/ L 3.93-5.22 HEMOGLOBIN (BEAKER) (test flfc=704) 6.6 GM/DL 11.2-15.7 HEMATOCRIT (BEAKER) (test jjoa=390) 22.7 % 34.1-44.9 MEAN CORPUSCULAR VOLUME (BEAKER) (test pjtg=722) 93.4 fL 79.4-94.8 MEAN CORPUSCULAR HEMOGLOBIN (BEAKER) (test 27.2 pg 25.6-32.2 geqs=160) MEAN CORPUSCULAR HEMOGLOBIN CONC (BEAKER) (test 29.1 GM/DL 32.2-35.5 svgg=605) RED CELL DISTRIBUTION WIDTH (BEAKER) (test 17.1 % 11.7-14.4 eyyh=096) PLATELET COUNT (BEAKER) (test nxhg=871) 234 K/CU MM 150-450 MEAN PLATELET VOLUME (BEAKER) (test hpzo=059) 9.0 fL 9.4-12.3 NUCLEATED RED BLOOD CELLS (BEAKER) (test 0 /100 WBC 0-0 uzzg=039) SPIN/CONCENTRATION [id number] 15:47:00 Test Item Value Reference Range Comments CONCENTRATION CHARGED (BEAKER) (test bcwv=6565) Done BASIC METABOLIC [id number] 06:26:00 Test Item Value Reference Range Comments SODIUM (BEAKER) (test 137 meq/L 136-145 ukop=453) POTASSIUM (BEAKER) (test 5.0 meq/L 3.5-5.1 abon=379) CHLORIDE (BEAKER) (test 102 meq/L 98-107 qest=073) CO2 (BEAKER) (test 26 meq/L 22-29 yowt=530) BLOOD UREA NITROGEN 16 mg/dL 7-21 (BEAKER) (test mddp=772) CREATININE (BEAKER) (test 0.70 mg/dL 0.57-1.25 gzmi=801) GLUCOSE RANDOM (BEAKER) 130 mg/dL 70-105 (test qrma=772) CALCIUM (BEAKER) (test 9.0 mg/dL 8.4-10.2 tpdu=268) EGFR (BEAKER) (test 87 mL/min/1.73 sq m ESTIMATED GFR IS NOT lcmy=0055) ACCURATE CREATININE CLEARANCE IN PREDICTING GLOMERULAR FILTRATION RATE. ESTIMATED GFR IS NOT APPLICABLE FOR DIALYSIS PATIENTS. CBC (HEMOGRAM ONLY)2017-11-24 05:47:00 Test Item Value Reference Range Comments WHITE BLOOD CELL COUNT (BEAKER) (test yoqv=007) 9.4 K/ L 3.5-10.5 RED BLOOD CELL COUNT (BEAKER) (test dnjo=906) 2.78 M/ L 3.93-5.22 HEMOGLOBIN (BEAKER) (test kysr=351) 7.5 GM/DL 11.2-15.7 HEMATOCRIT (BEAKER) (test tbzg=101) 26.6 % 34.1-44.9 MEAN CORPUSCULAR VOLUME (BEAKER) (test mpaa=372) 95.7 fL 79.4-94.8 MEAN CORPUSCULAR HEMOGLOBIN (BEAKER) (test 27.0 pg 25.6-32.2 skan=214) MEAN CORPUSCULAR HEMOGLOBIN CONC (BEAKER) (test 28.2 GM/DL 32.2-35.5 sxde=621) RED CELL DISTRIBUTION WIDTH (BEAKER) (test 17.7 % 11.7-14.4 yqkt=654) PLATELET COUNT (BEAKER) (test wgtq=463) 270 K/CU MM 150-450 MEAN PLATELET VOLUME (BEAKER) (test bxqw=738) 8.8 fL 9.4-12.3 NUCLEATED RED BLOOD CELLS (BEAKER) (test 1 /100 WBC 0-0 otto=328) NERVE CONDUCTION STUDIES; 5-6 [id number] 10:28:00INTRAOPERATIVE MONITORING REPORT Patient Name: Lotus Pelaez [facility] Surgery Date: 10/26/2017 Med Pro: [id number] Monitoring began at 14:45 and ended at 17:54 Surgeon: Pablo Gonzalez MD Examining Physician : Marisela Murguia MD Monitoring Technologists: BERT Barahona Procedure: L2-4 Lami, Fusion, Removal of Tumor Stimulation Parameters : Pedicle screws individually stimulated by the surgeon Rate 2.1Hz, Intensity 0- 20mA, Duration0.2ms Filters 20-2KHz, Notch Off Free-running and Triggered EMG of Vastus Lateralis (L2-4), Tibialis Anterior (L4-5) and Lateral Gastrocnemius ( L5-S2) muscle groups. Description : Intraoperative neurophysiological monitoring [...] muscle groups was monitored continuously throughout the operativeprocedure with some sporadic neurotonic emg activity that was reported to the surgeon. At closing, all EMG was quiet and responses were judged to be essentially unchanged from those of post-positioningbaselines. Conclusion : These results suggest the absence of untoward, secondary effects on posterior column function as a consequence of this surgical procedure. All values elicited by triggered EMGto verify pedicle screw placement and nerve root function were reported to the surgeon. Surgeon aware of all responses during case and at closing. ____ Marisela Murguia MD C64.9, C80.1, M54.5, C79.51 RAD, CHEST, 1 VIEW, NON [id number] 09:07:00Reason for exam:->pre-opShould this be performed at the bedside?->YesFINAL REPORT Chest one view Reason: Gout, metastatic renal cell cancer Discussion: There is substantial mediastinal lymphadenopathy. 1 cm nodule of the right upper lobe and a dominant mass of the left lower lobe are noted. No effusion or pneumothorax. No evidence of cardiac failure. Signed: Kathia Valerajaime Verified Date/Time: 11/23/2017 09:07:45 Reading Location: [facility] Radiology Reading Room Electronically signed by: KATHIA VALERA M.D. on 09:07 AMCT, SPINE, LUMBAR, WO [id number] 07:58:00FINAL REPORT CT thoracic and lumbar spine without contrast 11/23/2017 7 :50 AM CLINICAL INDICATION: Abnormal xray, thoracic spine, bone destruction COMPARISON: None available TECHNIQUE: Multiple axial noncontrast CT images of the thoracic and lumbar spine were obtained in bone andsoft tissue windows. Axially acquired data were reformatted in sagittal and coronal planes for further analysis. This examination was performed according to our departmental dose optimization program, which includes automated exposure control, adjustment of the mA and/or kV according to patient size, and/or use of iterated reconstruction technique. FINDINGS: Patient habitus and osteopenia limits thisexamination. Pathology may be obscured. With these limitations in mind, the patient is status post methylmethacrylate installation within the L2 and L4 vertebral bodies, with posterior lumbar fusion atL2-L4. Hardware alignment is satisfactory. There is no periprosthetic fracture or evident loosening.There has been partial L3 laminectomy, with potential debulking of a previously seen L3 vertebral body metastasis. There is disorganized fluid in the operative bed. There is no organized hematoma. There has been interval development of a mild superior L1 compression fracture without remarkable osseousretropulsion. Again seen is a severe T11 compression [...] Additional findings as discussed. Signed: Andreas Price MDRcadenceort Verified Date/Time: 11/23/201707:58:55 Reading Location: [address] Neuro Reading Room CT, SPINE, THORACIC, WO [id number] 07:58:00FINAL REPORT CT thoracic and lumbar spine without contrast 11/23 7:50 AM CLINICAL INDICATION: Abnormal xray, thoracic spine, bone destruction COMPARISON: None available TECHNIQUE: Multiple axial noncontrast CT images of the thoracic and lumbar spine were obtained in bone andsoft tissue windows. Axially acquired data were reformatted in sagittal and coronal planes for further analysis. This examination was performed according to our departmental dose optimization program, which includes automated exposure control, adjustment of the mA and/or kV according to patient size, and/or use of iterated reconstruction technique. FINDINGS: Patient habitus and osteopenia limits thisexamination. Pathology may be obscured. With these limitations in mind, the patient is status post methylmethacrylate installation within the L2 and L4 vertebral bodies, with posterior lumbar fusion atL2-L4. Hardware alignment is satisfactory. There is no periprosthetic fracture or evident loosening.There has been partial L3 laminectomy, with potential debulking of a previously seen L3 vertebral body metastasis. There is disorganized fluid in the operative bed. There is no organized hematoma. There has been interval development of a mild superior L1 compression fracture without remarkable osseousretropulsion. Again seen is a severe T11 compression [...] Additional findings as discussed. Signed: Andreas Price MDRcadenceort Verified Date/Time: 11/23/201707:58:55 Reading Location: [facility] B1 C013V Neuro Reading Room COMPREHENSIVE METABOLIC [id number] 07:23:00 Test Item Value Reference Range Comments TOTAL PROTEIN (BEAKER) 5.8 gm/dL 6.0-8.3 (test okui=149) ALBUMIN (BEAKER) (test 2.8 g/dL 3.5-5.0 zzda=8095) ALKALINE PHOSPHATASE 145 U/L 40-150 (BEAKER) (test eomv=912) BILIRUBIN TOTAL (BEAKER) 0.3 mg/dL 0.2-1.2 (test zxex=796) SODIUM (BEAKER) (test 139 meq/L 136-145 snbp=098) POTASSIUM (BEAKER) (test 4.3 meq/L 3.5-5.1 ntqz=730) CHLORIDE (BEAKER) (test 103 meq/L 98-107 kzey=891) CO2 (BEAKER) (test 26 meq/L 22-29 hbfu=826) BLOOD UREA NITROGEN 28 mg/dL 7-21 (BEAKER) (test lsnd=214) CREATININE (BEAKER) (test 0.67 mg/dL 0.57-1.25 txeg=757) GLUCOSE RANDOM (BEAKER) 122 mg/dL 70-105 (test ijep=046) CALCIUM (BEAKER) (test 9.0 mg/dL 8.4-10.2 nrtz=165) AST (SGOT) (BEAKER) (test 21 U/L 5-34 ixoz=240) ALT (SGPT) (BEAKER) (test 31 U/L 6-55 vmbg=708) EGFR (BEAKER) (test 91 mL/min/1.73 sq m ESTIMATED GFR IS NOT atrq=9038) ACCURATE CREATININE CLEARANCE IN PREDICTING GLOMERULAR FILTRATION RATE. ESTIMATED GFR IS NOT APPLICABLE FOR DIALYSIS PATIENTS. PROTHROMBIN [id number] 07:13:00 Test Item Value Reference Range Comments PROTIME (BEAKER) (test jlly=551) 14.6 seconds 11.7-14.7 INR (BEAKER) (test nubn=256) 1.1 <=5.9 RECOMMENDED COUMADIN/WARFARIN INR THERAPY RANGESSTANDARD DOSE: 2.0 - 3.0 Includes: PROPHYLAXIS forvenous thrombosis, systemic embolization; TREATMENT for venous thrombosis and/or pulmonary embolus.HIGH RISK: Target INR is 2.5-3.5 for patients with mechanical heart valves.[id number] 07:13:00 Test Item Value Reference Range Comments PARTIAL THROMBOPLASTIN TIME (BEAKER) (test 33.3 seconds 22.5-36.0 bftm=621) CBC (HEMOGRAM ONLY)2017-11-23 07:09:00 Test Item Value Reference Range Comments WHITE BLOOD CELL COUNT (BEAKER) (test yhnb=014) 9.0 K/ L 3.5-10.5 RED BLOOD CELL COUNT (BEAKER) (test mwzz=303) 2.89 M/ L 3.93-5.22 HEMOGLOBIN (BEAKER) (test ohyh=166) 8.0 GM/DL 11.2-15.7 HEMATOCRIT (BEAKER) (test vqzz=269) 27.4 % 34.1-44.9 MEAN CORPUSCULAR VOLUME (BEAKER) (test nypl=575) 94.8 fL 79.4-94.8 MEAN CORPUSCULAR HEMOGLOBIN (BEAKER) (test 27.7 pg 25.6-32.2 hzdf=121) MEAN CORPUSCULAR HEMOGLOBIN CONC (BEAKER) (test 29.2 GM/DL 32.2-35.5 kxzf=856) RED CELL DISTRIBUTION WIDTH (BEAKER) (test 17.5 % 11.7-14.4 bomz=219) PLATELET COUNT (BEAKER) (test intb=956) 246 K/CU MM 150-450 MEAN PLATELET VOLUME (BEAKER) (test cdkr=592) 8.7 fL 9.4-12.3 NUCLEATED RED BLOOD CELLS (BEAKER) (test 1 /100 WBC 0-0 hzyl=660) TISSUE [id number] 12:13:00Surgical Pathology Report Case: [id number] Authorizing Provider: Pablo Gonzalez MD Collected: 10/26/2017 1738 Ordering Location: [facility] PERIOPERATIVE Received: 10/27/2017 0806 SERVICES Pathologist: Jeremias Patel MD Specimen: Vertebra, L3 VERTEBRAL BODY TUMOR VERTEBRA, BODY, MASS, EXCISION: - METASTATIC RENAL CELL CARCINOMA, Signing Pathologist Direct Phone Line: [phone] signed by Jeremias Patel MD on 11/02/2017 at 12:13 PMSections show nests of cells with clear cytoplasm surrounded by delicate branching fibrovascular septae. Tumor cells are positive for PAX8, RCC, and focally positive for JUSTINE. Immunohistochemical staining is negative in tumor for GATA3, TTF1, HEPPAR1, CK7 and CK20. These findings confirm the diagnosis of metastatic renal cell carcinoma. 99425, 83849, 93169, [address] [id number] to vertebral column of unknown origin, renal cell carcinomaL3 vertebral body tumorReceived fresh labeled "vertebra", description "L3 vertebral body tumor" is a 2.5 x 2.2 x 0.3 cm aggregate of pink-hoffman to mock-white, rubbery, soft and osseous tissue. Thespecimen is entirely submitted in cassette A1 for decalcification. DB/ewPerformed.The immunohistochemistry test was developed and its performance characteristics determined by [facility], Pathology Laboratory. It has not been cleared [...] following special studies were performed on this caseand the interpretation is incorporated in the diagnostic report above:The immunohistochemistry test was developed and its performance characteristics determined by [facility], Pathology Laboratory. It has not been cleared [...] qualified to perform high complexity clinical laboratory testing.DARIEN, ANGIOGRAM, [id number] 07:27:00Reason for exam:->preoperative embolizationDr Jeffrey REPORT DATE: 10/25/2017 NAME: LOTUS PELAEZ ATTENDING: Beau Castillo MD CHARGE RN: Selwyn Lai MD PREOPERATIVE DIAGNOSIS: Metastatic tumor to L3 body POSTOPERATIVE DIAGNOSIS: Metastatic tumor to L3 body PROCEDURES PERFORMED: 1.Diagnostic spinal angiogram2.Embolization of vertebral body tumor ANESTHESIA: GENERAL COMPLICATIONS: None ESTIMATED BLOOD LOSS: Less than 15ml MATERIALS EMPLOYED:*5 Ghanaian x 25cm sheath *5 Ghanaian Mikaelsson catheter*Bentson guidewire*Terumo 0.035 LT glidewire*5 Ghanaian Mynx device*Echeleon microcatheter*Herrick Neurovascular Coils*Partical embolisate INDICATIONS:This is a 57-year-old woman who presented with severe and intractable lowerback pain and left lower extremity pain. She has a history of metastatic renal cell carcinoma with arecently found metastasis to the L3 vertebral body. Dr. Palbo Malhotra, a spinal neurosurgeon, has planned for decompressive separation surgery. Given the diagnosis of metastatic renal cell carcinoma,the neurovascular surgery service was asked performed spinal angiography with possible embolization of the known spinal tumor at L3. The indications for the procedure as well as the risks, benefits andalternatives to the procedure were discussed with the patient and the family. The risks discussed included but were not limited to stroke, spinal cord and spinal nerves with loss of sensory, motor, andbladder function, hemorrhage, injury to the cervical femoral or aortic vessels, contrast reaction, kidney to toxicity, groin hematoma, weakness paralysis and even . They demonstrated understandingof the risk benefit profile and agreed to [...] Over a Bentson glide wire, a 5 Ghanaian sheath was inserted into the right common [...] levels by direct text. After careful reviewing theimages, a tumor blush was confirmed at the L3 vertebral body. Decision was made to proceed with embolization of arterial feeders at the L3 level. An [place] microcatheter was placed coaxially through the Darryn [...] Selective angiography with a roadmap was then usedto navigate the microcatheter to branches directly supplying the remaining tumor blush at the L3 body. Using careful and clean technique, particle embolization was performed through the microcatheter. Intermittent runs through the microcatheter confirmed loss of tumor blush. The microcatheter was thenpulled back more proximally shortly after the origin of the segmental artery off of the aorta. Coilswere then deployed to occlude the region, resulting in complete loss of tumor blush at this branch while preserving distal artery flow through collaterals. The sheath was then removed in the vessel closed with a 5 Ghanaian Mynx device and manual compression. The patient tolerated the procedure well and was transported from the [facility] in unchanged neurological status, without [...] arteriogram demonstrates normal branching with no evidence ofarteriovenous malformation, arteriovenous fistula, or aneurysm. Selective left L2 lumbar arteriogramdemonstrates normal branching with no evidence of arteriovenous malformation, arteriovenous fistula,or aneurysm. Selective right L3 lumbar arteriogram demonstrates [...] with no evidence of arteriovenous malformation, arteriovenous fistula , or aneurysm. Impression: 1.Tumor blush at the L3 vertebral body emanating from branches of the bilateral L3 segmental arteries.2.Successful particle and coil embolization of arterial feeders to the L2 vertebral body tumor.3.No technical or clinical complications. Signed: Beau Castillo MDReport Verified Date/ Time: 10/30/2017 07:27:21 Reading Location: [facility] Y026 Neuro Angio Reading Room CBC W/PLT COUNT & AUTO [id number] 06:42:00 Test Item Value Reference Range Comments WHITE BLOOD CELL COUNT 14.7 K/ L 3.5-10.5 (BEAKER) (test ionl=919) RED BLOOD CELL COUNT (BEAKER) 2.68 M/ L 3.93-5.22 (test emib=011) HEMOGLOBIN (BEAKER) (test 7.7 GM/DL 11.2-15.7 ssmu=273) HEMATOCRIT (BEAKER) (test 26.1 % 34.1-44.9 mopy=255) MEAN CORPUSCULAR VOLUME 97.4 fL 79.4-94.8 (BEAKER) (test tujn=728) MEAN CORPUSCULAR HEMOGLOBIN 28.7 pg 25.6-32.2 (BEAKER) (test ffvj=475) MEAN CORPUSCULAR HEMOGLOBIN 29.5 GM/DL 32.2-35.5 CONC (BEAKER) (test cjsg=017) RED CELL DISTRIBUTION WIDTH 17.2 % 11.7-14.4 (BEAKER) (test kcid=901) PLATELET COUNT (BEAKER) (test 197 K/CU MM 150-450 Discordant plt result gucz=670) Compare to previous result, Clinical correlation recommended. MEAN PLATELET VOLUME (BEAKER) 9.5 fL 9.4-12.3 (test agmp=737) NUCLEATED RED BLOOD CELLS 0 /100 WBC 0-0 (BEAKER) (test zfvu=203) NEUTROPHILS RELATIVE PERCENT 81 % (BEAKER) (test eifq=405) LYMPHOCYTES RELATIVE PERCENT 10 % (BEAKER) (test igwc=146) MONOCYTES RELATIVE PERCENT 7 % (BEAKER) (test ssjk=661) EOSINOPHILS RELATIVE PERCENT 0 % (BEAKER) (test lgxd=669) BASOPHILS RELATIVE PERCENT 0 % (BEAKER) (test ajui=003) NEUTROPHILS ABSOLUTE COUNT 11.91 K/ L 1.56-6.13 (BEAKER) (test qxwe=419) LYMPHOCYTES ABSOLUTE COUNT 1.40 K/ L 1.18-3.74 (BEAKER) (test uemr=366) MONOCYTES ABSOLUTE COUNT 1.09 K/ L 0.24-0.36 (BEAKER) (test ujlq=314) EOSINOPHILS ABSOLUTE COUNT 0.03 K/ L 0.04-0.36 (BEAKER) (test arzi=414) BASOPHILS ABSOLUTE COUNT 0.01 K/ L 0.01-0.08 (BEAKER) (test opws=271) IMMATURE 2 % 0-1 GRANULOCYTES-RELATIVE PERCENT (BEAKER) (test aasg=5175) BASIC METABOLIC [id number] 05:31:00 Test Item Value Reference Range Comments SODIUM (BEAKER) (test 134 meq/L 136-145 plvl=386) POTASSIUM (BEAKER) (test 4.3 meq/L 3.5-5.1 ykzs=163) CHLORIDE (BEAKER) (test 104 meq/L 98-107 eakz=659) CO2 (BEAKER) (test 20 meq/L 22-29 dasc=160) BLOOD UREA NITROGEN 16 mg/dL 7-21 (BEAKER) (test vcen=872) CREATININE (BEAKER) (test 0.74 mg/dL 0.57-1.25 txng=000) GLUCOSE RANDOM (BEAKER) 231 mg/dL 70-105 (test afci=922) CALCIUM (BEAKER) (test 8.4 mg/dL 8.4-10.2 wyxj=175) EGFR (BEAKER) (test 81 mL/min/1.73 sq m ESTIMATED GFR IS NOT rkbj=3991) ACCURATE CREATININE CLEARANCE IN PREDICTING GLOMERULAR FILTRATION RATE. ESTIMATED GFR IS NOT APPLICABLE FOR DIALYSIS PATIENTS. POCT-GLUCOSE [id number] 13:11:00 Test Item Value Reference Range Comments POC-GLUCOSE METER (BEAKER) 198 mg/dL 70-110 TESTED AT [address] (test xegt=5121) [place] [id number] CBC W/PLT COUNT & AUTO [id number] 10:41:00 Test Item Value Reference Range Comments WHITE BLOOD CELL COUNT (BEAKER) (test zjsl=545) 18.2 K/ L 3.5-10.5 RED BLOOD CELL COUNT (BEAKER) (test dcvv=715) 3.02 M/ L 3.93-5.22 HEMOGLOBIN (BEAKER) (test creg=374) 8.8 GM/DL 11.2-15.7 HEMATOCRIT (BEAKER) (test tutg=584) 29.9 % 34.1-44.9 MEAN CORPUSCULAR VOLUME (BEAKER) (test nmre=730) 99.0 fL 79.4-94.8 MEAN CORPUSCULAR HEMOGLOBIN (BEAKER) (test 29.1 pg 25.6-32.2 otpe=894) MEAN CORPUSCULAR HEMOGLOBIN CONC (BEAKER) (test 29.4 GM/DL 32.2-35.5 ygfr=671) RED CELL DISTRIBUTION WIDTH (BEAKER) (test 17.6 % 11.7-14.4 ziit=249) PLATELET COUNT (BEAKER) (test cnrz=034) 260 K/CU MM 150-450 MEAN PLATELET VOLUME (BEAKER) (test oxpa=294) 9.4 fL 9.4-12.3 NUCLEATED RED BLOOD CELLS (BEAKER) (test 0 /100 WBC 0-0 faev=485) POCT-GLUCOSE [id number] 09:51:00 Test Item Value Reference Range Comments POC-GLUCOSE METER (BEAKER) 195 mg/dL 70-110 TESTED AT [address] (test nhgg=3738) [place] [address] BASIC METABOLIC [id number] 07:26:00 Test Item Value Reference Range Comments SODIUM (BEAKER) (test 132 meq/L 136-145 tumm=412) POTASSIUM (BEAKER) (test 4.6 meq/L 3.5-5.1 Specimen slightly pgmf=699) hemolyzed CHLORIDE (BEAKER) (test 101 meq/L 98-107 qkjt=967) CO2 (BEAKER) (test 18 meq/L 22-29 mqea=004) BLOOD UREA NITROGEN 24 mg/dL 7-21 (BEAKER) (test ecly=607) CREATININE (BEAKER) (test 0.84 mg/dL 0.57-1.25 Specimen slightly xcja=637) hemolyzed GLUCOSE RANDOM (BEAKER) 141 mg/dL 70-105 (test leas=991) CALCIUM (BEAKER) (test 8.6 mg/dL 8.4-10.2 dyhm=187) EGFR (BEAKER) (test 70 mL/min/1.73 sq m ESTIMATED GFR IS NOT puoj=3474) ACCURATE CREATININE CLEARANCE IN PREDICTING GLOMERULAR FILTRATION RATE. ESTIMATED GFR IS NOT APPLICABLE FOR DIALYSIS PATIENTS. RAD, SPINE, LUMBAR, 2 OR 3 [id number] 22:28:00Reason for exam:-> standing XR post opFINAL [...] relatively preserved in height. Signed: Femi Larsen MDReport Verified Date/Time: 10/27/2017 22:28:54 Reading Location: [address] Reading Room Electronically signed by: FEMI LARSEN M.D. on 09/2017 10:28 [id number] 09:38:00 Test Item Value Reference Range Comments POTASSIUM (BEAKER) (test lnnp=232) 4.9 meq/L 3.5-5.1 BASIC METABOLIC [id number] 08:05:00 Test Item Value Reference Range Comments SODIUM (BEAKER) (test 138 meq/L 136-145 npbw=555) POTASSIUM (BEAKER) (test 5.4 meq/L 3.5-5.1 hzpl=414) CHLORIDE (BEAKER) (test 104 meq/L 98-107 afkx=778) CO2 (BEAKER) (test 24 meq/L 22-29 rsob=979) BLOOD UREA NITROGEN 26 mg/dL 7-21 (BEAKER) (test xaxv=605) CREATININE (BEAKER) (test 0.85 mg/dL 0.57-1.25 fdrg=639) GLUCOSE RANDOM (BEAKER) 155 mg/dL 70-105 (test iywg=902) CALCIUM (BEAKER) (test 8.8 mg/dL 8.4-10.2 lyyq=976) EGFR (BEAKER) (test 69 mL/min/1.73 sq m ESTIMATED GFR IS NOT msqz=7756) ACCURATE CREATININE CLEARANCE IN PREDICTING GLOMERULAR FILTRATION RATE. ESTIMATED GFR IS NOT APPLICABLE FOR DIALYSIS PATIENTS. CBC (HEMOGRAM ONLY)2017-10-27 04:22:00 Test Item Value Reference Range Comments WHITE BLOOD CELL COUNT (BEAKER) (test nvwk=809) 19.2 K/ L 3.5-10.5 RED BLOOD CELL COUNT (BEAKER) (test lmlt=442) 3.52 M/ L 3.93-5.22 HEMOGLOBIN (BEAKER) (test wluh=529) 10.3 GM/DL 11.2-15.7 HEMATOCRIT (BEAKER) (test nvdd=466) 34.7 % 34.1-44.9 MEAN CORPUSCULAR VOLUME (BEAKER) (test asbj=551) 98.6 fL 79.4-94.8 MEAN CORPUSCULAR HEMOGLOBIN (BEAKER) (test 29.3 pg 25.6-32.2 jqzn=000) MEAN CORPUSCULAR HEMOGLOBIN CONC (BEAKER) (test 29.7 GM/DL 32.2-35.5 yzjh=688) RED CELL DISTRIBUTION WIDTH (BEAKER) (test 17.8 % 11.7-14.4 zoko=047) PLATELET COUNT (BEAKER) (test fqya=753) 340 K/CU MM 150-450 MEAN PLATELET VOLUME (BEAKER) (test exgc=507) 9.2 fL 9.4-12.3 NUCLEATED RED BLOOD CELLS (BEAKER) (test 0 /100 WBC 0-0 zmxx=201) [place], CORROSION CONTROL FITTER IN OR/30 MINUTE [id number] 18:15:00Reason for exam:-> BACK PAINFINAL REPORT Intraoperative fluoroscopy 5 views 10/26/2017 at 1849 CLINICAL HISTORY: Instrument localization COMPARISON: 10/26/2017 at 1651 IMPRESSION: Please correlate imaging report findings with the procedure note prepared by Dr. Gonzalez, as an intra-procedure imaging consultationwas not requested. Reported fluoroscopy time: 0.4 minutes. Signed: Andreas Price VerifiedDate/Time: 10/26/2017 18:15:50 Reading Location: [facility] Radiology Reading Room [place], CORROSION CONTROL FITTER IN OR/30 MINUTE [id number] 16:23: 00Reason for exam:->renal cell ca spinal lessionFINAL REPORT Intraoperative fluoroscopy 5 views 10/26/2017 4:21 PM CLINICAL HISTORY: Instrument localization COMPARISON: None available IMPRESSION: Please correlate imaging report findings with the procedure note prepared by Dr. Gonzalez, as an intra-procedure imaging consultation was not requested. Reported fluoroscopy time: 8 seconds. Signed: Andreas Price Verified Date/Time: 2017 16:23:03 Reading Location: [facility] Radiology Reading Room Electronicallysigned by: ANDREAS PRICE M.D. on 10/26/2017 04:23 PMBASI METABOLIC [id number] 09:35:00 Test Item Value Reference Range Comments SODIUM (BEAKER) (test 138 meq/L 136-145 hjpv=260) POTASSIUM (BEAKER) (test 4.5 meq/L 3.5-5.1 vkkp=208) CHLORIDE (BEAKER) (test 100 meq/L 98-107 cizy=565) CO2 (BEAKER) (test 28 meq/L 22-29 itjp=314) BLOOD UREA NITROGEN 30 mg/dL 7-21 (BEAKER) (test jhhw=104) CREATININE (BEAKER) (test 0.86 mg/dL 0.57-1.25 nnsk=376) GLUCOSE RANDOM (BEAKER) 99 mg/dL 70-105 (test mbxy=591) CALCIUM (BEAKER) (test 9.6 mg/dL 8.4-10.2 zsld=451) EGFR (BEAKER) (test 68 mL/min/1.73 sq m ESTIMATED GFR IS NOT twrn=0041) ACCURATE CREATININE CLEARANCE IN PREDICTING GLOMERULAR FILTRATION RATE. ESTIMATED GFR IS NOT APPLICABLE FOR DIALYSIS PATIENTS. BASIC METABOLIC [id number] 09:02:00 Test Item Value Reference Range Comments SODIUM (BEAKER) (test 141 meq/L 136-145 bbks=672) POTASSIUM (BEAKER) (test 5.4 meq/L 3.5-5.1 aayc=016) CHLORIDE (BEAKER) (test 102 meq/L 98-107 mnvg=014) CO2 (BEAKER) (test 29 meq/L 22-29 exwu=314) BLOOD UREA NITROGEN 30 mg/dL 7-21 (BEAKER) (test knlq=554) CREATININE (BEAKER) (test 0.86 mg/dL 0.57-1.25 akau=274) GLUCOSE RANDOM (BEAKER) 140 mg/dL 70-105 (test rzhm=242) CALCIUM (BEAKER) (test 9.9 mg/dL 8.4-10.2 ywzw=038) EGFR (BEAKER) (test 68 mL/min/1.73 sq m ESTIMATED GFR IS NOT pojn=5910) ACCURATE CREATININE CLEARANCE IN PREDICTING GLOMERULAR FILTRATION RATE. ESTIMATED GFR IS NOT APPLICABLE FOR DIALYSIS PATIENTS. [id number] 08:57:00 Test Item Value Reference Range Comments PROTIME (BEAKER) (test dpzr=698) 14.1 seconds 11.7-14.7 INR (BEAKER) (test ikcu=386) 1.1 <=5.9 PARTIAL THROMBOPLASTIN TIME (BEAKER) (test 23.6 seconds 22.5-36.0 arfd=248) RECOMMENDED COUMADIN/WARFARIN INR THERAPY RANGESSTANDARD DOSE: 2.0 - 3.0 Includes: PROPHYLAXIS forvenous thrombosis, systemic embolization; TREATMENT for venous thrombosis and/or pulmonary embolus.HIGH RISK: Target INR is 2.5-3.5 for patients with mechanical heart valves.CBC W/PLT COUNT & AUTO [id number] 08:50:00 Test Item Value Reference Range Comments WHITE BLOOD CELL COUNT (BEAKER) (test mgxq=593) 15.8 K/ L 3.5-10.5 RED BLOOD CELL COUNT (BEAKER) (test lmgt=290) 4.49 M/ L 3.93-5.22 HEMOGLOBIN (BEAKER) (test kcdi=404) 12.9 GM/DL 11.2-15.7 HEMATOCRIT (BEAKER) (test rssj=005) 43.0 % 34.1-44.9 MEAN CORPUSCULAR VOLUME (BEAKER) (test vflc=943) 95.8 fL 79.4-94.8 MEAN CORPUSCULAR HEMOGLOBIN (BEAKER) (test 28.7 pg 25.6-32.2 tloq=819) MEAN CORPUSCULAR HEMOGLOBIN CONC (BEAKER) (test 30.0 GM/DL 32.2-35.5 vgvj=208) RED CELL DISTRIBUTION WIDTH (BEAKER) (test 17.1 % 11.7-14.4 eaky=321) PLATELET COUNT (BEAKER) (test gfqh=605) 403 K/CU MM 150-450 MEAN PLATELET VOLUME (BEAKER) (test icmw=654) 8.3 fL 9.4-12.3 NUCLEATED RED BLOOD CELLS (BEAKER) (test 0 /100 WBC 0-0 usso=563) NEUTROPHILS RELATIVE PERCENT (BEAKER) (test 77 % zqzo=265) LYMPHOCYTES RELATIVE PERCENT (BEAKER) (test 12 % smvw=561) MONOCYTES RELATIVE PERCENT (BEAKER) (test 8 % ndgc=592) EOSINOPHILS RELATIVE PERCENT (BEAKER) (test 0 % qsmy=363) BASOPHILS RELATIVE PERCENT (BEAKER) (test 0 % dcoi=693) NEUTROPHILS ABSOLUTE COUNT (BEAKER) (test 12.13 K/ L 1.56-6.13 sxgn=765) LYMPHOCYTES ABSOLUTE COUNT (BEAKER) (test 1.85 K/ L 1.18-3.74 rrmw=820) MONOCYTES ABSOLUTE COUNT (BEAKER) (test 1.24 K/ L 0.24-0.36 iamd=030) EOSINOPHILS ABSOLUTE COUNT (BEAKER) (test 0.00 K/ L 0.04-0.36 xqag=040) BASOPHILS ABSOLUTE COUNT (BEAKER) (test 0.03 K/ L 0.01-0.08 mdhv=977) IMMATURE GRANULOCYTES-RELATIVE PERCENT (BEAKER) 4 % 0-1 (test bqub=1946) MR, SPINE, LUMBAR, [id number] 08:56:00FINAL REPORT MRI lumbar spine with and [...] suggested. Absent right kidney. Signed: Chris Ramirez Verified Date/Time: 10/24/2017 08:56:43 Reading Location: [facility] Radiology Reading Room CT, SPINE, LUMBAR, WO [id number] 20:52:00FINAL REPORT CT lumbar spine INDICATION: Spine [...] also include lymphoma, or myeloma. Signed:Chris Ramirez MDReport Verified Date/Time: 10/23/2017 20:52:10 Reading Location[facility] Radiology[facility] Room BASI METABOLIC [id number] 15:40:00 Test Item Value Reference Range Comments SODIUM (BEAKER) (test 138 meq/L 136-145 vudw=198) POTASSIUM (BEAKER) (test 4.4 meq/L 3.5-5.1 ckvb=518) CHLORIDE (BEAKER) (test 100 meq/L 98-107 swtj=701) CO2 (BEAKER) (test 25 meq/L 22-29 vsno=718) BLOOD UREA NITROGEN 31 mg/dL 7-21 (BEAKER) (test qiri=341) CREATININE (BEAKER) (test 0.85 mg/dL 0.57-1.25 alsl=959) GLUCOSE RANDOM (BEAKER) 172 mg/dL 70-105 (test szvr=407) CALCIUM (BEAKER) (test 9.7 mg/dL 8.4-10.2 xltq=316) EGFR (BEAKER) (test 69 mL/min/1.73 sq m ESTIMATED GFR IS NOT qcos=1270) ACCURATE CREATININE CLEARANCE IN PREDICTING GLOMERULAR FILTRATION RATE. ESTIMATED GFR IS NOT APPLICABLE FOR DIALYSIS PATIENTS. PROTHROMBIN TIME/[id number] 15:10:00 Test Item Value Reference Range Comments PROTIME (BEAKER) (test hzum=326) 14.9 seconds 11.7-14.7 INR (BEAKER) (test nohk=255) 1.2 <=5.9 RECOMMENDED COUMADIN/WARFARIN INR THERAPY RANGESSTANDARD DOSE: 2.0 - 3.0 Includes: PROPHYLAXIS forvenous thrombosis, systemic embolization; TREATMENT for venous thrombosis and/or pulmonary embolus.HIGH RISK: Target INR is 2.5-3.5 for patients with mechanical heart valves.[id number] 15:10:00 Test Item Value Reference Range Comments PARTIAL THROMBOPLASTIN TIME (BEAKER) (test 24.9 seconds 22.5-36.0 kswg=686) CBC W/PLT COUNT & AUTO [id number] 14:29:00 Test Item Value Reference Range Comments WHITE BLOOD CELL COUNT (BEAKER) (test xfle=513) 12.0 K/ L 3.5-10.5 RED BLOOD CELL COUNT (BEAKER) (test uias=579) 3.68 M/ L 3.93-5.22 HEMOGLOBIN (BEAKER) (test ykxs=574) 10.6 GM/DL 11.2-15.7 HEMATOCRIT (BEAKER) (test jwmy=765) 35.5 % 34.1-44.9 MEAN CORPUSCULAR VOLUME (BEAKER) (test uecy=839) 96.5 fL 79.4-94.8 MEAN CORPUSCULAR HEMOGLOBIN (BEAKER) (test 28.8 pg 25.6-32.2 xaah=428) MEAN CORPUSCULAR HEMOGLOBIN CONC (BEAKER) (test 29.9 GM/DL 32.2-35.5 vzjp=972) RED CELL DISTRIBUTION WIDTH (BEAKER) (test 17.1 % 11.7-14.4 knsq=799) PLATELET COUNT (BEAKER) (test vgem=214) 375 K/CU MM 150-450 MEAN PLATELET VOLUME (BEAKER) (test hkso=953) 8.8 fL 9.4-12.3 NUCLEATED RED BLOOD CELLS (BEAKER) (test 1 /100 WBC 0-0 idst=472) NEUTROPHILS RELATIVE PERCENT (BEAKER) (test 77 % mbvw=920) LYMPHOCYTES RELATIVE PERCENT (BEAKER) (test 12 % knnt=765) MONOCYTES RELATIVE PERCENT (BEAKER) (test 6 % gxls=450) EOSINOPHILS RELATIVE PERCENT (BEAKER) (test 0 % qtgp=468) BASOPHILS RELATIVE PERCENT (BEAKER) (test 1 % siqg=308) NEUTROPHILS ABSOLUTE COUNT (BEAKER) (test 9.21 K/ L 1.56-6.13 groo=758) LYMPHOCYTES ABSOLUTE COUNT (BEAKER) (test 1.38 K/ L 1.18-3.74 xbil=507) MONOCYTES ABSOLUTE COUNT (BEAKER) (test 0.70 K/ L 0.24-0.36 suli=152) EOSINOPHILS ABSOLUTE COUNT (BEAKER) (test 0.00 K/ L 0.04-0.36 frfn=088) BASOPHILS ABSOLUTE COUNT (BEAKER) (test 0.06 K/ L 0.01-0.08 nrff=869) IMMATURE GRANULOCYTES-RELATIVE PERCENT (BEAKER) 5 % 0-1 (test hevu=1656)
[2017-12-08 10:38] LABS: Absolute Lymphocytes (CBC) 1.7 K/uL (0.7-4.9); Absolute Monocytes 0.7 K/uL (0.1-1.3); Absolute Neutrophil 7.3 K/uL (1.8-8.0); Basophils % 0.3 % (0-1.3); Eosinophils % 0.1 % (0-4.4); Hematocrit 23.5 % (36.0-45.0); Lymphocytes % 17.1 % (15.3-44.8); MCH 26.6 pg (27.0-35.0); MPV 6.5 fL (7.6-11.3); Monocytes % 7.6 % (3.3-12.3); RBC Red Blood Cell Count 2.76 M/uL (3.86-4.86)
[2017-12-08 10:47] LABS: Protime INR 1.21
[2017-12-08 10:49] LABS: Potassium 3.8 mEq/L (3.6-5.0)
[2017-12-08 10:58] LABS: Albumin 2.2 g/dL (3.2-5.5); Bilirubin Direct 0.1 mg/dL (0-0.2); Bilirubin Total 0.3 mg/dL (0.3-1.2); CKMB Creatine Kinase MB 0.5 ng/ml (0.3-4.0); Magnesium 1.6 mg/dL (1.8-2.5); Protein, Total 6.1 g/dL (6.0-8.3)
--- NOTE | 2017-12-08 11:31 | RAD REPORT ---
EXAM DESCRIPTION: RAD - Chest Single View - 12/08/2017 10:35 am CLINICAL HISTORY: Hypertension, chest pain COMPARISON: 11/10/2017 FINDINGS: Portable technique limits examination quality. The lungs are grossly clear. Small left pleural effusion is seen. Fullness of the mediastinum again n oted compatible with adenopathy. Right-sided PICC line has tip in the SVC. IMPRESSION: No acute intrathoracic process suspected.
[2017-12-08] MEDS ORDERED: NA CHLORIDE 0.9% 1,000 ML ONE (11:43)
[2017-12-08] MEDS ORDERED: MAGNESIUM SULFATE 1 gm IVPB 1 GM/100 ML BAG IV ONE (11:43)
[2017-12-08 12:06] LABS: Anisocytosis SLIGHT; Blood Morphology Comment NOTED (NOT SEEN); Platelet Estimate ADEQ
[2017-12-08 12:07] LABS: Stomatocytes 1+
[2017-12-08] MEDS ORDERED: PANTOPRAZOLE 40 MG INJ ONE (13:03)
[2017-12-08] MEDS ORDERED: PANTOPRAZOLE INJ 80 MG in NA CHLORIDE 0.9% 250 ML IV ONE (13:15)
[2017-12-08] MEDS ORDERED: NA CHLORIDE 0.9% 250 ML ONE (13:28)
--- NOTE | 2017-12-08 13:53 | RAD REPORT ---
EXAM DESCRIPTION: CT - Abdomen Pelvis W Contrast - 12/08/2017 1:27 pm CLINICAL HISTORY: Abdominal pain. Lung cancer COMPARISON: October 2017 TECHNIQUE: Computed axial tomography of the abdomen pelvis was obtained. 100 cc Isovue-300 was admin istered intravenously. Oral contrast was not requested which limits evaluation of bowel. All CT scans are performed using dose optimization technique as appropriate and may include automated exposure control or mA/KV adjustment according to patient size. FINDINGS: Left lower lobe lung mass and posterior mediastinal lymphadenopathy is without significant change. Small pleural effusions are present bilaterally. The liver, spleen, pancreas, adrenal and left kidney appear unremarkable. The right kidney is absent There is no evidence of diverticulitis. The bowel caliber and wall thickness is normal A 4.2 centimeter right iliac metastasis has enlarged. Postsurgical changes involve the lumbar spine. Lumbar metastasis is again demonstrated. IMPRESSION: 4.2 centimeter right iliac metastasis. Otherwise, no significant change from the prior exam
--- NOTE | 2017-12-08 14:07 | EKG ---
Test Date: 2017-12-08 Test Time: 10:24:02 Cold Saw Operator: JONY MEASUREMENT RESULTS: Intervals: Rate: 82 W[place]: 160 QRSD: 80 QT: 360 QTc: 420 [place]: P: 51 WY: 160 QRS: 48 T: 61 INTERPRETIVE STATEMENTS: Normal sinus rhythm Possible Left atrial enlargement Borderline ECG Compared to ECG 11/10/2017 15:26:58 No significant changes Electronically Signed On 12-08-17 14:05:59 CDT by Hawk Cortez
[2017-12-08 15:19] LABS: Urine RBC <5 /HPF (NONE SEEN)
[2017-12-08 15:20] LABS: Urine Bacteria 20-50 /HPF (<20); Urine Culture Reflex Order REFLEXED
[2017-12-08 15:21] LABS: Urine Blood 2+ (NEG); Urine Glucose NEGATIVE (NEG); Urine Protein TRACE (NEG)
--- NOTE | 2017-12-08 16:11 | EDPHYS ---
Physician Documentation [facility] Name: Lotus Pelaez Age: 57 yrs Sex: Female : 1960 Arrival Date: 12/08/2017 Time: 10:12 Bed 2 Private MD: ED Physician Rayshawn Martínez HPI: 12/08 11:00 This 57 yrs old Female presents to ER via EMS with complaints of Abnormal Lab pm1 Results. 11:00 Patient sent to the emergency department for low Hgb level, 6.8, from labs drawn pm1 12/07/2017. Patient reports dark tarry stool for the past 3 days. Patient without any complaints except back pain present from her surgery that was performed on november 22 for metastasis from renal Ca. Wound complication that required debridement on November 26 and November 27. Patient discharged to group home with Rocephin 1 gm IV BID. Patient reports that she has a history or ulcers in the past. Patient believes that she might be getting Lovenox injections from the group home . 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 Hx of right pm1 nephrectomy. . Historical: - Allergies: 10:29 No Known Allergies; ss - Home Meds: 10:29 ceftriaxone 1 gram injection. Inject 1g IV BID x 32 days [Active]; docusate sodium 100 ss mg Oral cap three times a day [Active]; guaifenesin 600 mg Oral Ta12 1 tab every 12 hours [Active]; pantoprazole 40 mg oral TbEC 1 tab once daily [Active]; polyethyleneglycol 17 gram packet. 17g PO daily x 10 days [Active]; senna 8.6 mg oral tab 2 tabs BID [Active]; carvedilol 25 mg Oral tab 1 tab 2 times per day [Active]; dexamethasone 4 mg Oral tab 1 tab once daily [Active]; Synthroid 50 mcg Oral tab 1 tab once daily [Active]; morphine 15 mg Oral tab 1 tab twice a day [Active]; lisinopril-hydrochlorothiazide 20-12.5 mg Oral tab 1 tab once daily [Active]; 10:32 diazepam 2 mg Oral tab 1 tab 3 times per day [Active]; Nystatin Topical [Active]; ss ondansetron HCl 8 mg Oral tab 1 tab 3 times per day [Active]; simethicone 80 mg Oral chew every 6 hours [Active]; - PMHx: 10:18 Hypertension; Hypothyroidism; Lung cancer mets; Renal Cancer; ss - PSHx: 10:18 back surgery; ss - Immunization history:: Adult Immunizations up to date. - Social history:: Smoking status: Patient/guardian denies using tobacco. - Ebola Screening: : Patient denies exposure to infectious person Patient denies travel to an Ebola-affected area in the 21 days before illness onset. ROS: 11:00 Constitutional: Negative for fever, chills, and weight loss, Eyes: Negative for injury, pm1 pain, redness, and discharge, Neck: Negative for injury, pain, and swelling, Cardiovascular: Negative for chest pain, palpitations, and edema, Respiratory: Negative for shortness of breath, cough, wheezing, and pleuritic chest pain, Abdomen/GI: Negative for abdominal pain, nausea, vomiting, diarrhea, and constipation. 11:00 MS/Extremity: Negative for injury and deformity. 11:00 : Negative for injury, bleeding, discharge, and swelling, Neuro: Negative for headache, weakness, numbness, tingling, and seizure. 11:00 ENT: Positive for Patient reports mass to the left side of her mouth that occasionally bleeds. Has an appointment with Dr. Youngblood, [facility], on Monday, Negative for ear pain, sore throat. 11:00 Abdomen/GI: Positive for black/tarry stool, Negative for abdominal pain, nausea and vomiting, diarrhea, constipation, hematemesis. 11:00 Back: Positive for Pain lumbar region. 11:00 Neuro: Negative for numbness, tingling, Patient able to move her legs FROM. Patient reports she is unable to stand and walk. Reports able to walk without assistance prior to surgical intervention. Exam: 11:00 Constitutional: This is a well developed, well nourished patient who is awake, alert, pm1 and in no acute distress. Head/Face: Normocephalic, atraumatic. Eyes: Pupils equal round and reactive to light, extra-ocular motions intact. Lids and lashes normal. Conjunctiva and sclera are non-icteric and not injected. Cornea within normal limits. Periorbital areas with no swelling, redness, or edema. Neck: Trachea midline, no thyromegaly or masses palpated, and no cervical lymphadenopathy. Supple, full range of motion without nuchal rigidity, or vertebral point tenderness. No Meningismus. 11:00 ENT: External ear(s): are unremarkable, Ear canal(s): are normal, Nose: is normal, Mouth: drooling, is not appreciated, mass present to left upper palette . 11:00 Chest/axilla: Normal chest wall appearance and motion. Nontender with no deformity. pm1 No lesions are appreciated. Cardiovascular: Regular rate and rhythm with a normal S1 and S2. No gallops, murmurs, or rubs. Normal PMI, no JVD. No pulse deficits. Respiratory: Lungs have equal breath sounds bilaterally, clear to auscultation and percussion. No rales, rhonchi or wheezes noted. No increased work of breathing, no retractions or nasal flaring. Abdomen/GI: Soft, non-tender, with normal bowel sounds. No distension or tympany. No guarding or rebound. No evidence of tenderness throughout. 11:00 MS/ Extremity: Pulses equal, no cyanosis. Neurovascular intact. Full, normal range of motion. 11:00 Back: surgical incision to lumbar area without any dehiscence, redness, or warmth. Dressing with small amount of clear yellow discharge present. 11:00 Skin: Appearance: normal except for affected area, Color: pale, mucosa and conjunctiva pale. 11:00 Neuro: Orientation: is normal, Mentation: is normal, Motor: moves all fours, Sensation: is normal, no obvious gross deficits. Vital Signs: 10:18 BP 82 / 52; Pulse 89; Resp 20; Temp 97(O); Pulse Ox 97% on 4 lpm NC; Weight 99.79 kg; ss Height 5 ft. 6 in. (167.64 cm); Pain 4/10; 12:00 BP 87 / 48; Pulse 83; Resp 18 S; Pulse Ox 100% on R/A; Pain 4/10; sg 12:30 BP 78 / 35; Pulse 81 MON; Resp 18 S; Pulse Ox 100% on 4 lpm NC; Pain 4/10; sg 13:00 BP 87 / 47; Pulse 85; Resp 16 S; Pulse Ox 100% on 4 lpm NC; Pain 4/10; sg 14:00 BP 78 / 38; Pulse 85 MON; Resp 16; Temp 97.6(TE); Pulse Ox 100% on R/A; Pain 4/10; sg 14:58 BP 114 / 52; Pulse 84; Resp 15 S; Pulse Ox 100% on R/A; sg 15:29 BP 110 / 65; Pulse 87; Pulse Ox 100% ; sv 18:12 BP 112 / 57; Pulse 87; Resp 23; Temp 98.5; Pulse Ox 100% ; sv 19:39 BP 93 / 63; Pulse 87; Resp 15; Temp 98.6; Pulse Ox 100% on R/A; Pain 5/10; ak1 19:54 BP 113 / 59; Pulse 87; Resp 18; Pulse Ox 100% on 3 lpm NC; Pain 4/10; mg2 10:18 Body Mass Index 35.51 (99.79 kg, 167.64 cm) ss MDM: 10:37 Patient medically screened. pm1 16:10 Data reviewed: vital signs. Data interpreted: Pulse oximetry: on room air is 100 %. pm1 Interpretation: normal. Counseling: I had a detailed discussion with the patient and/or guardian regarding: the historical points, exam findings, and any diagnostic results supporting the discharge/admit diagnosis, lab results, radiology results, the need to transfer to another facility, [facility] does not immediately have the required specialist, GI. 19:36 Physician consultation: Illuminating Engineer Silke was contacted at 19:36, regarding pm1 regarding transfer, patient's condition, and will see patient. 19:54 [facility] contacted at 19:54, regarding pm1 regarding transfer, to [facility]. patient's condition, and will see patient. 12/08 10:17 Order name: Basic Metabolic Panel; Complete Time: 11:37 12/08 10:17 Order name: BNP; Complete Time: 11:37 12/08 10:17 Order name: CBC with Diff; Complete Time: 12:42 12/08 10:17 Order name: Ckmb; Complete Time: 11:37 12/08 10:17 Order name: CPK; Complete Time: 11:37 12/08 10:17 Order name: LFT's; Complete Time: 11:37 12/08 10:17 Order name: Magnesium; Complete Time: 11:37 12/08 10:17 Order name: PT-INR; Complete Time: 10:48 sv 12/08 10:17 Order name: Ptt, Activated; Complete Time: 10:48 sv 12/08 10:17 Order name: Troponin (emerg Dept Use Only); Complete Time: 11:37 sv 12/08 10:17 Order name: Amylase, Serum; Complete Time: 11:37 sv 12/08 10:17 Order name: Blood Culture Adult (2) sv 12/08 10:17 Order name: C-Reactive Protein; Complete Time: 11:37 sv 12/08 10:17 Order name: Lactate; Complete Time: 11:37 sv 12/08 10:17 Order name: XRAY Chest (1 view); Complete Time: 11:37 sv 12/08 10:17 Order name: Lipase; Complete Time: 11:37 sv 12/08 10:17 Order name: Procalcitonin; Complete Time: 11:37 sv 12/08 10:17 Order name: Sed Rate; Complete Time: 12:42 sv 12/08 10:24 Order name: Type And Screen 12/08 11:39 Order name: Urine Microscopic Only; Complete Time: 17:05 pm1 12/08 12:06 Order name: Manual Differential; Complete Time: 12:42 EDND 12/08 12:53 Order name: CT Abd/Pelvis - W/Contrast: IV contrast only; Complete Time: 13:54 pm1 12/08 12:54 Order name: Bb Add On 12/08 12:59 Order name: Packed RBC Leukored -1 EDND 12/08 15:06 Order name: Urine Dipstick--Ancillary (enter results); Complete Time: 17:05 bd 12/08 15:21 Order name: Urine Culture EDND 12/08 19:24 Order name: Hemoglobin; Complete Time: 21:10 [facility] 12/08 19:24 Order name: Hematocrit; Complete Time: 21:10 ak1 12/08 10:17 Order name: EKG; Complete Time: 10:17 sv 12/08 10:17 Order name: Cardiac monitoring; Complete Time: 10:18 sv 12/08 10:17 Order name: EKG - Nurse/Tech; Complete Time: 14:37 sv 12/08 10:17 Order name: IV Saline Lock; Complete Time: 10:18 sv 12/08 10:17 Order name: Labs collected and sent; Complete Time: 10:18 sv 12/08 10:17 Order name: O2 Per Protocol; Complete Time: 10:18 sv 12/08 10:17 Order name: O2 Sat Monitoring; Complete Time: 10:18 sv 12/08 10:17 Order name: Accucheck; Complete Time: 10:17 sv 12/08 10:17 Order name: IV Saline Lock - Large Bore; Complete Time: 10:17 sv 12/08 12:51 Order name: Transfuse; Complete Time: 14:32 pm1 Administered Medications: 11:54 Drug: NS 0.9% 1000 ml Route: IV; Rate: 1000 ml; Site: PICC; sg 19:39 Follow up: IV Status: Completed infusion ak1 11:54 Drug: Magnesium Sulfate 1 grams Route: IVPB; Infused Over: 1 hrs; Site: PICC; sg 12:56 Follow up: Response: No adverse reaction; IV Status: Completed infusion sg 13:04 Drug: ProTONIX 40 mg Route: IVP; Site: PICC; sg 14:32 Follow up: Response: No adverse reaction sg 14:20 Drug: ProTONIX 8 mg/hr Route: IV; Rate: 25 ml/hr; Site: PICC; sg 20:55 Follow up: IV Status: Infusion continued upon transfer ak1 19:38 Drug: Zofran 4 mg Route: IVP; Site: PICC; ak1 20:53 Follow up: Response: No adverse reaction ak1 19:39 Drug: morphine 4 mg Route: IVP; Site: PICC; ak1 20:53 Follow up: Response: No adverse reaction ak1 Point of Care Testing: Blood Glucose: 10:18 Blood Glucose: 164 mg/dL; sv Ranges: Critical Glucose Levels:Adult <50 mg/dl or >400 mg/dl <40 mg/dl or >180 mg/dl Disposition: 12/08/17 16:11 Transfer ordered to [facility]. Diagnosis is Gastrointestinal hemorrhage, unspecified. - Reason for transfer: Higher level of care. - Accepting physician is [facility]. - Condition is Stable. - Problem is new. - Symptoms have improved. Addendum: 12/12/2017 07:08 Co-signature as Attending Physician, Rayshawn Martínez MD I agree with the assessment and k dr plan of care. Signatures: Dispatcher [employer] Keeley Davis RN RN Topher Copeland, RN RN sg Rayshawn Martínez MD MD kdr Smirch, Shelby, RN RN Charlotte May RN RN ak1 Damaso Vizcaino, ANALI FOOD TECHNICIAN pm1 Gary Bauer, RN RN jd3 Corrections: (The following items were deleted from the chart) 12/08 10:32 10:18 Allergies: Morphine; [facility] 21:38 16:11 12/08/2017 16:11 Transfer ordered to [facility]. Diagnosis is jd3 Gastrointestinal hemorrhage, unspecified. Reason for transfer: Higher level of care. Accepting physician is [facility]. Condition is Stable. Problem is new. Symptoms have improved. pm1
--- NOTE | 2017-12-08 16:11 | ER ---
Nurse's Notes [facility] Name: Lotus Pelaez Age: 57 yrs Sex: Female : 1960 Arrival Date: 12/08/2017 Time: 10:12 Bed 2 Private MD: Diagnosis: Gastrointestinal hemorrhage, unspecified Presentation: 12/08 10:12 Presenting complaint: EMS states: sent for evaluation and treatment of low H\\T\\H. Hgb 6.8 ss and Hct 27.3 reported by [facility] staff. Pt recently had back surgery and is receiving IV antibiotics for treatment of infection incision. Transition of care: patient was received from another setting of care (long-term care facility), [facility]. Onset of symptoms is unknown. Risk Assessment: Do you want to hurt yourself or someone else? Patient reports no desire to harm self or others. Initial Sepsis Screen: Does the patient meet any 2 criteria? RR > 20 per min. Systolic BP < 90 mmHg. Does the patient have a suspected source of infection? Yes: Skin breakdown/wound. Care prior to arrival: 4 L continuous O2 continued. 10:12 Method Of Arrival: EMS: [facility] ss 10:12 Acuity: MAXWELL 2 ss Historical: - Allergies: 10:29 No Known Allergies; ss - Home Meds: 10:29 ceftriaxone 1 gram injection. Inject 1g IV BID x 32 days [Active]; docusate sodium 100 ss mg Oral cap three times a day [Active]; guaifenesin 600 mg Oral Ta12 1 tab every 12 hours [Active]; pantoprazole 40 mg oral TbEC 1 tab once daily [Active]; polyethyleneglycol 17 gram packet. 17g PO daily x 10 days [Active]; senna 8.6 mg oral tab 2 tabs BID [Active]; carvedilol 25 mg Oral tab 1 tab 2 times per day [Active]; dexamethasone 4 mg Oral tab 1 tab once daily [Active]; Synthroid 50 mcg Oral tab 1 tab once daily [Active]; morphine 15 mg Oral tab 1 tab twice a day [Active]; lisinopril-hydrochlorothiazide 20-12.5 mg Oral tab 1 tab once daily [Active]; 10:32 diazepam 2 mg Oral tab 1 tab 3 times per day [Active]; Nystatin Topical [Active]; ss ondansetron HCl 8 mg Oral tab 1 tab 3 times per day [Active]; simethicone 80 mg Oral chew every 6 hours [Active]; - PMHx: 10:18 Hypertension; Hypothyroidism; Lung cancer mets; Renal Cancer; ss - PSHx: 10:18 back surgery; ss - Immunization history:: Adult Immunizations up to date. - Social history:: Smoking status: Patient/guardian denies using tobacco. - Ebola Screening: : Patient denies exposure to infectious person Patient denies travel to an Ebola-affected area in the 21 days before illness onset. Screenin:32 Abuse screen: Denies threats or abuse. Denies injuries from another. Nutritional ss screening: No deficits noted. Tuberculosis screening: Never had TB. Fall Risk None identified. Assessment: 10:30 General: Appears in no apparent distress. uncomfortable, ill, well groomed, well sg developed, well nourished, Behavior is calm, cooperative, appropriate for age. Pain: Complains of pain in back Quality of pain is described as aching. Neuro: Level of Consciousness is awake, alert, obeys commands, Oriented to person, place, time, situation, Tank Welder are equal bilaterally Speech is normal, Facial symmetry appears normal. Cardiovascular: Heart tones S1 S2 present Capillary refill is sluggish in bilateral fingers toes. Respiratory: Airway is patent Respiratory effort is even, unlabored, Respiratory pattern is regular, symmetrical, Breath sounds are clear. GI: Abdomen is round obese, Bowel sounds present X 4 quads. Reports black tarry stool. : No signs and/or symptoms were reported regarding the genitourinary system. EENT: No signs and/or symptoms were reported regarding the EENT system. Derm: Skin is intact, is thin, Skin is dry, Skin is pale, Skin temperature is cool. Musculoskeletal: No signs and/or symptoms reported regarding the musculoskeletal system. 11:30 Reassessment: Patient appears in no apparent distress at this time. Patient and/or sg family updated on plan of care and expected duration. Pain level reassessed. Patient is alert, oriented x 3, equal unlabored respirations, skin warm/dry/pink. Reassessment: Sarath RICO notified of pt VS at this time, pt remains aa\\T\\ox4, resp even and unlabored, remains on 02 NC at 4 lpm. 12:30 Reassessment: Patient appears in no apparent distress at this time. Patient and/or sg family updated on plan of care and expected duration. Pain level reassessed. Patient is alert, oriented x 3, equal unlabored respirations, skin warm/dry/pink. reports back pain, pt states " i dont want to take anything for it.";. 13:30 Reassessment: Patient appears in no apparent distress at this time. Patient and/or sg family updated on plan of care and expected duration. Pain level reassessed. Patient is alert, oriented x 3, equal unlabored respirations, skin warm/dry/pink. pt notified VS, pt remains aa\\T\\ox4 at this time, no distress noted. 13:40 Reassessment: Patient appears in no apparent distress at this time. Blood transfusion sg initiated per PICC in RUE, pt tolerating well. 14:49 Reassessment: Patient appears in no apparent distress at this time. Patient and/or sg family updated on plan of care and expected duration. Pain level reassessed. Patient is alert, oriented x 3, equal unlabored respirations, skin warm/dry/pink. sarath RICO at bedside evaluating pt at this time, updating on the need for transfer for higher level of care, pt stated understanding, awaiting new orders at this time. 14:50 Reassessment: Patient appears in no apparent distress at this time. a cuff adjustment sg was made to pt BP cuff, will reassess VS. 18:10 Reassessment: Patient is alert, oriented x 3, equal unlabored respirations, skin sg warm/dry/pink. 2nd unit PRBC infusion complete at this time, pt report feeling warm, warm blankets removed and a sheet is applied, pt stated feeling better Patient states feeling better. Reassessment: v/o received to repeat the HH at 1930. Respiratory: Airway is patent Respiratory effort is even, unlabored, Respiratory pattern is regular, symmetrical, Breath sounds are clear. Derm: Skin is pink, warm \\T\\ dry. 19:00 Reassessment: Patient appears in no apparent distress at this time. Patient and/or sg family updated on plan of care and expected duration. Pain level reassessed. Patient is alert, oriented x 3, equal unlabored respirations, skin warm/dry/pink. pt reports a headache at this time, repositioned in bed, different pillow provided, P.Marinas CEILING CLEANER notified. 19:40 Reassessment: Patient appears in no apparent distress at this time. Patient and/or ak1 family updated on plan of care and expected duration. Pain level reassessed. Patient is alert, oriented x 3, equal unlabored respirations, skin warm/dry/pink. pt and family updated on wait time for GI in [place] to return our call for transfer. 19:52 Reassessment: Patient appears in no apparent distress at this time. Patient and/or mg2 family updated on plan of care and expected duration. Pain level reassessed. 20:30 Reassessment: tried to call report to [facility] [place] room 739, was placed on ak1 hold for 11.63 mins and called back to try and give report was told to call back in 15 mins. Vital Signs: 10:18 BP 82 / 52; Pulse 89; Resp 20; Temp 97(O); Pulse Ox 97% on 4 lpm NC; Weight 99.79 kg; ss Height 5 ft. 6 in. (167.64 cm); Pain 4/10; 12:00 BP 87 / 48; Pulse 83; Resp 18 S; Pulse Ox 100% on R/A; Pain 4/10; sg 12:30 BP 78 / 35; Pulse 81 MON; Resp 18 S; Pulse Ox 100% on 4 lpm NC; Pain 4/10; sg 13:00 BP 87 / 47; Pulse 85; Resp 16 S; Pulse Ox 100% on 4 lpm NC; Pain 4/10; sg 14:00 BP 78 / 38; Pulse 85 MON; Resp 16; Temp 97.6(TE); Pulse Ox 100% on R/A; Pain 4/10; sg 14:58 BP 114 / 52; Pulse 84; Resp 15 S; Pulse Ox 100% on R/A; sg 15:29 BP 110 / 65; Pulse 87; Pulse Ox 100% ; sv 18:12 BP 112 / 57; Pulse 87; Resp 23; Temp 98.5; Pulse Ox 100% ; sv 19:39 BP 93 / 63; Pulse 87; Resp 15; Temp 98.6; Pulse Ox 100% on R/A; Pain 5/10; ak1 19:54 BP 113 / 59; Pulse 87; Resp 18; Pulse Ox 100% on 3 lpm NC; Pain 4/10; mg2 10:18 Body Mass Index 35.51 (99.79 kg, 167.64 cm) ED Course: 10:12 Patient arrived in ED. ss 10:15 Triage completed. ss 10:17 Sarath Vizcaino NP is PHCP. pm1 10:17 Rayshawn Martínez MD is Attending Physician. pm1 10:18 Arm band placed on right wrist. ss 10:19 IV is patent, is intact, with good blood return, Pt has a right upper arm PICC line.. sv Flushed right PICC line 10 NS. 10:32 EKG done, by dish technician. reviewed by Rayshawn Martínez MD. dt2 10:32 Oxygen administration via nasal cannula \\T\\ 4L/min. ss 10:32 Patient has correct armband on for positive identification. Bed in low position. Call ss light in reach. 10:32 hospital monitor on. Pulse ox on. NIBP on. Warm blanket given. ss 10:33 X-ray completed. Portable x-ray completed in exam room. Patient tolerated procedure jb2 well. 10:34 XRAY Chest (1 view) In Process Unspecified. EDMS 11:39 Topher Marmolejo, RN is Primary Nurse. sg 13:[address] via stretcher. jj2 13:26 CT completed. Patient tolerated procedure well. Patient moved back from CT. sj 13:26 CT Abd/Pelvis - W/Contrast: IV contrast only In Process Unspecified. EDMS 18:12 Cunningham cath inserted, using sterile technique, 16 Fr., by wi, balloon inflated, to sv gravity drainage, returned clear yellow urine. Patient tolerated well. 18:30 initiated transfer with [facility] as per PA request. eb 19:30 connected the GI vacuum evaporation operator for [facility] with RONA Vizcaino. eb 19:38 Charlotte May, RN is Primary Nurse. ak1 19:39 connected the hospitalist from [facility] with RONA Vizcaino. eb 19:41 No provider procedures requiring assistance completed. ak1 20:08 Dressings: non-adherent dressing x 1 back. mg2 20:52 Patient transferred, IV remains in place. ak1 Administered Medications: 11:54 Drug: NS 0.9% 1000 ml Route: IV; Rate: 1000 ml; Site: PICC; sg 19:39 Follow up: IV Status: Completed infusion ak1 11:54 Drug: Magnesium Sulfate 1 grams Route: IVPB; Infused Over: 1 hrs; Site: PICC; sg 12:56 Follow up: Response: No adverse reaction; IV Status: Completed infusion sg 13:04 Drug: ProTONIX 40 mg Route: IVP; Site: PICC; sg 14:32 Follow up: Response: No adverse reaction sg 14:20 Drug: ProTONIX 8 mg/hr Route: IV; Rate: 25 ml/hr; Site: PICC; sg 20:55 Follow up: IV Status: Infusion continued upon transfer ak1 19:38 Drug: Zofran 4 mg Route: IVP; Site: PICC; ak1 20:53 Follow up: Response: No adverse reaction ak1 19:39 Drug: morphine 4 mg Route: IVP; Site: PICC; ak1 20:53 Follow up: Response: No adverse reaction ak1 Point of Care Testing: Blood Glucose: 10:18 Blood Glucose: 164 mg/dL; sv Ranges: Outcome: 16:11 ER care complete, transfer ordered by . pm1 20:51 Transferred by ground EMS to [facility], Transfer form completed. ak1 X-rays sent w/ patient. Note: Debra PAGAN for room 739. 20:51 Condition: stable 20:51 Instructed on the need for transfer. 21:37 Transferred Note: report given to EMS. pt left with protonix drip running at jd3 25ml/hr. 21:38 Patient left the ED. jd3 Signatures: Dispatcher [employer] EDKeeley Pisano RN RN sv Gay, Steven, RN RN sg Chavo Shannon jb2 Codey Garza Susan sj Smirch, Shelby, RN RN ss Charlotte May RN RN ak1 Sarath Vizcaino, [employer]NALI ENVIRONMENTAL MAINTENANCE WORKER pm1 Gary Baeur RN RN jd3 Botello, Elizabeth eb Gardose, Michele, RN RN mg2 Teague, Danielle dt2 Corrections: (The following items were deleted from the chart) 10:32 10:18 Allergies: Morphine; ss ss 15:30 14:58 BP 114 / 52; Pulse 84bpm; Resp 85bpm; Spontaneous; Pulse Ox 100% RA; sg sg
[2017-12-08] MEDS ORDERED: ONDANSETRON 4 MG/2 ML VIAL ONE ×2 (18:26→19:25)
[2017-12-08] MEDS ORDERED: MORPHINE 4 MG/ML SYR ONE (19:25)
[2017-12-08 20:04] LABS: Hematocrit 26.3 % (36.0-45.0)
[2017-12-08 22:39] VITALS: O2SAT 100
[2017-12-08 22:48] VITALS: TEMP 98.6
[2017-12-08 22:49] VITALS: BP 113/59
== END 2017-12-08 21:38 | disposition short-term general hospital (02) ==
LOC: ER 10:11
PROC: 30233N1 Transfusion of Nonautologous Red Blood Cells into Peripheral Vein, Percutaneous Approach (ICD-10-PCS; principal; 2017-12-08)
DX: K92.2 Gastrointestinal hemorrhage, unspecified (principal); I10 Essential (primary) hypertension; Z85.53 Personal history of malignant neoplasm of renal pelvis; Z85.118 Personal history of other malignant neoplasm of bronchus and lung; Z90.5 Acquired absence of kidney
CPT/HCPCS: 36415; 36430; 51702; 71045; 74177; 80048; 80076; 82150; 82550; 82553; 82962; 83605; 83690; 83735; 83880; 84145; 84484; 85014; 85018; 85025; 85610; 85652; 85730; 86140; 86850; 86900; 86901; 87040 ×2; 87086; 87088; 87205; 93005; 96361; 96365; 96366; 96367; 96375; 99285; C9113 ×2; J2405 ×2; J3475; J7030; P9016 ×2; Q9967; 81003; 81015

== ENCOUNTER 2017-12-22 14:46 | Emergency (ER) | payer OTHER ==
--- OUTSIDE RECORDS SUMMARY | 2017-12-22 14:50 | XMS REPORT | Clinical Summary ---
:1960 Author Organization [facility] Address [address] [place] [address] Phone Care Team Providers Name Role Phone [...] by 8 tablet mouth daily with breakfast. cefTRIAXone Inject 1 g 1 each 0 01/06/20 Active (ROCEPHIN) intravenously 8 18 injection 1 g every 12 (twelve) hours for 32 days. fluticasone 1 spray by Nasal 9.9 mL 0 12/06/19 Active (FLONASE) 50 route daily. 8 19 mcg/actuation nasal spray nystatin Apply topically 2 15 g 0 12/05/19 Active (MYCOSTATIN) (two) times 8 19 100,000 unit/gram daily. powder senna (SENOKOT) 8.6 Take 2 tablets 120 tablet 0 01/04/20 Active mg tablet (17.2 mg total) 8 18 by mouth 2 (two) times daily for 30 days. acetaminophen Take 2 tablets 30 tablet 0 01/21/20 Active (TYLENOL) 325 MG (650 mg total) by 8 18 tablet mouth every 6 (six) hours as needed for Pain or Fever for up to 30 days. simethicone Take 1 tablet (80 30 tablet 0 01/01/20 Active (MYLICON) 80 MG mg total) by 8 18 chewable tablet mouth every 6 (six) hours as needed for Flatulence (Bloating) for up to 10 days. docusate sodium Take 1 capsule 90 capsule 0 01/21/20 Active (COLACE) 100 MG (100 mg total) by 8 18 capsule mouth 3 (three) times daily for 30 days. pantoprazole Take 1 tablet (40 30 tablet 0 01/21/20 Active (PROTONIX) 40 MG mg total) by 8 18 tablet mouth daily for 30 days. dexamethasone Take 4 mg by 10/31/19 [...] 10 days. Max Daily Amount: 8 tablets aluminum & Take 30 mLs by 355 mL 0 12/22/19 Discontinued magnesium mouth every 6 8 18 hydroxide-simethico (six) hours as ne (MAALOX PLUS) needed for up to 400-400-40 mg/5 mL 10 days. suspension diazePAM (VALIUM) 2 Take 1 tablet (2 30 tablet 0 12/22/19 Discontinued MG tablet mg total) by 8 18 mouth every 8 (eight) hours as needed for Anxiety for up to 10 days. Max Daily Amount: 6 mg docusate sodium Take 1 capsule 10 capsule 0 12/22/19 Discontinued (COLACE) 100 MG (100 mg total) by 8 18 capsule mouth 3 (three) times daily for 10 days. guaiFENesin Take 1 tablet 20 tablet 0 12/22/19 Discontinued (MUCINEX) 600 mg 12 (600 mg total) by 8 18 hr tablet mouth 2 (two) times daily for 10 days. ipratropium-albuter Take 3 mLs by 360 mL 0 12/22/19 Discontinued ol (DUO-NEB) 0.5 nebulization 8 18 mg-3 mg(2.5 mg every 6 (six) base)/3 mL hours for 360 nebulizer solution days. oxyCODONE-acetamino Take 2 tablets by 30 tablet 0 12/22/19 Discontinued phen (PERCOCET) mouth every 6 8 18 5-325 mg per tablet (six) hours as needed (moderate pain) for up to 10 days. Max Daily Amount: 8 tablets pantoprazole Take 1 tablet (40 30 tablet 0 12/22/19 Discontinued (PROTONIX) 40 MG mg total) by 8 18 tablet mouth daily for 30 days. polyethylene glycol Take 17 g by 170 g 0 12/22/19 Discontinued (GLYCOLAX) 17 gram mouth daily for 8 18 packet 10 days. simethicone Take 1 tablet (80 30 tablet 0 12/22/19 Discontinued (MYLICON) 80 MG mg total) by 8 18 chewable tablet mouth every 6 (six) hours as needed for Flatulence (Bloating) for up to 10 days. Active Problems Problem Noted Date Oral bleeding 12/10/2017 Oral mass 12/09/2017 Acute blood loss anemia 12/09/2017 Shortness of breath 11/27/2017 Normocytic anemia 11/27/2017 [...] Encounters Date Type Specialty Care Team Description 12/19/2017 Anesthesia Event Soledad Bourgeois MD 12/19/2017 Procedure Pass 12/19/2017 Surgery Beau Castillo PROCEDURE SKIP Pires MD OUTSIDE OR 12/08/2017 - Hospital Encounter General Internal Sundeep Valle Hypertension, 12/21/2017 Medicine MD Hawk essential (Primary Saul Spivey Dx);Metastatic MD Isaac cancer to spine [facility] [place] ([facility]);Caron Cao MD infection;Radiculopa thy of lumbar region;Renal cell carcinoma, unspecified laterality (HCC);Acute blood loss anemia;Melena;Oral mass;PEG (percutaneous endoscopic gastrostomy) status (HCC);Hypokalemia;Hy pomagnesemia 11/26/2017 Orders Only General Internal Medicine 11/23/2017 Anesthesia Event Narayan Castillo CRNA 11/23/2017 Procedure Pass 11/23/2017 Surgery Pablo Ga LAMINROBIN MATUTE MD 11/22/2017 - Hospital Encounter General Internal Pablo Ga Acute mechanical low 12/04/2017 Nuria Navarro MD back pain, duration Gia Tran MD < 6 weeks (Primary Luci Esquivel MD Dx);Infection of Khushboo Bryson MD lumbar spine ([facility]);Closed compression fracture of third lumbar vertebra, initial encounter (HCC);Mass of spine;Renal cell carcinoma, unspecified laterality (HCC);Shortness of breath;Acute respiratory insufficiency;Chest pain, unspecified type;Metastatic cancer to spine (HCC);Normocytic anemia;Obesity (BMI 30.0-34.9);Proteus infection;Hypertensi on, essential 10/26/2017 Procedure Pass 10/26/2017 Surgery Pablo Ga LAMINECTOMY,LUMBAR MD Melanie TUMOR/CYST DECOMPRESSION 10/25/2017 Anesthesia Event Alisson Gramajo, VERONICA 10/25/2017 Anesthesia Event Raad Landaverde MD 10/25/2017 Procedure Pass 10/25/2017 Surgery Virtual, Surgeon PROCEDURE DONE OUTSIDE OR 10/23/2017 - Hospital Encounter General Internal Pablo Ga mechanical low 10/30/2017 Medicine MD Melanie back pain, duration < 6 weeks;Closed compression fracture of third lumbar vertebra, initial encounter (HCC);Metastatic cancer to spine (HCC) after 12/21/2016 Social History Tobacco Use Types Packs/Day Years Used Date Never Smoker Smokeless Tobacco: Never Used Sex Assigned at Date Recorded Not on file Last Filed Vital Signs Vital Sign Reading Time Taken Blood Pressure 121/58 12/21/2017 8:10 PM CDT Pulse 74 12/21/2017 8:10 PM CDT Temperature 37.1 C (98.7 F) 12/21/2017 8:10 PM CDT Respiratory Rate 18 12/21/2017 8:10 PM CDT Oxygen Saturation 95% 12/21/2017 3:16 PM CDT Inhaled Oxygen Concentration - - Weight 100.7 kg (222 lb) 11/23/2017 1:20 AM CDT Height 170.7 cm (5' 7.2") 11/23/2017 1:20 AM CDT Body Mass Index 34.56 11/23/2017 1:20 AM CDT Plan of Treatment Not on file Implants Implanted Type Area Press Machine Feeder Device Expiration Model / Serial / Identifier Date Lot Graft Bone Orthoblend 10cc [id number] - [id number] Bone N/A: MEDTRONIC:SPINAL 06/14/2019 [id number] / Implanted: Qty: 1 on 10/26/2017 by Pablo Ga MD Spine GRAFT [id number] / Lumbar Bone Grft Orthoblend 5cc - [id number] Bone N/A: MEDTRONIC:SPINAL 04/20 [id number] / Implanted: Qty: 1 on 10/26/2017 by Pablo Ga MD Spine GRAFT [id number] / Lumbar Bone Chip Canc 1.7-10mm 30ml [id number] - [id number] Bone N/A: MUSCULOSKELETAL 07/29/2020 [id number] / Implanted: Qty: 1 on 10/26/2017 by Pablo Ga MD Spine TRANSPLANT FND [id number] / Lumbar Flseal Vhsd Full Strlprep 10ml [id number] - [id number] Cement/ N/A: PRETTY: NIKO 02/13/2019 [id number] / Implanted: Qty: 1 on 10/26/2017 by Pablo Ga MD Filler/ Spine / Adhesiv Lumbar [id number] e Cement Bone Kyphx Hv-R C01a - [id number] Cement/ N/A: MEDTRONIC:SPINAL C01A / Implanted: Qty: 1 on 10/26/2017 by Pablo Ga MD Filler/ Spine BIOLOGICS / Adhesiv Lumbar [id number] e Cement Ktmx Kyphx Hv-R C01b - [id number] Cement/ N/A: MEDTRONIC:SPINAL C01B / Implanted: Qty: 1 on 10/26/2017 by Pablo Ga MD Filler/ Spine BIOLOGICS / Adhesiv Lumbar [id number] e Cath Exp 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 [employer] 12.5cmx [id number] - [id number] Pain N/A: COLT 01/03/2020 [id number] / Implanted: Qty: 2 on 10/26/2017 by Pablo Ga MD [facility]St Spine / imulato Lumbar [id number] r Scr Mas Cc 6.5x30cc [id number] - [id number] Spine N/A: MEDTRONIC:SPINAL [id number] / Implanted: Qty: 1 on 10/26/2017 by Pablo Ga MD Spine BIOLOGICS / Lumbar [id number] Scr Set Ti Ns Brk Off 5.5 [id number] - [id number] Spine N/A: MEDTRONIC:SPINAL [id number] / Implanted: Qty: 5 on 10/26/2017 by Pablo Ga MD Spine BIOLOGICS / Lumbar [id number] 60mm Kurtis N/A: MEDTRONIC [id number] / Implanted: Qty: 2 on 10/26/2017 by Pablo Ga MD Spine / Lumbar [id number] 7.5 X 45 Mm Fenestrated Screw N/A: MEDTRONIC [id number] / Implanted: Qty: 2 on 10/26/2017 by Pablo Ga MD Spine / Lumbar [id number] 7.5 X 50 Mm Fenestrated Screw N/A: MEDTRONIC [id number] / Implanted: Qty: 2 on 10/26/2017 by Pablo Ga MD Spine / Lumbar [id number] Explanted Type Area Press Machine Feeder Device Expiration Model / Serial Identifier Date / Lot 7.5 X 50 Mm Fenestrated Screw N/A: Spine MEDTRONIC [id number] / Explanted: Qty: 1 on 10/26/2017 by Pablo Ga MD Lumbar / [id number] Procedures Procedure Name Priority Date/Time Associated Diagnosis Comments PROCEDURE DONE OUTSIDE 12/19/2017 2:00 PM Oral mass OR CDT CLOSURE,WOUND TORSO 11/23/2017 1:30 PM Infection of [...] CDT 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 Component Value Ref Range POC-Glucose Meter 192 (H)Comment: TESTED AT [address] 70 - 110 mg/[place] [address] Specimen Performing Laboratory Blood [address] [address] Hemoglobin and hematocrit (12/21/2017 2:38 PM)Only the most recent of6 resultswithin the time period is included. Component Value Ref Range Hemoglobin 8.9 (L) 11.2 - 15.7 GM/DL Hematocrit 30.4 (L) 34.1 - 44.9 % Specimen Performing Laboratory Blood [address] [address] Narrative Call if hemoglobin less than or equal to 6 [id number] Magnesium (12/21/2017 6:31 AM)Only the most recent of10 resultswithin the time period is included. Component Value Ref Range Magnesium 1.7 1.6 - 2.6 mg/dL Specimen Performing Laboratory Blood - Line, Venous [address] [address] Basic Metabolic Panel (12/21/2017 6:31 AM)Only the most recent of17 resultswithin the time period is included. Component Value Ref Range Sodium 137 136 - 145 meq/L Potassium 4.4 3.5 - 5.1 meq/L Chloride 98 98 - 107 meq/L CO2 30 (H) 22 - 29 meq/L BUN 13 7 - 21 mg/dL Creatinine 0.67 0.57 - 1.25 mg/dL Glucose 152 (H) 70 - 105 mg/dL Calcium 10.4 (H) 8.4 - 10.2 mg/dL EGFR 91Comment: ESTIMATED GFR IS NOT ACCURATE mL/min/1.73 sq m CREATININE CLEARANCE IN PREDICTING GLOMERULAR FILTRATION RATE. ESTIMATED GFR IS NOT APPLICABLE FOR DIALYSIS PATIENTS. Specimen Performing Laboratory Blood - Line, Venous [facility] [address] [address] TRANSFUSION SERVICE REPORT - SCAN (12/20/2017 6:02 PM)Only the most recent of8 resultswithin the time period is included.Prepare Leuko-Red RBC (12/19/2017 11: 54 PM)Only the most recent of2 resultswithin the time period is included. Component Value Ref Range CROSSMATCH COMPATIBLE Unit ABO O Pos UNIT NUMBER [id number] Status TRANSFUSED Blood Bank Product RED BLOOD CELLS PRODUCT CODE Q6551R75 CROSSMATCH COMPATIBLE Unit ABO O Pos UNIT NUMBER [id number] Status TRANSFUSED Blood Bank Product RED BLOOD CELLS PRODUCT CODE I1961I77 Specimen Performing Laboratory Other [place] Embolization Extensive (12/19/2017 5:27 PM) Specimen Performing Laboratory GE RIS Narrative FINAL REPORT DATE OF SERVICE: 12/19/2017 SURGEON: Beau Castillo M.D. SANDING SUPERVISOR: Maribell Leonardo M.D. 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 She is now developed a left palate metastasis is quite large, painful and has had recurrent bleeding causing symptomatic anemia. The neurology team and deemed to be nonoperative and has requested us to attempt embolization of the mass. PROCEDURE:Following explanation of the benefits, risks and alternatives for the procedure, informed consent was obtained from the patient.The risks including but not limited to stroke, intracranial hemorrhage, vascular injury to the cervical or femoral vessels and groin hematoma were discussed.A time-out was performed. The right groin was prepped in the usual sterile fashion using Chloroprep, and sterilely draped. A single wall puncture of the right femoral artery was performed and a 6 Gibraltarian short sheath was inserted into the right common femoral artery and maintained on heparinized flush. Using coaxial technique a 4 Gibraltarian VTK catheter was advanced into the descending aorta then into the aortic arch, and with the aid of the roadmapping, digital fluoroscopy, and careful guidewire manipulation the: Right common carotid, right internal carotid, left common carotid, left internal carotid, left subclavian, and left vertebral arteries were catheterized.Upon each successive selective catheterization, digital subtraction angiography using the appropriate rate and volume of contrast in multiple projections was performed. FINDINGS: RIGHT COMMON FEMORAL ARTERY (DSA - PA, LATERAL - ILIAC) The sheath enters above the femoral bifurcation. The femoral artery and bifurcation are widely patent without evidence of ulceration or stenosis. RIGHT COMMON CAROTID ARTERY (DSA - PA, LATERAL - CERVICAL) The origins of the right internal and external carotid arteries are widely patent without evidence of ulceration or stenosis. Visualized branches of the external carotid artery have a normal course and appearance. RIGHT COMMON CAROTID ARTERY (DSA - PA, LATERAL -SKULL BASE) There is a medium size posterior communicating artery. The visualized portions of the external carotid artery and its branches are normal without evidence of ulceration or stenosis. There is no evidence of arteriovenous shunting. The venous phase is normal. No contributions are seen to the previously noted tumor. The course of the internal carotid artery appears normal as well as its distal branches. LEFT COMMON CAROTID ARTERY (DSA - PA, LATERAL - CERVICAL) The origins of the left internal and external carotid arteries are widely patent without evidence of ulceration or stenosis. The distal branch of the internal maxillary artery is seen to be feeding the tumor in the region of the left palate. LEFT EXTERNAL CAROTID ARTERY (DSA - PA, LATERAL - HEAD, FACE/SKULL BASE) Course the internal carotid artery in the skull base and its distal branches is partially visualized via reflux. It appears normal and there is no abnormal arteriovenous shunting nor major stenotic lesions. The distal superficial branches of the external carotid artery including the superficial temporal artery and occipital artery have normal course and appearance the ascending pharyngeal artery is also visualized as well as the middle meningeal artery which also both have a normal course and appearance. The distal internal maxillary artery ends in the normal hair pin turn which gives rise to medially directed sphenopalatine artery and inferiorly directed greater palatine artery, buccal artery, and posterior superior alveolar artery. Although there are some arterial overlaps, the large circular tumor blush appears to be fed by the greater palatine artery. LEFT INTERNAL MAXILLARY ARTERY (DSA - PA, LATERAL - HEAD, FACE/SKULL BASE) A large tumor blush is seen with pedicles arising from the greater palatine artery of the distal internal maxillary artery, measuring 3.5 x 3.9 cm. As noted previously, this appears to be fed by the greater palatine or descending palatine artery. No arteriovenous shunting is noted and there are no abnormal extracranial to intracranial anastomoses that appear concerning. ENDOVASCULAR TREATMENT: Based on previous discussion with the ENT team and identification of the arterial blush correlating with the identified tumor, we decided to proceed with embolization via the greater palatine artery. Multiple microcatheters and microwires were used to attempt superselection of this artery. Due to the tortuous 180 degree turn of the distal internal maxillary artery prior to the origin of the GPA, ultimately we proceeded with embolization just proximal to this. The Synchro standard microwire, [place] 14 microcatheter, polyp microcatheter, and [place] XT 27 microcatheter were used to attempt catheterization. Ultimately, the artery was selected with a Synchro 10 microwire and an [place] 10 microcatheter. Embolization was then commenced using a clean field with 150-250 um contour embolization particles. At least 10 cc of this mixture of contrast and particles was used. Continuous fluoroscopy was used and no significant reflux was noted. Heparinized saline was then used to flush out the catheter distally. Following this, the microcatheter and all materialsthat had contacted particles were discarded. A selective injection of the external carotid artery confirmed satisfactory embolization with no distal filling of the previously visualized tumor. Injection of the distal common carotid artery confirmed the same. Whole head PA and lateral angiogram demonstrated no untoward findings and wide patency of all of the afferent and efferent vessels. There was no untoward thromboembolic lesions in the intracranial circulation. The femoral sheath was withdrawn and hemostasis was achieved with an Angio-Seal closure device. SUPERVISION AND INTERPRETATION: Angiographic study demonstrates: 1. Tumor blush from the known left palate mass fed by distal branches of the left internal maxillary artery 2. Successful particle embolization of the left palate mass 3. No immediate technical or clinical complications. Signed: Beau Castillo MD Report Verified Date/Time:12/21/2017 07:59:13 Reading [facility] Procedure Note Interface, External Ris In - 12/21/2017 8:01 AM CDT FINAL REPORT DATE OF SERVICE: 12/19/2017 SURGEON: Beau Castillo M.D. SANDING SUPERVISOR: Maribell Leonardo M.D. 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 She is now developed a left palate metastasis is quite large, painful and has had recurrent bleeding causing symptomatic anemia. The neurology team and deemed to be nonoperative and has requested us to attempt embolization of the mass. PROCEDURE: Following explanation of the benefits, risks and alternatives for the procedure, informed consent was obtained from the patient. The risks including but not limited to stroke, intracranial hemorrhage, vascular injury to the cervical or femoral vessels and groin hematoma were discussed. A time-out was performed. The right groin was prepped in the usual sterile fashion using Chloroprep, and sterilely draped. A single wall puncture of the right femoral artery was performed and a 6 Gib[place] short sheath was inserted into the right common femoral artery and maintained on heparinized flush. Using coaxial technique a 4 Gib[place] VTK catheter was advanced into the descending aorta then into the aortic arch, and with the aid of the roadmapping, digital fluoroscopy, and careful guidewire manipulation the: Right common carotid, right internal carotid, left common carotid, left internal carotid, left subclavian, and left vertebral arteries were catheterized. Upon each successive selective catheterization, digital subtraction angiography using the appropriate rate and volume of contrast in multiple projections was performed. FINDINGS: RIGHT COMMON FEMORAL ARTERY (DSA - PA, LATERAL - ILIAC) The sheath enters above the femoral bifurcation. The femoral artery and bifurcation are widely patent without evidence of ulceration or stenosis. RIGHT COMMON CAROTID ARTERY (DSA - PA, LATERAL - CERVICAL) The origins of the right internal and external carotid arteries are widely patent without evidence of ulceration or stenosis. Visualized branches of the external carotid artery have a normal course and appearance. RIGHT COMMON CAROTID ARTERY (DSA - PA, LATERAL -SKULL BASE) There is a medium size posterior communicating artery. The visualized portions of the external carotid artery and its branches are normal without evidence of ulceration or stenosis. There is no evidence of arteriovenous shunting. The venous phase is normal. No contributions are seen to the previously noted tumor. The course of the internal carotid artery appears normal as well as its distal branches. LEFT COMMON CAROTID ARTERY (DSA - PA, LATERAL - CERVICAL) The origins of the left internal and external carotid arteries are widely patent without evidence of ulceration or stenosis. The distal branch of the internal maxillary artery is seen to be feeding the tumor in the region of the left palate. LEFT EXTERNAL CAROTID ARTERY (DSA - PA, LATERAL - HEAD, FACE/SKULL BASE) Course the internal carotid artery in the skull base and its distal branches is partially visualized via reflux. It appears normal and there is no abnormal arteriovenous shunting nor major stenotic lesions. The distal superficial branches of the external carotid artery including the superficial temporal artery and occipital artery have normal course and appearance the ascending pharyngeal artery is also visualized as well as the middle meningeal artery which also both have a normal course and appearance. The distal internal maxillary artery ends in the normal hair pin turn which gives rise to medially directed sphenopalatine artery and inferiorly directed greater palatine artery, buccal artery, and posterior superior alveolar artery. Although there are some arterial overlaps, the large circular tumor blush appears to be fed by the greater palatine artery. LEFT INTERNAL MAXILLARY ARTERY (DSA - PA, LATERAL - HEAD, FACE/SKULL BASE) A large tumor blush is seen with pedicles arising from the greater palatine artery of the distal internal maxillary artery, measuring 3.5 x 3.9 cm. As noted previously, this appears to be fed by the greater palatine or descending palatine artery. No arteriovenous shunting is noted and there are no abnormal extracranial to intracranial anastomoses that appear concerning. ENDOVASCULAR TREATMENT: Based on previous discussion with the ENT team and identification of the arterial blush correlating with the identified tumor, we decided to proceed with embolization via the greater palatine artery. Multiple microcatheters and microwires were used to attempt superselection of this artery. Due to the tortuous 180 degree turn of the distal internal maxillary artery prior to the origin of the GPA, ultimately we proceeded with embolization just proximal to this. The Synchro standard microwire, [place] 14 microcatheter, polyp microcatheter, and [place] XT 27 microcatheter were used to attempt catheterization. Ultimately, the artery was selected with a Synchro 10 microwire and an [place] 10 microcatheter. Embolization was then commenced using a clean field with 150-250 um contour embolization particles. At least 10 cc of this mixture of contrast and particles was used. Continuous fluoroscopy was used and no significant reflux was noted. Heparinized saline was then used to flush out the catheter distally. Following this, the microcatheter and all materials that had contacted particles were discarded. A selective injection of the external carotid artery confirmed satisfactory embolization with no distal filling of the previously visualized tumor. Injection of the distal common carotid artery confirmed the same. Whole head PA and lateral angiogram demonstrated no untoward findings and wide patency of all of the afferent and efferent vessels. There was no untoward thromboembolic lesions in the intracranial circulation. The femoral sheath was withdrawn and hemostasis was achieved with an Angio-Seal closure device. SUPERVISION AND INTERPRETATION: Angiographic study demonstrates: 1. Tumor blush from the known left palate mass fed by distal branches of the left internal maxillary artery 2. Successful particle embolization of the left palate mass 3. No immediate technical or clinical complications. Signed: Beau Castillo MD Report Verified Date/Time: 12/21/2017 07:59:13 Reading Location: [place] [address] Neuro Angio Reading Room /aPTT (12/19/2017 7:39 AM)Only the most recent of4 resultswithin the time period is included. Component Value Ref Range Protime 15.9 (H) 11.7 - 14.7 seconds INR 1.3 <=5.9 PTT 32.2 22.5 - 36.0 seconds Specimen Performing Laboratory Blood - Central [place] [address] Narrative RECOMMENDED COUMADIN/WARFARIN INR THERAPY RANGES STANDARD DOSE: 2.0 - 3.0 Includes: PROPHYLAXIS for venous thrombosis, systemic embolization; TREATMENT for venous thrombosis and/or pulmonary embolus. HIGH RISK: Target INR is 2.5-3.5 for patients with mechanical heart valves. CBC with platelet count + automated diff (12/19/2017 7:39 AM)Only the most recent of17 resultswithin the time period is included. Component Value Ref Range WBC 10.5 3.5 - 10.5 K/L RBC 3.69 (L) 3.93 - 5.22 M/L Hemoglobin 9.9 (L) 11.2 - 15.7 GM/DL Hematocrit 33.0 (L) 34.1 - 44.9 % MCV 89.4 79.4 - 94.8 fL MCH 26.8 25.6 - 32.2 pg MCHC 30.0 (L) 32.2 - 35.5 GM/DL RDW 16.4 (H) 11.7 - 14.4 % Platelets 445 150 - 450 K/CU MM MPV 8.2 (L) 9.4 - 12.3 fL nRBC 1 (H) 0 - 0 /100 WBC % Neutros 74 % % Lymphs 12 % % Monos 9 % % Eos 0 % % Baso 0 % # Neutros 7.78 (H) 1.56 - 6.13 K/L # Lymphs 1.26 1.18 - 3.74 K/L # Monos 0.97 (H) 0.24 - 0.36 K/L # Eos 0.01 (L) 0.04 - 0.36 K/L # Baso 0.03 0.01 - 0.08 K/L Immature Granulocytes-Relative 4 (H) 0 - 1 % Specimen Performing Laboratory Blood - Central Venous Line [address] [address] CBC with platelet count + automated diff (12/19/2017 7:39 AM)Only the most recent of17 resultswithin the time period is included. Specimen Performing Laboratory Blood Narrative The following orders were created for panel order CBC with platelet count + automated diff. Procedure Abnormality Status --------- ------ CBC with platelet count ...[[id number]]AbnormalFinal result Please view results for these tests on the individual orders. Transfuse Leuko-Red RBC (12/19/2017 12:13 AM)Only the most recent of5 resultswithin the time period is included.Type and screen, automated (2017 2:03 PM)Only the most recent of5 resultswithin the time period is included. Component Value Ref Range ABO/RH AUTOMATED (BEAKER) O POSITIVE Ab Scrn NEGATIVE Specimen Performing Laboratory Blood [address] [address] Comprehensive metabolic panel (12/16/2017 5:41 AM)Only the most recent of10 resultswithin the time period is included. Component Value Ref Range Protein, Total 5.8 (L) 6.0 - 8.3 gm/dL Albumin 2.4 (L) 3.5 - 5.0 g/dL Alkaline Phosphatase 158 (H) 40 - 150 U/L Total Bilirubin 0.2 0.2 - 1.2 mg/dL Sodium 140 136 - 145 meq/L Potassium 4.1 3.5 - 5.1 meq/L Chloride 101 98 - 107 meq/L CO2 27 22 - 29 meq/L BUN 15 7 - 21 mg/dL Creatinine 0.60 0.57 - 1.25 mg/dL Glucose 124 (H) 70 - 105 mg/dL Calcium 9.1 8.4 - 10.2 mg/dL AST 46 (H) 5 - 34 U/L ALT 24 6 - 55 U/L EGFR 103Comment: ESTIMATED GFR IS NOT ACCURATE mL/min/1.73 sq m CREATININE CLEARANCE IN PREDICTING GLOMERULAR FILTRATION RATE. ESTIMATED GFR IS NOT APPLICABLE FOR DIALYSIS PATIENTS. Specimen Performing Laboratory Blood [facility] [address] [address] IR G-Tube Insertion w/Fluoro (12/13/2017 6:00 PM) Specimen Performing Laboratory [facility] Narrative FINAL REPORT Fluoroscopic guided gastrostomy tube placement. Clinical History: Gastrostomy tube placement, oral mass. Modality: Fluoroscopy. Staff:Eriberto Smart MD. Fellow: Wallace Michael DO Corporate Accountant:None. SEDATION: Moderate sedation was administered 2 mg of Versed and 100 mcg of fentanyl IV was used for moderate sedation monitored under my direction. Total intraservice time of sedation was 30 minutes. The patient's vital signs were monitored throughout the procedure and recorded in the patient's medical record by the nurse sedation. Other medication: Glucagon 1 mg IV. Estimated Blood Loss:Less than 1 cc. Specimen: None. Reference air kerma (Ka, r): 53.8 mGy Fluoroscopy time: 2.8 min Technique: Informed written consent was obtained. Discussion of risks, benefits, and alternatives were made with the patient. The patient expressed understanding and agreed to proceed.A universal timeout was performed prior to starting the procedure.All elements maximal sterile barrier technique was utilized for this procedure, including utilization of sterile scrub solution for skin prep, a large sterile sheet to cover the areas of the patient that were not prepped, and hand hygiene, mask, head covering, and sterile gown for performing radiologist and scrub technologist. Local anesthesia was achieved with 2% lidocaine, the stomach was insufflated with air via the NG tube. A gastropexy anchor was placed under fluoroscopic guidance. Contrast injection confirmed intraluminal placement. This was deployed. A 19-gauge needle was advanced into the mid-body of the stomach under fluoroscopic guidance. Aspiration of air and injection of contrast confirmed positioning within the stomach. An Amplatz wire was advanced through the needle and curled within the fundus. After a small skin incision was made, the soft tissue tract was created with serial dilators. After the tract was dilated, a 14 Gibraltarian catheter was placed into the stomach. The wire was then removed, and the pigtail of the catheter was locked.The catheter was then secured onto the skin with 2-0 silk. The patient tolerated the procedure well, without immediate complications. The patient's vital signs remained stable throughout the procedure. Patient disposition: The patient was discharged from the department in stable condition. Impression: Successful and uncomplicated fluoroscopic guided gastrostomy tube placement, with conscious sedation. Signed: Eriberto Smart MD Report Verified Date/Time:12/14/2017 11:42:41 Reading Location: [place] [address] Angio Body Reading Room Procedure Note Interface, External Ris In - 12/14/2017 11:44 AM CDT FINAL REPORT Fluoroscopic guided gastrostomy tube placement. Clinical History: Gastrostomy tube placement, oral mass. Modality: Fluoroscopy. Staff: Eriberto Smart MD. Fellow: Wallace Michael DO Corporate Accountant: None. SEDATION: Moderate sedation was administered 2 mg of Versed and 100 mcg of fentanyl IV was used for moderate sedation monitored under my direction. Total intraservice time of sedation was 30 minutes. The patient's vital signs were monitored throughout the procedure and recorded in the patient's medical record by the nurse sedation. Other medication: Glucagon 1 mg IV. Estimated Blood Loss: Less than 1 cc. Specimen: None. Reference air kerma (Ka, r): 53.8 mGy Fluoroscopy time: 2.8 min Technique: Informed written consent was obtained. Discussion of risks, benefits, and alternatives were made with the patient. The patient expressed understanding and agreed to proceed. A universal timeout was performed prior to starting the procedure. All elements maximal sterile barrier technique was utilized for this procedure, including utilization of sterile scrub solution for skin prep, a large sterile sheet to cover the areas of the patient that were not prepped, and hand hygiene, mask, head covering, and sterile gown for performing radiologist and scrub technologist. Local anesthesia was achieved with 2% lidocaine, the stomach was insufflated with air via the NG tube. A gastropexy anchor was placed under fluoroscopic guidance. Contrast injection confirmed intraluminal placement. This was deployed. A 19-gauge needle was advanced into the mid-body of the stomach under fluoroscopic guidance. Aspiration of air and injection of contrast confirmed positioning within the stomach. An Amplatz wire was advanced through the needle and curled within the fundus. After a small skin incision was made, the soft tissue tract was created with serial dilators. After the tract was dilated, a 14 Gibraltarian catheter was placed into the stomach. The wire was then removed, and the pigtail of the catheter was locked. The catheter was then secured onto the skin with 2-0 silk. The patient tolerated the procedure well, without immediate complications. The patient's vital signs remained stable throughout the procedure. Patient disposition: The patient was discharged from the department in stable condition. Impression: Successful and uncomplicated fluoroscopic guided gastrostomy tube placement, with conscious sedation. Signed: Eriberto Smart MD Report Verified Date/Time: 12/14/2017 11:42:41 Reading Location: [place] [address] Angio Body Reading Room Lactic acid, venous, whole blood (12/11/2017 5:02 PM)Only the most recent of2 resultswithin the time period is included. Component Value Ref Range Lactate, Venous 1.6 0.5 - 2.2 mmol/L Specimen Performing [place] [address] Narrative Effective 10/28/2015: Units/Reference Range Change New: 0.5-2.2 mmol/LPrevious: 5-20 mg/dL Tissue Exam (12/11/2017 11:40 AM)Only the most recent of2 resultswithin the time period is included. Component Value Ref Range Case Report Surgical Pathology Report Case: [id number] Authorizing Provider:Bryant Ellsworth MD Collected: 12/11/2017 1140 Ordering Location: [address] Received: 12/11/2017 1140 Service Pathologist: Anny Glover MD Specimen:Palate DIAGNOSIS A. PALATE, NOT OTHERWISE SPECIFIED, BIOPSY: -METASTATIC RENAL CELL CARCINOMA (SEE COMMENT) Signing Pathologist Direct Phone Line: [phone] COMMENT Patient's prior history of renal cell carcinoma is noted. Immunostain for PAX-8 is positive supporting the above diagnosis. CPT Code(s) 09751 10953 CLINICAL HISTORY Not stated SPECIMEN SOURCE Palate biopsy GROSS DESCRIPTION Received fresh labeled "palate mass" is a 0.8 cm in greatest dimension pink-hoffman irregular fragment of soft tissue. The specimen is bisected and entirely submitted in cassette A1. DB/pl SPECIAL STUDIES The following special studies were performed on this case and the interpretation is incorporated in the diagnostic report above: The immunohistochemistry test was developed and its performance characteristics determined by [facility], Pathology Laboratory. It has not been cleared [...] laboratory testing. Specimen Performing Laboratory Tissue [place] [address] CT maxillofacial with IV contrast (12/10/2017 9:00 PM) Specimen Performing Laboratory [place] Narrative Addendum Begins REPORT STATUS:A Addendum: The study was performed with IV contrast. Signed: Kathia Valera MD Report Verified Date/Time:12/18/2017 15:24:04 Reading Location: [address] Consult Reading Room Addendum Ends FINAL REPORT CT face without IV contrast Comparison:None Reason for exam: Left-sided oral cavity mass Discussion: Axial CT imaging of the face was performed with sagittal and coronal reconstruction evaluated with bone and soft tissue windows.. Dose modulation, iterative reconstruction, and/or weight based adjustment of the mA/kV was utilized to reduce the radiation dose to as low as reasonably achievable. There is a hyperdense mass in the lateral left oral cavity region centered at and below the left maxillary alveolar ridge posteriorly. Dimensions are 3.3 x 2.9 cm. Given the location, infiltrative of the retromolar trigone region soft tissues is presumed. I do not see mandible bone destruction. There is bone destruction at the maxillary alveolar ridge. I do not see definitive involvement of the heart palate. I cannot exclude invasion into the lateral aspect of the soft palate. The lesion is definitively anterior to the palatine tonsils which do not appear convincingly involved. Visible intracranial and intraorbital contents are unremarkable. There is mucosal thickening involving the floor of both maxillary sinuses and involving the left sphenoid sinus. On the left, the mucosal thickening is distinctly separate albeit adjacent to an area of enhancing neoplasm extending into the inferior aspect of the maxillary sinus. The remainder of the aerodigestive tract is unremarkable. No gross lymphadenopathy. There are numerous missing teeth. Impressions: A destructive mass of the left maxillary alveolar ridge and retromolar trigone region is present as discussed. 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 Signed: Kathia Valera MD Report Verified Date/Time:12/11/2017 08:17:40 Reading Location: [facility] C013V Neuro Reading Room Procedure Note Interface, External Ris In - 12/18/2017 3:26 PM CDT Addendum Begins REPORT STATUS:A Addendum: The study was performed with IV contrast. Signed: Kathia Valera MD Report Verified Date/Time: 12/18/2017 15:24:04 Reading Location: [facility] C013W Consult Reading Room Addendum Ends FINAL REPORT CT face without IV contrast Comparison: None Reason for exam: Left-sided oral cavity mass Discussion: Axial CT imaging of the face was performed with sagittal and coronal reconstruction evaluated with bone and soft tissue windows. . Dose modulation, iterative reconstruction, and/or weight based adjustment of the mA/kV was utilized to reduce the radiation dose to as low as reasonably achievable. There is a hyperdense mass in the lateral left oral cavity region centered at and below the left maxillary alveolar ridge posteriorly. Dimensions are 3.3 x 2.9 cm. Given the location, infiltrative of the retromolar trigone region soft tissues is presumed. I do not see mandible bone destruction. There is bone destruction at the maxillary alveolar ridge. I do not see definitive involvement of the heart palate. I cannot exclude invasion into the lateral aspect of the soft palate. The lesion is definitively anterior to the palatine tonsils which do not appear convincingly involved. Visible intracranial and intraorbital contents are unremarkable. There is mucosal thickening involving the floor of both maxillary sinuses and involving the left sphenoid sinus. On the left, the mucosal thickening is distinctly separate albeit adjacent to an area of enhancing neoplasm extending into the inferior aspect of the maxillary sinus. The remainder of the aerodigestive tract is unremarkable. No gross lymphadenopathy. There are numerous missing teeth. Impressions: A destructive mass of the left maxillary alveolar ridge and retromolar trigone region is present as discussed. 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 Signed: Kathia Valera MD Report Verified Date/Time: 12/11/2017 08:17:40 Reading Location: [facility] C013V Neuro Reading Room Prothrombin time/INR (12/09/2017 10:29 AM)Only the most recent of3 resultswithin the time period is included. Component Value Ref Range Protime 16.8 (H) 11.7 - 14.7 seconds INR 1.4 <=5.9 Specimen Performing [place] [address] Narrative RECOMMENDED COUMADIN/WARFARIN INR THERAPY RANGES STANDARD DOSE: 2.0 - 3.0 Includes: PROPHYLAXIS for venous thrombosis, systemic embolization; TREATMENT for venous thrombosis and/or pulmonary embolus. HIGH RISK: Target INR is 2.5-3.5 for patients with mechanical heart valves. CBC (Hemogram only) (12/01/2017 5:39 AM)Only the [...] 0 /100 WBC Specimen Performing Laboratory Blood [address] [address] ECG 12 lead (12/01/2017 12:51 AM)Only the most recent of6 resultswithin the time period is included. Specimen Performing Laboratory GE MUSE Narrative Ventricular Rate 90 BPM Atrial Rate 90 BPM P-R Interval 158 ms QRS Duration 74 ms Q-T Interval 362 ms QTC Calculation(Bazett) 442 ms P Edson 34 degrees R Edson 4 degrees T Edson 33 degrees Normal sinus rhythm Low voltage [...] 362 ms QTC Calculation(Bazett) 442 ms P Edson 34 degrees R Edson 4 degrees T Edson 33 degrees Normal sinus rhythm Low voltage QRS Borderline ECG When compared with ECG of 01-DEC-2017 00:50, No significant change was found Confirmed by MD LAURA, IHAB ([id number]) on 12/01/2017 7:16:02 AM Troponin I (12/01/2017 12:50 AM)Only the most recent of3 resultswithin the time period is included. Component Value Ref Range Troponin I <0.01 0.00 - 0.03 ng/mL Specimen Performing Laboratory Blood [address] [address] Narrative Troponin I (TnI) levels must be [...] <0.50 MG/L FEU Specimen Performing [place] [address] Narrative Intended Use: The D-Dimer Assay can be used to aid in the diagnosis of Deep Vein Thrombosis (DVT) and Pulmonary Embolism Disease (PED). In patients with low pre-test probability, various studies concerning STA Liatest D-dimer test have reported that with a cutoff value of 0.50 MG/L FEU, the Negative Predictive Value (NPV) regarding the exclusion of thrombosis is within 95-100% range. Creatine Kinase (CK), Total and MB (12/01/2017 12:50 AM)Only the most recent of2 resultswithin the time period is included. Component Value Ref Range Total CK 10 (L) 29 - 200 U/L CK-MB 0.4 0.0 - 6.6 ng/mL MB Relative Index 4.0 % Specimen Performing Laboratory Blood [place] [id number] Narrative CK-MB Reference Range: <6.7Normal 6.7-10.0Borderline >10.0 Abnormal XR chest 1 view portable / bedside [...] MD Report Verified Date/Time:12/01/2017 01:07:11 Reading Location: [address] Reading Room Procedure Note Interface, External [...] Signed: JR Wright Robert MD Report Verified Date/Time: 12/01/2017 01:07:11 Reading Location: [address] Reading Room -Lactic Acid, Arterial (12/01/2017 12:37 AM) Component Value Ref Range POC-Lactic Acid, Arterial 1.5 (H)Comment: TESTED AT [place] [address] 0.4 - 1.3 mmol /L [facility] [address] Specimen Performing Laboratory Blood [address] [address] POCT-HEMATOCRIT (12/01/2017 12:31 AM) Component Value Ref Range POC-Hematocrit 25 (L)Comment: TESTED AT [address] [address] 36 - 45 % Specimen Performing Laboratory Blood [address] [address] POCT-HEMOGLOBIN (12/01/2017 12:31 AM) Component Value Ref Range POC-Hemoglobin 8.5 (L)Comment: TESTED AT [address] 12.0 - 15.0 g/dL [place] [id number] AT [address] [address] Specimen Performing Laboratory Blood [address] [address] POCT-GLUCOSE (12/01/2017 12:31 AM) Component Value Ref Range POC-Glucose 162 (H)Comment: TESTED AT [address] 70 - 110 mg/dL [address] Specimen Performing Laboratory Blood [address] [address] POC-Sodium (12/01/2017 12:31 AM) Component Value Ref Range POC-Sodium 135Comment: TESTED AT [place] [address] 135 - 148 meq/L Specimen Performing Laboratory Blood [address] [address] POC-Potassium (12/01/2017 12:31 AM) Component Value Ref Range POC-Potassium 4.2Comment: TESTED AT [address] 3.6 - 5.5 meq/L [facility] Specimen Performing Laboratory Blood [address] [address] POC-Calcium ionized (12/01/2017 12:31 AM) Component Value Ref Range POC-Calcium Ionized 1.22Comment: TESTED AT [address] 1.12 - 1.27 mmol/L [place] [address] Specimen Performing [place] [address] POC-Blood gases, arterial (12/01/2017 12:31 AM) Component Value Ref Range Temp. Celsius-POC 36.3 FIO2-POC 34Comment: TESTED AT [address] [address] pH, Arterial-POC 7.601 (HH) 7.350 - 7.450 PCO2, Arterial-POC 39.0 35.0 - 45.0 mm Hg PO2, Arterial-POC 65.0 (L) 80.0 - 90.0 mm Hg SO2, Arterial-POC 96.0 96.0 - 97.0 % HCO3, Arterilal-POC 38.6 (H) 21.0 - 29.0 meq/L BE, Arterial-POC 17.0 (H) -2.0 - 3.0 meq/L Specimen Performing Laboratory Blood [place] [id number] ECHOCARDIOGRAM REPORT - SCAN (11/30/2017 9:20 AM)2D Echo W/Doppler(CW/PW/Color ) (11/29/2017 10:58 AM) Component Value Ref Range Ejection Fraction Specimen Performing Laboratory [facility] ECHO HEARTLAB MKCKESSON CPACS Narrative Transthoracic Echocardiography Report (TTE) Demographics Patient Name LOTUS PELAEZ Date of Study 11/29/2017 YASMENE [id number] Gender Female Visit Number [id number] RaceUnknown [id number] Number 1838 Number Date 1960 Referring Pablo Ga Physician Age57 year(s) Sap Business Analyst Miguel Angel Nava, NB, RDCS,RVT,RDMS InterpretingJoseines Pitts MD Physician Procedure Type of Study [...] Study 11/29/2017 YASMEEN Gender Female Visit Number [id number] Race Unknown Room Number 1838 Number Date of 1960 Referring Pablo [facility] Physician Age 57 year(s) Sap Business Analyst PADMA Jordan, RDCS,RVT,RDMS Interpreting Jf Pitts MD Physician Procedure Type of Study [...] embolus (11/27/2017 3:14 PM) Specimen Performing Laboratory [place] FINAL REPORT TECHNIQUE: CT scan of the [...] MD Report Verified Date/Time:11/27/2017 16:18:55 Reading Location: [facility] B1 C013Y CT Body Reading Room Procedure Note Interface, [...] Report Verified Date/Time: 11/27/2017 16:18:55 Reading Location: [facility] C013Y CT Body Reading Room B-type Natriuretic Factor (BNP) (11/26/2017 6:36 PM) Component Value Ref Range BNP 420 (H) 0 - 100 pg/mL Specimen Performing Laboratory Blood - Wrist, Left [address] [address] Anaerobic culture (11/23/2017 2:44 PM) Component Value Ref Range Result No anaerobes isolated Specimen Performing Laboratory Wound - Spine, Lumbar [address] [address] Surgically obtained culture + gram stain (11/23/2017 2:44 PM) Component Value Ref Range Result 4+ Proteus mirabilis (A) Gram Stain Result 1+ WBCs Gram Stain Result No organisms seen Specimen Performing Laboratory Wound - Spine, Lumbar [address] [address] Organism Antibiotic Method Susceptibility Proteus mirabilis Amikacin [...] Done Specimen Performing Laboratory Wound - Spine, Lumbar [address] [address] aPTT (11/23/2017 6:55 AM)Only the most recent of2 resultswithin the time period is included. Component Value Ref Range PTT 33.3 22.5 - 36.0 seconds Specimen Performing Laboratory Blood - Arm, Right [address] [address] [address] spine lumbar without IV contrast (11/23/2017 1:14 AM)Only the most recent of2 resultswithin the time period is included. Specimen Performing Laboratory [place] Narrative FINAL REPORT CT thoracic and lumbar [...] MD Report Verified Date/Time:11/23/2017 07:58:55 Reading Location: [facility] C013 Neuro Reading Room Procedure Note Interface, External [...] Report Verified Date/Time: 11/23/2017 07:58:55 Reading Location: [facility] C0[facility] Neuro Reading Room spine thoracic without IV contrast (11/23/2017 1:14 AM) Specimen Performing Laboratory [place] Narrative FINAL REPORT CT thoracic and lumbar [...] MD Report Verified Date/Time:11/23/2017 07:58:55 Reading Location: [address] Neuro Reading Room Procedure Note Interface, External [...] Report Verified Date/Time: 11/23/2017 07:58:55 Reading Location: [facility] C013V Neuro Reading Room Manual Differential (10/28/2017 5:07 AM) Component Value [...] Conc Adequate Specimen Performing [place] [address] Narrative Received comment: User comments: Slide comments: [...] MD Report Verified Date/Time:10/27/2017 22:28:54 Reading Location: [address] Reading Room Procedure Note Interface, External [...] Report Verified Date/Time: 10/27/2017 22:28:54 Reading Location: [address] Reading Room Potassium (10/27/2017 8:50 AM) Component Value Ref Range Potassium 4.9 3.5 - 5.1 meq/L Specimen Performing Laboratory Blood [facility] [address] [address] [place] dressed poultry grader in or 30 minute increments (10/26/2017 [...] MD Report Verified Date/Time:10/26/2017 18:15:50 Reading Location: [facility] Reading Room Procedure Note Interface, External [...] Report Verified Date/Time: 10/26/2017 18:15:50 Reading Location: [facility] Radiology Reading Room E CONDUCTION STUDIES; 5-6 STUDIES (10/26/2017 5:54 PM) Specimen Performing Laboratory [facility] Narrative INTRAOPERATIVE MONITORING REPORT Patient Name: Lotus Pelaez [facility] Surgery Date: 10/26/2017 Intentiva Pro: [id number] Monitoring began at 14:45 and ended at [...] INTRAOPERATIVE MONITORING REPORT Patient Name: Lotus Pelaez [facility] Surgery Date: 10/26/2017 Intentiva Pro: [id number] Monitoring began at 14:45 and ended at [...] Marisela Murguia MD C64.9, C80.1, M54.5, C79.51 Spinal Angiogram (10/25/2017 4:30 PM) Specimen Performing Laboratory [facility] Narrative FINAL REPORT DATE: 10/25/2017 NAME: LOTUS PELAEZ ATTENDING: Beau Castillo MD SANDING SUPERVISOR: Selwyn Lai MD PREOPERATIVE DIAGNOSIS: 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 An [place] microcatheter was placed coaxially through the Darryn [...] in the vessel closed with a 5 [place] Mynx device and manual compression. The patient tolerated the procedure well and was transported from the [facility] in unchanged neurological status, without groin [...] MD Report Verified Date/Time:10/30/2017 07:27:21 Reading Location: [facility] Y02 Neuro Angio Reading Room Procedure Note Interface, External Ris In - 10/30/2017 7:29 AM CDT FINAL REPORT DATE: 10/25/2017 NAME: LOTUS PELAEZ ATTENDING: Beau Castillo MD SANDING SUPERVISOR: Selwyn Lai MD PREOPERATIVE DIAGNOSIS: Metastatic tumor to L3 body POSTOPERATIVE DIAGNOSIS: Metastatic tumor to L3 body PROCEDURES PERFORMED: 1.Diagnostic spinal angiogram 2.Embolization of vertebral body tumor ANESTHESIA: GENERAL COMPLICATIONS: None ESTIMATED BLOOD LOSS: Less than 15ml MATERIALS EMPLOYED: *5 [place] x 25cm sheath *5 [place] Mikaelsson catheter *Bentson guidewire *Terumo 0.035 LT glidewire *5 [place] Mynx device *Echeleon microcatheter *Maira Neurovascular Coils *Partical embolisate INDICATIONS: This is a 57-year-old woman who presented with severe and intractable lower back pain and left lower extremity pain. She has a history of metastatic renal cell carcinoma with a recently found metastasis to the L3 vertebral body. Dr. Pbalo Malhotra, a spinal neurosurgeon, has planned for [...] location of the puncture site. Over a TrackViason glide wire, a 5 [place] sheath was inserted into the right common [...] arterial feeders at the L3 level. An [place] microcatheter was placed coaxially through the Darryn [...] in the vessel closed with a 5 [place] Mynx device and manual compression. The patient tolerated the procedure well and was transported from the [facility] in unchanged neurological status, without groin [...] Report Verified Date/Time: 10/30/2017 07:27:21 Reading Location: [facility] Y026 Neuro Angio Reading Room lumbar spine without & with IV contrast (10/23/2017 8:45 PM) Specimen Performing Laboratory [place] FINAL REPORT MRI lumbar spine with and [...] MD Report Verified Date/Time:10/24/2017 08:56:43 Reading Location: [facility] Radiology Reading Room Procedure Note Interface, External [...] Report Verified Date/Time: 10/24/2017 08:56:43 Reading Location: [facility] Radiology Reading Room after 12/21/2016
--- OUTSIDE RECORDS SUMMARY | 2017-12-22 14:51 | XMS REPORT ---
:1960 Author Organization [facility] Address [address] [place] [address] [address] [place] [address] Care Team Providers Name Role Phone KAREEM TOÑOLILLICHERRIE SOLIS Unavailable Unavailable PABLO GONZALEZ Unavailable Unavailable Problems This patient has no known problems. Allergies, Adverse Reactions, Alerts This patient has no known allergies or adverse reactions. Medications This patient has no known medications. Results Test Description Test Time Test Comments Text Results Atomic Results Result Comments POCT-GLUCOSE METER 2017-12-21 18:39:00 Test Item Value Reference Range Comments POC-GLUCOSE METER (BEAKER) (test 192 mg/dL 70-110 TESTED AT [address] hoem=4470) [place] [address] HEMOGLOBIN AND [id number] 14:51:00 Test Item Value Reference Range Comments HEMOGLOBIN (BEAKER) (test fyqi=698) 8.9 GM/DL 11.2-15.7 HEMATOCRIT (BEAKER) (test ranv=451) 30.4 % 34.1-44.9 Call if hemoglobin less than or equal to 6 [id number] 12:04:00 Test Item Value Reference Range Comments POC-GLUCOSE METER (BEAKER) 180 mg/dL 70-110 TESTED AT [address] (test ihzu=9644) [place] [id number] DARIEN, EMBOLIZATION, [id number] 07:59:00Reason for exam:-> embolization for left palate massFINAL REPORT DATE OF SERVICE: 12/19/2017 SURGEON: Beau Castillo M.D. GLASS CUTTER HAND: Maribell Leonardo M.D. 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 Using coaxial technique a 4 Croatian VTK catheter was advanced into the descending aorta then into the aortic arch, and with the aid of the roadmapping, digital fluoroscopy, and careful guidewire manipulation the: Right common carotid, right internal carotid, left commoncarotid, left internal carotid, left subclavian, and left [...] COMMON CAROTID ARTERY (DSA - PA, LATERAL -SKULLBASE) There is a medium size posterior communicating artery. The visualized portions of the externalcarotid artery and its branches are normal without [...] CERVICAL) The origins of the left internal andexternal carotid arteries are widely patent without evidence [...] pharyngeal artery is also visualized as well asthe middle meningeal artery which also both have a normal course and appearance. The distal internal maxillary artery ends in the normal hair pin turn which gives rise to medially directed sphenopalatine artery and inferiorly directed greater palatine artery, buccal artery, and posterior superior alveolar artery. Although there are some arterial overlaps, the large circular tumor blush appears to befed by the greater palatine artery. LEFT INTERNAL MAXILLARY ARTERY (DSA - PA, LATERAL - HEAD, FACE/SKULL BASE) A large tumor blush is seen with pedicles arising from the greater palatine artery of the distal internal maxillary artery, measuring 3.5 x 3.9 cm. As noted previously, this appears to be fedby the greater palatine or descending palatine artery. No arteriovenous shunting is noted and there are no abnormal extracranial to intracranial anastomoses that appear concerning. ENDOVASCULAR TREATMENT:Based on previous discussion with the ENT team and identification of the arterial blush correlating with the identified tumor, we decided to proceed with embolization via the greater palatine artery.Multiple microcatheters and microwires were used to attempt superselection of this artery. Due to the tortuous 180 degree turn of the distal internal maxillary artery prior to the origin of the GPA, ultimately we proceeded with embolization just proximal to this. The Synchro standard microwire, Darby 14 microcatheter, polyp microcatheter, and Minerva XT 27 microcatheter were used to attempt catheterization. Ultimately, the artery was selected with a Synchro 10 microwire and an Darby 10 microcatheter. Embolization was then commenced using [...] the external carotid artery confirmed satisfactory embolization withno distal filling of the previously visualized tumor. [...] clinical complications. Signed: Beau Castillo MDReport Verified Date/Time: 2017 07:59:13 Reading Location: [facility] [id number] Neuro Angio Reading Room [id number] 07:41:00 Test Item Value Reference Range Comments MAGNESIUM (BEAKER) (test lfbo=289) 1.7 mg/dL 1.6-2.6 BASIC METABOLIC [id number] 07:41:00 Test Item Value Reference Range Comments SODIUM (BEAKER) (test 137 meq/L 136-145 ymrh=513) POTASSIUM (BEAKER) (test 4.4 meq/L 3.5-5.1 hosj=718) CHLORIDE (BEAKER) (test 98 meq/L 98-107 zgna=896) CO2 (BEAKER) (test 30 meq/L 22-29 zbcq=339) BLOOD UREA NITROGEN 13 mg/dL 7-21 (BEAKER) (test pebs=917) CREATININE (BEAKER) (test 0.67 mg/dL 0.57-1.25 zsqi=709) GLUCOSE RANDOM (BEAKER) 152 mg/dL 70-105 (test agvg=417) CALCIUM (BEAKER) (test 10.4 mg/dL 8.4-10.2 zmfp=434) EGFR (BEAKER) (test 91 mL/min/1.73 sq m ESTIMATED GFR IS NOT cpcn=7187) ACCURATE CREATININE CLEARANCE IN PREDICTING GLOMERULAR FILTRATION RATE. ESTIMATED GFR IS NOT APPLICABLE FOR DIALYSIS PATIENTS. HEMOGLOBIN AND [id number] 06:56:00 Test Item Value Reference Range Comments HEMOGLOBIN (BEAKER) (test ojqp=126) 8.9 GM/DL 11.2-15.7 HEMATOCRIT (BEAKER) (test zutj=864) 30.5 % 34.1-44.9 Call if hemoglobin less than or equal to 6 [id number] 06:40:00 Test Item Value Reference Range Comments POC-GLUCOSE METER (BEAKER) 168 mg/dL 70-110 TESTED AT [address] (test simb=9167) [place] [address] HEMOGLOBIN AND [id number] 01:13:00 Test Item Value Reference Range Comments HEMOGLOBIN (BEAKER) (test lpti=983) 9.0 GM/DL 11.2-15.7 HEMATOCRIT (BEAKER) (test yocg=935) 30.5 % 34.1-44.9 Call if hemoglobin less than or equal to 6 [id number] 00:07:00 Test Item Value Reference Range Comments POC-GLUCOSE METER (BEAKER) 206 mg/dL 70-110 TESTED AT [address] (test atrs=7768) [place] [address] POCT-GLUCOSE [id number] 18:37:00 Test Item Value Reference Range Comments POC-GLUCOSE METER (BEAKER) 156 mg/dL 70-110 TESTED AT [address] (test xict=5842) [place] [id number] POCT-GLUCOSE [id number] 12:28:00 Test Item Value Reference Range Comments POC-GLUCOSE METER (BEAKER) 128 mg/dL 70-110 TESTED AT [address] (test dqfg=0392) [place] [id number] POCT-GLUCOSE [id number] 08:11:00 Test Item Value Reference Range Comments POC-GLUCOSE METER (BEAKER) 128 mg/dL 70-110 TESTED AT [address] (test yaxj=1269) [place] [id number] POCT-GLUCOSE [id number] 06:51:00 Test Item Value Reference Range Comments POC-GLUCOSE METER (BEAKER) 124 mg/dL 70-110 TESTED AT [address] (test gaut=7172) [place] [address] HEMOGLOBIN AND [id number] 05:49:00 Test Item Value Reference Range Comments HEMOGLOBIN (BEAKER) (test vxpc=597) 9.5 GM/DL 11.2-15.7 HEMATOCRIT (BEAKER) (test vznh=241) 32.7 % 34.1-44.9 Call if hemoglobin less than or equal to 6 [id number] 23:08:00 Test Item Value Reference Range Comments POC-GLUCOSE METER (BEAKER) 124 mg/dL 70-110 TESTED AT [address] (test jvgz=9807) [facility] [address] HEMOGLOBIN AND [id number] 21:55:00 Test Item Value Reference Range Comments HEMOGLOBIN (BEAKER) (test otva=606) 9.5 GM/DL 11.2-15.7 HEMATOCRIT (BEAKER) (test sbhu=330) 31.2 % 34.1-44.9 POCT-GLUCOSE [id number] 17:56:00 Test Item Value Reference Range Comments POC-GLUCOSE METER (BEAKER) 133 mg/dL 70-110 TESTED AT [address] (test vaxv=7681) [facility] [address] POCT-GLUCOSE [id number] 14:16:00 Test Item Value Reference Range Comments POC-GLUCOSE METER (BEAKER) 133 mg/dL 70-110 TESTED AT [address] (test oyji=1086) [facility] [address] [id number] 08:38:00 Test Item Value Reference Range Comments PROTIME (BEAKER) (test hfgg=244) 15.9 seconds 11.7-14.7 INR (BEAKER) (test ujti=248) 1.3 <=5.9 PARTIAL THROMBOPLASTIN TIME (BEAKER) (test 32.2 seconds 22.5-36.0 gsmr=635) RECOMMENDED COUMADIN/WARFARIN INR THERAPY RANGESSTANDARD DOSE: 2.0 - 3.0 Includes: PROPHYLAXIS forvenous thrombosis, systemic embolization; TREATMENT for venous thrombosis and/or pulmonary embolus.HIGH RISK: Target INR is 2.5-3.5 for patients with mechanical heart valves.CBC W/PLT COUNT & AUTO [id number] 08:31:00 Test Item Value Reference Range Comments WHITE BLOOD CELL COUNT (BEAKER) (test uhyu=642) 10.5 K/ L 3.5-10.5 RED BLOOD CELL COUNT (BEAKER) (test urvv=658) 3.69 M/ L 3.93-5.22 HEMOGLOBIN (BEAKER) (test ueta=370) 9.9 GM/DL 11.2-15.7 HEMATOCRIT (BEAKER) (test rkmc=801) 33.0 % 34.1-44.9 MEAN CORPUSCULAR VOLUME (BEAKER) (test szvp=528) 89.4 fL 79.4-94.8 MEAN CORPUSCULAR HEMOGLOBIN (BEAKER) (test 26.8 pg 25.6-32.2 vvls=299) MEAN CORPUSCULAR HEMOGLOBIN CONC (BEAKER) (test 30.0 GM/DL 32.2-35.5 tnpw=836) RED CELL DISTRIBUTION WIDTH (BEAKER) (test 16.4 % 11.7-14.4 jher=391) PLATELET COUNT (BEAKER) (test crgh=415) 445 K/CU MM 150-450 MEAN PLATELET VOLUME (BEAKER) (test wvpj=324) 8.2 fL 9.4-12.3 NUCLEATED RED BLOOD CELLS (BEAKER) (test 1 /100 WBC 0-0 xbvn=194) NEUTROPHILS RELATIVE PERCENT (BEAKER) (test 74 % qkzb=544) LYMPHOCYTES RELATIVE PERCENT (BEAKER) (test 12 % mvdj=984) MONOCYTES RELATIVE PERCENT (BEAKER) (test 9 % vsin=115) EOSINOPHILS RELATIVE PERCENT (BEAKER) (test 0 % bnlh=739) BASOPHILS RELATIVE PERCENT (BEAKER) (test 0 % kqvu=868) NEUTROPHILS ABSOLUTE COUNT (BEAKER) (test 7.78 K/ L 1.56-6.13 ftnz=435) LYMPHOCYTES ABSOLUTE COUNT (BEAKER) (test 1.26 K/ L 1.18-3.74 htig=514) MONOCYTES ABSOLUTE COUNT (BEAKER) (test 0.97 K/ L 0.24-0.36 lcjw=428) EOSINOPHILS ABSOLUTE COUNT (BEAKER) (test 0.01 K/ L 0.04-0.36 qlwg=603) BASOPHILS ABSOLUTE COUNT (BEAKER) (test 0.03 K/ L 0.01-0.08 lkah=206) IMMATURE GRANULOCYTES-RELATIVE PERCENT (BEAKER) 4 % 0-1 (test efzn=9735) [id number] 07:06:00 Test Item Value Reference Range Comments MAGNESIUM (BEAKER) (test pmmm=844) 1.7 mg/dL 1.6-2.6 BASIC METABOLIC [id number] 07:06:00 Test Item Value Reference Range Comments SODIUM (BEAKER) (test 137 meq/L 136-145 iyjc=836) POTASSIUM (BEAKER) (test 3.9 meq/L 3.5-5.1 hzic=806) CHLORIDE (BEAKER) (test 92 meq/L 98-107 evba=457) CO2 (BEAKER) (test 32 meq/L 22-29 rnfz=858) BLOOD UREA NITROGEN 15 mg/dL 7-21 (BEAKER) (test umby=281) CREATININE (BEAKER) (test 0.65 mg/dL 0.57-1.25 oedf=235) GLUCOSE RANDOM (BEAKER) 125 mg/dL 70-105 (test mncd=516) CALCIUM (BEAKER) (test 10.0 mg/dL 8.4-10.2 nprz=795) EGFR (BEAKER) (test 94 mL/min/1.73 sq m ESTIMATED GFR IS NOT meue=1599) ACCURATE CREATININE CLEARANCE IN PREDICTING GLOMERULAR FILTRATION RATE. ESTIMATED GFR IS NOT APPLICABLE FOR DIALYSIS PATIENTS. POCT-GLUCOSE [id number] 06:20:00 Test Item Value Reference Range Comments POC-GLUCOSE METER (BEAKER) 140 mg/dL 70-110 TESTED AT [address] (test mybc=0414) [place] [address] HEMOGLOBIN AND [id number] 02:57:00 Test Item Value Reference Range Comments HEMOGLOBIN (BEAKER) (test jnfg=318) 13.7 GM/DL 11.2-15.7 HEMATOCRIT (BEAKER) (test itji=447) 44.5 % 34.1-44.9 Call if hemoglobin less than or equal to 6 [id number] 00:12:00 Test Item Value Reference Range Comments POC-GLUCOSE METER (BEAKER) 154 mg/dL 70-110 TESTED AT [address] (test oiup=4651) [place] [id number] POCT-GLUCOSE [id number] 17:39:00 Test Item Value Reference Range Comments POC-GLUCOSE METER (BEAKER) 210 mg/dL 70-110 TESTED AT [address] (test xwfc=3364) [place] [address] CT, MAXILLOFACIAL AREA, [id number] 15:24:00Addendum BeginsREPORT STATUS: A Addendum: The study was performed with IV contrast. Signed: Kathia Valera MDReport Verified Date/Time: 12/18/2017 15:24:04 Reading Location: [facility] [id number] Consult Reading RoomAddendum EndsFINAL REPORT CT face without IV contrast Comparison: [...] the left, the mucosal thickening is distinctly separatealbeit adjacent to an area of enhancing neoplasm extending into the inferior aspect of the maxillarysinus. The remainder of the aerodigestive tract is unremarkable. No gross lymphadenopathy. There arenumerous missing teeth. Impressions: A destructive mass of the left maxillary alveolar ridge and retromolar trigone region is present as discussed. 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 Signed: Kathia ValeraMDReport Verified Date/Time: 12/11/2017 08:17:40 Reading Location: [facility] C013V Neuro Reading Room POCT-GLUCOSE [id number] 12:32:00 Test Item Value Reference Range Comments POC-GLUCOSE METER (BEAKER) 174 mg/dL 70-110 TESTED AT [address] (test dmnm=7364) [facility] [address] POCT-GLUCOSE [id number] 11:32:00 Test Item Value Reference Range Comments POC-GLUCOSE METER (BEAKER) 188 mg/dL 70-110 TESTED AT [address] (test bekv=4779) [place] [id number] POCT-GLUCOSE [id number] 06:14:00 Test Item Value Reference Range Comments POC-GLUCOSE METER (BEAKER) 139 mg/dL 70-110 TESTED AT [address] (test ndsz=8207) [place] [address] CBC W/PLT COUNT & AUTO [id number] 05:14:00 Test Item Value Reference Range Comments WHITE BLOOD CELL COUNT (BEAKER) (test vtch=441) 9.5 K/ L 3.5-10.5 RED BLOOD CELL COUNT (BEAKER) (test hhuq=677) 2.70 M/ L 3.93-5.22 HEMOGLOBIN (BEAKER) (test bkco=317) 6.9 GM/DL 11.2-15.7 HEMATOCRIT (BEAKER) (test ijus=623) 24.4 % 34.1-44.9 MEAN CORPUSCULAR VOLUME (BEAKER) (test jbbl=965) 90.4 fL 79.4-94.8 MEAN CORPUSCULAR HEMOGLOBIN (BEAKER) (test 25.6 pg 25.6-32.2 znwc=506) MEAN CORPUSCULAR HEMOGLOBIN CONC (BEAKER) (test 28.3 GM/DL 32.2-35.5 htvs=546) RED CELL DISTRIBUTION WIDTH (BEAKER) (test 17.1 % 11.7-14.4 derc=543) PLATELET COUNT (BEAKER) (test fxmx=167) 446 K/CU MM 150-450 MEAN PLATELET VOLUME (BEAKER) (test taav=470) 8.8 fL 9.4-12.3 NUCLEATED RED BLOOD CELLS (BEAKER) (test 1 /100 WBC 0-0 rccf=986) NEUTROPHILS RELATIVE PERCENT (BEAKER) (test 73 % isas=418) LYMPHOCYTES RELATIVE PERCENT (BEAKER) (test 14 % onjh=342) MONOCYTES RELATIVE PERCENT (BEAKER) (test 9 % qpgl=631) EOSINOPHILS RELATIVE PERCENT (BEAKER) (test 0 % lush=559) BASOPHILS RELATIVE PERCENT (BEAKER) (test 0 % ymuw=749) NEUTROPHILS ABSOLUTE COUNT (BEAKER) (test 6.90 K/ L 1.56-6.13 rzes=037) LYMPHOCYTES ABSOLUTE COUNT (BEAKER) (test 1.35 K/ L 1.18-3.74 husw=314) MONOCYTES ABSOLUTE COUNT (BEAKER) (test 0.82 K/ L 0.24-0.36 mapd=944) EOSINOPHILS ABSOLUTE COUNT (BEAKER) (test 0.01 K/ L 0.04-0.36 laxs=118) BASOPHILS ABSOLUTE COUNT (BEAKER) (test 0.03 K/ L 0.01-0.08 rpjw=006) IMMATURE GRANULOCYTES-RELATIVE PERCENT (BEAKER) 4 % 0-1 (test dzkt=0265) [id number] 05:07:00 Test Item Value Reference Range Comments MAGNESIUM (BEAKER) (test qygt=791) 1.8 mg/dL 1.6-2.6 BASIC METABOLIC [id number] 05:07:00 Test Item Value Reference Range Comments SODIUM (BEAKER) (test 135 meq/L 136-145 ggyl=609) POTASSIUM (BEAKER) (test 4.5 meq/L 3.5-5.1 ldin=653) CHLORIDE (BEAKER) (test 95 meq/L 98-107 bpkm=289) CO2 (BEAKER) (test 29 meq/L 22-29 oosn=994) BLOOD UREA NITROGEN 13 mg/dL 7-21 (BEAKER) (test weun=391) CREATININE (BEAKER) (test 0.59 mg/dL 0.57-1.25 degt=606) GLUCOSE RANDOM (BEAKER) 107 mg/dL 70-105 (test nuxu=661) CALCIUM (BEAKER) (test 9.4 mg/dL 8.4-10.2 zqlb=265) EGFR (BEAKER) (test 105 mL/min/1.73 sq m ESTIMATED GFR IS NOT wrbr=8024) ACCURATE CREATININE CLEARANCE IN PREDICTING GLOMERULAR FILTRATION RATE. ESTIMATED GFR IS NOT APPLICABLE FOR DIALYSIS PATIENTS. POCT-GLUCOSE [id number] 00:05:00 Test Item Value Reference Range Comments POC-GLUCOSE METER (BEAKER) 123 mg/dL 70-110 TESTED AT [facility] [address] [facility] (test cite=4573) [facility] [address] POCT-GLUCOSE [id number] 17:24:00 Test Item Value Reference Range Comments POC-GLUCOSE METER (BEAKER) 199 mg/dL 70-110 TESTED AT [facility] [address] (test iimj=8011) [facility] [address] [id number] 12:41:00 Test Item Value Reference Range Comments MAGNESIUM (BEAKER) (test ambx=319) 1.7 mg/dL 1.6-2.6 BASIC METABOLIC [id number] 12:41:00 Test Item Value Reference Range Comments SODIUM (BEAKER) (test 137 meq/L 136-145 tpdg=596) POTASSIUM (BEAKER) (test 4.7 meq/L 3.5-5.1 nwzq=480) CHLORIDE (BEAKER) (test 97 meq/L 98-107 gwji=184) CO2 (BEAKER) (test 31 meq/L 22-29 chfq=251) BLOOD UREA NITROGEN 15 mg/dL 7-21 (BEAKER) (test itrf=807) CREATININE (BEAKER) (test 0.62 mg/dL 0.57-1.25 ccry=825) GLUCOSE RANDOM (BEAKER) 158 mg/dL 70-105 (test brbp=790) CALCIUM (BEAKER) (test 9.3 mg/dL 8.4-10.2 pazy=934) EGFR (BEAKER) (test 100 mL/min/1.73 sq m ESTIMATED GFR IS NOT itwu=1058) ACCURATE CREATININE CLEARANCE IN PREDICTING GLOMERULAR FILTRATION RATE. ESTIMATED GFR IS NOT APPLICABLE FOR DIALYSIS PATIENTS. CBC W/PLT COUNT & AUTO [id number] 12:24:00 Test Item Value Reference Range Comments WHITE BLOOD CELL COUNT (BEAKER) (test trlg=932) 9.5 K/ L 3.5-10.5 RED BLOOD CELL COUNT (BEAKER) (test ipea=119) 2.76 M/ L 3.93-5.22 HEMOGLOBIN (BEAKER) (test tyjl=010) 7.1 GM/DL 11.2-15.7 HEMATOCRIT (BEAKER) (test atsy=281) 25.6 % 34.1-44.9 MEAN CORPUSCULAR VOLUME (BEAKER) (test ntnl=420) 92.8 fL 79.4-94.8 MEAN CORPUSCULAR HEMOGLOBIN (BEAKER) (test 25.7 pg 25.6-32.2 mjyh=995) MEAN CORPUSCULAR HEMOGLOBIN CONC (BEAKER) (test 27.7 GM/DL 32.2-35.5 mngn=444) RED CELL DISTRIBUTION WIDTH (BEAKER) (test 17.2 % 11.7-14.4 idbj=604) PLATELET COUNT (BEAKER) (test vddv=529) 434 K/CU MM 150-450 MEAN PLATELET VOLUME (BEAKER) (test krhw=147) 8.6 fL 9.4-12.3 NUCLEATED RED BLOOD CELLS (BEAKER) (test 1 /100 WBC 0-0 jiqr=938) NEUTROPHILS RELATIVE PERCENT (BEAKER) (test 78 % mxew=693) LYMPHOCYTES RELATIVE PERCENT (BEAKER) (test 10 % xpoq=103) MONOCYTES RELATIVE PERCENT (BEAKER) (test 7 % djsf=139) EOSINOPHILS RELATIVE PERCENT (BEAKER) (test 0 % xwac=288) BASOPHILS RELATIVE PERCENT (BEAKER) (test 0 % bisl=326) NEUTROPHILS ABSOLUTE COUNT (BEAKER) (test 7.38 K/ L 1.56-6.13 tnvk=107) LYMPHOCYTES ABSOLUTE COUNT (BEAKER) (test 0.99 K/ L 1.18-3.74 vlcy=791) MONOCYTES ABSOLUTE COUNT (BEAKER) (test 0.68 K/ L 0.24-0.36 kmku=989) EOSINOPHILS ABSOLUTE COUNT (BEAKER) (test 0.02 K/ L 0.04-0.36 wroe=511) BASOPHILS ABSOLUTE COUNT (BEAKER) (test 0.01 K/ L 0.01-0.08 kovn=541) IMMATURE GRANULOCYTES-RELATIVE PERCENT (BEAKER) 4 % 0-1 (test mnig=5505) POCT-GLUCOSE [id number] 12:08:00 Test Item Value Reference Range Comments POC-GLUCOSE METER (BEAKER) 178 mg/dL 70-110 TESTED AT [address] (test zurm=8892) [facility] [address] POCT-GLUCOSE [id number] 06:33:00 Test Item Value Reference Range Comments POC-GLUCOSE METER (BEAKER) 141 mg/dL 70-110 TESTED AT [address] (test qfgn=4652) [facility] [address] POCT-GLUCOSE [id number] 00:07:00 Test Item Value Reference Range Comments POC-GLUCOSE METER (BEAKER) 143 mg/dL 70-110 TESTED AT [facility] [address] [facility] (test sovw=8950) [facility] [address] POCT-GLUCOSE [id number] 18:30:00 Test Item Value Reference Range Comments POC-GLUCOSE METER (BEAKER) 194 mg/dL 70-110 TESTED AT [facility] [address] [facility] (test cnww=1668) [facility] [address] [id number] 08:18:00 Test Item Value Reference Range Comments MAGNESIUM (BEAKER) (test uuxx=654) 1.7 mg/dL 1.6-2.6 COMPREHENSIVE METABOLIC [id number] 08:18:00 Test Item Value Reference Range Comments TOTAL PROTEIN (BEAKER) 5.8 gm/dL 6.0-8.3 (test nssg=718) ALBUMIN (BEAKER) (test 2.4 g/dL 3.5-5.0 vhym=4840) ALKALINE PHOSPHATASE 158 U/L 40-150 (BEAKER) (test hpey=338) BILIRUBIN TOTAL (BEAKER) 0.2 mg/dL 0.2-1.2 (test ioiu=824) SODIUM (BEAKER) (test 140 meq/L 136-145 tbuk=716) POTASSIUM (BEAKER) (test 4.1 meq/L 3.5-5.1 phsn=722) CHLORIDE (BEAKER) (test 101 meq/L 98-107 xqzv=238) CO2 (BEAKER) (test 27 meq/L 22-29 aobn=489) BLOOD UREA NITROGEN 15 mg/dL 7-21 (BEAKER) (test wzkj=027) CREATININE (BEAKER) (test 0.60 mg/dL 0.57-1.25 axca=171) GLUCOSE RANDOM (BEAKER) 124 mg/dL 70-105 (test esii=070) CALCIUM (BEAKER) (test 9.1 mg/dL 8.4-10.2 wjtg=747) AST (SGOT) (BEAKER) (test 46 U/L 5-34 mfzd=077) ALT (SGPT) (BEAKER) (test 24 U/L 6-55 pfkd=527) EGFR (BEAKER) (test 103 mL/min/1.73 sq ESTIMATED GFR IS NOT ivjk=9177) m ACCURATE CREATININE CLEARANCE IN PREDICTING GLOMERULAR FILTRATION RATE. ESTIMATED GFR IS NOT APPLICABLE FOR DIALYSIS PATIENTS. POCT-GLUCOSE [id number] 06:44:00 Test Item Value Reference Range Comments POC-GLUCOSE METER (BEAKER) 152 mg/dL 70-110 TESTED AT [facility] [address] [facility] (test wopk=5482) [facility] [address] CBC W/PLT COUNT & AUTO [id number] 06:18:00 Test Item Value Reference Range Comments WHITE BLOOD CELL COUNT (BEAKER) (test phhg=689) 9.3 K/ L 3.5-10.5 RED BLOOD CELL COUNT (BEAKER) (test vjme=764) 2.76 M/ L 3.93-5.22 HEMOGLOBIN (BEAKER) (test ucop=306) 7.1 GM/DL 11.2-15.7 HEMATOCRIT (BEAKER) (test bocl=613) 25.0 % 34.1-44.9 MEAN CORPUSCULAR VOLUME (BEAKER) (test tvwe=146) 90.6 fL 79.4-94.8 MEAN CORPUSCULAR HEMOGLOBIN (BEAKER) (test 25.7 pg 25.6-32.2 fdfe=982) MEAN CORPUSCULAR HEMOGLOBIN CONC (BEAKER) (test 28.4 GM/DL 32.2-35.5 lxkc=000) RED CELL DISTRIBUTION WIDTH (BEAKER) (test 17.2 % 11.7-14.4 ubvu=719) PLATELET COUNT (BEAKER) (test zcdi=700) 436 K/CU MM 150-450 MEAN PLATELET VOLUME (BEAKER) (test pfdi=651) 8.7 fL 9.4-12.3 NUCLEATED RED BLOOD CELLS (BEAKER) (test 1 /100 WBC 0-0 evob=802) NEUTROPHILS RELATIVE PERCENT (BEAKER) (test 71 % nera=000) LYMPHOCYTES RELATIVE PERCENT (BEAKER) (test 15 % fmfy=886) MONOCYTES RELATIVE PERCENT (BEAKER) (test 9 % buhx=124) EOSINOPHILS RELATIVE PERCENT (BEAKER) (test 0 % vijq=508) BASOPHILS RELATIVE PERCENT (BEAKER) (test 0 % iflp=096) NEUTROPHILS ABSOLUTE COUNT (BEAKER) (test 6.64 K/ L 1.56-6.13 vqal=397) LYMPHOCYTES ABSOLUTE COUNT (BEAKER) (test 1.36 K/ L 1.18-3.74 toem=016) MONOCYTES ABSOLUTE COUNT (BEAKER) (test 0.87 K/ L 0.24-0.36 bzkf=369) EOSINOPHILS ABSOLUTE COUNT (BEAKER) (test 0.01 K/ L 0.04-0.36 isga=305) BASOPHILS ABSOLUTE COUNT (BEAKER) (test 0.02 K/ L 0.01-0.08 iyur=272) IMMATURE GRANULOCYTES-RELATIVE PERCENT (BEAKER) 5 % 0-1 (test elnm=2629) POCT-GLUCOSE [id number] 00:16:00 Test Item Value Reference Range Comments POC-GLUCOSE METER (BEAKER) 153 mg/dL 70-110 TESTED AT [address] (test cncg=7691) [facility] [address] POCT-GLUCOSE [id number] 12:05:00 Test Item Value Reference Range Comments POC-GLUCOSE METER (BEAKER) 237 mg/dL 70-110 TESTED AT [address] (test ulrb=0650) [facility] [address] [id number] 06:53:00 Test Item Value Reference Range Comments MAGNESIUM (BEAKER) (test wxct=447) 1.9 mg/dL 1.6-2.6 COMPREHENSIVE METABOLIC [id number] 06:53:00 Test Item Value Reference Range Comments TOTAL PROTEIN (BEAKER) 5.9 gm/dL 6.0-8.3 (test jqlj=882) ALBUMIN (BEAKER) (test 2.5 g/dL 3.5-5.0 wxen=2459) ALKALINE PHOSPHATASE 155 U/L 40-150 (BEAKER) (test odeo=094) BILIRUBIN TOTAL (BEAKER) 0.2 mg/dL 0.2-1.2 (test juiw=438) SODIUM (BEAKER) (test 140 meq/L 136-145 vype=137) POTASSIUM (BEAKER) (test 3.8 meq/L 3.5-5.1 nqtj=771) CHLORIDE (BEAKER) (test 102 meq/L 98-107 assi=319) CO2 (BEAKER) (test 30 meq/L 22-29 skon=357) BLOOD UREA NITROGEN 11 mg/dL 7-21 (BEAKER) (test kybu=049) CREATININE (BEAKER) (test 0.62 mg/dL 0.57-1.25 iiyk=403) GLUCOSE RANDOM (BEAKER) 176 mg/dL 70-105 (test dkcn=281) CALCIUM (BEAKER) (test 9.1 mg/dL 8.4-10.2 zaie=606) AST (SGOT) (BEAKER) (test 47 U/L 5-34 adbt=975) ALT (SGPT) (BEAKER) (test 21 U/L 6-55 lgyu=191) EGFR (BEAKER) (test 100 mL/min/1.73 sq ESTIMATED GFR IS NOT nljo=3683) m ACCURATE CREATININE CLEARANCE IN PREDICTING GLOMERULAR FILTRATION RATE. ESTIMATED GFR IS NOT APPLICABLE FOR DIALYSIS PATIENTS. POCT-GLUCOSE [id number] 06:42:00 Test Item Value Reference Range Comments POC-GLUCOSE METER (BEAKER) 205 mg/dL 70-110 TESTED AT [facility] [address] [facility] (test fetx=6025) [facility] [address] CBC W/PLT COUNT & AUTO [id number] 06:27:00 Test Item Value Reference Range Comments WHITE BLOOD CELL COUNT (BEAKER) (test gzxc=547) 9.2 K/ L 3.5-10.5 RED BLOOD CELL COUNT (BEAKER) (test miku=492) 2.82 M/ L 3.93-5.22 HEMOGLOBIN (BEAKER) (test ompp=076) 7.3 GM/DL 11.2-15.7 HEMATOCRIT (BEAKER) (test nuxn=293) 25.5 % 34.1-44.9 MEAN CORPUSCULAR VOLUME (BEAKER) (test pxim=349) 90.4 fL 79.4-94.8 MEAN CORPUSCULAR HEMOGLOBIN (BEAKER) (test 25.9 pg 25.6-32.2 jtcg=904) MEAN CORPUSCULAR HEMOGLOBIN CONC (BEAKER) (test 28.6 GM/DL 32.2-35.5 dsdi=491) RED CELL DISTRIBUTION WIDTH (BEAKER) (test 16.9 % 11.7-14.4 zoad=209) PLATELET COUNT (BEAKER) (test xcbf=536) 446 K/CU MM 150-450 MEAN PLATELET VOLUME (BEAKER) (test tqcd=686) 9.0 fL 9.4-12.3 NUCLEATED RED BLOOD CELLS (BEAKER) (test 1 /100 WBC 0-0 chzq=058) NEUTROPHILS RELATIVE PERCENT (BEAKER) (test 74 % ohxk=591) LYMPHOCYTES RELATIVE PERCENT (BEAKER) (test 13 % bnuc=964) MONOCYTES RELATIVE PERCENT (BEAKER) (test 9 % qzvs=105) EOSINOPHILS RELATIVE PERCENT (BEAKER) (test 0 % viye=574) BASOPHILS RELATIVE PERCENT (BEAKER) (test 0 % hkzh=190) NEUTROPHILS ABSOLUTE COUNT (BEAKER) (test 6.83 K/ L 1.56-6.13 lmer=312) LYMPHOCYTES ABSOLUTE COUNT (BEAKER) (test 1.21 K/ L 1.18-3.74 hvpj=829) MONOCYTES ABSOLUTE COUNT (BEAKER) (test 0.84 K/ L 0.24-0.36 uvqd=400) EOSINOPHILS ABSOLUTE COUNT (BEAKER) (test 0.00 K/ L 0.04-0.36 sutx=342) BASOPHILS ABSOLUTE COUNT (BEAKER) (test 0.02 K/ L 0.01-0.08 fawt=124) IMMATURE GRANULOCYTES-RELATIVE PERCENT (BEAKER) 3 % 0-1 (test gpui=7256) POCT-GLUCOSE [id number] 00:12:00 Test Item Value Reference Range Comments POC-GLUCOSE METER (BEAKER) 185 mg/dL 70-110 TESTED AT [facility] [address] [facility] (test ciql=9333) [facility] [address] ANG, INSERTION G TUBE, W/ [id number] 11:42:00Reason for exam:-> gastrostomy tube placement Reason for exam:->hx oral mass and RCC. anticipating radiation and immunotherapyFINAL REPORT Fluoroscopic guided gastrostomy tube placement. Clinical History: Gastrostomy tube placement, oral mass. Modality: Fluoroscopy. Staff: Eriberto Smart MD. Fellow: Wallace Michael DO Portfolio Analyst: None. SEDATION: Moderate sedation was administered 2 mg of Versed and 100 mcg of fentanyl IV was used for moderate sedation monitored under my direction. Total intraservice time of sedation was 30 minutes. The patient's vital signs were monitored throughout the procedure and recorded in the patient's medical record by the nurse sedation. Other medication: Glucagon 1 mgIV. Estimated Blood Loss: Less than 1 cc. Specimen: None. Reference air kerma (Ka, r): 53.8 mGy Fluoroscopy time: 2.8 min Technique : Informed written consent was obtained. Discussion of [...] sterile gown for performing radiologist and scrub technologist.Local anesthesia was achieved with 2% lidocaine, the [...] created with serial dilators. After the tract wasdilated, a 14 Croatian catheter was placed into the stomach. The wire was then removed, and the pigtail of the catheter was locked. The catheter was then secured onto the skin with 2-0 silk. The patienttolerated the procedure well, without immediate complications. The patient's vital signs remained stable throughout the procedure. Patient disposition: The patient was discharged from the department instable condition. Impression: Successful and uncomplicated fluoroscopic guided gastrostomy tube placement, with conscious sedation. Signed: Eriberto Smart MDReport Verified Date/Time: 12/14/2017 11:42: 41 Reading Location: [place] [address] Angio Body Reading Room [id number] 04: 46:00 Test Item Value Reference Range Comments MAGNESIUM (BEAKER) (test jehd=305) 1.5 mg/dL 1.6-2.6 COMPREHENSIVE METABOLIC [id number] 04:46:00 Test Item Value Reference Range Comments TOTAL PROTEIN (BEAKER) 5.9 gm/dL 6.0-8.3 (test skpn=437) ALBUMIN (BEAKER) (test 2.4 g/dL 3.5-5.0 uvuw=6149) ALKALINE PHOSPHATASE 151 U/L 40-150 (BEAKER) (test lxqf=154) BILIRUBIN TOTAL (BEAKER) 0.2 mg/dL 0.2-1.2 (test wuyl=010) SODIUM (BEAKER) (test 141 meq/L 136-145 zhbl=550) POTASSIUM (BEAKER) (test 3.3 meq/L 3.5-5.1 isdr=890) CHLORIDE (BEAKER) (test 103 meq/L 98-107 joxo=201) CO2 (BEAKER) (test 27 meq/L 22-29 aomm=155) BLOOD UREA NITROGEN 8 mg/dL 7-21 (BEAKER) (test rcbj=327) CREATININE (BEAKER) (test 0.63 mg/dL 0.57-1.25 flwx=589) GLUCOSE RANDOM (BEAKER) 93 mg/dL 70-105 (test mtcs=260) CALCIUM (BEAKER) (test 9.3 mg/dL 8.4-10.2 otqg=220) AST (SGOT) (BEAKER) (test 31 U/L 5-34 uiox=853) ALT (SGPT) (BEAKER) (test 17 U/L 6-55 jmov=275) EGFR (BEAKER) (test 98 mL/min/1.73 sq m ESTIMATED GFR IS NOT cxhu=5310) ACCURATE CREATININE CLEARANCE IN PREDICTING GLOMERULAR FILTRATION RATE. ESTIMATED GFR IS NOT APPLICABLE FOR DIALYSIS PATIENTS. CBC W/PLT COUNT & AUTO [id number] 04:19:00 Test Item Value Reference Range Comments WHITE BLOOD CELL COUNT (BEAKER) (test ruvu=958) 9.1 K/ L 3.5-10.5 RED BLOOD CELL COUNT (BEAKER) (test fgpk=681) 2.76 M/ L 3.93-5.22 HEMOGLOBIN (BEAKER) (test vpsb=476) 7.3 GM/DL 11.2-15.7 HEMATOCRIT (BEAKER) (test wvll=627) 24.9 % 34.1-44.9 MEAN CORPUSCULAR VOLUME (BEAKER) (test wnfu=800) 90.2 fL 79.4-94.8 MEAN CORPUSCULAR HEMOGLOBIN (BEAKER) (test 26.4 pg 25.6-32.2 fsqi=507) MEAN CORPUSCULAR HEMOGLOBIN CONC (BEAKER) (test 29.3 GM/DL 32.2-35.5 ipzj=368) RED CELL DISTRIBUTION WIDTH (BEAKER) (test 16.8 % 11.7-14.4 zcuq=083) PLATELET COUNT (BEAKER) (test gnlq=744) 425 K/CU MM 150-450 MEAN PLATELET VOLUME (BEAKER) (test ilce=007) 8.9 fL 9.4-12.3 NUCLEATED RED BLOOD CELLS (BEAKER) (test 1 /100 WBC 0-0 zkty=483) NEUTROPHILS RELATIVE PERCENT (BEAKER) (test 70 % tukp=551) LYMPHOCYTES RELATIVE PERCENT (BEAKER) (test 16 % ncdx=711) MONOCYTES RELATIVE PERCENT (BEAKER) (test 11 % fand=913) EOSINOPHILS RELATIVE PERCENT (BEAKER) (test 0 % muaq=717) BASOPHILS RELATIVE PERCENT (BEAKER) (test 0 % qiwg=071) NEUTROPHILS ABSOLUTE COUNT (BEAKER) (test 6.37 K/ L 1.56-6.13 armj=791) LYMPHOCYTES ABSOLUTE COUNT (BEAKER) (test 1.47 K/ L 1.18-3.74 sbee=666) MONOCYTES ABSOLUTE COUNT (BEAKER) (test 0.97 K/ L 0.24-0.36 adqf=879) EOSINOPHILS ABSOLUTE COUNT (BEAKER) (test 0.00 K/ L 0.04-0.36 ieej=280) BASOPHILS ABSOLUTE COUNT (BEAKER) (test 0.02 K/ L 0.01-0.08 edaq=233) IMMATURE GRANULOCYTES-RELATIVE PERCENT (BEAKER) 3 % 0-1 (test iadg=5645) COMPREHENSIVE METABOLIC [id number] 07:13:00 Test Item Value Reference Range Comments TOTAL PROTEIN (BEAKER) 5.6 gm/dL 6.0-8.3 (test zoel=228) ALBUMIN (BEAKER) (test 2.3 g/dL 3.5-5.0 lwwz=9160) ALKALINE PHOSPHATASE 138 U/L 40-150 (BEAKER) (test qcqf=595) BILIRUBIN TOTAL (BEAKER) 0.2 mg/dL 0.2-1.2 (test wbnk=212) SODIUM (BEAKER) (test 142 meq/L 136-145 tufb=429) POTASSIUM (BEAKER) (test 3.5 meq/L 3.5-5.1 hvhk=829) CHLORIDE (BEAKER) (test 104 meq/L 98-107 fdhb=187) CO2 (BEAKER) (test 29 meq/L 22-29 pzxm=449) BLOOD UREA NITROGEN 9 mg/dL 7-21 (BEAKER) (test nbpb=727) CREATININE (BEAKER) (test 0.63 mg/dL 0.57-1.25 bcnf=707) GLUCOSE RANDOM (BEAKER) 103 mg/dL 70-105 (test qekz=007) CALCIUM (BEAKER) (test 9.4 mg/dL 8.4-10.2 iltn=192) AST (SGOT) (BEAKER) (test 31 U/L 5-34 tvos=575) ALT (SGPT) (BEAKER) (test 17 U/L 6-55 xaiu=983) EGFR (BEAKER) (test 98 mL/min/1.73 sq m ESTIMATED GFR IS NOT obbv=0615) ACCURATE CREATININE CLEARANCE IN PREDICTING GLOMERULAR FILTRATION RATE. ESTIMATED GFR IS NOT APPLICABLE FOR DIALYSIS PATIENTS. CBC W/PLT COUNT & AUTO [id number] 06:40:00 Test Item Value Reference Range Comments WHITE BLOOD CELL COUNT (BEAKER) (test qmxt=701) 8.6 K/ L 3.5-10.5 RED BLOOD CELL COUNT (BEAKER) (test khww=835) 2.76 M/ L 3.93-5.22 HEMOGLOBIN (BEAKER) (test gcfk=297) 7.3 GM/DL 11.2-15.7 HEMATOCRIT (BEAKER) (test wttn=526) 25.0 % 34.1-44.9 MEAN CORPUSCULAR VOLUME (BEAKER) (test xipn=899) 90.6 fL 79.4-94.8 MEAN CORPUSCULAR HEMOGLOBIN (BEAKER) (test 26.4 pg 25.6-32.2 yhxz=032) MEAN CORPUSCULAR HEMOGLOBIN CONC (BEAKER) (test 29.2 GM/DL 32.2-35.5 zdab=191) RED CELL DISTRIBUTION WIDTH (BEAKER) (test 16.9 % 11.7-14.4 vgkw=146) PLATELET COUNT (BEAKER) (test nejg=280) 361 K/CU MM 150-450 MEAN PLATELET VOLUME (BEAKER) (test lxep=694) 8.9 fL 9.4-12.3 NUCLEATED RED BLOOD CELLS (BEAKER) (test 0 /100 WBC 0-0 wytp=264) NEUTROPHILS RELATIVE PERCENT (BEAKER) (test 74 % qugs=397) LYMPHOCYTES RELATIVE PERCENT (BEAKER) (test 13 % lgec=587) MONOCYTES RELATIVE PERCENT (BEAKER) (test 9 % onob=252) EOSINOPHILS RELATIVE PERCENT (BEAKER) (test 0 % vxcj=533) BASOPHILS RELATIVE PERCENT (BEAKER) (test 0 % xduu=679) NEUTROPHILS ABSOLUTE COUNT (BEAKER) (test 6.33 K/ L 1.56-6.13 jjws=828) LYMPHOCYTES ABSOLUTE COUNT (BEAKER) (test 1.14 K/ L 1.18-3.74 jcwu=286) MONOCYTES ABSOLUTE COUNT (BEAKER) (test 0.79 K/ L 0.24-0.36 xzzf=597) EOSINOPHILS ABSOLUTE COUNT (BEAKER) (test 0.01 K/ L 0.04-0.36 vryg=908) BASOPHILS ABSOLUTE COUNT (BEAKER) (test 0.02 K/ L 0.01-0.08 erod=145) IMMATURE GRANULOCYTES-RELATIVE PERCENT (BEAKER) 4 % 0-1 (test duee=0032) TISSUE [id number] 18:29:00Surgical Pathology Report Case: [id number] Authorizing Provider: Bryant Ellsworth MD Collected: 12/11/2017 1140 Ordering Location: [address] Received: 12/11/2017 1140 Service Pathologist: Anny Glover MD Specimen: Palate A. PALATE, NOT OTHERWISE SPECIFIED , BIOPSY: - METASTATIC RENAL CELL CARCINOMA (SEE COMMENT) Signing Pathologist Direct Phone Line: [phone] signed by Anny Glover MD on 12/12/2017 at 6:29 PMPatient's prior history of renal cell carcinoma is noted. Immunostain for PAX-8 is positive supporting the above diagnosis.[id number] statedPalate biopsyReceived fresh labeled "palate mass" is a 0.8 cm in greatest dimension pink-hoffman irregular fragment of soft tissue. The specimen is bisected andentirely submitted in cassette A1. DB/plThe following special studies were performed on this case and the interpretation is incorporated in the diagnostic report above:The immunohistochemistry test was developed and its performance characteristics determined by [facility], PathologyLabor[facility]. It has not been cleared or approved by the U.S. Food and Drug Administration. The FDA has determined that such clearance or approval is not necessary. The test is used for clinical purposes. It should not be regarded as investigational or for research. This laboratory is certified under the Clinical Laboratory Improvement Amendments of 1988 (CLIA-88 ) as qualified to perform high complexity clinical laboratory testing.CBC W/PLT COUNT & AUTO [id number] 08:22:00 Test Item Value Reference Range Comments WHITE BLOOD CELL COUNT (BEAKER) (test vwdd=744) 9.7 K/ L 3.5-10.5 RED BLOOD CELL COUNT (BEAKER) (test yicn=896) 2.70 M/ L 3.93-5.22 HEMOGLOBIN (BEAKER) (test ciks=105) 7.3 GM/DL 11.2-15.7 HEMATOCRIT (BEAKER) (test qiqz=673) 24.5 % 34.1-44.9 MEAN CORPUSCULAR VOLUME (BEAKER) (test rwxl=870) 90.7 fL 79.4-94.8 MEAN CORPUSCULAR HEMOGLOBIN (BEAKER) (test 27.0 pg 25.6-32.2 zbaj=198) MEAN CORPUSCULAR HEMOGLOBIN CONC (BEAKER) (test 29.8 GM/DL 32.2-35.5 etrd=304) RED CELL DISTRIBUTION WIDTH (BEAKER) (test 17.0 % 11.7-14.4 slhu=892) PLATELET COUNT (BEAKER) (test yyyb=658) 346 K/CU MM 150-450 MEAN PLATELET VOLUME (BEAKER) (test oymb=626) 8.8 fL 9.4-12.3 NUCLEATED RED BLOOD CELLS (BEAKER) (test 0 /100 WBC 0-0 bevg=365) NEUTROPHILS RELATIVE PERCENT (BEAKER) (test 74 % gjgv=369) LYMPHOCYTES RELATIVE PERCENT (BEAKER) (test 12 % mbtw=306) MONOCYTES RELATIVE PERCENT (BEAKER) (test 11 % zhch=114) EOSINOPHILS RELATIVE PERCENT (BEAKER) (test 0 % wtor=597) BASOPHILS RELATIVE PERCENT (BEAKER) (test 0 % ukuu=975) NEUTROPHILS ABSOLUTE COUNT (BEAKER) (test 7.22 K/ L 1.56-6.13 ahts=309) LYMPHOCYTES ABSOLUTE COUNT (BEAKER) (test 1.17 K/ L 1.18-3.74 ekvz=011) MONOCYTES ABSOLUTE COUNT (BEAKER) (test 1.11 K/ L 0.24-0.36 ctqi=555) EOSINOPHILS ABSOLUTE COUNT (BEAKER) (test 0.00 K/ L 0.04-0.36 uren=684) BASOPHILS ABSOLUTE COUNT (BEAKER) (test 0.01 K/ L 0.01-0.08 pujd=999) IMMATURE GRANULOCYTES-RELATIVE PERCENT (BEAKER) 2 % 0-1 (test umos=0412) COMPREHENSIVE METABOLIC [id number] 06:59:00 Test Item Value Reference Range Comments TOTAL PROTEIN (BEAKER) 5.6 gm/dL 6.0-8.3 (test apqq=016) ALBUMIN (BEAKER) (test 2.4 g/dL 3.5-5.0 itja=1978) ALKALINE PHOSPHATASE 134 U/L 40-150 (BEAKER) (test mnfc=136) BILIRUBIN TOTAL (BEAKER) 0.2 mg/dL 0.2-1.2 (test mhem=212) SODIUM (BEAKER) (test 141 meq/L 136-145 ckna=279) POTASSIUM (BEAKER) (test 3.5 meq/L 3.5-5.1 yxje=173) CHLORIDE (BEAKER) (test 104 meq/L 98-107 ignc=136) CO2 (BEAKER) (test 25 meq/L 22-29 erdt=429) BLOOD UREA NITROGEN 9 mg/dL 7-21 (BEAKER) (test pbkz=346) CREATININE (BEAKER) (test 0.59 mg/dL 0.57-1.25 gavt=374) GLUCOSE RANDOM (BEAKER) 116 mg/dL 70-105 (test nwdm=790) CALCIUM (BEAKER) (test 9.5 mg/dL 8.4-10.2 xxnf=974) AST (SGOT) (BEAKER) (test 26 U/L 5-34 fplh=444) ALT (SGPT) (BEAKER) (test 13 U/L 6-55 xlfa=952) EGFR (BEAKER) (test 105 mL/min/1.73 sq ESTIMATED GFR IS NOT ddyj=4020) m ACCURATE CREATININE CLEARANCE IN PREDICTING GLOMERULAR FILTRATION RATE. ESTIMATED GFR IS NOT APPLICABLE FOR DIALYSIS PATIENTS. LACTIC ACID, VENOUS, WHOLE [id number] 17:25:00 Test Item Value Reference Range Comments LACTATE BLOOD VENOUS (2) (BEAKER) (test 1.6 mmol/L 0.5-2.2 peks=5286) Effective 10/28/2015: Units/Reference Range ChangeNew: 0.5-2.2 mmol/L Previous: 5 -20 mg/dLPT/[id number] 10:45:00 Test Item Value Reference Range Comments PROTIME (BEAKER) (test vdfj=818) 16.0 seconds 11.7-14.7 INR (BEAKER) (test kswv=520) 1.3 <=5.9 PARTIAL THROMBOPLASTIN TIME (BEAKER) (test 39.1 seconds 22.5-36.0 txth=918) RECOMMENDED COUMADIN/WARFARIN INR THERAPY RANGESSTANDARD DOSE: 2.0 - 3.0 Includes: PROPHYLAXIS forvenous thrombosis, systemic embolization; TREATMENT for venous thrombosis and/or pulmonary embolus.HIGH RISK: Target INR is 2.5-3.5 for patients with mechanical heart valves.COMPREHENSIVE METABOLIC [id number] 07:54:00 Test Item Value Reference Range Comments TOTAL PROTEIN (BEAKER) 5.8 gm/dL 6.0-8.3 (test sjon=694) ALBUMIN (BEAKER) (test 2.4 g/dL 3.5-5.0 jrlw=1681) ALKALINE PHOSPHATASE 131 U/L 40-150 (BEAKER) (test rxiu=477) BILIRUBIN TOTAL (BEAKER) 0.3 mg/dL 0.2-1.2 (test bjtt=073) SODIUM (BEAKER) (test 140 meq/L 136-145 lwms=029) POTASSIUM (BEAKER) (test 3.3 meq/L 3.5-5.1 udkl=786) CHLORIDE (BEAKER) (test 102 meq/L 98-107 pjcl=858) CO2 (BEAKER) (test 28 meq/L 22-29 etse=193) BLOOD UREA NITROGEN 10 mg/dL 7-21 (BEAKER) (test scdm=010) CREATININE (BEAKER) (test 0.58 mg/dL 0.57-1.25 jaey=871) GLUCOSE RANDOM (BEAKER) 126 mg/dL 70-105 (test tpci=439) CALCIUM (BEAKER) (test 9.6 mg/dL 8.4-10.2 epos=272) AST (SGOT) (BEAKER) (test 25 U/L 5-34 duph=848) ALT (SGPT) (BEAKER) (test 13 U/L 6-55 zzbv=561) EGFR (BEAKER) (test 108 mL/min/1.73 sq ESTIMATED GFR IS NOT gkjo=3305) m ACCURATE CREATININE CLEARANCE IN PREDICTING GLOMERULAR FILTRATION RATE. ESTIMATED GFR IS NOT APPLICABLE FOR DIALYSIS PATIENTS. CBC W/PLT COUNT & AUTO [id number] 07:33:00 Test Item Value Reference Range Comments WHITE BLOOD CELL COUNT (BEAKER) (test fnhi=800) 10.7 K/ L 3.5-10.5 RED BLOOD CELL COUNT (BEAKER) (test oshm=727) 2.88 M/ L 3.93-5.22 HEMOGLOBIN (BEAKER) (test pjbo=084) 7.6 GM/DL 11.2-15.7 HEMATOCRIT (BEAKER) (test jhgz=851) 26.4 % 34.1-44.9 MEAN CORPUSCULAR VOLUME (BEAKER) (test ywyz=776) 91.7 fL 79.4-94.8 MEAN CORPUSCULAR HEMOGLOBIN (BEAKER) (test 26.4 pg 25.6-32.2 bwug=420) MEAN CORPUSCULAR HEMOGLOBIN CONC (BEAKER) (test 28.8 GM/DL 32.2-35.5 rinu=757) RED CELL DISTRIBUTION WIDTH (BEAKER) (test 17.2 % 11.7-14.4 emkm=413) PLATELET COUNT (BEAKER) (test vwph=631) 363 K/CU MM 150-450 MEAN PLATELET VOLUME (BEAKER) (test aepe=401) 9.3 fL 9.4-12.3 NUCLEATED RED BLOOD CELLS (BEAKER) (test 0 /100 WBC 0-0 wnxz=421) NEUTROPHILS RELATIVE PERCENT (BEAKER) (test 77 % mzmw=239) LYMPHOCYTES RELATIVE PERCENT (BEAKER) (test 10 % igmr=461) MONOCYTES RELATIVE PERCENT (BEAKER) (test 10 % nczv=320) EOSINOPHILS RELATIVE PERCENT (BEAKER) (test 0 % fbyd=836) BASOPHILS RELATIVE PERCENT (BEAKER) (test 0 % wpav=658) NEUTROPHILS ABSOLUTE COUNT (BEAKER) (test 8.26 K/ L 1.56-6.13 ukmv=922) LYMPHOCYTES ABSOLUTE COUNT (BEAKER) (test 1.05 K/ L 1.18-3.74 twgi=086) MONOCYTES ABSOLUTE COUNT (BEAKER) (test 1.08 K/ L 0.24-0.36 rzjq=759) EOSINOPHILS ABSOLUTE COUNT (BEAKER) (test 0.01 K/ L 0.04-0.36 rmmz=570) BASOPHILS ABSOLUTE COUNT (BEAKER) (test 0.03 K/ L 0.01-0.08 tkga=643) IMMATURE GRANULOCYTES-RELATIVE PERCENT (BEAKER) 3 % 0-1 (test rbbp=9333) CBC W/PLT COUNT & AUTO [id number] 01:01:00 Test Item Value Reference Range Comments WHITE BLOOD CELL COUNT (BEAKER) (test byta=122) 11.6 K/ L 3.5-10.5 RED BLOOD CELL COUNT (BEAKER) (test njhk=838) 2.87 M/ L 3.93-5.22 HEMOGLOBIN (BEAKER) (test xbmv=677) 7.7 GM/DL 11.2-15.7 HEMATOCRIT (BEAKER) (test tmbo=435) 25.7 % 34.1-44.9 MEAN CORPUSCULAR VOLUME (BEAKER) (test uuyx=055) 89.5 fL 79.4-94.8 MEAN CORPUSCULAR HEMOGLOBIN (BEAKER) (test 26.8 pg 25.6-32.2 jojs=985) MEAN CORPUSCULAR HEMOGLOBIN CONC (BEAKER) (test 30.0 GM/DL 32.2-35.5 yoah=717) RED CELL DISTRIBUTION WIDTH (BEAKER) (test 17.3 % 11.7-14.4 qaps=342) PLATELET COUNT (BEAKER) (test iuiw=848) 337 K/CU MM 150-450 MEAN PLATELET VOLUME (BEAKER) (test zmrd=148) 9.0 fL 9.4-12.3 NUCLEATED RED BLOOD CELLS (BEAKER) (test 0 /100 WBC 0-0 rohr=320) NEUTROPHILS RELATIVE PERCENT (BEAKER) (test 78 % mjzt=750) LYMPHOCYTES RELATIVE PERCENT (BEAKER) (test 10 % aenb=005) MONOCYTES RELATIVE PERCENT (BEAKER) (test 8 % zyvl=105) EOSINOPHILS RELATIVE PERCENT (BEAKER) (test 0 % ekgx=422) BASOPHILS RELATIVE PERCENT (BEAKER) (test 0 % dwey=294) NEUTROPHILS ABSOLUTE COUNT (BEAKER) (test 9.03 K/ L 1.56-6.13 jbcj=976) LYMPHOCYTES ABSOLUTE COUNT (BEAKER) (test 1.21 K/ L 1.18-3.74 vbzs=309) MONOCYTES ABSOLUTE COUNT (BEAKER) (test 0.97 K/ L 0.24-0.36 pnao=256) EOSINOPHILS ABSOLUTE COUNT (BEAKER) (test 0.00 K/ L 0.04-0.36 ahao=857) BASOPHILS ABSOLUTE COUNT (BEAKER) (test 0.01 K/ L 0.01-0.08 prnh=035) IMMATURE GRANULOCYTES-RELATIVE PERCENT (BEAKER) 4 % 0-1 (test gjzv=4337) COMPREHENSIVE METABOLIC [id number] 11:35:00 Test Item Value Reference Range Comments TOTAL PROTEIN (BEAKER) 6.1 gm/dL 6.0-8.3 (test fgvt=340) ALBUMIN (BEAKER) (test 2.6 g/dL 3.5-5.0 uqez=9922) ALKALINE PHOSPHATASE 132 U/L 40-150 (BEAKER) (test mgkd=399) BILIRUBIN TOTAL (BEAKER) 0.4 mg/dL 0.2-1.2 (test jkdy=255) SODIUM (BEAKER) (test 140 meq/L 136-145 iuff=968) POTASSIUM (BEAKER) (test 3.6 meq/L 3.5-5.1 beua=425) CHLORIDE (BEAKER) (test 102 meq/L 98-107 fapy=780) CO2 (BEAKER) (test 28 meq/L 22-29 jdkx=624) BLOOD UREA NITROGEN 11 mg/dL 7-21 (BEAKER) (test pwpm=321) CREATININE (BEAKER) (test 0.65 mg/dL 0.57-1.25 tdek=455) GLUCOSE RANDOM (BEAKER) 136 mg/dL 70-105 (test rodv=809) CALCIUM (BEAKER) (test 9.4 mg/dL 8.4-10.2 npzi=680) AST (SGOT) (BEAKER) (test 25 U/L 5-34 zbxs=754) ALT (SGPT) (BEAKER) (test 13 U/L 6-55 znqk=526) EGFR (BEAKER) (test 94 mL/min/1.73 sq m ESTIMATED GFR IS NOT qrqw=4200) ACCURATE CREATININE CLEARANCE IN PREDICTING GLOMERULAR FILTRATION RATE. ESTIMATED GFR IS NOT APPLICABLE FOR DIALYSIS PATIENTS. CBC W/PLT COUNT & AUTO [id number] 11:25:00 Test Item Value Reference Range Comments WHITE BLOOD CELL COUNT (BEAKER) (test itdc=517) 12.7 K/ L 3.5-10.5 RED BLOOD CELL COUNT (BEAKER) (test bimo=520) 3.01 M/ L 3.93-5.22 HEMOGLOBIN (BEAKER) (test oycg=708) 8.2 GM/DL 11.2-15.7 HEMATOCRIT (BEAKER) (test qpnh=326) 27.3 % 34.1-44.9 MEAN CORPUSCULAR VOLUME (BEAKER) (test kjlk=911) 90.7 fL 79.4-94.8 MEAN CORPUSCULAR HEMOGLOBIN (BEAKER) (test 27.2 pg 25.6-32.2 ucuk=949) MEAN CORPUSCULAR HEMOGLOBIN CONC (BEAKER) (test 30.0 GM/DL 32.2-35.5 bpjq=893) RED CELL DISTRIBUTION WIDTH (BEAKER) (test 17.6 % 11.7-14.4 xbcn=765) PLATELET COUNT (BEAKER) (test wule=363) 352 K/CU MM 150-450 MEAN PLATELET VOLUME (BEAKER) (test yqan=782) 8.9 fL 9.4-12.3 NUCLEATED RED BLOOD CELLS (BEAKER) (test 1 /100 WBC 0-0 xdif=495) NEUTROPHILS RELATIVE PERCENT (BEAKER) (test 75 % zjhe=225) LYMPHOCYTES RELATIVE PERCENT (BEAKER) (test 12 % tvcz=722) MONOCYTES RELATIVE PERCENT (BEAKER) (test 9 % blkb=457) EOSINOPHILS RELATIVE PERCENT (BEAKER) (test 0 % vlwn=958) BASOPHILS RELATIVE PERCENT (BEAKER) (test 0 % sacb=918) NEUTROPHILS ABSOLUTE COUNT (BEAKER) (test 9.56 K/ L 1.56-6.13 tffp=299) LYMPHOCYTES ABSOLUTE COUNT (BEAKER) (test 1.45 K/ L 1.18-3.74 nduv=840) MONOCYTES ABSOLUTE COUNT (BEAKER) (test 1.09 K/ L 0.24-0.36 lfig=536) EOSINOPHILS ABSOLUTE COUNT (BEAKER) (test 0.01 K/ L 0.04-0.36 rhdz=025) BASOPHILS ABSOLUTE COUNT (BEAKER) (test 0.01 K/ L 0.01-0.08 euvs=383) IMMATURE GRANULOCYTES-RELATIVE PERCENT (BEAKER) 4 % 0-1 (test guqn=9621) PROTHROMBIN TIME/[id number] 11:23:00 Test Item Value Reference Range Comments PROTIME (BEAKER) (test apoi=252) 16.8 seconds 11.7-14.7 INR (BEAKER) (test dktr=690) 1.4 <=5.9 RECOMMENDED COUMADIN/WARFARIN INR THERAPY RANGESSTANDARD DOSE: 2.0 - 3.0 Includes: PROPHYLAXIS forvenous thrombosis, systemic embolization; TREATMENT for venous thrombosis and/or pulmonary embolus.HIGH RISK: Target INR is 2.5-3.5 for patients with mechanical heart valves.CBC (HEMOGRAM ONLY)2017-12-01 07:29:00 Test Item Value Reference Range Comments WHITE BLOOD CELL COUNT (BEAKER) (test xtgb=192) 8.0 K/ L 3.5-10.5 RED BLOOD CELL COUNT (BEAKER) (test sruv=722) 2.90 M/ L 3.93-5.22 HEMOGLOBIN (BEAKER) (test bvzz=783) 7.6 GM/DL 11.2-15.7 HEMATOCRIT (BEAKER) (test kmyb=435) 26.6 % 34.1-44.9 MEAN CORPUSCULAR VOLUME (BEAKER) (test slme=869) 91.7 fL 79.4-94.8 MEAN CORPUSCULAR HEMOGLOBIN (BEAKER) (test 26.2 pg 25.6-32.2 ppyv=127) MEAN CORPUSCULAR HEMOGLOBIN CONC (BEAKER) (test 28.6 GM/DL 32.2-35.5 mcfu=608) RED CELL DISTRIBUTION WIDTH (BEAKER) (test 16.6 % 11.7-14.4 scrd=502) PLATELET COUNT (BEAKER) (test xegi=124) 432 K/CU MM 150-450 MEAN PLATELET VOLUME (BEAKER) (test oxad=932) 8.9 fL 9.4-12.3 NUCLEATED RED BLOOD CELLS (BEAKER) (test 1 /100 WBC 0-0 exzy=338) BASIC METABOLIC [id number] 07:25:00 Test Item Value Reference Range Comments SODIUM (BEAKER) (test 139 meq/L 136-145 dpdz=260) POTASSIUM (BEAKER) (test 3.9 meq/L 3.5-5.1 egux=254) CHLORIDE (BEAKER) (test 97 meq/L 98-107 wdti=611) CO2 (BEAKER) (test 30 meq/L 22-29 tjwr=224) BLOOD UREA NITROGEN 11 mg/dL 7-21 (BEAKER) (test xgln=678) CREATININE (BEAKER) (test 0.60 mg/dL 0.57-1.25 znfg=030) GLUCOSE RANDOM (BEAKER) 125 mg/dL 70-105 (test lowi=382) CALCIUM (BEAKER) (test 9.4 mg/dL 8.4-10.2 bqvh=336) EGFR (BEAKER) (test 103 mL/min/1.73 sq m ESTIMATED GFR IS NOT wann=6348) ACCURATE CREATININE CLEARANCE IN PREDICTING GLOMERULAR FILTRATION RATE. ESTIMATED GFR IS NOT APPLICABLE FOR DIALYSIS PATIENTS. CREATINE KINASE (CK), TOTAL AND [id number] 01:18:00 Test Item Value Reference Range Comments CREATINE KINASE TOTAL (BEAKER) (test kchb=756) 10 U/L 29-200 CREATINE KINASE-MB (BEAKER) (test ztgn=472) 0.4 ng/mL 0.0-6.6 CREATINE KINASE-MB INDEX (BEAKER) (test nxab=169) 4.0 % CK-MB Reference Range:<6.7 Normal6.7-10.0 Borderline>10.0 [id number]-[id number] 01:18:00 Test Item Value Reference Range Comments D-DIMER QUANTITATIVE (BEAKER) (test slgj=659) 2.64 MG/L FEU <0.50 Intended Use: The [...] exclusion of thrombosis is within 95-100% range.TROPONIN [id number] 01:16:00 Test Item Value Reference Range Comments TROPONIN I (BEAKER) (test vjuj=541) < ng/mL 0.00-0.03 Troponin I (TnI) levels [...] failure, acidosis, acute neurological disease, and persistent tachyarrhythmia.PT/[id number] 01:16:00 Test Item Value Reference Range Comments PROTIME (BEAKER) (test aqjd=112) 15.1 seconds 11.7-14.7 INR (BEAKER) (test rtrg=715) 1.2 <=5.9 PARTIAL THROMBOPLASTIN TIME (BEAKER) (test 38.3 seconds 22.5-36.0 kvjh=265) RECOMMENDED COUMADIN/WARFARIN INR THERAPY RANGESSTANDARD DOSE: 2.0 - 3.0 Includes: PROPHYLAXIS forvenous thrombosis, systemic embolization; TREATMENT for venous thrombosis and/or pulmonary embolus.HIGH RISK: Target INR is 2.5-3.5 for patients with mechanical heart valves.[id number] 01:15:00 Test Item Value Reference Range Comments MAGNESIUM (BEAKER) (test aofb=239) 2.1 mg/dL 1.6-2.6 COMPREHENSIVE METABOLIC [id number] 01:15:00 Test Item Value Reference Range Comments TOTAL PROTEIN (BEAKER) 6.3 gm/dL 6.0-8.3 (test ctwi=907) ALBUMIN (BEAKER) (test 2.7 g/dL 3.5-5.0 dhwx=8016) ALKALINE PHOSPHATASE 178 U/L 40-150 (BEAKER) (test lkkd=430) BILIRUBIN TOTAL (BEAKER) 0.4 mg/dL 0.2-1.2 (test rdto=440) SODIUM (BEAKER) (test 139 meq/L 136-145 dwnb=832) POTASSIUM (BEAKER) (test 4.5 meq/L 3.5-5.1 xlra=387) CHLORIDE (BEAKER) (test 98 meq/L 98-107 dcwv=961) CO2 (BEAKER) (test 30 meq/L 22-29 qjex=891) BLOOD UREA NITROGEN 12 mg/dL 7-21 (BEAKER) (test azfp=653) CREATININE (BEAKER) (test 0.65 mg/dL 0.57-1.25 ozkj=474) GLUCOSE RANDOM (BEAKER) 149 mg/dL 70-105 (test hvzf=854) CALCIUM (BEAKER) (test 9.8 mg/dL 8.4-10.2 wxnd=070) AST (SGOT) (BEAKER) (test 31 U/L 5-34 yprb=215) ALT (SGPT) (BEAKER) (test 21 U/L 6-55 nprv=612) EGFR (BEAKER) (test 94 mL/min/1.73 sq m ESTIMATED GFR IS NOT wlzu=0071) ACCURATE CREATININE CLEARANCE IN PREDICTING GLOMERULAR FILTRATION RATE. ESTIMATED GFR IS NOT APPLICABLE FOR DIALYSIS PATIENTS. RAD, CHEST, 1 VIEW, NON [id number] 01:07:00Reason for exam:->resp distressShould this be performed [...] Pope Verified Date/Time: 12/01/2017 01:07:11 Reading Location: [address] Reading Room CBC W/PLT COUNT & AUTO [id number] 01:02:00 Test Item Value Reference Range Comments WHITE BLOOD CELL COUNT (BEAKER) (test ahqc=634) 9.6 K/ L 3.5-10.5 RED BLOOD CELL COUNT (BEAKER) (test nitm=112) 3.06 M/ L 3.93-5.22 HEMOGLOBIN (BEAKER) (test srmp=149) 8.2 GM/DL 11.2-15.7 HEMATOCRIT (BEAKER) (test ehzn=798) 27.9 % 34.1-44.9 MEAN CORPUSCULAR VOLUME (BEAKER) (test zsky=794) 91.2 fL 79.4-94.8 MEAN CORPUSCULAR HEMOGLOBIN (BEAKER) (test 26.8 pg 25.6-32.2 exof=183) MEAN CORPUSCULAR HEMOGLOBIN CONC (BEAKER) (test 29.4 GM/DL 32.2-35.5 qnhk=846) RED CELL DISTRIBUTION WIDTH (BEAKER) (test 16.6 % 11.7-14.4 uvvg=700) PLATELET COUNT (BEAKER) (test yteb=068) 369 K/CU MM 150-450 MEAN PLATELET VOLUME (BEAKER) (test nnlp=268) 8.6 fL 9.4-12.3 NUCLEATED RED BLOOD CELLS (BEAKER) (test 1 /100 WBC 0-0 jtcj=067) NEUTROPHILS RELATIVE PERCENT (BEAKER) (test 76 % duha=163) LYMPHOCYTES RELATIVE PERCENT (BEAKER) (test 14 % nrlt=222) MONOCYTES RELATIVE PERCENT (BEAKER) (test 8 % svpu=609) EOSINOPHILS RELATIVE PERCENT (BEAKER) (test 0 % mhvp=498) BASOPHILS RELATIVE PERCENT (BEAKER) (test 0 % qfve=054) NEUTROPHILS ABSOLUTE COUNT (BEAKER) (test 7.24 K/ L 1.56-6.13 yhcq=110) LYMPHOCYTES ABSOLUTE COUNT (BEAKER) (test 1.31 K/ L 1.18-3.74 duvl=665) MONOCYTES ABSOLUTE COUNT (BEAKER) (test 0.72 K/ L 0.24-0.36 vzos=456) EOSINOPHILS ABSOLUTE COUNT (BEAKER) (test 0.01 K/ L 0.04-0.36 igmv=395) BASOPHILS ABSOLUTE COUNT (BEAKER) (test 0.01 K/ L 0.01-0.08 tcrp=771) IMMATURE GRANULOCYTES-RELATIVE PERCENT (BEAKER) 3 % 0-1 (test hmrb=5350) POCT-LACTIC ACID, [id number] 00:50:00 Test Item Value Reference Range Comments POC-LACTIC ACID, ARTERIAL 1.5 mmol/L 0.4-1.3 TESTED AT [facility] [address] [facility] (BEAKER) (test szso=4235) [facility] [address] POCT-BLOOD GASES, [id number] 00:50:00 Test Item Value Reference Range Comments TEMP, CELSIUS-POC (BEAKER) 36.3 (test ezkn=7975) FIO2-POC (BEAKER) (test 34 TESTED AT [address] dbqt=1954) [place] [address] PH, ARTERIAL-POC (BEAKER) 7.601 7.350-7.450 (test krna=4147) PCO2, ARTERIAL-POC (BEAKER) 39.0 mm Hg 35.0-45.0 (test ylba=5177) PO2, ARTERIAL-POC (BEAKER) 65.0 mm Hg 80.0-90.0 (test hznp=8420) SO2, ARTERIAL-POC (BEAKER) 96.0 % 96.0-97.0 (test gcml=7361) HCO3, ARTERIAL-POC (BEAKER) 38.6 meq/L 21.0-29.0 (test pbtw=3633) BASE EXCESS, ARTERIAL-POC 17.0 meq/L -2.0-3.0 (BEAKER) (test aapb=7553) [id number] 00:50:00 Test Item Value Reference Range Comments POC-SODIUM (BEAKER) (test 135 meq/L 135-148 TESTED AT [address] twse=9652) [place] [address] [id number] 00:50:00 Test Item Value Reference Range Comments POC-POTASSIUM (BEAKER) (test 4.2 meq/L 3.6-5.5 [address] i[address]=1639[address] [place] [address] [id number] 00:50:00 Test Item Value Reference Range Comments POC-GLUCOSE (BEAKER) (test 162 mg/dL 70-110 TESTED AT [address] awcf=4548) [place] [address] POCT-CALCIUM [id number] 00:50:00 Test Item Value Reference Range Comments POC-CALCIUM IONIZED (BEAKER) 1.22 mmol/L 1.12-1.27 TESTED AT [address] (test ctrt=0610) [place] [address] [id number] 00:50:00 Test Item Value Reference Range Comments POC-HEMATOCRIT (BEAKER) (test 25 % 36-45 TESTED AT [address] lsqn=5260) [place] [address] [id number] 00:50:00 Test Item Value Reference Range Comments POC-HEMOGLOBIN (BEAKER) 8.5 g/dL 12.0-15.0 TESTED AT [place] [id number] [facility] (test ekgi=4191) [facility] [id number] AT [facility] [address] [facility] [address] ANAEROBIC [id number] 15:15:00 Test Item Value Reference Range Comments CULTURE (BEAKER) (test tsme=4452) No anaerobes isolated BASIC METABOLIC [id number] 05:19:00 Test Item Value Reference Range Comments SODIUM (BEAKER) (test 140 meq/L 136-145 cfxl=696) POTASSIUM (BEAKER) (test 3.9 meq/L 3.5-5.1 ilkq=412) CHLORIDE (BEAKER) (test 98 meq/L 98-107 wiyt=489) CO2 (BEAKER) (test 33 meq/L 22-29 kbtz=898) BLOOD UREA NITROGEN 9 mg/dL 7-21 (BEAKER) (test ttac=098) CREATININE (BEAKER) (test 0.60 mg/dL 0.57-1.25 ljmt=500) GLUCOSE RANDOM (BEAKER) 116 mg/dL 70-105 (test ahly=434) CALCIUM (BEAKER) (test 9.5 mg/dL 8.4-10.2 ubjv=462) EGFR (BEAKER) (test 103 mL/min/1.73 sq m ESTIMATED GFR IS NOT uthk=5006) ACCURATE CREATININE CLEARANCE IN PREDICTING GLOMERULAR FILTRATION RATE. ESTIMATED GFR IS NOT APPLICABLE FOR DIALYSIS PATIENTS. RAD, CHEST, 1 VIEW, NON [id number] 17:28:00Reason for exam:-> wheezingShould this be performed at the bedside?->YesFINAL REPORT AP chest HISTORY: Wheezing COMPARISON: 11/27/2017 IMPRESSION: Rightarm PICC present. Cardiomegaly. Mild interstitial edema. Suspect trace left effusion. No pneumothorax. Signed: Autumn Rigginseport Verified Date/ Time: 11/29/2017 17:28:32 Reading Location: [address] Consult Reading Room COMPREHENSIVE METABOLIC [id number] 12:45:00 Test Item Value Reference Range Comments TOTAL PROTEIN (BEAKER) 5.3 gm/dL 6.0-8.3 (test utjx=955) ALBUMIN (BEAKER) (test 2.2 g/dL 3.5-5.0 spko=0629) ALKALINE PHOSPHATASE 146 U/L 40-150 (BEAKER) (test togu=731) BILIRUBIN TOTAL (BEAKER) 0.2 mg/dL 0.2-1.2 (test dbam=679) SODIUM (BEAKER) (test 137 meq/L 136-145 ytzl=859) POTASSIUM (BEAKER) (test 3.2 meq/L 3.5-5.1 psbd=774) CHLORIDE (BEAKER) (test 96 meq/L 98-107 lpru=156) CO2 (BEAKER) (test 37 meq/L 22-29 bcrj=928) BLOOD UREA NITROGEN 12 mg/dL 7-21 (BEAKER) (test ltlr=406) CREATININE (BEAKER) (test 0.68 mg/dL 0.57-1.25 hphm=488) GLUCOSE RANDOM (BEAKER) 186 mg/dL 70-105 (test diwm=946) CALCIUM (BEAKER) (test 9.1 mg/dL 8.4-10.2 rmya=058) AST (SGOT) (BEAKER) (test 18 U/L 5-34 irdh=311) ALT (SGPT) (BEAKER) (test 15 U/L 6-55 yzfj=587) EGFR (BEAKER) (test 90 mL/min/1.73 sq m ESTIMATED GFR IS NOT nlmw=7900) ACCURATE CREATININE CLEARANCE IN PREDICTING GLOMERULAR FILTRATION RATE. ESTIMATED GFR IS NOT APPLICABLE FOR DIALYSIS PATIENTS. LACTIC ACID, VENOUS, WHOLE [id number] 12:41:00 Test Item Value Reference Range Comments LACTATE BLOOD VENOUS (2) (BEAKER) (test 1.4 mmol/L 0.5-2.2 ruov=9969) Effective 10/28/2015: Units/Reference Range ChangeNew: 0.5-2.2 mmol/L Previous: 5 -20 mg/dLCBC W/PLT COUNT & AUTO [id number] 12:31:00 Test Item Value Reference Range Comments WHITE BLOOD CELL COUNT (BEAKER) (test ibpq=133) 6.5 K/ L 3.5-10.5 RED BLOOD CELL COUNT (BEAKER) (test rpln=695) 2.65 M/ L 3.93-5.22 HEMOGLOBIN (BEAKER) (test edzf=358) 7.1 GM/DL 11.2-15.7 HEMATOCRIT (BEAKER) (test fjvr=019) 24.2 % 34.1-44.9 MEAN CORPUSCULAR VOLUME (BEAKER) (test sonk=514) 91.3 fL 79.4-94.8 MEAN CORPUSCULAR HEMOGLOBIN (BEAKER) (test 26.8 pg 25.6-32.2 ndab=757) MEAN CORPUSCULAR HEMOGLOBIN CONC (BEAKER) (test 29.3 GM/DL 32.2-35.5 wiii=146) RED CELL DISTRIBUTION WIDTH (BEAKER) (test 17.1 % 11.7-14.4 yekr=006) PLATELET COUNT (BEAKER) (test emcb=887) 253 K/CU MM 150-450 MEAN PLATELET VOLUME (BEAKER) (test ecla=543) 8.9 fL 9.4-12.3 NUCLEATED RED BLOOD CELLS (BEAKER) (test 1 /100 WBC 0-0 gows=146) NEUTROPHILS RELATIVE PERCENT (BEAKER) (test 79 % bqqb=961) LYMPHOCYTES RELATIVE PERCENT (BEAKER) (test 11 % qkqe=007) MONOCYTES RELATIVE PERCENT (BEAKER) (test 7 % oqxo=031) EOSINOPHILS RELATIVE PERCENT (BEAKER) (test 1 % fxcs=388) BASOPHILS RELATIVE PERCENT (BEAKER) (test 0 % lvsf=705) NEUTROPHILS ABSOLUTE COUNT (BEAKER) (test 5.13 K/ L 1.56-6.13 ojsb=725) LYMPHOCYTES ABSOLUTE COUNT (BEAKER) (test 0.74 K/ L 1.18-3.74 lxtj=373) MONOCYTES ABSOLUTE COUNT (BEAKER) (test 0.47 K/ L 0.24-0.36 sisj=287) EOSINOPHILS ABSOLUTE COUNT (BEAKER) (test 0.03 K/ L 0.04-0.36 abwr=118) BASOPHILS ABSOLUTE COUNT (BEAKER) (test 0.01 K/ L 0.01-0.08 rvdm=777) IMMATURE GRANULOCYTES-RELATIVE PERCENT (BEAKER) 2 % 0-1 (test fiwh=5994) [id number] 05:39:00 Test Item Value Reference Range Comments MAGNESIUM (BEAKER) (test idta=057) 1.7 mg/dL 1.6-2.6 BASIC METABOLIC [id number] 05:39:00 Test Item Value Reference Range Comments SODIUM (BEAKER) (test 137 meq/L 136-145 nyti=875) POTASSIUM (BEAKER) (test 3.3 meq/L 3.5-5.1 vpiq=441) CHLORIDE (BEAKER) (test 96 meq/L 98-107 rffc=038) CO2 (BEAKER) (test 35 meq/L 22-29 nbyi=790) BLOOD UREA NITROGEN 13 mg/dL 7-21 (BEAKER) (test pqqy=263) CREATININE (BEAKER) (test 0.71 mg/dL 0.57-1.25 qpww=772) GLUCOSE RANDOM (BEAKER) 123 mg/dL 70-105 (test oxmo=761) CALCIUM (BEAKER) (test 9.3 mg/dL 8.4-10.2 zluh=862) EGFR (BEAKER) (test 85 mL/min/1.73 sq m ESTIMATED GFR IS NOT kpnu=2020) ACCURATE CREATININE CLEARANCE IN PREDICTING GLOMERULAR FILTRATION RATE. ESTIMATED GFR IS NOT APPLICABLE FOR DIALYSIS PATIENTS. [id number] 06:55:00 Test Item Value Reference Range Comments MAGNESIUM (BEAKER) (test ahmt=231) 1.8 mg/dL 1.6-2.6 BASIC METABOLIC [id number] 06:55:00 Test Item Value Reference Range Comments SODIUM (BEAKER) (test 134 meq/L 136-145 tsun=010) POTASSIUM (BEAKER) (test 3.7 meq/L 3.5-5.1 bqir=690) CHLORIDE (BEAKER) (test 99 meq/L 98-107 eibe=006) CO2 (BEAKER) (test 27 meq/L 22-29 fiup=511) BLOOD UREA NITROGEN 12 mg/dL 7-21 (BEAKER) (test foog=042) CREATININE (BEAKER) (test 0.69 mg/dL 0.57-1.25 ufxy=604) GLUCOSE RANDOM (BEAKER) 117 mg/dL 70-105 (test vejp=540) CALCIUM (BEAKER) (test 9.7 mg/dL 8.4-10.2 vcss=140) EGFR (BEAKER) (test 88 mL/min/1.73 sq m ESTIMATED GFR IS NOT nbyy=3112) ACCURATE CREATININE CLEARANCE IN PREDICTING GLOMERULAR FILTRATION RATE. ESTIMATED GFR IS NOT APPLICABLE FOR DIALYSIS PATIENTS. CBC (HEMOGRAM ONLY)2017-11-28 06:38:00 Test Item Value Reference Range Comments WHITE BLOOD CELL COUNT (BEAKER) (test ywyc=423) 7.2 K/ L 3.5-10.5 RED BLOOD CELL COUNT (BEAKER) (test lzgg=035) 2.81 M/ L 3.93-5.22 HEMOGLOBIN (BEAKER) (test wbjm=933) 7.6 GM/DL 11.2-15.7 HEMATOCRIT (BEAKER) (test udnk=567) 25.6 % 34.1-44.9 MEAN CORPUSCULAR VOLUME (BEAKER) (test oian=337) 91.1 fL 79.4-94.8 MEAN CORPUSCULAR HEMOGLOBIN (BEAKER) (test 27.0 pg 25.6-32.2 oucu=746) MEAN CORPUSCULAR HEMOGLOBIN CONC (BEAKER) (test 29.7 GM/DL 32.2-35.5 ehov=860) RED CELL DISTRIBUTION WIDTH (BEAKER) (test 17.3 % 11.7-14.4 qoik=730) PLATELET COUNT (BEAKER) (test ximd=746) 278 K/CU MM 150-450 MEAN PLATELET VOLUME (BEAKER) (test xsna=259) 9.3 fL 9.4-12.3 NUCLEATED RED BLOOD CELLS (BEAKER) (test 1 /100 WBC 0-0 ioxg=267) CT, CHEST WITH IV CONTRAST- PE TEST [id number] 16:18:00FINAL REPORT TECHNIQUE: CT scan of the [...] Verified Date/Time : 11/27/2017 16:18:55 Reading Location: [facility] C013Y CT Body Reading Room RAD, CHEST, 1 VIEW, NON [id number] 11:30:00Reason for exam:->POST PICC LINE INSERTION Should [...] MDReport Verified Date/Time: 2017 11:30:16 Reading Location: [facility] Reading Room TROPONIN [id number] 03:08:00 Test Item Value Reference Range Comments TROPONIN I (BEAKER) (test hfjn=737) < ng/mL 0.00-0.03 Troponin I (TnI) levels [...] and persistent tachyarrhythmia.RAD, CHEST, 1 VIEW, NON [id number] 19:52:00Reason for exam:->chest painShould this be performed at the bedside?- >YesFINAL REPORT Comparison exam: 11/23/2017 Mild pulmonary venous congestion. Left lower lobe atelectasis, unchanged. Stable cardiomediastinal contours. KALEE drain from a lumbar laminectomy overlies the chest. Signed: Chriss Stovall MDReport Verified Date/Time: 11/26/2017 19:52 :53 Reading Location: [address] Reading Room B-TYPE NATRIURETIC FACTOR ( BNP)2017-11-26 19:19:00 Test Item Value Reference Range Comments B-TYPE NATRIURETIC PEPTIDE (BEAKER) (test 420 pg/mL 0-100 xfge=797) CREATINE KINASE (CK), TOTAL AND [id number] 19:18:00 Test Item Value Reference Range Comments CREATINE KINASE TOTAL (BEAKER) (test byhw=867) 69 U/L 29-200 CREATINE KINASE-MB (BEAKER) (test nkrb=762) 0.5 ng/mL 0.0-6.6 CREATINE KINASE-MB INDEX (BEAKER) (test pvky=630) 0.7 % CK-MB Reference Range:<6.7 Normal6.7-10.0 Borderline>10.0 AbnormalTROPONIN [id number] 19:18:00 Test Item Value Reference Range Comments TROPONIN I (BEAKER) (test eorw=748) < ng/mL 0.00-0.03 Troponin I (TnI) levels [...] and persistent tachyarrhythmia.SURGICALLY OBTAINED CULTURE + GRAM [id number] 12:31:00 Test Item Value Reference Range Comments CULTURE (BEAKER) (test 4+ Proteus mirabilis kctl=0208) GRAM STAIN RESULT (BEAKER) 1+ WBCs (test bnbd=1128) GRAM STAIN RESULT (BEAKER) No organisms seen (test jfaf=03161) BASIC METABOLIC [id number] 07:25:00 Test Item Value Reference Range Comments SODIUM (BEAKER) (test 133 meq/L 136-145 xxug=789) POTASSIUM (BEAKER) (test 3.8 meq/L 3.5-5.1 vzma=579) CHLORIDE (BEAKER) (test 97 meq/L 98-107 vnvw=258) CO2 (BEAKER) (test 26 meq/L 22-29 ephx=238) BLOOD UREA NITROGEN 13 mg/dL 7-21 (BEAKER) (test locf=393) CREATININE (BEAKER) (test 0.74 mg/dL 0.57-1.25 xxuf=751) GLUCOSE RANDOM (BEAKER) 158 mg/dL 70-105 (test ixfs=911) CALCIUM (BEAKER) (test 9.6 mg/dL 8.4-10.2 pjdw=377) EGFR (BEAKER) (test 81 mL/min/1.73 sq m ESTIMATED GFR IS NOT lqjq=1885) ACCURATE CREATININE CLEARANCE IN PREDICTING GLOMERULAR FILTRATION RATE. ESTIMATED GFR IS NOT APPLICABLE FOR DIALYSIS PATIENTS. CBC (HEMOGRAM ONLY)2017-11-26 07:07:00 Test Item Value Reference Range Comments WHITE BLOOD CELL COUNT (BEAKER) (test xvdx=703) 8.1 K/ L 3.5-10.5 RED BLOOD CELL COUNT (BEAKER) (test cqty=552) 2.83 M/ L 3.93-5.22 HEMOGLOBIN (BEAKER) (test lryn=211) 7.8 GM/DL 11.2-15.7 HEMATOCRIT (BEAKER) (test wudj=140) 25.5 % 34.1-44.9 MEAN CORPUSCULAR VOLUME (BEAKER) (test oqxg=371) 90.1 fL 79.4-94.8 MEAN CORPUSCULAR HEMOGLOBIN (BEAKER) (test 27.6 pg 25.6-32.2 jgzc=819) MEAN CORPUSCULAR HEMOGLOBIN CONC (BEAKER) (test 30.6 GM/DL 32.2-35.5 gfpl=016) RED CELL DISTRIBUTION WIDTH (BEAKER) (test 17.2 % 11.7-14.4 bcdf=131) PLATELET COUNT (BEAKER) (test oemi=698) 258 K/CU MM 150-450 MEAN PLATELET VOLUME (BEAKER) (test ajmb=304) 9.1 fL 9.4-12.3 NUCLEATED RED BLOOD CELLS (BEAKER) (test 1 /100 WBC 0-0 zbgx=826) BASIC METABOLIC [id number] 08:17:00 Test Item Value Reference Range Comments SODIUM (BEAKER) (test 134 meq/L 136-145 yibm=304) POTASSIUM (BEAKER) (test 4.2 meq/L 3.5-5.1 xmih=331) CHLORIDE (BEAKER) (test 100 meq/L 98-107 oexh=840) CO2 (BEAKER) (test 24 meq/L 22-29 ohcu=708) BLOOD UREA NITROGEN 13 mg/dL 7-21 (BEAKER) (test mvnd=074) CREATININE (BEAKER) (test 0.66 mg/dL 0.57-1.25 chgz=511) GLUCOSE RANDOM (BEAKER) 139 mg/dL 70-105 (test ulra=858) CALCIUM (BEAKER) (test 9.1 mg/dL 8.4-10.2 seph=188) EGFR (BEAKER) (test 93 mL/min/1.73 sq m ESTIMATED GFR IS NOT gern=7805) ACCURATE CREATININE CLEARANCE IN PREDICTING GLOMERULAR FILTRATION RATE. ESTIMATED GFR IS NOT APPLICABLE FOR DIALYSIS PATIENTS. CBC (HEMOGRAM ONLY)2017-11-25 07:33:00 Test Item Value Reference Range Comments WHITE BLOOD CELL COUNT (BEAKER) (test ppqa=730) 7.8 K/ L 3.5-10.5 RED BLOOD CELL COUNT (BEAKER) (test fpau=422) 2.43 M/ L 3.93-5.22 HEMOGLOBIN (BEAKER) (test idit=090) 6.6 GM/DL 11.2-15.7 HEMATOCRIT (BEAKER) (test zfyi=514) 22.7 % 34.1-44.9 MEAN CORPUSCULAR VOLUME (BEAKER) (test anml=862) 93.4 fL 79.4-94.8 MEAN CORPUSCULAR HEMOGLOBIN (BEAKER) (test 27.2 pg 25.6-32.2 gial=772) MEAN CORPUSCULAR HEMOGLOBIN CONC (BEAKER) (test 29.1 GM/DL 32.2-35.5 uyfe=984) RED CELL DISTRIBUTION WIDTH (BEAKER) (test 17.1 % 11.7-14.4 xslk=669) PLATELET COUNT (BEAKER) (test acbo=962) 234 K/CU MM 150-450 MEAN PLATELET VOLUME (BEAKER) (test fftk=165) 9.0 fL 9.4-12.3 NUCLEATED RED BLOOD CELLS (BEAKER) (test 0 /100 WBC 0-0 siel=381) SPIN/CONCENTRATION [id number] 15:47:00 Test Item Value Reference Range Comments CONCENTRATION CHARGED (BEAKER) (test iaes=3270) Done BASIC METABOLIC [id number] 06:26:00 Test Item Value Reference Range Comments SODIUM (BEAKER) (test 137 meq/L 136-145 qcem=910) POTASSIUM (BEAKER) (test 5.0 meq/L 3.5-5.1 qudd=550) CHLORIDE (BEAKER) (test 102 meq/L 98-107 ryjj=248) CO2 (BEAKER) (test 26 meq/L 22-29 zldo=389) BLOOD UREA NITROGEN 16 mg/dL 7-21 (BEAKER) (test soks=699) CREATININE (BEAKER) (test 0.70 mg/dL 0.57-1.25 mfvz=720) GLUCOSE RANDOM (BEAKER) 130 mg/dL 70-105 (test fnbk=589) CALCIUM (BEAKER) (test 9.0 mg/dL 8.4-10.2 ofln=743) EGFR (BEAKER) (test 87 mL/min/1.73 sq m ESTIMATED GFR IS NOT cfpr=4670) ACCURATE CREATININE CLEARANCE IN PREDICTING GLOMERULAR FILTRATION RATE. ESTIMATED GFR IS NOT APPLICABLE FOR DIALYSIS PATIENTS. CBC (HEMOGRAM ONLY)2017-11-24 05:47:00 Test Item Value Reference Range Comments WHITE BLOOD CELL COUNT (BEAKER) (test deog=208) 9.4 K/ L 3.5-10.5 RED BLOOD CELL COUNT (BEAKER) (test wzxr=842) 2.78 M/ L 3.93-5.22 HEMOGLOBIN (BEAKER) (test eqds=766) 7.5 GM/DL 11.2-15.7 HEMATOCRIT (BEAKER) (test ifla=633) 26.6 % 34.1-44.9 MEAN CORPUSCULAR VOLUME (BEAKER) (test cnfb=330) 95.7 fL 79.4-94.8 MEAN CORPUSCULAR HEMOGLOBIN (BEAKER) (test 27.0 pg 25.6-32.2 wfjr=864) MEAN CORPUSCULAR HEMOGLOBIN CONC (BEAKER) (test 28.2 GM/DL 32.2-35.5 cvgs=221) RED CELL DISTRIBUTION WIDTH (BEAKER) (test 17.7 % 11.7-14.4 ebgy=297) PLATELET COUNT (BEAKER) (test fmmi=896) 270 K/CU MM 150-450 MEAN PLATELET VOLUME (BEAKER) (test xpwv=879) 8.8 fL 9.4-12.3 NUCLEATED RED BLOOD CELLS (BEAKER) (test 1 /100 WBC 0-0 vuev=204) NERVE CONDUCTION STUDIES; 5-6 [id number] 10:28:00INTRAOPERATIVE MONITORING REPORT Patient Name: Lotus Pelaez [facility] Surgery Date: 10/26/2017 Med Pro: [id number] Monitoring began at 14:45 and ended at [...] M54.5, C79.51 RAD, CHEST, 1 VIEW, NON [id number] 09:07:00Reason for exam:->pre-opShould this be performed at the bedside?->YesFINAL REPORT Chest one view Reason: Gout, metastatic renal cell cancer Discussion: There is substantial mediastinal lymphadenopathy. 1 cm nodule of the right upper lobe and a dominant mass of the left lower lobe are noted. No effusion or pneumothorax. No evidence of cardiac failure. Signed: Kathia Valerajaime Verified Date/Time: 11/23/2017 09:07:45 Reading Location: [facility] Radiology Reading Room Electronically signed by: KATHIA VALERA M.D. on 09:07 AMCT, SPINE, LUMBAR, WO [id number] 07:58:00FINAL REPORT CT thoracic and lumbar spine [...] Additional findings as discussed. Signed: Andreas Price Verified Date/Time: 11/23/201707:58:55 Reading Location: [address] Neuro Reading Room CT, SPINE, THORACIC, WO [id number] 07:58:00FINAL REPORT CT thoracic and lumbar spine [...] Additional findings as discussed. Signed: Andreas Price Verified Date/Time: 11/23/201707:58:55 Reading Location: [facility] B1 C013V Neuro Reading Room COMPREHENSIVE METABOLIC [id number] 07:23:00 Test Item Value Reference Range Comments TOTAL PROTEIN (BEAKER) 5.8 gm/dL 6.0-8.3 (test rqsv=764) ALBUMIN (BEAKER) (test 2.8 g/dL 3.5-5.0 uxhp=2702) ALKALINE PHOSPHATASE 145 U/L 40-150 (BEAKER) (test isre=638) BILIRUBIN TOTAL (BEAKER) 0.3 mg/dL 0.2-1.2 (test duht=709) SODIUM (BEAKER) (test 139 meq/L 136-145 euao=762) POTASSIUM (BEAKER) (test 4.3 meq/L 3.5-5.1 iohe=196) CHLORIDE (BEAKER) (test 103 meq/L 98-107 zcjq=284) CO2 (BEAKER) (test 26 meq/L 22-29 amwi=213) BLOOD UREA NITROGEN 28 mg/dL 7-21 (BEAKER) (test xynl=503) CREATININE (BEAKER) (test 0.67 mg/dL 0.57-1.25 lfwc=852) GLUCOSE RANDOM (BEAKER) 122 mg/dL 70-105 (test uxxf=025) CALCIUM (BEAKER) (test 9.0 mg/dL 8.4-10.2 kzkr=982) AST (SGOT) (BEAKER) (test 21 U/L 5-34 psra=135) ALT (SGPT) (BEAKER) (test 31 U/L 6-55 hiee=585) EGFR (BEAKER) (test 91 mL/min/1.73 sq m ESTIMATED GFR IS NOT ekqd=5895) ACCURATE CREATININE CLEARANCE IN PREDICTING GLOMERULAR FILTRATION RATE. ESTIMATED GFR IS NOT APPLICABLE FOR DIALYSIS PATIENTS. PROTHROMBIN TIME/[id number] 07:13:00 Test Item Value Reference Range Comments PROTIME (BEAKER) (test wmmn=443) 14.6 seconds 11.7-14.7 INR (BEAKER) (test zljz=313) 1.1 <=5.9 RECOMMENDED COUMADIN/WARFARIN INR THERAPY RANGESSTANDARD DOSE: 2.0 - 3.0 Includes: PROPHYLAXIS forvenous thrombosis, systemic embolization; TREATMENT for venous thrombosis and/or pulmonary embolus.HIGH RISK: Target INR is 2.5-3.5 for patients with mechanical heart valves.[id number] 07:13:00 Test Item Value Reference Range Comments PARTIAL THROMBOPLASTIN TIME (BEAKER) (test 33.3 seconds 22.5-36.0 mkqe=124) CBC (HEMOGRAM ONLY)2017-11-23 07:09:00 Test Item Value Reference Range Comments WHITE BLOOD CELL COUNT (BEAKER) (test wtld=307) 9.0 K/ L 3.5-10.5 RED BLOOD CELL COUNT (BEAKER) (test xmby=027) 2.89 M/ L 3.93-5.22 HEMOGLOBIN (BEAKER) (test ounp=561) 8.0 GM/DL 11.2-15.7 HEMATOCRIT (BEAKER) (test gvou=209) 27.4 % 34.1-44.9 MEAN CORPUSCULAR VOLUME (BEAKER) (test icmk=403) 94.8 fL 79.4-94.8 MEAN CORPUSCULAR HEMOGLOBIN (BEAKER) (test 27.7 pg 25.6-32.2 fpfk=015) MEAN CORPUSCULAR HEMOGLOBIN CONC (BEAKER) (test 29.2 GM/DL 32.2-35.5 dxkv=169) RED CELL DISTRIBUTION WIDTH (BEAKER) (test 17.5 % 11.7-14.4 xcli=676) PLATELET COUNT (BEAKER) (test hbcv=652) 246 K/CU MM 150-450 MEAN PLATELET VOLUME (BEAKER) (test dyzp=853) 8.7 fL 9.4-12.3 NUCLEATED RED BLOOD CELLS (BEAKER) (test 1 /100 WBC 0-0 eayg=558) TISSUE [id number] 12:13:00Surgical Pathology Report Case: [id number] Authorizing Provider: Pablo Gonzalez MD Collected: 10/26/2017 1738 Ordering Location: [facility] PERIOPERATIVE Received: 10/27/2017 0806 SERVICES Pathologist: Jeremias Patel MD Specimen: Vertebra, L3 VERTEBRAL BODY TUMOR VERTEBRA, BODY, MASS, EXCISION: - METASTATIC RENAL CELL CARCINOMA, Signing Pathologist Direct Phone Line: [phone] signed by Jeremias Patel MD on 11/02/2017 at 12:13 PMSections show nests of cells with clear cytoplasm surrounded by delicate branching fibrovascular septae. Tumor cells are positive for PAX8, RCC, and focally positive for JUSTINE. Immunohistochemical staining is negative in tumor for GATA3, TTF1, HEPPAR1, CK7 and CK20. These findings confirm the diagnosis of metastatic renal cell carcinoma. 32792, 62299, 41903, 50744 Q0Ewqrquadhr to vertebral column of unknown origin, renal cell carcinomaL3 vertebral body tumorReceived fresh labeled "vertebra", description "L3 vertebral body tumor" is a 2.5 x 2.2 x 0.3 cm aggregate of pink-hoffman to mock-white, rubbery, soft and osseous tissue. Thespecimen is entirely submitted in cassette A1 for decalcification. DB/ewPerformed.The immunohistochemistry test was developed and its performance characteristics determined by [facility], Pathology Laboratory. It has not been [...] its performance characteristics determined by [facility] Pathology Laboratory. It has not been [...] perform high complexity clinical laboratory testing.DARIEN, ANGIOGRAM, [id number] 07:27:00Reason for exam:->preoperative embolizationDr Jeffrey REPORT DATE: 10/25/2017 NAME: LOTUS PELAEZ ATTENDING: Beau Castillo MD GLASS CUTTER HAND: Selwyn Lai MD PREOPERATIVE DIAGNOSIS: Metastatic tumor to L3 body POSTOPERATIVE DIAGNOSIS: Metastatic tumor to L3 body PROCEDURES PERFORMED: 1.Diagnostic spinal angiogram2.Embolization of vertebral body tumor ANESTHESIA: GENERAL COMPLICATIONS: None ESTIMATED BLOOD LOSS: Less than 15ml MATERIALS EMPLOYED:*5 Croatian x 25cm sheath *5 Croatian Mikaelsson catheter*Bentson guidewire*Terumo 0.035 LT glidewire*5 Croatian Mynx device*Echeleon microcatheter*[place] [facility] Co[facility]*Partical embolisate INDICATIONS:This is a 57-year-old [...] Over a Bentson glide wire, a 5 Croatian sheath was inserted into the right common [...] arterial feeders at the L3 level. An Darby microcatheter was placed coaxially through the Darryn [...] in the vessel closed with a 5 Croatian Mynx device and manual compression. The patient tolerated the procedure well and was transported from the field memorial [facility] without groin [...] Verified Date/ Time: 10/30/2017 07:27:21 Reading Location: [facility] Y026 Neuro Angio Reading Room CBC W/PLT COUNT & AUTO [id number] 06:42:00 Test Item Value Reference Range Comments WHITE BLOOD CELL COUNT 14.7 K/ L 3.5-10.5 (BEAKER) (test znvb=778) RED BLOOD CELL COUNT (BEAKER) 2.68 M/ L 3.93-5.22 (test jlrp=608) HEMOGLOBIN (BEAKER) (test 7.7 GM/DL 11.2-15.7 fugw=350) HEMATOCRIT (BEAKER) (test 26.1 % 34.1-44.9 uysl=453) MEAN CORPUSCULAR VOLUME 97.4 fL 79.4-94.8 (BEAKER) (test qbdw=999) MEAN CORPUSCULAR HEMOGLOBIN 28.7 pg 25.6-32.2 (BEAKER) (test urrg=075) MEAN CORPUSCULAR HEMOGLOBIN 29.5 GM/DL 32.2-35.5 CONC (BEAKER) (test tpny=332) RED CELL DISTRIBUTION WIDTH 17.2 % 11.7-14.4 (BEAKER) (test fvuu=418) PLATELET COUNT (BEAKER) (test 197 K/CU MM 150-450 Discordant plt result mxso=079) Compare to previous result, Clinical correlation recommended. MEAN PLATELET VOLUME (BEAKER) 9.5 fL 9.4-12.3 (test gqnq=181) NUCLEATED RED BLOOD CELLS 0 /100 WBC 0-0 (BEAKER) (test sddg=091) NEUTROPHILS RELATIVE PERCENT 81 % (BEAKER) (test qzij=219) LYMPHOCYTES RELATIVE PERCENT 10 % (BEAKER) (test dxfo=433) MONOCYTES RELATIVE PERCENT 7 % (BEAKER) (test ypxy=936) EOSINOPHILS RELATIVE PERCENT 0 % (BEAKER) (test zper=573) BASOPHILS RELATIVE PERCENT 0 % (BEAKER) (test nqgm=101) NEUTROPHILS ABSOLUTE COUNT 11.91 K/ L 1.56-6.13 (BEAKER) (test dafg=296) LYMPHOCYTES ABSOLUTE COUNT 1.40 K/ L 1.18-3.74 (BEAKER) (test japt=259) MONOCYTES ABSOLUTE COUNT 1.09 K/ L 0.24-0.36 (BEAKER) (test ewev=193) EOSINOPHILS ABSOLUTE COUNT 0.03 K/ L 0.04-0.36 (BEAKER) (test pyqb=266) BASOPHILS ABSOLUTE COUNT 0.01 K/ L 0.01-0.08 (BEAKER) (test pszc=305) IMMATURE 2 % 0-1 GRANULOCYTES-RELATIVE PERCENT (BEAKER) (test qfwp=1143) BASIC METABOLIC [id number] 05:31:00 Test Item Value Reference Range Comments SODIUM (BEAKER) (test 134 meq/L 136-145 dmhm=266) POTASSIUM (BEAKER) (test 4.3 meq/L 3.5-5.1 odix=814) CHLORIDE (BEAKER) (test 104 meq/L 98-107 ychg=143) CO2 (BEAKER) (test 20 meq/L 22-29 rgfq=111) BLOOD UREA NITROGEN 16 mg/dL 7-21 (BEAKER) (test wxan=653) CREATININE (BEAKER) (test 0.74 mg/dL 0.57-1.25 adre=232) GLUCOSE RANDOM (BEAKER) 231 mg/dL 70-105 (test nrsi=207) CALCIUM (BEAKER) (test 8.4 mg/dL 8.4-10.2 nkdl=366) EGFR (BEAKER) (test 81 mL/min/1.73 sq m ESTIMATED GFR IS NOT msvz=5089) ACCURATE CREATININE CLEARANCE IN PREDICTING GLOMERULAR FILTRATION RATE. ESTIMATED GFR IS NOT APPLICABLE FOR DIALYSIS PATIENTS. POCT-GLUCOSE [id number] 13:11:00 Test Item Value Reference Range Comments POC-GLUCOSE METER (BEAKER) 198 mg/dL 70-110 TESTED AT [address] (test fjte=4815) [place] [id number] CBC W/PLT COUNT & AUTO [id number] 10:41:00 Test Item Value Reference Range Comments WHITE BLOOD CELL COUNT (BEAKER) (test yoof=621) 18.2 K/ L 3.5-10.5 RED BLOOD CELL COUNT (BEAKER) (test yddz=816) 3.02 M/ L 3.93-5.22 HEMOGLOBIN (BEAKER) (test ncox=901) 8.8 GM/DL 11.2-15.7 HEMATOCRIT (BEAKER) (test wfvs=245) 29.9 % 34.1-44.9 MEAN CORPUSCULAR VOLUME (BEAKER) (test hrvg=403) 99.0 fL 79.4-94.8 MEAN CORPUSCULAR HEMOGLOBIN (BEAKER) (test 29.1 pg 25.6-32.2 mceb=139) MEAN CORPUSCULAR HEMOGLOBIN CONC (BEAKER) (test 29.4 GM/DL 32.2-35.5 dclq=794) RED CELL DISTRIBUTION WIDTH (BEAKER) (test 17.6 % 11.7-14.4 yxtc=439) PLATELET COUNT (BEAKER) (test xwsb=173) 260 K/CU MM 150-450 MEAN PLATELET VOLUME (BEAKER) (test jrsp=211) 9.4 fL 9.4-12.3 NUCLEATED RED BLOOD CELLS (BEAKER) (test 0 /100 WBC 0-0 dalc=846) POCT-GLUCOSE [id number] 09:51:00 Test Item Value Reference Range Comments POC-GLUCOSE METER (BEAKER) 195 mg/dL 70-110 TESTED AT [address] (test atqw=0294) [facility] [address] BASIC METABOLIC [id number] 07:26:00 Test Item Value Reference Range Comments SODIUM (BEAKER) (test 132 meq/L 136-145 xsrp=420) POTASSIUM (BEAKER) (test 4.6 meq/L 3.5-5.1 Specimen slightly rgsl=066) hemolyzed CHLORIDE (BEAKER) (test 101 meq/L 98-107 meve=746) CO2 (BEAKER) (test 18 meq/L 22-29 ljuo=897) BLOOD UREA NITROGEN 24 mg/dL 7-21 (BEAKER) (test gqpg=056) CREATININE (BEAKER) (test 0.84 mg/dL 0.57-1.25 Specimen slightly kzmn=253) hemolyzed GLUCOSE RANDOM (BEAKER) 141 mg/dL 70-105 (test uehk=768) CALCIUM (BEAKER) (test 8.6 mg/dL 8.4-10.2 wavf=176) EGFR (BEAKER) (test 70 mL/min/1.73 sq m ESTIMATED GFR IS NOT wtit=0029) ACCURATE CREATININE CLEARANCE IN PREDICTING GLOMERULAR FILTRATION RATE. ESTIMATED GFR IS NOT APPLICABLE FOR DIALYSIS PATIENTS. RAD, SPINE, LUMBAR, 2 OR 3 [id number] 22:28:00Reason for exam:-> standing XR post opFINAL [...] MDReport Verified Date/Time: 10/27/2017 22:28:54 Reading Location: [address] Reading Room Electronically signed by: FEMI LARSEN M.D. on 09/2017 10:28 [id number] 09:38:00 Test Item Value Reference Range Comments POTASSIUM (BEAKER) (test xubc=762) 4.9 meq/L 3.5-5.1 BASIC METABOLIC [id number] 08:05:00 Test Item Value Reference Range Comments SODIUM (BEAKER) (test 138 meq/L 136-145 rcnj=960) POTASSIUM (BEAKER) (test 5.4 meq/L 3.5-5.1 sxed=519) CHLORIDE (BEAKER) (test 104 meq/L 98-107 gnmp=150) CO2 (BEAKER) (test 24 meq/L 22-29 jvgo=213) BLOOD UREA NITROGEN 26 mg/dL 7-21 (BEAKER) (test cazy=850) CREATININE (BEAKER) (test 0.85 mg/dL 0.57-1.25 raxg=945) GLUCOSE RANDOM (BEAKER) 155 mg/dL 70-105 (test lyde=446) CALCIUM (BEAKER) (test 8.8 mg/dL 8.4-10.2 ydwi=422) EGFR (BEAKER) (test 69 mL/min/1.73 sq m ESTIMATED GFR IS NOT eutc=0324) ACCURATE CREATININE CLEARANCE IN PREDICTING GLOMERULAR FILTRATION RATE. ESTIMATED GFR IS NOT APPLICABLE FOR DIALYSIS PATIENTS. CBC (HEMOGRAM ONLY)2017-10-27 04:22:00 Test Item Value Reference Range Comments WHITE BLOOD CELL COUNT (BEAKER) (test yfgn=338) 19.2 K/ L 3.5-10.5 RED BLOOD CELL COUNT (BEAKER) (test ammc=439) 3.52 M/ L 3.93-5.22 HEMOGLOBIN (BEAKER) (test vrsv=566) 10.3 GM/DL 11.2-15.7 HEMATOCRIT (BEAKER) (test rbdg=689) 34.7 % 34.1-44.9 MEAN CORPUSCULAR VOLUME (BEAKER) (test qtcq=382) 98.6 fL 79.4-94.8 MEAN CORPUSCULAR HEMOGLOBIN (BEAKER) (test 29.3 pg 25.6-32.2 wvcg=218) MEAN CORPUSCULAR HEMOGLOBIN CONC (BEAKER) (test 29.7 GM/DL 32.2-35.5 edqw=573) RED CELL DISTRIBUTION WIDTH (BEAKER) (test 17.8 % 11.7-14.4 nbpk=203) PLATELET COUNT (BEAKER) (test bbuh=505) 340 K/CU MM 150-450 MEAN PLATELET VOLUME (BEAKER) (test ndbd=254) 9.2 fL 9.4-12.3 NUCLEATED RED BLOOD CELLS (BEAKER) (test 0 /100 WBC 0-0 uzqq=326) [place], 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 Gonzalez, as an intra-procedure imaging consultationwas not requested. Reported fluoroscopy time: 0.4 minutes. Signed: Andreas Priec VerifiedDate/Time: 10/26/2017 18:15:50 Reading Location: [facility] Radiology Reading Room [place], ACADEMIC VICE PRESIDENT IN OR/30 MINUTE [id number] 16:23: 00Reason for exam:->renal cell ca spinal lessionFINAL REPORT Intraoperative fluoroscopy 5 views 10/26/2017 4:21 PM CLINICAL HISTORY: Instrument localization COMPARISON: None available IMPRESSION: Please correlate imaging report findings with the procedure note prepared by Dr. Gonzalez, as an intra-procedure imaging consultation was not requested. Reported fluoroscopy time: 8 seconds. Signed: Andreas Price Verified Date/Time: 2017 16:23:03 Reading Location: [facility] Radiology Reading Room Electronicallysigned by: ANDREAS PRICE M.D. on 10/26/2017 04:23 PMBASI METABOLIC [id number] 09:35:00 Test Item Value Reference Range Comments SODIUM (BEAKER) (test 138 meq/L 136-145 ktpj=877) POTASSIUM (BEAKER) (test 4.5 meq/L 3.5-5.1 gbnu=184) CHLORIDE (BEAKER) (test 100 meq/L 98-107 rbhi=724) CO2 (BEAKER) (test 28 meq/L 22-29 nvot=715) BLOOD UREA NITROGEN 30 mg/dL 7-21 (BEAKER) (test qxrt=966) CREATININE (BEAKER) (test 0.86 mg/dL 0.57-1.25 kcru=759) GLUCOSE RANDOM (BEAKER) 99 mg/dL 70-105 (test pqvo=657) CALCIUM (BEAKER) (test 9.6 mg/dL 8.4-10.2 zgyz=787) EGFR (BEAKER) (test 68 mL/min/1.73 sq m ESTIMATED GFR IS NOT mzlq=3311) ACCURATE CREATININE CLEARANCE IN PREDICTING GLOMERULAR FILTRATION RATE. ESTIMATED GFR IS NOT APPLICABLE FOR DIALYSIS PATIENTS. BASIC METABOLIC [id number] 09:02:00 Test Item Value Reference Range Comments SODIUM (BEAKER) (test 141 meq/L 136-145 uajh=875) POTASSIUM (BEAKER) (test 5.4 meq/L 3.5-5.1 fwxb=273) CHLORIDE (BEAKER) (test 102 meq/L 98-107 kdwf=913) CO2 (BEAKER) (test 29 meq/L 22-29 qzxc=695) BLOOD UREA NITROGEN 30 mg/dL 7-21 (BEAKER) (test pklg=771) CREATININE (BEAKER) (test 0.86 mg/dL 0.57-1.25 vwff=278) GLUCOSE RANDOM (BEAKER) 140 mg/dL 70-105 (test kjnq=410) CALCIUM (BEAKER) (test 9.9 mg/dL 8.4-10.2 cmln=668) EGFR (BEAKER) (test 68 mL/min/1.73 sq m ESTIMATED GFR IS NOT ulzj=6111) ACCURATE CREATININE CLEARANCE IN PREDICTING GLOMERULAR FILTRATION RATE. ESTIMATED GFR IS NOT APPLICABLE FOR DIALYSIS PATIENTS. PT/[id number] 08:57:00 Test Item Value Reference Range Comments PROTIME (BEAKER) (test jikt=248) 14.1 seconds 11.7-14.7 INR (BEAKER) (test cjzs=518) 1.1 <=5.9 PARTIAL THROMBOPLASTIN TIME (BEAKER) (test 23.6 seconds 22.5-36.0 huot=623) RECOMMENDED COUMADIN/WARFARIN INR THERAPY RANGESSTANDARD DOSE: 2.0 - 3.0 Includes: PROPHYLAXIS forvenous thrombosis, systemic embolization; TREATMENT for venous thrombosis and/or pulmonary embolus.HIGH RISK: Target INR is 2.5-3.5 for patients with mechanical heart valves.CBC W/PLT COUNT & AUTO [id number] 08:50:00 Test Item Value Reference Range Comments WHITE BLOOD CELL COUNT (BEAKER) (test mjjd=584) 15.8 K/ L 3.5-10.5 RED BLOOD CELL COUNT (BEAKER) (test ctxe=475) 4.49 M/ L 3.93-5.22 HEMOGLOBIN (BEAKER) (test gvqg=228) 12.9 GM/DL 11.2-15.7 HEMATOCRIT (BEAKER) (test jend=215) 43.0 % 34.1-44.9 MEAN CORPUSCULAR VOLUME (BEAKER) (test gyii=649) 95.8 fL 79.4-94.8 MEAN CORPUSCULAR HEMOGLOBIN (BEAKER) (test 28.7 pg 25.6-32.2 kyqs=915) MEAN CORPUSCULAR HEMOGLOBIN CONC (BEAKER) (test 30.0 GM/DL 32.2-35.5 huxq=780) RED CELL DISTRIBUTION WIDTH (BEAKER) (test 17.1 % 11.7-14.4 czrn=375) PLATELET COUNT (BEAKER) (test iurg=912) 403 K/CU MM 150-450 MEAN PLATELET VOLUME (BEAKER) (test mpnz=752) 8.3 fL 9.4-12.3 NUCLEATED RED BLOOD CELLS (BEAKER) (test 0 /100 WBC 0-0 ncgz=518) NEUTROPHILS RELATIVE PERCENT (BEAKER) (test 77 % lqsw=682) LYMPHOCYTES RELATIVE PERCENT (BEAKER) (test 12 % rhdx=656) MONOCYTES RELATIVE PERCENT (BEAKER) (test 8 % csyo=417) EOSINOPHILS RELATIVE PERCENT (BEAKER) (test 0 % tvyt=862) BASOPHILS RELATIVE PERCENT (BEAKER) (test 0 % ovun=333) NEUTROPHILS ABSOLUTE COUNT (BEAKER) (test 12.13 K/ L 1.56-6.13 lxwf=854) LYMPHOCYTES ABSOLUTE COUNT (BEAKER) (test 1.85 K/ L 1.18-3.74 ppwg=850) MONOCYTES ABSOLUTE COUNT (BEAKER) (test 1.24 K/ L 0.24-0.36 jmun=367) EOSINOPHILS ABSOLUTE COUNT (BEAKER) (test 0.00 K/ L 0.04-0.36 ymfr=069) BASOPHILS ABSOLUTE COUNT (BEAKER) (test 0.03 K/ L 0.01-0.08 aydl=901) IMMATURE GRANULOCYTES-RELATIVE PERCENT (BEAKER) 4 % 0-1 (test ecet=2893) MR, SPINE, LUMBAR, [id number] 08:56:00FINAL REPORT MRI lumbar spine with and [...] Ramirez Verified Date/Time: 10/24/2017 08:56:43 Reading Location: [facility] Radiology Reading Room CT, SPINE, LUMBAR, WO [id number] 20:52:00FINAL REPORT CT lumbar spine INDICATION: Spine [...] MDReport Verified Date/Time: 10/23/2017 20:52:10 Reading Location: [facility] RadiologyReading [facility] METABOLIC [id number] 15:40:00 Test Item Value Reference Range Comments SODIUM (BEAKER) (test 138 meq/L 136-145 cvif=522) POTASSIUM (BEAKER) (test 4.4 meq/L 3.5-5.1 kbnc=893) CHLORIDE (BEAKER) (test 100 meq/L 98-107 lkbj=641) CO2 (BEAKER) (test 25 meq/L 22-29 plue=587) BLOOD UREA NITROGEN 31 mg/dL 7-21 (BEAKER) (test mqem=059) CREATININE (BEAKER) (test 0.85 mg/dL 0.57-1.25 nyxc=116) GLUCOSE RANDOM (BEAKER) 172 mg/dL 70-105 (test gwfe=002) CALCIUM (BEAKER) (test 9.7 mg/dL 8.4-10.2 azdj=707) EGFR (BEAKER) (test 69 mL/min/1.73 sq m ESTIMATED GFR IS NOT dfxu=3384) ACCURATE CREATININE CLEARANCE IN PREDICTING GLOMERULAR FILTRATION RATE. ESTIMATED GFR IS NOT APPLICABLE FOR DIALYSIS PATIENTS. PROTHROMBIN [id number] 15:10:00 Test Item Value Reference Range Comments PROTIME (BEAKER) (test ddlf=231) 14.9 seconds 11.7-14.7 INR (BEAKER) (test wcrf=097) 1.2 <=5.9 RECOMMENDED COUMADIN/WARFARIN INR THERAPY RANGESSTANDARD DOSE: 2.0 - 3.0 Includes: PROPHYLAXIS forvenous thrombosis, systemic embolization; TREATMENT for venous thrombosis and/or pulmonary embolus.HIGH RISK: Target INR is 2.5-3.5 for patients with mechanical heart valves.[id number] 15:10:00 Test Item Value Reference Range Comments PARTIAL THROMBOPLASTIN TIME (BEAKER) (test 24.9 seconds 22.5-36.0 onpl=247) CBC W/PLT COUNT & AUTO [id number] 14:29:00 Test Item Value Reference Range Comments WHITE BLOOD CELL COUNT (BEAKER) (test mkht=842) 12.0 K/ L 3.5-10.5 RED BLOOD CELL COUNT (BEAKER) (test hhzn=791) 3.68 M/ L 3.93-5.22 HEMOGLOBIN (BEAKER) (test edvr=497) 10.6 GM/DL 11.2-15.7 HEMATOCRIT (BEAKER) (test wrpq=366) 35.5 % 34.1-44.9 MEAN CORPUSCULAR VOLUME (BEAKER) (test dbcm=831) 96.5 fL 79.4-94.8 MEAN CORPUSCULAR HEMOGLOBIN (BEAKER) (test 28.8 pg 25.6-32.2 kuqe=742) MEAN CORPUSCULAR HEMOGLOBIN CONC (BEAKER) (test 29.9 GM/DL 32.2-35.5 krpx=912) RED CELL DISTRIBUTION WIDTH (BEAKER) (test 17.1 % 11.7-14.4 dfmp=821) PLATELET COUNT (BEAKER) (test qvti=696) 375 K/CU MM 150-450 MEAN PLATELET VOLUME (BEAKER) (test wnze=326) 8.8 fL 9.4-12.3 NUCLEATED RED BLOOD CELLS (BEAKER) (test 1 /100 WBC 0-0 okzd=565) NEUTROPHILS RELATIVE PERCENT (BEAKER) (test 77 % thnd=357) LYMPHOCYTES RELATIVE PERCENT (BEAKER) (test 12 % jzgm=286) MONOCYTES RELATIVE PERCENT (BEAKER) (test 6 % olds=494) EOSINOPHILS RELATIVE PERCENT (BEAKER) (test 0 % eypq=624) BASOPHILS RELATIVE PERCENT (BEAKER) (test 1 % lspl=771) NEUTROPHILS ABSOLUTE COUNT (BEAKER) (test 9.21 K/ L 1.56-6.13 cipi=557) LYMPHOCYTES ABSOLUTE COUNT (BEAKER) (test 1.38 K/ L 1.18-3.74 ywxo=978) MONOCYTES ABSOLUTE COUNT (BEAKER) (test 0.70 K/ L 0.24-0.36 dsxu=598) EOSINOPHILS ABSOLUTE COUNT (BEAKER) (test 0.00 K/ L 0.04-0.36 kwra=272) BASOPHILS ABSOLUTE COUNT (BEAKER) (test 0.06 K/ L 0.01-0.08 zxvr=419) IMMATURE GRANULOCYTES-RELATIVE PERCENT (BEAKER) 5 % 0-1 (test ssze=9804)
[2017-12-22] MEDS ORDERED: MEPERIDINE HCL 25 MG/0.5 ML ONE (15:13)
[2017-12-22] MEDS ORDERED: NA CHLORIDE 0.9% 500 ML ONE ×2 (15:13→17:48)
[2017-12-22 15:19] LABS: Absolute Lymphocytes (CBC) 1.3 K/uL (0.7-4.9); Absolute Monocytes 0.8 K/uL (0.1-1.3); Absolute Neutrophil 9.2 K/uL (1.8-8.0); Basophils % 0.2 % (0-1.3); Eosinophils % 0.3 % (0-4.4); Hematocrit 31.8 % (36.0-45.0); Lymphocytes % 11.4 % (15.3-44.8); MCH 26.4 pg (27.0-35.0); MCV 85.7 fL (80-100); MPV 6.6 fL (7.6-11.3); Monocytes % 7.4 % (3.3-12.3); RBC Red Blood Cell Count 3.71 M/uL (3.86-4.86)
[2017-12-22 15:22] LABS: Protime INR 1.27
--- NOTE | 2017-12-22 15:24 | RAD REPORT ---
EXAM DESCRIPTION: Osmany Single View12/22/2017 3:17 pm CLINICAL HISTORY: Chest pain COMPARISON: December 08 2017 FINDINGS: Complete opacification left hemithorax is seen. Small right pleural effusion is present. A PICC line is in place IMPRESSION: Complete opacification left hemithorax. The majority of this likely represents atelectas is
[2017-12-22] MEDS ORDERED: LEVALBUTEROL 1.25 MG/3 ML NEB ONE (15:38)
[2017-12-22 15:43] LABS: Albumin 1.7 g/dL (3.4-5.0); Bilirubin Direct 0.1 mg/dL (0-0.2); Bilirubin Total 0.4 mg/dL (0.2-1.0); Magnesium 1.9 mg/dL (1.8-2.4); Potassium 3.8 mmol/L (3.5-5.1); Protein, Total 6.9 g/dL (6.4-8.2)
--- NOTE | 2017-12-22 16:19 | RAD REPORT ---
EXAM DESCRIPTION: CT - Chest For Pe Angio - 12/22/2017 4:06 pm CLINICAL HISTORY: Chest pain COMPARISON: October 2017 TECHNIQUE: Dynamically enhanced axial 3 mm thick images of the chest were obtained during administra tion of <100> mL Isovue 370 IV contrast. Coronal and oblique reconstruction images were generated and reviewed. Exam utilizes a protocol for optimal evaluation of pulmonary arterial tree. Maximum intensity projections 3D imaging was utilized All CT scans are performed using dose optimization technique as appropriate and may include automated exposure control or mA/KV adjustment according to patient size. FINDINGS: A pulmonary embolus is not seen. A thoracic aortic aneurysm is not noted. Large left lung mass occludes left upper and left lower lobe bronchi resulting in atelectasis. A smal l to moderate left pleural effusion is present. The left main pulmonary artery is encased by mass. Marked mediastinal and hilar lymphadenopathy is present. A small pleural effusion is seen. Several right lung nodules measure up to 1 centimeter. IMPRESSION: Negative for a pulmonary embolism. Large left lung mass occludes the left upper and left lower lobe bronchi resulting in atelectasis. Marked mediastinal and hilar lymphadenopathy Small to moderate left pleural effusion
--- NOTE | 2017-12-22 17:23 | EDPHYS ---
Physician Documentation [facility] Name: Lotus Pelaez Age: 57 yrs Sex: Female : 1960 Arrival Date: 12/22/2017 Time: 14:50 Bed 2 Private MD: ED Physician Luis Sanchez HPI: 12/22 16:00 This 57 yrs old Female presents to ER via EMS with complaints of Chest Pain. rn 16:00 The patient or guardian reports chest pain that is located primarily in the chest rn diffusely. Onset: today. The pain does not radiate. Associated signs and symptoms: Pertinent positives: abdominal pain, cough, shortness of breath, Pertinent negatives: syncope. The chest pain is described as sharp, stabbing. Modifying factors: The symptoms are alleviated by nothing. the symptoms are aggravated by nothing. Severity of pain: At its worst the pain was mild in the emergency department the pain is unchanged. The patient has not experienced similar symptoms in the past. Reports chest pain, diffuse, assoc with cough and sob. 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 Just discharged yesterday from [facility]. . Historical: - Allergies: 14:59 NSAIDS (Non-Steroidal Anti-Inflammatory Drug); hb - Home Meds: 14:59 carvedilol 25 mg Oral tab 1 tab 2 times per day [Active]; ceftriaxone 1 gram injection. hb Inject 1g IV BID x 32 days [Active]; dexamethasone 4 mg Oral tab 1 tab once daily [Active]; diazepam 2 mg Oral tab 1 tab 3 times per day [Active]; docusate sodium 100 mg Oral cap three times a day [Active]; guaifenesin 600 mg Oral Ta12 1 tab every 12 hours [Active]; hydrocodone-acetaminophen 7.5-325 mg Oral tab 1 tab every 6 hours [Active]; lisinopril-hydrochlorothiazide 20-12.5 mg Oral tab 1 tab once daily [Active]; morphine 15 mg Oral tab 1 tab twice a day [Active]; nystatin Topical [Active]; ondansetron HCl 8 mg Oral tab 1 tab 3 times per day [Active]; pantoprazole 40 mg Oral TbEC 1 tab once daily [Active]; polyethyleneglycol 17 gram packet. 17g PO daily x 10 days [Active]; senna 8.6 mg Oral tab 2 tabs BID [Active]; simethicone 80 mg Oral chew every 6 hours [Active]; Synthroid 50 mcg Oral tab 1 tab once daily [Active]; Zofran (as hydrochloride) 8 mg Oral tab 1 tab every 8 hours [Active]; - PMHx: 14:59 Hypertension; Hypothyroidism; Lung cancer mets; Renal Cancer; hb - PSHx: 14:59 back surgery; hb - Immunization history:: Adult Immunizations up to date. - Social history:: Smoking status: Patient/guardian denies using tobacco. - Ebola Screening: : No symptoms or risks identified at this time. - Family history:: not pertinent. - Hospitalizations: : No recent hospitalization is reported. ROS: 16:00 Constitutional: Negative for fever, chills, and weight loss, Eyes: Negative for injury, rn pain, redness, and discharge, Cardiovascular: Negative for palpitations, and edema, Respiratory: Negative for wheezing Abdomen/GI: Negative for diarrhea, and constipation, MS/Extremity: Negative for injury and deformity, Skin: Negative for injury, rash, and discoloration, Neuro: Negative for headache, numbness, tingling, and seizure, + generalized weakness Exam: 16:00 Constitutional: Overweight female, + mild tachypnea Head/Face: Normocephalic, rn atraumatic. Eyes: Pupils equal round and reactive to light, extra-ocular motions intact. Lids and lashes normal. Conjunctiva and sclera are non-icteric and not injected. Cornea within normal limits. Periorbital areas with no swelling, redness, or edema. Neck: Trachea midline, no thyromegaly or masses palpated, and no cervical lymphadenopathy. Supple, full range of motion without nuchal rigidity, or vertebral point tenderness. No Meningismus. Cardiovascular: Regular rate and rhythm with a normal S1 and S2. No gallops, murmurs, or rubs. Normal PMI, no JVD. No pulse deficits. Respiratory: + diminished breath sounds left thorax, no wheezing, + tachypnea, no retractions, speaking 5-6 word sentences Abdomen/GI: soft, mild epigastric tenderness, no rebound, + mid abd feeding tube without evidence of infection MS/ Extremity: Pulses equal, no cyanosis. Neurovascular intact. Full, normal range of motion. Equal circumference. Neuro: Awake and alert, GCS 15, oriented to person, place, time, and situation. Cranial nerves II-XII grossly intact. Motor strength 4/5 in all extremities. Sensory grossly intact. Vital Signs: 14:52 BP 139 / 69; Pulse 100; Resp 18; Temp 98.1; Pulse Ox 100% on R/A; Pain 7/10; hb 15:49 BP 111 / 55; Pulse 92; Resp 17; Pulse Ox 100% on Nebulizer Mask; hb 16:00 Pulse Ox 99% on 35% BiPAP; hb 17:00 BP 122 / 55; Pulse 97; Resp 18; Pulse Ox 98% on 3 lpm NC; hb 17:45 BP 100 / 57; Pulse 93; Resp 17; Pulse Ox 97% on 3 lpm NC; dh3 18:47 BP 107 / 65; Pulse 90; Resp 17; Pulse Ox 99% on 3 lpm NC; hb MDM: 14:52 Patient medically screened. rn 17:06 Differential diagnosis: acute myocardial infarction, acute pericarditis, congestive rn pediatric icu failure costochondritis, esophagitis, gastritis, gastroesophageal reflux disease (GERD), pericarditis, pleurisy, pneumonia, pneumothorax, pulmonary embolus. 17:20 Data reviewed: vital signs, nurses notes, lab test result(s), EKG, radiologic studies, rn CT scan, plain films, and as a result, I will admit patient. Counseling: I had a detailed discussion with the patient and/or guardian regarding: the historical points, exam findings, and any diagnostic results supporting the discharge/admit diagnosis, lab results, radiology results, the need to transfer to another facility, for higher level of care. Response to treatment: the patient's symptoms have mildly improved after treatment, and as a result, I will admit patient. Admission orders: after a detailed discussion of the patient's condition and case, the admit orders are written by me. ED course: Accepted for transfer to [facility] ICU for compressive atelectasis left lung. . 12/22 14:53 Order name: Basic Metabolic Panel; Complete Time: 15:45 rn 12/22 14:53 Order name: CBC with Diff; Complete Time: 15:28 rn 12/22 14:53 Order name: Creatinine for Radiology; Complete Time: 15:45 rn 12/22 14:53 Order name: Hepatic Function; Complete Time: 15:45 rn 12/22 14:53 Order name: Lipase; Complete Time: 15:45 12/22 14:53 Order name: Urine Microscopic Only 12/22 14:53 Order name: Blood Culture Adult (2) 12/22 14:53 Order name: Magnesium; Complete Time: 15:45 12/22 14:53 Order name: NT PRO-BNP; Complete Time: 15:45 12/22 14:53 Order name: PT-INR; Complete Time: 15:26 12/22 14:53 Order name: Ptt, Activated; Complete Time: 15:26 12/22 14:53 Order name: Troponin (emerg Dept Use Only); Complete Time: 15:45 12/22 17:36 Order name: Urine Culture EDHI 12/22 17:37 Order name: Urine Dipstick--Ancillary (enter results) 12/22 14:53 Order name: IV Saline Lock; Complete Time: 15:06 12/22 14:53 Order name: Labs collected and sent; Complete Time: 15:08 12/22 14:53 Order name: Urine Dipstick-Ancillary (obtain specimen); Complete Time: 17:14 12/22 14:53 Order name: EKG; Complete Time: 14:54 12/22 14:53 Order name: Cardiac monitoring; Complete Time: 15:07 12/22 14:53 Order name: EKG - Nurse/Tech; Complete Time: 15:08 12/22 14:53 Order name: XRAY Chest (1 view); Complete Time: 15:26 12/22 15:46 Order name: CT Chest For PE Angio; Complete Time: 16:20 12/22 16:24 Order name: BIPAP 12/22 17:37 Order name: Urine --Ancillary (enter results) 12/22 14:53 Order name: O2 Per Protocol; Complete Time: 15:08 12/22 14:53 Order name: O2 Sat Monitoring; Complete Time: 15:08 rn Administered Medications: 15:09 Drug: NS 0.9% 500 ml Route: IV; Rate: bolus; Site: PICC; hb 15:40 Follow up: Response: No adverse reaction; IV Status: Completed infusion hb 15:09 Drug: Demerol 25 mg Route: IVP; Site: PICC; hb 15:30 Follow up: Response: No adverse reaction; Pain is decreased hb 15:43 Drug: Xopenex 1.25 mg Route: Inhalation; hb 16:15 Follow up: Response: No adverse reaction hb 18:01 Drug: NS 0.9% 500 ml Route: IV; Rate: bolus; Site: PICC; hb 18:42 Follow up: Response: No adverse reaction; IV Status: Completed infusion hb 18:02 Drug: fentaNYL (PF) 25 mcg Route: IVP; Site: PICC; hb 18:41 Follow up: Response: No adverse reaction; Pain is decreased hb 18:41 Drug: Zofran 2 mg Route: IVP; Site: PICC; hb 18:42 Follow up: Response: Medication administered at discharge. hb Disposition: 12/22/17 17:24 Transfer ordered to [facility]. Diagnosis are Compressive atelectasis of left lung, Dyspnea, unspecified, Lung mass. - Reason for transfer: Higher level of care. - Accepting physician is . - Condition is Fair. - Problem is new. - Symptoms have improved. Signatures: Dispatcher [employer] EDMS Luis Sanchez MD MD rn Baxter, Heather, RN RN Corrections: (The following items were deleted from the chart) 17:23 17:23 12/22/2017 17:23 Discharged to Home. Impression: Chest pain, unspecified; rn Compressive atelectasis; Dyspnea, unspecified. Condition is Stable. Forms are SBAR form, Medication Reconciliation Form, Thank You Letter, Antibiotic Education, Prescription Opioid Use. Follow up: Private Physician; When: As needed; Reason: Recheck today's complaints, Re-evaluation by your physician. Problem is new. Symptoms have improved. rn 18:49 17:24 12/22/2017 17:24 Transfer ordered to [facility]. Diagnosis is hb Compressive atelectasis of left lung; Dyspnea, unspecified; Lung mass. Reason for transfer: Higher level of care. Accepting physician is . Condition is Fair. Problem is new. Symptoms have improved. rn
--- NOTE | 2017-12-22 17:23 | EKG ---
Test Date: 2017-12-22 Test Time: 14:51:10 Drop Wire Builder: KAMILLA MEASUREMENT RESULTS: Intervals: Rate: 100 SC: 154 QRSD: 82 QT: 332 QTc: 428 [place]: P: 50 SC: 154 QRS: 48 T: 58 INTERPRETIVE STATEMENTS: Normal sinus rhythm Possible Left atrial enlargement Borderline ECG Compared to ECG 12/08/2017 10:24:02 No significant changes Electronically Signed On 12-22-17 17:22:51 CDT by Hawk Cortez
--- NOTE | 2017-12-22 17:23 | ER ---
Nurse's Notes [facility] Name: Lotus Pelaez Age: 57 yrs Sex: Female : 1960 Arrival Date: 12/22/2017 Time: 14:50 Bed 2 Private MD: Diagnosis: Compressive atelectasis of left lung;Dyspnea, unspecified;Lung mass Presentation: 12/22 14:52 Presenting complaint: EMS states: Pt reports chest pain and SOB x 2 days. Recently hb discharged from [facility] for GI bleed and multiple tumors in chest/lungs. Transition of care: patient was not received from another setting of care. Onset of symptoms was December 21, 2017. Risk Assessment: Do you want to hurt yourself or someone else? Patient reports no desire to harm self or others. Initial Sepsis Screen: Does the patient meet any 2 criteria? No. Patient's initial sepsis screen is negative. Does the patient have a suspected source of infection? No. Patient's initial sepsis screen is negative. Care prior to arrival: None. 14:52 Method Of Arrival: EMS: [facility] 14:52 Acuity: MAXWELL 3 hb Historical: - Allergies: 14:59 NSAIDS (Non-Steroidal Anti-Inflammatory Drug); hb - Home Meds: 14:59 carvedilol 25 mg Oral tab 1 tab 2 times per day [Active]; ceftriaxone 1 gram injection. hb Inject 1g IV BID x 32 days [Active]; dexamethasone 4 mg Oral tab 1 tab once daily [Active]; diazepam 2 mg Oral tab 1 tab 3 times per day [Active]; docusate sodium 100 mg Oral cap three times a day [Active]; guaifenesin 600 mg Oral Ta12 1 tab every 12 hours [Active]; hydrocodone-acetaminophen 7.5-325 mg Oral tab 1 tab every 6 hours [Active]; lisinopril-hydrochlorothiazide 20-12.5 mg Oral tab 1 tab once daily [Active]; morphine 15 mg Oral tab 1 tab twice a day [Active]; nystatin Topical [Active]; ondansetron HCl 8 mg Oral tab 1 tab 3 times per day [Active]; pantoprazole 40 mg Oral TbEC 1 tab once daily [Active]; polyethyleneglycol 17 gram packet. 17g PO daily x 10 days [Active]; senna 8.6 mg Oral tab 2 tabs BID [Active]; simethicone 80 mg Oral chew every 6 hours [Active]; Synthroid 50 mcg Oral tab 1 tab once daily [Active]; Zofran (as hydrochloride) 8 mg Oral tab 1 tab every 8 hours [Active]; - PMHx: 14:59 Hypertension; Hypothyroidism; Lung cancer mets; Renal Cancer; hb - PSHx: 14:59 back surgery; hb - Immunization history:: Adult Immunizations up to date. - Social history:: Smoking status: Patient/guardian denies using tobacco. - Ebola Screening: : No symptoms or risks identified at this time. - Family history:: not pertinent. - Hospitalizations: : No recent hospitalization is reported. Screenin:55 Abuse screen: Denies threats or abuse. Denies injuries from another. Nutritional hb screening: No deficits noted. Tuberculosis screening: No symptoms or risk factors identified. Fall Risk Total Merchant Fall Scale indicates Low Risk Score (25-44 pts). Fall prevention measures have been instituted. Side Rails Up X 2 Frequent Obs/Assesments occuring Family Present and informed to notify staff if they need to leave bedside As available Patient and Family Educated on Fall Prevention Program and strategies. Assessment: 15:00 General: Appears distressed, ill, Behavior is cooperative, anxious. Pain: Complains of hb pain in substernal, epigastric Pain does not radiate. Pain began gradually, 1 day ago. Neuro: Level of Consciousness is awake, alert, obeys commands, Oriented to person, place, time, situation. Cardiovascular: Heart tones S1 S2 present Capillary refill < 3 seconds Patient's skin is warm and dry. Respiratory: Airway is patent Trachea midline Respiratory effort is even, labored, Respiratory pattern is regular, symmetrical, Breath sounds are diminished bilaterally. GI: Abdomen is non-distended, Bowel sounds present X 4 quads. Abdomen is tender to palpation in epigastric area, right upper quadrant and left upper quadrant. : No signs and/or symptoms were reported regarding the genitourinary system. EENT: No signs and/or symptoms were reported regarding the EENT system. Derm: Skin is intact, with poor turgor Skin is dry, Skin is pale, Skin temperature is warm. 16:00 Reassessment: Patient appears in no apparent distress at this time. No changes from hb previously documented assessment. Patient and/or family updated on plan of care and expected duration. Pain level reassessed. Family remains at bedside. Pt on BIPAP 35%. 16:35 Reassessment: PT not tolerating BIPAP, removed mask. Placed on 3LNC. Dr. Sanchez aware. hb Transfer to [facility] pending. 17:00 Reassessment: Patient appears in no apparent distress at this time. Patient and/or hb family updated on plan of care and expected duration. Pain level reassessed. Pt remains on 3LNC, family at bedside. 18:00 Reassessment: Patient appears in no apparent distress at this time. Patient and/or hb family updated on plan of care and expected duration. Pain level reassessed. Patient is alert, oriented x 3, equal unlabored respirations, skin warm/dry/pink. Vital Signs: 14:52 BP 139 / 69; Pulse 100; Resp 18; Temp 98.1; Pulse Ox 100% on R/A; Pain 7/10; hb 15:49 BP 111 / 55; Pulse 92; Resp 17; Pulse Ox 100% on Nebulizer Mask; hb 16:00 Pulse Ox 99% on 35% BiPAP; hb 17:00 BP 122 / 55; Pulse 97; Resp 18; Pulse Ox 98% on 3 lpm NC; hb 17:45 BP 100 / 57; Pulse 93; Resp 17; Pulse Ox 97% on 3 lpm NC; dh3 18:47 BP 107 / 65; Pulse 90; Resp 17; Pulse Ox 99% on 3 lpm NC; hb ED Course: 14:50 Patient arrived in ED. sv 14:52 Luis Sanchez MD is Attending Physician. rn 14:55 Triage completed. hb 14:58 EKG done, by outdoor emergency care technician. reviewed by Luis Sanchez MD. sm3 15:00 Accessed PICC line. Clean \T\ dry. Good blood return. Flushes easily. ss 15:00 Patient has correct armband on for positive identification. Placed in gown. Bed in low hb position. Call light in reach. Side rails up X2. secured entrance monitor on. Pulse ox on. NIBP on. 15:07 Arm band placed on left wrist. hb 15:16 XRAY Chest (1 view) In Process Unspecified. EDMS 15:23 Second set of blood cultures drawn by ia, by venipuncture 23G to right forearm. dh3 15:33 Jackie Causey, RN is Primary Nurse. hb 15:54 Patient moved to IN. nj 16:06 CT completed. Patient tolerated procedure well. Patient moved back from IN. nj 16:06 CT Chest For PE Angio In Process Unspecified. EDMS 17:13 Urine collected: clean catch specimen, eloise colored. dh3 18:00 Oxygen administration via nasal cannula \T\ 3L/min. hb 18:02 BIPAP Sent. hb 18:48 No provider procedures requiring assistance completed. Patient transferred, IV remains hb in place. Administered Medications: 15:09 Drug: NS 0.9% 500 ml Route: IV; Rate: bolus; Site: PICC; hb 15:40 Follow up: Response: No adverse reaction; IV Status: Completed infusion hb 15:09 Drug: Demerol 25 mg Route: IVP; Site: PICC; hb 15:30 Follow up: Response: No adverse reaction; Pain is decreased hb 15:43 Drug: Xopenex 1.25 mg Route: Inhalation; hb 16:15 Follow up: Response: No adverse reaction hb 18:01 Drug: NS 0.9% 500 ml Route: IV; Rate: bolus; Site: PICC; hb 18:42 Follow up: Response: No adverse reaction; IV Status: Completed infusion hb 18:02 Drug: fentaNYL (PF) 25 mcg Route: IVP; Site: PICC; hb 18:41 Follow up: Response: No adverse reaction; Pain is decreased hb 18:41 Drug: Zofran 2 mg Route: IVP; Site: PICC; hb 18:42 Follow up: Response: Medication administered at discharge. hb Outcome: 17:23 Discharge ordered by . rn 17:24 ER care complete, transfer ordered by . rn 18:48 Transferred by ground EMS to [facility]. hb 18:48 Condition: stable 18:48 Instructed on the need for transfer, Demonstrated understanding of instructions. 18:49 Patient left the ED. hb Addendum: 12/27/2017 07:50 Addendum: Culture Results: Positive urine culture. Phone call Attempt #1 call [facility]. Pt no longer in log at [facility], patients disposition unknown. 07:51 Addendum: Culture Results: Phone call Attempt #2 no answer. s s Signatures: Dispatcher [employer] Keeley Davis RN RN sv Nieto, Roman, MD MD rn Smirch, Shelby, RN RN ss Baxter, Heather, RN RN hb Jordan, Nathan nj Herrera, Deanna [facility] Cecilia Berrios 3 Corrections: (The following items were deleted from the chart) 12/22 15:49 15:49 BP 111 / 55; Pulse 92bpm; Resp 17bpm; Pulse Ox 100% 02 9% Nebulizer Mask; hb hb
[2017-12-22 17:35] LABS: Urine Bacteria <20 /HPF (<20); Urine Culture Reflex Order REFLEXED; Urine RBC <5 /HPF (NONE SEEN); Urine Yeast FEW (NONE SEEN)
[2017-12-22 17:36] LABS: Urine Yeast with Hyphae PRESENT
[2017-12-22] MEDS ORDERED: FENTANYL CITR 100 MCG/2 ML ONE (17:48)
[2017-12-22 17:55] LABS: Urine Blood TRACE (NEG); Urine Glucose NEGATIVE (NEG); Urine Protein 1+ (NEG); Urine Specific Gravity 1.015 (1.005-1.030); Urine pH 8.5 (5.0-7.0)
[2017-12-22] MEDS ORDERED: ONDANSETRON 4 MG/2 ML VIAL ONE (18:35)
[2017-12-22 18:53] VITALS: TEMP 98.1
[2017-12-22 18:59] VITALS: BP 107/65; O2SAT 99
== END 2017-12-22 18:49 | disposition short-term general hospital (02) ==
LOC: ER 14:46
DX: J98.11 Atelectasis (principal); R91.8 Other nonspecific abnormal finding of lung field; R06.00 Dyspnea, unspecified; I10 Essential (primary) hypertension; E03.9 Hypothyroidism, unspecified; Z85.118 Personal history of other malignant neoplasm of bronchus and lung; Z85.53 Personal history of malignant neoplasm of renal pelvis; Z88.6 Allergy status to analgesic agent
CPT/HCPCS: 36415; 71045; 71275; 80048; 80076; 81025; 83690; 83735; 83880; 84484; 85025; 85610; 85730; 87040 ×2; 87086; 87088; 93005; 94660; 96361; 96374; 96375; 99285; J2175; J2405; J3010; Q9967; 81003; 81015; 87077; 87186